=== PATIENT | male | born 1940 | race Caucasian/White ===

== ENCOUNTER 2018-10-25 02:12 | Inpatient (IN) | payer MEDICARE ==
[~2018-10-25] VITALS: Ht 182.9 cm; Wt 80.3 kg
[2018-10-25] MEDS ORDERED: DOCU-109 PO (04:04)
[2018-10-25] MEDS ORDERED: HYDR100T24 PO (04:04)
[2018-10-25] MEDS ORDERED: AMLO10TA4 PO (04:04)
[2018-10-25] MEDS ORDERED: CLON1PAT3 TD (04:04)
[2018-10-25] MEDS ORDERED: ATOR40TA59 PO (04:04)
[2018-10-25] MEDS ORDERED: MIRT15TA3 PO (04:04)
[2018-10-25] MEDS ORDERED: TAMS0.4C97 PO (04:04)
[2018-10-25] MEDS ORDERED: NEBI5TAB2 PO (04:04)
[2018-10-25] MEDS ORDERED: CIPR500T PO (04:04)
[2018-10-25] MEDS ORDERED: MULT1TAB52 PO (04:04)
[2018-10-25] MEDS ORDERED: ASPI-612 PO (04:04)
[2018-10-25] MEDS ORDERED: QUET25TA5 PO (04:04)
[2018-10-25] MEDS ORDERED: POLY15DR20 OP (04:04)
[2018-10-25] MEDS ORDERED: FURO-69 PO (04:04)
[2018-10-25] MEDS ORDERED: MAG HYDROX/AL HYDROX/SIMETH 30 ML ORAL.SUSP PO PRN (04:15)
[2018-10-25] MEDS ORDERED: METHYL SALICYLATE/MENTHOL TOPICAL OINTMENT 29GM TUBE. TP PRN (04:15)
[2018-10-25] MEDS ORDERED: MAGNESIUM HYDROXIDE 2,400 MG/30 ML ORAL.SUSP. PO PRN (04:15)
[2018-10-25 06:14] VITALS: BP_SYST 156; BP_SYST 92; BP_DIAS 55; BP_DIAS 74
[2018-10-25 07:35] LABS: BASO % 1 % (0-3); EOS # 0.1 x10^3/uL (0.0-0.7); EOS % 1 % (0-3); HEMATOCRIT 37.9 % (39.0-53.0); HEMOGLOBIN 12.6 g/dL (13.0-17.5); LYMPH # 1.1 x10^3/uL (1.0-4.8); LYMPH % 18 % (24-48); MEAN CORPUSCULAR HEMOGLOBIN 31 pg (25-35); MEAN CORPUSCULAR HGB CONC 33 g/dL (31-37); MEAN CORPUSCULAR VOLUME 92 fL (79-100); MONO # 0.7 x10^3/uL (0.0-1.1); MONO % 10 % (0-9); NEUT # 4.4 x10^3uL (1.8-7.7); NEUT % 70 % (31-73); PLATELET COUNT 236 x10^3/uL (140-400); RED BLOOD COUNT 4.11 x10^6/uL (4.30-5.70); RED CELL DISTRIBUTION WIDTH 14.2 % (11.5-14.5); WHITE BLOOD COUNT 6.4 x10^3/uL (4.0-11.0)
[2018-10-25 08:31] LABS: ALBUMIN 3.2 g/dL (3.4-5.0); ALBUMIN/GLOBULIN RATIO 1.1 (1.0-1.7); CALCIUM 8.5 mg/dL (8.5-10.1); CREATININE 1.7 mg/dL (0.7-1.3); GFR 39.3; MAGNESIUM 1.9 mg/dL (1.8-2.4); POTASSIUM 3.7 mmol/L (3.5-5.1); TOTAL BILIRUBIN 0.5 mg/dL (0.2-1.0); TOTAL PROTEIN 6.1 g/dL (6.4-8.2)
[2018-10-25] MEDS: METOPROLOL TART IMMED RELEASE 25 MG TABLET PO SCH ×2 (09:00→19:50)
[2018-10-25] MEDS: CIPROFLOXACIN HCL 500 MG TABLET PO SCH ×2 (09:00→19:50)
[2018-10-25] MEDS: ASPIRIN ENTERIC COATED 81 MG TABLET.DR. PO SCH (09:18)
[2018-10-25] MEDS: POLYVINYL ALCOHOL 1.4% OPHTH SOLUTION 15ML BOTTLE. OU SCH ×3 (09:18→19:52)
[2018-10-25] MEDS: DOCUSATE SODIUM 100 MG CAPSULE PO SCH ×2 (09:19→19:50)
[2018-10-25] MEDS: FUROSEMIDE 20 MG TABLET PO SCH (09:19)
[2018-10-25] MEDS: TAMSULOSIN 0.4 MG CAP.ER.24H. PO SCH (09:19)
[2018-10-25] MEDS: amLODIPine BESYLATE 10 MG TABLET PO SCH (09:20)
[2018-10-25] MEDS: MULTIVITAMIN with MINERAL TABLET. PO SCH (09:21)
[2018-10-25 13:58] LABS: THYROID STIM HORMONE (TSH) 1.806 uIU/mL (0.358-3.740)
[2018-10-25 15:44] VITALS: BP 147/69
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
[2018-10-25 18:11] LABS: THYROXINE 7.5 ug/dL (4.5-12.0)
[2018-10-25] MEDS: ATORVASTATIN CALCIUM 20 MG TABLET PO SCH (19:52)
[2018-10-25] MEDS: MIRTAZAPINE 15 MG TABLET PO SCH (19:52)
[2018-10-25] MEDS: QUEtiapine 25 MG TABLET. PO SCH (19:52)
--- NOTE | 2018-10-25 22:23 | PDOC ---
Exam Note: Theodore Note: Please also refer to the separate dictated note~for this date of service dictated separately. Discussed the patient with Nursing staff reviewed the chart.~Reviewed interim history and current functioning. Reviewed vital signs,~Labs/ Radiology~and current medications noted below. Continue current treatment with the changes noted in the dictated addendum note Assessment: Vital Signs: Vital Signs Date Time Temp Pulse Resp B/P (MAP) Pulse Ox O2 Delivery O2 Flow Rate FiO2 10/25/18 19:50 64 147/69 10/25/18 15:44 98.4 18 97 Labs: Laboratory Tests Test 10/25/18 07:22 White Blood Count 6.4 x10^3/uL (4.0-11.0) Red Blood Count 4.11 x10^6/uL (4.30-5.70) L Hemoglobin 12.6 g/dL (13.0-17.5) L Hematocrit 37.9 % (39.0-53.0) L Mean Corpuscular Volume 92 fL (79-100) Mean Corpuscular Hemoglobin 31 pg (25-35) Mean Corpuscular Hemoglobin Concent 33 g/dL (31-37) Red Cell Distribution Width 14.2 % (11.5-14.5) Platelet Count 236 x10^3/uL (140-400) Neutrophils (%) (Auto) 70 % (31-73) Lymphocytes (%) (Auto) 18 % (24-48) L Monocytes (%) (Auto) 10 % (0-9) H Eosinophils (%) (Auto) 1 % (0-3) Basophils (%) (Auto) 1 % (0-3) Neutrophils # (Auto) 4.4 x10^3uL (1.8-7.7) Lymphocytes # (Auto) 1.1 x10^3/uL (1.0-4.8) Monocytes # (Auto) 0.7 x10^3/uL (0.0-1.1) Eosinophils # (Auto) 0.1 x10^3/uL (0.0-0.7) Basophils # (Auto) 0.0 x10^3/uL (0.0-0.2) Sodium Level 143 mmol/L (136-145) Potassium Level 3.7 mmol/L (3.5-5.1) Chloride Level 108 mmol/L (98-107) H Carbon Dioxide Level 27 mmol/L (21-32) Anion Gap 8 (6-14) Blood Urea Nitrogen 28 mg/dL (8-26) H Creatinine 1.7 mg/dL (0.7-1.3) H Estimated GFR (Cockcroft-Gault) 39.3 BUN/Creatinine Ratio 16 (6-20) Glucose Level 90 mg/dL (70-99) Calcium Level 8.5 mg/dL (8.5-10.1) Magnesium Level 1.9 mg/dL (1.8-2.4) Iron Level 43 ug/dL (65-175) L Total Iron Binding Capacity 221 ug/dL (250-450) L Iron Saturation 19 % (15-34) Total Bilirubin 0.5 mg/dL (0.2-1.0) Aspartate Amino Transferase (AST) 25 U/L (15-37) Alanine Aminotransferase (ALT) 51 U/L (16-63) Alkaline Phosphatase 90 U/L (46-116) Total Protein 6.1 g/dL (6.4-8.2) L Albumin 3.2 g/dL (3.4-5.0) L Albumin/Globulin Ratio 1.1 (1.0-1.7) Triglycerides Level 41 mg/dL (0-150) Cholesterol Level 129 mg/dL (0-200) LDL Cholesterol, Calculated 50 mg/dL (0-100) VLDL Cholesterol, Calculated 8 mg/dL (0-40) Non-HDL Cholesterol Calculated 58 mg/dL (0-129) HDL Cholesterol 71 mg/dL (40-60) H Cholesterol/HDL Ratio 1.0 25-Hydroxy Vitamin D Total 31.9 ng/mL (30-100) Thyroid Stimulating Hormone (TSH) 1.806 uIU/mL (0.358-3.740) Thyroxine (T4) 7.5 ug/dL (4.5-12.0) Total Triiodothyronine (TT3) 111 ng/dL (71-180) Treponema pallidum Antibody Nonreactive (Nonreactive) Current Medications: Meds: Current Medications Multi-Ingredient Ointment (Analgesic [place]) 1 sanjeev PRN QID PRN TP MUSCLE PAIN; Start 10/25/18 at 04:15 Al Hydroxide/Mg Hydroxide (Mylanta Plus Xs) 15 ml PRN AFTMEALHC PRN PO DYSPEPSIA; Start 10/25/18 at 04:15 Magnesium Hydroxide (Milk Of Magnesia) 2,400 mg PRN QHS PRN PO CONSTIPATION; Start 10/25/18 at 04:15 Mirtazapine (Remeron) 15 mg QHS PO Last administered on 10/25/18 19:52; Start 10/25/18 at 21:00 Quetiapine Fumarate (SEROquel) 25 mg QHS PO Last administered on 10/25/18 19:52; Start 10/25/18 at 21:00 Furosemide (Lasix) 20 mg DAILY PO Last administered on 10/25/18 09:19; Start 10/25/18 at 09:00 Artificial Tears (Artificial Tears) 1 drop TID OU Last administered on 10/25/18 19:52; Start 10/25/18 at 09:00 Tamsulosin HCl (Flomax) 0.4 mg DAILY PO Last administered on 10/25/18 09:19; Start 10/25/18 at 09:00 Amlodipine Besylate (Norvasc) 10 mg DAILY PO Last administered on 10/25/18 09:20; Start 10/25/18 at 09:00 Aspirin (Aspirin Enteric Coated) 81 mg DAILYWBKFT PO Last administered on 10/25/18 09:18; Start 10/25/18 at 08:00 Atorvastatin Calcium (Lipitor) 40 mg QHS PO Last administered on 10/25/18 19:52; Start 10/25/18 at 21:00 Ciprofloxacin (Cipro) 500 mg BID PO Last administered on 10/25/18 19:50; Start 10/25/18 at 09:00 Clonidine HCl (Catapres Tts-3) 1 patch WEEKLY TD ; Start 10/27/18 at 09:00 Docusate Sodium (Colace) 100 mg BID PO Last administered on 10/25/18 19:50; Start 10/25/18 at 09:00 Hydralazine HCl (Apresoline) 100 mg TID PO Last administered on 10/25/18 19:50; Start 10/25/18 at 09:00 Multivitamins/ Calcium (Thera-M Plus) 1 tab DAILY PO Last administered on 10/25/18 09:21; Start 10/25/18 at 09:00 Metoprolol Tartrate (Lopressor) 25 mg BID PO Last administered on 10/25/18at 19:50; Start 10/25/18 at 09:00 Olanzapine (ZyPREXA ZYDIS) 2.5 mg PRN Q2HR PRN PO PSYCHOSIS; Start 10/25/18 at 04:15 Active Scripts Active Reported Flomax (Tamsulosin Hcl) 0.4 Mg Cap.er.24h 0.4 Mg PO DAILY Seroquel (Quetiapine Fumarate) 25 Mg Tablet 25 Mg PO QHS Polyvinyl Alcohol 15 Ml Drops 1 Drop OP TID Bystolic (Nebivolol Hcl) 5 Mg Tablet 5 Mg PO QHS Multivitamins (Multivitamin) 1 Each Tablet 1 Tab PO DAILY Mirtazapine 15 Mg Tablet 15 Mg PO QHS Hydralazine Hcl 100 Mg Tablet 100 Mg PO TID Lasix (Furosemide) 20 Mg Tablet 20 Mg PO DAILY Colace (Docusate Sodium) 100 Mg Capsule 100 Mg PO BID Clonidine Tts-3 (Clonidine) 1 Each Patch.tdwk 1 Patch TD WEEKLY Ciprofloxacin Hcl 500 Mg Tablet 500 Mg PO BID Atorvastatin Calcium 40 Mg Tablet 40 Mg PO QHS Aspirin Ec (Aspirin) 81 Mg Tablet. 81 Mg PO DAILY Norvasc (Amlodipine Besylate) 10 Mg Tablet 10 Mg PO DAILY I have reviewed the current psychotropics carefully including drug interactions. Risk benefit ratio favors no change other than as noted in my dictated progress note. Diagnosis: Problems: (1) Anxiety disorder (2) Dementia, vascular, with depression (3) Dementia, vascular, with delusions (4) Dementia in Alzheimer's disease with depression (5) Dementia in Alzheimer's disease with delusions (6) Impulse control disorder (7) Major neurocognitive disorder OVIDIO BARRIOS MD October 25, 2018 22:23
[2018-10-26] MEDS: ASPIRIN ENTERIC COATED 81 MG TABLET.DR. PO SCH (09:00)
[2018-10-26] MEDS: DOCUSATE SODIUM 100 MG CAPSULE PO SCH ×2 (09:00→19:26)
[2018-10-26] MEDS: POLYVINYL ALCOHOL 1.4% OPHTH SOLUTION 15ML BOTTLE. OU SCH ×3 (09:00→19:24)
[2018-10-26] MEDS: CIPROFLOXACIN HCL 500 MG TABLET PO SCH ×2 (09:00→19:26)
[2018-10-26] MEDS: FUROSEMIDE 20 MG TABLET PO SCH (09:01)
[2018-10-26] MEDS: amLODIPine BESYLATE 10 MG TABLET PO SCH (09:01)
[2018-10-26] MEDS: TAMSULOSIN 0.4 MG CAP.ER.24H. PO SCH (09:01)
[2018-10-26] MEDS: MULTIVITAMIN with MINERAL TABLET. PO SCH (09:01)
[2018-10-26] MEDS: METOPROLOL TART IMMED RELEASE 25 MG TABLET PO SCH ×2 (09:01→19:27)
[2018-10-26 16:20] VITALS: BP 102/53
[2018-10-26] MEDS: ATORVASTATIN CALCIUM 20 MG TABLET PO SCH (19:26)
[2018-10-26] MEDS: MIRTAZAPINE 15 MG TABLET PO SCH (19:27)
[2018-10-26] MEDS: QUEtiapine 25 MG TABLET. PO SCH (19:27)
[2018-10-26] MEDS: LACTOBACILLUS RHAMNOSUS GG 1 CAPSULE. PO SCH (19:31)
--- NOTE | 2018-10-26 22:31 | PDOC ---
Exam Note: Theodore Note: Please also refer to the separate dictated note~for this date of service dictated separately.~Patient seen individually. Discussed the patient with Nursing staff reviewed the chart.~Reviewed interim history and current functioning. Reviewed vital signs,~Labs/ Radiology~and current medications noted below. Continue current treatment with the changes noted in the dictated addendum note Assessment: Vital Signs: Vital Signs Date Time Temp Pulse Resp B/P (MAP) Pulse Ox O2 Delivery O2 Flow Rate FiO2 10/26/18 19:27 79 102/53 10/26/18 16:20 97.3 16 95 Room Air I&O Intake and Output 10/26/18 06:59 Intake Total 480 ml Balance 480 ml Intake Oral 480 ml Current Medications: Meds: Current Medications Multi-Ingredient Ointment (Analgesic [place]) 1 sanjeev PRN QID PRN TP MUSCLE PAIN; Start 10/25/18 at 04:15 Al Hydroxide/Mg Hydroxide (Mylanta Plus Xs) 15 ml PRN AFTMEALHC PRN PO DYSPEPSIA; Start 10/25/18 at 04:15 Magnesium Hydroxide (Milk Of Magnesia) 2,400 mg PRN QHS PRN PO CONSTIPATION; Start 10/25/18 at 04:15 Mirtazapine (Remeron) 15 mg QHS PO Last administered on 10/26/18 19:27; Start 10/25/18 at 21:00 Quetiapine Fumarate (SEROquel) 25 mg QHS PO Last administered on 10/26/18 19:27; Start 10/25/18 at 21:00 Furosemide (Lasix) 20 mg DAILY PO Last administered on 10/26/18 09:01; Start 10/25/18 at 09:00 Artificial Tears (Artificial Tears) 1 drop TID OU Last administered on 10/26/18 19:24; Start 10/25/18 at 09:00 Tamsulosin HCl (Flomax) 0.4 mg DAILY PO Last administered on 10/26/18 09:01; Start 10/25/18 at 09:00 Amlodipine Besylate (Norvasc) 10 mg DAILY PO Last administered on 10/26/18 09:01; Start 10/25/18 at 09:00 Aspirin (Aspirin Enteric Coated) 81 mg DAILYWBKFT PO Last administered on 5/31/19at 09:00; Start 10/25/18 at 08:00 Atorvastatin Calcium (Lipitor) 40 mg QHS PO Last administered on 10/26/18 19:26; Start 10/25/18 at 21:00 Ciprofloxacin (Cipro) 500 mg BID PO Last administered on 10/26/18at 19:26; Start 10/25/18 at 09:00 Clonidine HCl (Catapres Tts-3) 1 patch WEEKLY TD ; Start 10/27/18 at 09:00 Docusate Sodium (Colace) 100 mg BID PO Last administered on 10/26/18 19:26; Start 10/25/18 at 09:00 Hydralazine HCl (Apresoline) 100 mg TID PO Last administered on 10/26/18 19:25; Start 10/25/18 at 09:00 Multivitamins/ Calcium (Thera-M Plus) 1 tab DAILY PO Last administered on 09:01; Start 10/25/18 at 09:00 Metoprolol Tartrate (Lopressor) 25 mg BID PO Last administered on 10/26/18at 09:01; Start 10/25/18 at 09:00 Olanzapine (ZyPREXA ZYDIS) 2.5 mg PRN Q2HR PRN PO PSYCHOSIS; Start 10/25/18 at 04:15 Lactobacillus Rhamnosus (Culturelle) 1 cap BID PO Last administered on 10/26/18at 19:31; Start 10/26/18 at 21:00 Selenium Sulfide (Selsun) 1 sanjeev 3X/WEEK TP ; Start 10/29/18 at 09:00 Sertraline HCl (Zoloft) 25 mg DAILY PO ; Start 10/27/18 at 09:00 Active Scripts Active Reported Flomax (Tamsulosin Hcl) 0.4 Mg Cap.er.24h 0.4 Mg PO DAILY Seroquel (Quetiapine Fumarate) 25 Mg Tablet 25 Mg PO QHS Polyvinyl Alcohol 15 Ml Drops 1 Drop OP TID Bystolic (Nebivolol Hcl) 5 Mg Tablet 5 Mg PO QHS Multivitamins (Multivitamin) 1 Each Tablet 1 Tab PO DAILY Mirtazapine 15 Mg Tablet 15 Mg PO QHS Hydralazine Hcl 100 Mg Tablet 100 Mg PO TID Lasix (Furosemide) 20 Mg Tablet 20 Mg PO DAILY Colace (Docusate Sodium) 100 Mg Capsule 100 Mg PO BID Clonidine Tts-3 (Clonidine) 1 Each Patch.tdwk 1 Patch TD WEEKLY Ciprofloxacin Hcl 500 Mg Tablet 500 Mg PO BID Atorvastatin Calcium 40 Mg Tablet 40 Mg PO QHS Aspirin Ec (Aspirin) 81 Mg Tablet. 81 Mg PO DAILY Norvasc (Amlodipine Besylate) 10 Mg Tablet 10 Mg PO DAILY I have reviewed the current psychotropics carefully including drug interactions. Risk benefit ratio favors no change other than as noted in my dictated progress note. Diagnosis: Problems: (1) Major neurocognitive disorder (2) Anxiety disorder (3) Dementia, vascular, with depression (4) Dementia, vascular, with delusions (5) Dementia in Alzheimer's disease with depression (6) Dementia in Alzheimer's disease with delusions (7) Impulse control disorder OVIDIO BARRIOS MD October 26, 2018 22:31
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
[2018-10-27 05:54] VITALS: BP 159/83
[2018-10-27 05:56] VITALS: BP 157/78
[2018-10-27] MEDS: ASPIRIN ENTERIC COATED 81 MG TABLET.DR. PO SCH (08:07)
[2018-10-27] MEDS: TAMSULOSIN 0.4 MG CAP.ER.24H. PO SCH (08:08)
[2018-10-27] MEDS: LACTOBACILLUS RHAMNOSUS GG 1 CAPSULE. PO SCH ×2 (08:08→19:28)
[2018-10-27] MEDS: CIPROFLOXACIN HCL 500 MG TABLET PO SCH ×2 (08:08→19:26)
[2018-10-27] MEDS: DOCUSATE SODIUM 100 MG CAPSULE PO SCH ×2 (08:08→19:26)
[2018-10-27] MEDS: FUROSEMIDE 20 MG TABLET PO SCH (08:09)
[2018-10-27] MEDS: METOPROLOL TART IMMED RELEASE 25 MG TABLET PO SCH ×2 (08:09→19:27)
[2018-10-27] MEDS: amLODIPine BESYLATE 10 MG TABLET PO SCH (08:10)
[2018-10-27] MEDS: POLYVINYL ALCOHOL 1.4% OPHTH SOLUTION 15ML BOTTLE. OU SCH ×3 (08:14→19:29)
[2018-10-27] MEDS: MULTIVITAMIN with MINERAL TABLET. PO SCH (08:14)
[2018-10-27] MEDS: SERTRALINE 25 MG TABLET. PO SCH (08:15)
[2018-10-27] MEDS ORDERED: cloNIDine TTS-3 1 PATCH PATCH TD SCH (09:00)
[2018-10-27 16:45] VITALS: BP 128/66
[2018-10-27] MEDS: ATORVASTATIN CALCIUM 20 MG TABLET PO SCH (19:27)
[2018-10-27] MEDS: MIRTAZAPINE 15 MG TABLET PO SCH (19:27)
[2018-10-27] MEDS: QUEtiapine 25 MG TABLET. PO SCH (19:27)
--- NOTE | 2018-10-27 22:33 | PDOC ---
Exam Note: Theodore Note: Please also refer to the separate dictated note~for this date of service dictated separately.~Patient seen individually. Discussed the patient with Nursing staff reviewed the chart.~Reviewed interim history and current functioning. Reviewed vital signs,~Labs/ Radiology~and current medications noted below. Continue current treatment with the changes noted in the dictated addendum note Assessment: Vital Signs: Vital Signs Date Time Temp Pulse Resp B/P (MAP) Pulse Ox O2 Delivery O2 Flow Rate FiO2 10/27/18 19:27 77 128/66 10/27/18 16:45 98.0 18 97 10/26/18 16:20 Room Air I&O Intake and Output 10/27/18 06:59 Intake Total 1200 ml Balance 1200 ml Intake Oral 1200 ml # Bowel Movements 2 Current Medications: Meds: Current Medications Multi-Ingredient Ointment (Analgesic [place]) 1 sanjeev PRN QID PRN TP MUSCLE PAIN; Start 10/25/18 at 04:15 Al Hydroxide/Mg Hydroxide (Mylanta Plus Xs) 15 ml PRN AFTMEALHC PRN PO DYSPEPSIA; Start 10/25/18 at 04:15 Magnesium Hydroxide (Milk Of [place]esia) 2,400 mg PRN QHS PRN PO CONSTIPATION; Start 10/25/18 at 04:15 Mirtazapine (Remeron) 15 mg QHS PO Last administered on 10/27/18at 19:27; Start 10/25/18 at 21:00 Quetiapine Fumarate (SEROquel) 25 mg QHS PO Last administered on 10/27/18at 19:27; Start 10/25/18 at 21:00 Furosemide (Lasix) 20 mg DAILY PO Last administered on 10/27/18at 08:09; Start 10/25/18 at 09:00 Artificial Tears (Artificial Tears) 1 drop TID OU Last administered on 10/27/18at 19:29; Start 10/25/18 at 09:00 Tamsulosin HCl (Flomax) 0.4 mg DAILY PO Last administered on 10/27/18at 08:08; Start 10/25/18 at 09:00 Amlodipine Besylate (Norvasc) 10 mg DAILY PO Last administered on 10/27/18at 08:10; Start 10/25/18 at 09:00 Aspirin (Aspirin Enteric Coated) 81 mg DAILYWBKFT PO Last administered on 10/27/18 08:07; Start 10/25/18 at 08:00 Atorvastatin Calcium (Lipitor) 40 mg QHS PO Last administered on 10/27/18 19:27; Start 10/25/18 at 21:00 Ciprofloxacin (Cipro) 500 mg BID PO Last administered on 10/27/18 19:26; Start 10/25/18 at 09:00 Clonidine HCl (Catapres Tts-3) 1 patch WEEKLY TD Last administered on 10/27/18 08:16; Start 10/27/18 at 09:00 Docusate Sodium (Colace) 100 mg BID PO Last administered on 10/27/18 19:26; Start 10/25/18 at 09:00 Hydralazine HCl (Apresoline) 100 mg TID PO Last administered on 10/27/18 19:26; Start 10/25/18 at 09:00 Multivitamins/ Calcium (Thera-M Plus) 1 tab DAILY PO Last administered on 10/27/18at 08:14; Start 10/25/18 at 09:00 Metoprolol Tartrate (Lopressor) 25 mg BID PO Last administered on 10/27/18 19:27; Start 10/25/18 at 09:00 Olanzapine (ZyPREXA ZYDIS) 2.5 mg PRN Q2HR PRN PO PSYCHOSIS; Start 10/25/18 at 04:15 Lactobacillus Rhamnosus (Culturelle) 1 cap BID PO Last administered on 10/27/18at 19:28; Start 10/26/18 at 21:00 Selenium Sulfide (Selsun) 1 sanjeev 3X/WEEK TP ; Start 10/29/18 at 09:00 Sertraline HCl (Zoloft) 25 mg DAILY PO Last administered on 10/27/18 08:15; Start 10/27/18 at 09:00 Active Scripts Active Reported Flomax (Tamsulosin Hcl) 0.4 Mg Cap.er.24h 0.4 Mg PO DAILY Seroquel (Quetiapine Fumarate) 25 Mg Tablet 25 Mg PO QHS Polyvinyl Alcohol 15 Ml Drops 1 Drop OP TID Bystolic (Nebivolol Hcl) 5 Mg Tablet 5 Mg PO QHS Multivitamins (Multivitamin) 1 Each Tablet 1 Tab PO DAILY Mirtazapine 15 Mg Tablet 15 Mg PO QHS Hydralazine Hcl 100 Mg Tablet 100 Mg PO TID Lasix (Furosemide) 20 Mg Tablet 20 Mg PO DAILY Colace (Docusate Sodium) 100 Mg Capsule 100 Mg PO BID Clonidine Tts-3 (Clonidine) 1 Each Patch.tdwk 1 Patch TD WEEKLY Ciprofloxacin Hcl 500 Mg Tablet 500 Mg PO BID Atorvastatin Calcium 40 Mg Tablet 40 Mg PO QHS Aspirin Ec (Aspirin) 81 Mg Tablet. 81 Mg PO DAILY Norvasc (Amlodipine Besylate) 10 Mg Tablet 10 Mg PO DAILY I have reviewed the current psychotropics carefully including drug interactions. Risk benefit ratio favors no change other than as noted in my dictated progress note. Diagnosis: Problems: (1) Major neurocognitive disorder (2) Anxiety disorder (3) Dementia, vascular, with depression (4) Dementia, vascular, with delusions (5) Dementia in Alzheimer's disease with depression (6) Dementia in Alzheimer's disease with delusions (7) Impulse control disorder OVIDIO BARRIOS MD Oct 27, 2018 22:33
[2018-10-28 06:14] VITALS: BP 155/77
[2018-10-28] MEDS: ASPIRIN ENTERIC COATED 81 MG TABLET.DR. PO SCH (07:55)
[2018-10-28] MEDS: POLYVINYL ALCOHOL 1.4% OPHTH SOLUTION 15ML BOTTLE. OU SCH ×3 (07:55→20:45)
[2018-10-28] MEDS: DOCUSATE SODIUM 100 MG CAPSULE PO SCH ×2 (07:56→20:13)
[2018-10-28] MEDS: LACTOBACILLUS RHAMNOSUS GG 1 CAPSULE. PO SCH ×2 (07:56→20:12)
[2018-10-28] MEDS: CIPROFLOXACIN HCL 500 MG TABLET PO SCH ×2 (07:56→20:12)
[2018-10-28] MEDS: METOPROLOL TART IMMED RELEASE 25 MG TABLET PO SCH ×2 (07:57→20:12)
[2018-10-28] MEDS: FUROSEMIDE 20 MG TABLET PO SCH (07:57)
[2018-10-28] MEDS: TAMSULOSIN 0.4 MG CAP.ER.24H. PO SCH (07:57)
[2018-10-28] MEDS: amLODIPine BESYLATE 10 MG TABLET PO SCH (07:58)
[2018-10-28] MEDS: SERTRALINE 25 MG TABLET. PO SCH (07:58)
[2018-10-28] MEDS: MULTIVITAMIN with MINERAL TABLET. PO SCH (07:58)
[2018-10-28] MEDS: SELENIUM SULFIDE 1% TOPICAL SHAMPOO 207ML BOTTLE. TP SCH (10:15)
[2018-10-28 16:14] VITALS: BP 149/73
[2018-10-28] MEDS: QUEtiapine 25 MG TABLET. PO SCH (20:12)
[2018-10-28] MEDS: ATORVASTATIN CALCIUM 20 MG TABLET PO SCH (20:12)
[2018-10-28] MEDS: MIRTAZAPINE 15 MG TABLET PO SCH (20:12)
--- NOTE | 2018-10-28 22:36 | PDOC ---
Exam Note: Theodore Note: Please also refer to the separate dictated note~for this date of service dictated separately.~Patient seen individually. Discussed the patient with Nursing staff reviewed the chart.~Reviewed interim history and current functioning. Reviewed vital signs,~Labs/ Radiology~and current medications noted below. Continue current treatment with the changes noted in the dictated addendum note Assessment: Vital Signs: Vital Signs Date Time Temp Pulse Resp B/P (MAP) Pulse Ox O2 Delivery O2 Flow Rate FiO2 10/28/18 20:12 71 149/73 10/28/18 16:14 98.1 19 100 10/26/18 16:20 Room Air I&O Intake and Output 10/28/18 07:00 Intake Total 1560 ml Balance 1560 ml Intake Oral 1560 ml # Bowel Movements 2 Current Medications: Meds: Current Medications Multi-Ingredient Ointment (Analgesic [place]) 1 sanjeev PRN QID PRN TP MUSCLE PAIN; Start 10/25/18 at 04:15 Al Hydroxide/Mg Hydroxide (Mylanta Plus Xs) 15 ml PRN AFTMEALHC PRN PO DYSPEPSIA; Start 10/25/18 at 04:15 Magnesium Hydroxide (Milk Of Magnesia) 2,400 mg PRN QHS PRN PO CONSTIPATION; Start 10/25/18 at 04:15 Mirtazapine (Remeron) 15 mg QHS PO Last administered on 10/28/18 20:12; Start 10/25/18 at 21:00 Quetiapine Fumarate (SEROquel) 25 mg QHS PO Last administered on 10/28/18at 20:12; Start 10/25/18 at 21:00 Furosemide (Lasix) 20 mg DAILY PO Last administered on 10/28/18 07:57; Start 10/25/18 at 09:00 Artificial Tears (Artificial Tears) 1 drop TID OU Last administered on 10/28/18 20:45; Start 10/25/18 at 09:00 Tamsulosin HCl (Flomax) 0.4 mg DAILY PO Last administered on 10/28/18 07:57; Start 10/25/18 at 09:00 Amlodipine Besylate (Norvasc) 10 mg DAILY PO Last administered on 10/28/18 07:58; Start 10/25/18 at 09:00 Aspirin (Aspirin Enteric Coated) 81 mg DAILYWBKFT PO Last administered on 10/28/18 07:55; Start 10/25/18 at 08:00 Atorvastatin Calcium (Lipitor) 40 mg QHS PO Last administered on 10/28/18 20:12; Start 10/25/18 at 21:00 Ciprofloxacin (Cipro) 500 mg BID PO Last administered on 10/28/18 20:12; Start 10/25/18 at 09:00 Clonidine HCl (Catapres Tts-3) 1 patch WEEKLY TD Last administered on 10/27/18 08:16; Start 10/27/18 at 09:00 Docusate Sodium (Colace) 100 mg BID PO Last administered on 10/28/18 20:13; Start 10/25/18 at 09:00 Hydralazine HCl (Apresoline) 100 mg TID PO Last administered on 10/28/18 20:12; Start 10/25/18 at 09:00 Multivitamins/ Calcium (Thera-M Plus) 1 tab DAILY PO Last administered on 10/28/18 07:58; Start 10/25/18 at 09:00 Metoprolol Tartrate (Lopressor) 25 mg BID PO Last administered on 10/28/18 20:12; Start 10/25/18 at 09:00 Olanzapine (ZyPREXA ZYDIS) 2.5 mg PRN Q2HR PRN PO PSYCHOSIS; Start 10/25/18 at 04:15 Lactobacillus Rhamnosus (Culturelle) 1 cap BID PO Last administered on 10/28/18 20:12; Start 10/26/18 at 21:00 Selenium Sulfide (Selsun) 1 sanjeev 3X/WEEK TP Last administered on 10/28/18 10:15; Start 10/29/18 at 09:00 Sertraline HCl (Zoloft) 25 mg DAILY PO Last administered on 10/28/18 07:58; Start 10/27/18 at 09:00 Active Scripts Active Reported Flomax (Tamsulosin Hcl) 0.4 Mg Cap.er.24h 0.4 Mg PO DAILY Seroquel (Quetiapine Fumarate) 25 Mg Tablet 25 Mg PO QHS Polyvinyl Alcohol 15 Ml Drops 1 Drop OP TID Bystolic (Nebivolol Hcl) 5 Mg Tablet 5 Mg PO QHS Multivitamins (Multivitamin) 1 Each Tablet 1 Tab PO DAILY Mirtazapine 15 Mg Tablet 15 Mg PO QHS Hydralazine Hcl 100 Mg Tablet 100 Mg PO TID Lasix (Furosemide) 20 Mg Tablet 20 Mg PO DAILY Colace (Docusate Sodium) 100 Mg Capsule 100 Mg PO BID Clonidine Tts-3 (Clonidine) 1 Each Patch.tdwk 1 Patch TD WEEKLY Ciprofloxacin Hcl 500 Mg Tablet 500 Mg PO BID Atorvastatin Calcium 40 Mg Tablet 40 Mg PO QHS Aspirin Ec (Aspirin) 81 Mg Tablet.dr 81 Mg PO DAILY Norvasc (Amlodipine Besylate) 10 Mg Tablet 10 Mg PO DAILY I have reviewed the current psychotropics carefully including drug interactions. Risk benefit ratio favors no change other than as noted in my dictated progress note. Diagnosis: Problems: (1) Major neurocognitive disorder (2) Anxiety disorder (3) Dementia, vascular, with depression (4) Dementia, vascular, with delusions (5) Dementia in Alzheimer's disease with depression (6) Dementia in Alzheimer's disease with delusions (7) Impulse control disorder OVIDIO BARRIOS MD Oct 28, 2018 22:36
--- NOTE | 2018-10-29 06:14 | PN ---
DATE: 10/26/2018 PSYCHIATRIC PROGRESS NOTE This late entry 10/26/2018 covers elements not covered in my initial note. SUBJECTIVE: I met with the patient in the evening. The patient slept 5-3/4 hours previous night. The patient is somewhat resistive to checking his blood pressure in the morning. He has a skin tear, right hand noted by night stocker staff. He was talking about going to join a gang, then raised to himself. Mother was a single parent. Unsure of the veracity of these statements. REVIEW OF SYSTEMS: Ambulation impaired, in wheelchair. No CV, , pulmonary, eye, ENT system symptoms on review. Reliability poor. MENTAL STATUS EXAM: Oriented to himself. Insight, judgment, recent and remote memory, attention, concentration, fund of knowledge poor, consistent with his diagnosis mentioned in my initial note. PLAN: Continue with Seroquel 25 mg at bedtime; Remeron 15 mg at bedtime; start Zoloft 25 mg a day, increase gradually. Received and discussed potential side effects and drug interactions. MAN Saw BARRIOS MD DR: GARY/tasneem JOB#: [id number] / [id number]
[2018-10-29 06:19] VITALS: BP 158/70
--- NOTE | 2018-10-29 07:08 | PN ---
DATE: 10/27/2018 PSYCHIATRIC PROGRESS NOTE This late entry 10/27/2018 covers elements not covered in my initial note. SUBJECTIVE: I met with the patient evening of 10/27/2018. The patient slept 4-3/4 hours previous night. Per nursing report, he has been calm, cooperative, but disorganized. He had a good day with no behavior changes. Remains confused. REVIEW OF SYSTEMS: Ambulation impaired, in wheelchair. No CV, , pulmonary, eye, ENT system symptoms on review. MENTAL STATUS EXAM: Oriented to himself and situation. Speech has some latency, coherent. Abstraction fair, computation impaired, language function intact, attention span short. Mood and affect remains somewhat depressed. LABORATORY DATA: Reviewed. IMPRESSION: Major neurocognitive disorder, Alzheimer, vascular with delusion, depression; anxiety disorder, unspecified; impulse control disorder, unspecified; major depressive disorder with psychotic features. Rest unchanged. PLAN: Continue current psychotropics. Start Zoloft 25 mg a day, may need to increase this gradually. Maintain Remeron and Seroquel unchanged. MAN Saw BARRIOS MD DR: GARY/tasneem JOB#: [id number] / [id number]
[2018-10-29] MEDS: CIPROFLOXACIN HCL 500 MG TABLET PO SCH ×2 (07:27→19:52)
[2018-10-29] MEDS: ASPIRIN ENTERIC COATED 81 MG TABLET.DR. PO SCH (07:27)
[2018-10-29] MEDS: POLYVINYL ALCOHOL 1.4% OPHTH SOLUTION 15ML BOTTLE. OU SCH ×3 (07:27→19:53)
[2018-10-29] MEDS: DOCUSATE SODIUM 100 MG CAPSULE PO SCH ×2 (07:27→19:51)
[2018-10-29] MEDS: LACTOBACILLUS RHAMNOSUS GG 1 CAPSULE. PO SCH ×2 (07:28→19:52)
[2018-10-29] MEDS: METOPROLOL TART IMMED RELEASE 25 MG TABLET PO SCH ×2 (07:29→19:52)
[2018-10-29] MEDS: FUROSEMIDE 20 MG TABLET PO SCH (07:29)
[2018-10-29] MEDS: MULTIVITAMIN with MINERAL TABLET. PO SCH (07:30)
[2018-10-29] MEDS: amLODIPine BESYLATE 10 MG TABLET PO SCH (07:30)
[2018-10-29] MEDS: SERTRALINE 25 MG TABLET. PO SCH (07:31)
[2018-10-29] MEDS: TAMSULOSIN 0.4 MG CAP.ER.24H. PO SCH (07:31)
--- NOTE | 2018-10-29 07:46 | PN ---
DATE: 10/28/2018 PSYCHIATRIC PROGRESS NOTE This late entry 10/28/2018 covers elements not covered in my initial note. SUBJECTIVE: I met with the patient in the evening. The patient slept 6 hours previous night. He refused his bedtime meds, took them during the day today. He did have a shower. Hair was washed and he handled this well. REVIEW OF SYSTEMS: No CV, , pulmonary, eye, ENT system symptoms on review. Reliability poor. Gait unsteady in wheelchair. MENTAL STATUS EXAM: Oriented to himself. Insight, judgment, recent and remote memory, attention, concentration, fund of knowledge poor, consistent with his diagnosis mentioned in my initial note. PLAN: No change from initial note. Increase Zoloft to 50 mg a day after he has been on 25 for 3 days. Rest unchanged. MAN Saw BARRIOS MD DR: GARY/tasneem JOB#: [id number] / [id number]
[2018-10-29 16:00] VITALS: BP 120/58
[2018-10-29] MEDS: ATORVASTATIN CALCIUM 20 MG TABLET PO SCH (19:50)
[2018-10-29] MEDS: QUEtiapine 25 MG TABLET. PO SCH (19:52)
[2018-10-29] MEDS: MIRTAZAPINE 15 MG TABLET PO SCH (19:52)
--- NOTE | 2018-10-29 22:20 | PDOC ---
Exam Note: Theodore Note: Please also refer to the separate dictated note~for this date of service dictated separately.~Patient seen individually. Discussed the patient with Nursing staff reviewed the chart.~Reviewed interim history and current functioning. Reviewed vital signs,~Labs/ Radiology~and current medications noted below. Continue current treatment with the changes noted in the dictated addendum note Assessment: Vital Signs: Vital Signs Date Time Temp Pulse Resp B/P (MAP) Pulse Ox O2 Delivery O2 Flow Rate FiO2 10/29/18 19:52 69 120/58 10/29/18 16:00 97.9 20 96 10/26/18 16:20 Room Air I&O Intake and Output 10/29/18 07:00 Intake Total 1080 ml Balance 1080 ml Intake Oral 1080 ml Current Medications: Meds: Current Medications Multi-Ingredient Ointment (Analgesic [place]) 1 sanjeev PRN QID PRN TP MUSCLE PAIN; Start 10/25/18 at 04:15 Al Hydroxide/Mg Hydroxide (Mylanta Plus Xs) 15 ml PRN AFTMEALHC PRN PO DYSPEPSIA; Start 10/25/18 at 04:15 Magnesium Hydroxide (Milk Of Magnesia) 2,400 mg PRN QHS PRN PO CONSTIPATION; Start 10/25/18 at 04:15 Mirtazapine (Remeron) 15 mg QHS PO Last administered on 10/29/18 19:52; Start 10/25/18 at 21:00 Quetiapine Fumarate (SEROquel) 25 mg QHS PO Last administered on 10/29/18 19:52; Start 10/25/18 at 21:00 Furosemide (Lasix) 20 mg DAILY PO Last administered on 10/29/18 07:29; Start 10/25/18 at 09:00 Artificial Tears (Artificial Tears) 1 drop TID OU Last administered on 10/29/18 19:53; Start 10/25/18 at 09:00 Tamsulosin HCl (Flomax) 0.4 mg DAILY PO Last administered on 10/29/18 07:31; Start 10/25/18 at 09:00 Amlodipine Besylate (Norvasc) 10 mg DAILY PO Last administered on 10/29/18 07:30; Start 10/25/18 at 09:00 Aspirin (Aspirin Enteric Coated) 81 mg DAILYWBKFT PO Last administered on 10/29/18 07:27; Start 10/25/18 at 08:00 Atorvastatin Calcium (Lipitor) 40 mg QHS PO Last administered on 10/29/18 19:50; Start 10/25/18 at 21:00 Ciprofloxacin (Cipro) 500 mg BID PO Last administered on 10/29/18 19:52; Start 10/25/18 at 09:00 Clonidine HCl (Catapres Tts-3) 1 patch WEEKLY TD Last administered on 10/27/18 08:16; Start 10/27/18 at 09:00 Docusate Sodium (Colace) 100 mg BID PO Last administered on 10/29/18 19:51; Start 10/25/18 at 09:00 Hydralazine HCl (Apresoline) 100 mg TID PO Last administered on 10/29/18 19:52; Start 10/25/18 at 09:00 Multivitamins/ Calcium (Thera-M Plus) 1 tab DAILY PO Last administered on 10/29/18 07:30; Start 10/25/18 at 09:00 Metoprolol Tartrate (Lopressor) 25 mg BID PO Last administered on 10/29/18 19:52; Start 10/25/18 at 09:00 Olanzapine (ZyPREXA ZYDIS) 2.5 mg PRN Q2HR PRN PO PSYCHOSIS; Start 10/25/18 at 04:15 Lactobacillus Rhamnosus (Culturelle) 1 cap BID PO Last administered on 10/29/18 19:52; Start 10/26/18 at 21:00 Selenium Sulfide (Selsun) 1 sanjeev 3X/WEEK TP Last administered on 10/28/18at 10:15; Start 10/29/18 at 09:00 Sertraline HCl (Zoloft) 25 mg DAILY PO Last administered on 10/29/18 07:31; Start 10/27/18 at 09:00; Stop 10/29/18 at 21:00; Status DC Sertraline HCl (Zoloft) 50 mg DAILY PO ; Start 10/30/18 at 09:00 Active Scripts Active Reported Flomax (Tamsulosin Hcl) 0.4 Mg Cap.er.24h 0.4 Mg PO DAILY Seroquel (Quetiapine Fumarate) 25 Mg Tablet 25 Mg PO QHS Polyvinyl Alcohol 15 Ml Drops 1 Drop OP TID Bystolic (Nebivolol Hcl) 5 Mg Tablet 5 Mg PO QHS Multivitamins (Multivitamin) 1 Each Tablet 1 Tab PO DAILY Mirtazapine 15 Mg Tablet 15 Mg PO QHS Hydralazine Hcl 100 Mg Tablet 100 Mg PO TID Lasix (Furosemide) 20 Mg Tablet 20 Mg PO DAILY Colace (Docusate Sodium) 100 Mg Capsule 100 Mg PO BID Clonidine Tts-3 (Clonidine) 1 Each Patch.tdwk 1 Patch TD WEEKLY Ciprofloxacin Hcl 500 Mg Tablet 500 Mg PO BID Atorvastatin Calcium 40 Mg Tablet 40 Mg PO QHS Aspirin Ec (Aspirin) 81 Mg Tablet.dr 81 Mg PO DAILY Norvasc (Amlodipine Besylate) 10 Mg Tablet 10 Mg PO DAILY I have reviewed the current psychotropics carefully including drug interactions. Risk benefit ratio favors no change other than as noted in my dictated progress note. Diagnosis: Problems: (1) Major neurocognitive disorder (2) Anxiety disorder (3) Dementia, vascular, with depression (4) Dementia, vascular, with delusions (5) Dementia in Alzheimer's disease with depression (6) Dementia in Alzheimer's disease with delusions (7) Impulse control disorder OVIDIO BARRIOS MD Oct 29, 2018 22:20
[2018-10-30 05:42] VITALS: BP 136/78
[2018-10-30] MEDS: TAMSULOSIN 0.4 MG CAP.ER.24H. PO SCH (07:49)
[2018-10-30] MEDS: amLODIPine BESYLATE 10 MG TABLET PO SCH (07:49)
[2018-10-30] MEDS: DOCUSATE SODIUM 100 MG CAPSULE PO SCH ×2 (07:49→18:33)
[2018-10-30] MEDS: FUROSEMIDE 20 MG TABLET PO SCH (07:49)
[2018-10-30] MEDS: ASPIRIN ENTERIC COATED 81 MG TABLET.DR. PO SCH (07:49)
[2018-10-30] MEDS: LACTOBACILLUS RHAMNOSUS GG 1 CAPSULE. PO SCH ×2 (07:49→18:33)
[2018-10-30] MEDS: MULTIVITAMIN with MINERAL TABLET. PO SCH (07:49)
[2018-10-30] MEDS: CIPROFLOXACIN HCL 500 MG TABLET PO SCH ×2 (07:50→18:33)
[2018-10-30] MEDS: POLYVINYL ALCOHOL 1.4% OPHTH SOLUTION 15ML BOTTLE. OU SCH ×3 (07:50→18:33)
[2018-10-30] MEDS: METOPROLOL TART IMMED RELEASE 25 MG TABLET PO SCH ×2 (07:50→20:11)
[2018-10-30] MEDS: SERTRALINE 25 MG TABLET. PO SCH (07:52)
[2018-10-30 09:34] LABS: BASO # 0.1 x10^3/uL (0.0-0.2); BASO % 1 % (0-3); EOS # 0.2 x10^3/uL (0.0-0.7); EOS % 4 % (0-3); HEMATOCRIT 37.9 % (39.0-53.0); HEMOGLOBIN 12.4 g/dL (13.0-17.5); LYMPH # 0.7 x10^3/uL (1.0-4.8); LYMPH % 13 % (24-48); MEAN CORPUSCULAR HEMOGLOBIN 30 pg (25-35); MEAN CORPUSCULAR HGB CONC 33 g/dL (31-37); MEAN CORPUSCULAR VOLUME 93 fL (79-100); MONO # 0.5 x10^3/uL (0.0-1.1); MONO % 10 % (0-9); NEUT # 3.7 x10^3uL (1.8-7.7); NEUT % 73 % (31-73); PLATELET COUNT 241 x10^3/uL (140-400); RED BLOOD COUNT 4.08 x10^6/uL (4.30-5.70); RED CELL DISTRIBUTION WIDTH 14.5 % (11.5-14.5); WHITE BLOOD COUNT 5.1 x10^3/uL (4.0-11.0)
[2018-10-30 09:53] LABS: ALBUMIN 3.1 g/dL (3.4-5.0); ALBUMIN/GLOBULIN RATIO 1.1 (1.0-1.7); CALCIUM 8.7 mg/dL (8.5-10.1); CREATININE 1.8 mg/dL (0.7-1.3); GFR 36.8; POTASSIUM 3.9 mmol/L (3.5-5.1); TOTAL BILIRUBIN 0.5 mg/dL (0.2-1.0)
[2018-10-30 15:04] VITALS: BP 117/58
[2018-10-30 16:26] VITALS: BP 117/58
[2018-10-30] MEDS: QUEtiapine 25 MG TABLET. PO SCH (18:33)
[2018-10-30] MEDS: ATORVASTATIN CALCIUM 20 MG TABLET PO SCH (18:33)
[2018-10-30] MEDS: MIRTAZAPINE 15 MG TABLET PO SCH (18:33)
[2018-10-30 18:47] VITALS: BP 102/53
--- NOTE | 2018-10-30 21:34 | PN ---
DATE: 10/29/2018 PSYCHIATRIC PROGRESS NOTE This late entry 10/29/2018 covers elements not covered in my initial note. SUBJECTIVE: I met with the patient in the evening. The patient slept 5-1/2 hours previous night. Per nursing report, the patient has done better. He slept after lunch. Previous night, he was resistive to medications. He is having cough and a swallow evaluation has been requested. REVIEW OF SYSTEMS: Ambulation impaired, in wheelchair. No CV, , pulmonary, eye system symptoms on review. Reliability poor. MENTAL STATUS EXAM: Oriented to himself, situation and time. Insight, judgment, recent and remote memory, attention, concentration, fund of knowledge poor, consistent with his diagnosis mentioned in my initial note. PLAN: No change from initial note. MAN Saw BARRIOS MD DR: GARY/tasneem JOB#: [id number] / [id number]
--- NOTE | 2018-10-30 22:35 | PDOC ---
Exam Note: Theodore Note: Please also refer to the separate dictated note~for this date of service dictated separately.~Patient seen individually. Discussed the patient with Nursing staff reviewed the chart.~Reviewed interim history and current functioning. Reviewed vital signs,~Labs/ Radiology~and current medications noted below. Continue current treatment with the changes noted in the dictated addendum note Assessment: Vital Signs: Vital Signs Date Time Temp Pulse Resp B/P (MAP) Pulse Ox O2 Delivery O2 Flow Rate FiO2 10/30/18 20:11 59 102/53 10/30/18 16:26 98.1 20 97 10/26/18 16:20 Room Air I&O Intake and Output 10/30/18 06:59 Intake Total 1040 ml Balance 1040 ml Intake Oral 1040 ml # Voids 1 Labs: Laboratory Tests Test 10/30/18 09:11 White Blood Count 5.1 x10^3/uL (4.0-11.0) Red Blood Count 4.08 x10^6/uL (4.30-5.70) L Hemoglobin 12.4 g/dL (13.0-17.5) L Hematocrit 37.9 % (39.0-53.0) L Mean Corpuscular Volume 93 fL (79-100) Mean Corpuscular Hemoglobin 30 pg (25-35) Mean Corpuscular Hemoglobin Concent 33 g/dL (31-37) Red Cell Distribution Width 14.5 % (11.5-14.5) Platelet Count 241 x10^3/uL (140-400) Neutrophils (%) (Auto) 73 % (31-73) Lymphocytes (%) (Auto) 13 % (24-48) L Monocytes (%) (Auto) 10 % (0-9) H Eosinophils (%) (Auto) 4 % (0-3) H Basophils (%) (Auto) 1 % (0-3) Neutrophils # (Auto) 3.7 x10^3uL (1.8-7.7) Lymphocytes # (Auto) 0.7 x10^3/uL (1.0-4.8) L Monocytes # (Auto) 0.5 x10^3/uL (0.0-1.1) Eosinophils # (Auto) 0.2 x10^3/uL (0.0-0.7) Basophils # (Auto) 0.1 x10^3/uL (0.0-0.2) Sodium Level 143 mmol/L (136-145) Potassium Level 3.9 mmol/L (3.5-5.1) Chloride Level 108 mmol/L (98-107) H Carbon Dioxide Level 26 mmol/L (21-32) Anion Gap 9 (6-14) Blood Urea Nitrogen 50 mg/dL (8-26) H Creatinine 1.8 mg/dL (0.7-1.3) H Estimated GFR (Cockcroft-Gault) 36.8 BUN/Creatinine Ratio 28 (6-20) H Glucose Level 120 mg/dL (70-99) H Calcium Level 8.7 mg/dL (8.5-10.1) Total Bilirubin 0.5 mg/dL (0.2-1.0) Aspartate Amino Transferase (AST) 28 U/L (15-37) Alanine Aminotransferase (ALT) 49 U/L (16-63) Alkaline Phosphatase 83 U/L (46-116) Total Protein 6.0 g/dL (6.4-8.2) L Albumin 3.1 g/dL (3.4-5.0) L Albumin/Globulin Ratio 1.1 (1.0-1.7) Current Medications: Meds: Current Medications Multi-Ingredient Ointment (Analgesic [place]) 1 sanjeev PRN QID PRN TP MUSCLE PAIN; Start 10/25/18 at 04:15 Al Hydroxide/Mg Hydroxide (Mylanta Plus Xs) 15 ml PRN AFTMEALHC PRN PO DYSPEPSIA; Start 10/25/18 at 04:15 Magnesium Hydroxide (Milk Of Magnesia) 2,400 mg PRN QHS PRN PO CONSTIPATION; Start 10/25/18 at 04:15 Mirtazapine (Remeron) 15 mg QHS PO Last administered on 10/30/18 18:33; Start 10/25/18 at 21:00 Quetiapine Fumarate (SEROquel) 25 mg QHS PO Last administered on 10/30/18 18:33; Start 10/25/18 at 21:00 Furosemide (Lasix) 20 mg DAILY PO Last administered on 10/30/18at 07:49; Start 10/25/18 at 09:00 Artificial Tears (Artificial Tears) 1 drop TID OU Last administered on 10/30/18 18:33; Start 10/25/18 at 09:00 Tamsulosin HCl (Flomax) 0.4 mg DAILY PO Last administered on 10/30/18 07:49; Start 10/25/18 at 09:00 Amlodipine Besylate (Norvasc) 10 mg DAILY PO Last administered on 10/30/18 07:49; Start 10/25/18 at 09:00 Aspirin (Aspirin Enteric Coated) 81 mg DAILYWBKFT PO Last administered on 10/30/18 07:49; Start 10/25/18 at 08:00 Atorvastatin Calcium (Lipitor) 40 mg QHS PO Last administered on 10/30/18 18:33; Start 10/25/18 at 21:00 Ciprofloxacin (Cipro) 500 mg BID PO Last administered on 10/30/18 18:33; Start 10/25/18 at 09:00 Clonidine HCl (Catapres Tts-3) 1 patch WEEKLY TD Last administered on 10/27/18 08:16; Start 10/27/18 at 09:00 Docusate Sodium (Colace) 100 mg BID PO Last administered on 10/30/18 18:33; Start 10/25/18 at 09:00 Hydralazine HCl (Apresoline) 100 mg TID PO Last administered on 10/30/18 15:09; Start 10/25/18 at 09:00 Multivitamins/ Calcium (Thera-M Plus) 1 tab DAILY PO Last administered on 10/30/18 07:49; Start 10/25/18 at 09:00 Metoprolol Tartrate (Lopressor) 25 mg BID PO Last administered on 10/30/18 07:50; Start 10/25/18 at 09:00 Olanzapine (ZyPREXA ZYDIS) 2.5 mg PRN Q2HR PRN PO PSYCHOSIS Last administered on 10/30/18 22:28; Start 10/25/18 at 04:15 Lactobacillus Rhamnosus (Culturelle) 1 cap BID PO Last administered on 10/30/18 18:33; Start 10/26/18 at 21:00 Selenium Sulfide (Selsun) 1 sanjeev 3X/WEEK TP Last administered on 10/28/18 10:15; Start 10/29/18 at 09:00 Sertraline HCl (Zoloft) 25 mg DAILY PO Last administered on 10/29/18at 07:31; Start 10/27/18 at 09:00; Stop 10/29/18 at 21:00; Status DC Sertraline HCl (Zoloft) 50 mg DAILY PO Last administered on 10/30/18at 07:52; Start 10/30/18 at 09:00 Active Scripts Active Reported Flomax (Tamsulosin Hcl) 0.4 Mg Cap.er.24h 0.4 Mg PO DAILY Seroquel (Quetiapine Fumarate) 25 Mg Tablet 25 Mg PO QHS Polyvinyl Alcohol 15 Ml Drops 1 Drop OP TID Bystolic (Nebivolol Hcl) 5 Mg Tablet 5 Mg PO QHS Multivitamins (Multivitamin) 1 Each Tablet 1 Tab PO DAILY Mirtazapine 15 Mg Tablet 15 Mg PO QHS Hydralazine Hcl 100 Mg Tablet 100 Mg PO TID Lasix (Furosemide) 20 Mg Tablet 20 Mg PO DAILY Colace (Docusate Sodium) 100 Mg Capsule 100 Mg PO BID Clonidine Tts-3 (Clonidine) 1 Each Patch.tdwk 1 Patch TD WEEKLY Ciprofloxacin Hcl 500 Mg Tablet 500 Mg PO BID Atorvastatin Calcium 40 Mg Tablet 40 Mg PO QHS Aspirin Ec (Aspirin) 81 Mg Tablet.dr 81 Mg PO DAILY Norvasc (Amlodipine Besylate) 10 Mg Tablet 10 Mg PO DAILY I have reviewed the current psychotropics carefully including drug interactions. Risk benefit ratio favors no change other than as noted in my dictated progress note. Diagnosis: Problems: (1) Major neurocognitive disorder (2) Anxiety disorder (3) Dementia, vascular, with depression (4) Dementia, vascular, with delusions (5) Dementia in Alzheimer's disease with depression (6) Dementia in Alzheimer's disease with delusions (7) Impulse control disorder OVIDIO BARRIOS MD Oct 30, 2018 22:35
[2018-10-31 05:50] VITALS: BP 163/74
[2018-10-31] MEDS: CIPROFLOXACIN HCL 500 MG TABLET PO SCH (09:05)
[2018-10-31] MEDS: FUROSEMIDE 20 MG TABLET PO SCH (09:06)
[2018-10-31] MEDS: LACTOBACILLUS RHAMNOSUS GG 1 CAPSULE. PO SCH (09:06)
[2018-10-31] MEDS: METOPROLOL TART IMMED RELEASE 25 MG TABLET PO SCH (09:06)
[2018-10-31] MEDS: DOCUSATE SODIUM 100 MG CAPSULE PO SCH (09:06)
[2018-10-31] MEDS: ASPIRIN ENTERIC COATED 81 MG TABLET.DR. PO SCH (09:06)
[2018-10-31] MEDS: TAMSULOSIN 0.4 MG CAP.ER.24H. PO SCH (09:06)
[2018-10-31] MEDS: MULTIVITAMIN with MINERAL TABLET. PO SCH (09:06)
[2018-10-31] MEDS: POLYVINYL ALCOHOL 1.4% OPHTH SOLUTION 15ML BOTTLE. OU SCH ×2 (09:08→15:35)
[2018-10-31] MEDS: SERTRALINE 25 MG TABLET. PO SCH (09:08)
[2018-10-31] MEDS: amLODIPine BESYLATE 10 MG TABLET PO SCH (09:08)
[2018-10-31] MEDS: SELENIUM SULFIDE 1% TOPICAL SHAMPOO 207ML BOTTLE. TP SCH (09:08)
[2018-10-31 16:46] VITALS: BP 100/50
[2018-10-31] MEDS ORDERED: METO25TA4 PO (16:58)
[2018-10-31] MEDS ORDERED: LACT1CAP21 PO (16:58)
[2018-10-31] MEDS ORDERED: MULT1TAB52 PO (16:59)
[2018-10-31] MEDS ORDERED: OLAN5TAB5 PO (17:00)
[2018-10-31] MEDS ORDERED: SELE180S3 TP (17:00)
[2018-10-31] MEDS ORDERED: SERT50TA PO (17:00)
--- NOTE | 2018-10-31 17:16 | RAD ---
CT CODE STROKE HEAD WO Indication: Slurred speech. Exposure: One or more of the following individualized dose reduction techniques were utilized for this examination: 1. Automated exposure control 2. Adjustment of the mA and/or kV according to patient size 3. Use of iterative reconstruction technique. Technique: Standard imaging without intravenous contrast. No prior study for comparison. There is low-density in the left cerebellum at its inferior and posterior aspect. This could represent CSF secondary to left cerebellar atrophy, or cerebellar encephalomalacia. There is generalized cerebral atrophy. No evidence of acute intracranial hemorrhage, mass effect or midline shift. Low-density in the white matter bilaterally, a nonspecific finding, but which is commonly due to chronic small vessel ischemic disease in a patient of this age. Well-defined low-density foci in the basal ganglia and thalami bilaterally likely chronic lacunar infarcts. Orbits appear symmetric. No prominent scalp swelling. Partially visualized sinuses are clear. No evidence of acute skull abnormality. IMPRESSION: 1. Abnormal hypodensity at the left posterior fossa, compatible most likely with cerebellar encephalomalacia or atrophy 2. White matter hypodensity is nonspecific but commonly due to chronic small vessel ischemic disease. Small bilateral lacunar infarcts. 3. No evidence of acute intracranial hemorrhage or mass effect. 4. MRI could be of benefit for further evaluation particularly if there is concern for acute infarction. FOR INTERNAL CODING PURPOSES Critical result: Findings discussed with nurse Gerardo in the ICU at 10/31/2018 5:11 PM. RESULT CODE: (C) Electronically signed by: Amaury Hardy MD (10/31/2018 5:13 PM) [facility]
--- NOTE | 2018-10-31 21:28 | PN ---
DATE: 10/30/2018 PSYCHIATRIC PROGRESS NOTE This late entry 10/30/2018 covers elements not covered in my initial note. SUBJECTIVE: I met with the patient in the evening. The patient slept 3-1/4 hours previous night. He has had a good day. He took his bedtime medications in ice cream, more compliant with his medications. On 10/30/2018, irritable with vital signs, oriented to his name and date of , but not otherwise. REVIEW OF SYSTEMS: Ambulation impaired, in wheelchair. No CV, , pulmonary, eye, ENT system symptoms on review. MENTAL STATUS EXAM: Oriented to himself. Insight, judgment, recent and remote memory, attention, concentration, fund of knowledge poor, consistent with his diagnosis mentioned in my initial note. PLAN: Continue Zoloft 50 mg a day, Seroquel 25 mg at bedtime, Remeron 15 mg at bedtime. We may need to adjust his psychotropics for ongoing insomnia. OVIDIO BARRIOS MD DR: GARY/tasneem JOB#: [id number] / [id number]
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
== END 2018-10-31 17:09 | DRG 885 ==
LOC: GEROPSY 03:30
PROVIDERS: ADMIT Psychiatry & Neurology Psychiatry; ATTEND Psychiatry & Neurology Psychiatry
DX: F32.3 Major depressive disorder, single episode, severe with psychotic features (principal); F01.51 Vascular dementia, unspecified severity, with behavioral disturbance; F02.80 Dementia in other diseases classified elsewhere, unspecified severity, without behavioral disturbance, psychotic disturbance, mood disturbance, and anxiety; Z66 Do not resuscitate; G30.9 Alzheimer's disease, unspecified; I12.9 Hypertensive chronic kidney disease with stage 1 through stage 4 chronic kidney disease, or unspecified chronic kidney disease; N18.9 Chronic kidney disease, unspecified; F63.9 Impulse disorder, unspecified; F41.9 Anxiety disorder, unspecified; I25.10 Atherosclerotic heart disease of native coronary artery without angina pectoris; Z86.73 Personal history of transient ischemic attack (TIA), and cerebral infarction without residual deficits; Z85.828 Personal history of other malignant neoplasm of skin; Z95.5 Presence of coronary angioplasty implant and graft; Z88.6 Allergy status to analgesic agent; Z88.5 Allergy status to narcotic agent; Z88.8 Allergy status to other drugs, medicaments and biological substances; Z79.899 Other long term (current) drug therapy; S61.411A Laceration without foreign body of right hand, initial encounter; X58.XXXA Exposure to other specified factors, initial encounter; Y93.89 Activity, other specified; Y92.89 Other specified places as the place of occurrence of the external cause; Y99.8 Other external cause status
CPT/HCPCS: 36415; 70450; 80053; 80061; 82306; 83036; 83540; 83550; 83735; 84436; 84443; 84480; 85025; 86592; 92610; 97110; 97112; 97116; 97530; 97535

== ENCOUNTER 2018-10-31 17:18 | Inpatient (IN) | payer MEDICARE ==
[~2018-10-31] VITALS: Ht 182.9 cm; Wt 80.3 kg
[~2018-10-31 17:18] MED LIST: AMLO10TA4 PO; ASPI-612 PO; ATOR40TA59 PO; CIPR500T PO; CLON1PAT3 TD; DOCU-109 PO; FURO-69 PO; HYDR100T24 PO; LACT1CAP21 PO; METO25TA4 PO; MIRT15TA3 PO; MULT1TAB52 PO; NEBI5TAB2 PO; OLAN5TAB5 PO; POLY15DR20 OP; QUET25TA5 PO; SELE180S3 TP; SERT50TA PO; TAMS0.4C97 PO
--- NOTE | 2018-10-31 17:51 | EKG ---
[address] [address] Test Date: 2018-10-31 Test Time: 16:44:53 Pat Name: IKER RUSSELL Department: Room: [facility] 1 Gender: M [employer]: : [id number] Requested By: CHARLA THACKER Order Number: [id number] Reading MD: Measurements Intervals [place] Rate: 59 P: 45 MT: 168 QRS: 62 QRSD: 82 T: 58 QT: 418 QTc: 418 Interpretive Statements SINUS RHYTHM NO SPECIFIC ECG ABNORMALITIES RI6.02 No previous ECG available for comparison
[2018-10-31 18:47] VITALS: BP 112/57
[2018-10-31 18:50] LABS: BASO % 1 % (0-3); EOS # 0.2 x10^3/uL (0.0-0.7); EOS % 3 % (0-3); HEMATOCRIT 36.3 % (39.0-53.0); HEMOGLOBIN 11.9 g/dL (13.0-17.5); LYMPH # 0.7 x10^3/uL (1.0-4.8); LYMPH % 11 % (24-48); MEAN CORPUSCULAR HEMOGLOBIN 31 pg (25-35); MEAN CORPUSCULAR HGB CONC 33 g/dL (31-37); MEAN CORPUSCULAR VOLUME 93 fL (79-100); MONO # 0.7 x10^3/uL (0.0-1.1); MONO % 10 % (0-9); NEUT # 5.2 x10^3uL (1.8-7.7); NEUT % 76 % (31-73); PLATELET COUNT 251 x10^3/uL (140-400); RED BLOOD COUNT 3.91 x10^6/uL (4.30-5.70); RED CELL DISTRIBUTION WIDTH 14.4 % (11.5-14.5); WHITE BLOOD COUNT 6.9 x10^3/uL (4.0-11.0)
[2018-10-31 18:55] LABS: ALBUMIN 3.1 g/dL (3.4-5.0); ALBUMIN/GLOBULIN RATIO 1.1 (1.0-1.7); CALCIUM 8.5 mg/dL (8.5-10.1); GFR 32.6; MAGNESIUM 2.2 mg/dL (1.8-2.4); POTASSIUM 4.6 mmol/L (3.5-5.1); TOTAL BILIRUBIN 0.3 mg/dL (0.2-1.0)
[2018-10-31 19:30] VITALS: BP 120/60
[2018-10-31] MEDS: POLYVINYL ALCOHOL 1.4% OPHTH SOLUTION 15ML BOTTLE. OU SCH (19:54)
[2018-10-31] MEDS: METOPROLOL TART IMMED RELEASE 25 MG TABLET PO SCH (19:54)
[2018-10-31] MEDS: DOCUSATE SODIUM 100 MG CAPSULE PO SCH (19:54)
[2018-10-31] MEDS: ATORVASTATIN CALCIUM 20 MG TABLET PO SCH (19:55)
[2018-10-31] MEDS: CIPROFLOXACIN HCL 500 MG TABLET PO SCH (19:55)
[2018-10-31] MEDS: LACTOBACILLUS RHAMNOSUS GG 1 CAPSULE. PO SCH (19:55)
[2018-10-31] MEDS: QUEtiapine 25 MG TABLET. PO SCH (19:55)
[2018-10-31] MEDS: MIRTAZAPINE 15 MG TABLET PO SCH (20:01)
[2018-10-31 20:35] VITALS: BP 143/74
[2018-10-31 21:55] VITALS: BP 102/53
[2018-10-31 22:55] VITALS: BP 104/53
[2018-11-01] VITALS (17 sets, daily range): BP systolic 108–175; BP diastolic 55–81
[2018-11-01] MEDS: ASPIRIN ENTERIC COATED 81 MG TABLET.DR. PO SCH ×2 (08:29→12:58)
[2018-11-01] MEDS: CIPROFLOXACIN HCL 500 MG TABLET PO SCH ×3 (08:29→20:00)
[2018-11-01] MEDS: TAMSULOSIN 0.4 MG CAP.ER.24H. PO SCH ×2 (08:29→12:58)
[2018-11-01] MEDS: METOPROLOL TART IMMED RELEASE 25 MG TABLET PO SCH ×3 (08:29→20:01)
[2018-11-01] MEDS: DOCUSATE SODIUM 100 MG CAPSULE PO SCH ×3 (08:30→20:00)
[2018-11-01] MEDS: SERTRALINE 50 MG TABLET. PO SCH ×2 (08:30→12:58)
[2018-11-01] MEDS: amLODIPine BESYLATE 10 MG TABLET PO SCH ×2 (08:30→12:55)
[2018-11-01] MEDS: MULTIVITAMIN with MINERAL TABLET. PO SCH ×2 (08:30→12:55)
[2018-11-01] MEDS: LACTOBACILLUS RHAMNOSUS GG 1 CAPSULE. PO SCH ×3 (08:30→19:58)
[2018-11-01] MEDS: FUROSEMIDE 20 MG TABLET PO SCH ×2 (08:30→12:59)
[2018-11-01] MEDS ORDERED: NON FORMULARY ITEM (Multivitamin (Multivitamins) 1 TAB) PO SCH (09:00)
[2018-11-01] MEDS: POLYVINYL ALCOHOL 1.4% OPHTH SOLUTION 15ML BOTTLE. OU SCH ×3 (09:00→19:58)
--- NOTE | 2018-11-01 18:48 | SSS ---
ADMIT DATE: HISTORY OF PRESENT ILLNESS: The patient is a 77-year-old male patient who was at the [facility]. He apparently was rapidly responded and rapid response, was called on [facility] for this patient and he was worked up for code stroke. He does have history of multiple strokes before. His NIH score was only 2. He did pass swallowing evaluation, was transferred to the ICU. The patient does have a skin tear on the left elbow and basically was evaluated. We did consult Dr. Irene to see him as well as Dr. Whittaker. Prior to arrival to the [facility], he has had a CT scan of the head, which showed that the patient has abnormal hypodensity at the left posterior fossa compatible most likely with cerebellar encephalomalacia or atrophy. There is white matter hypodensity is nonspecific, but commonly due to chronic small vessel ischemic disease, small bilateral lacunar infarct, no evidence of acute intracranial hemorrhage or mass effect. The patient was evaluated by Dr. Irene and apparently there was no evidence of any new stroke and the patient continued to be combative, resistive of care, hitting and kicking, non-redirectable; however, the patient remained stable neurologically as well as hemodynamically. A decision was made to be transferred him back to [facility] for inpatient psychiatric stabilization. PAST MEDICAL HISTORY: Significant for chronic kidney disease, cerebrovascular accident, skin cancer, and hypertension. He has had also multiple stents to his heart and he also had coronary artery disease and multiple cerebrovascular accidents. PAST SURGICAL HISTORY: Significant for PCI with multiple stent deployment. ALLERGIES: HE IS ALLERGIC TO TYLENOL, ATENOLOL, LOVASTATIN, CODEINE, NIFEDIPINE, OXYCODONE AND PREDNISOLONE. MEDICATIONS: The patient is on clonidine, TTS 3 patch 1 patch weekly, selenium sulfide 3 times per week, multivitamin with calcium 1 tablet once a day, amlodipine 10 mg once a day, tamsulosin 0.4 mg daily, sertraline 50 mg daily, furosemide 20 mg once a day, aspirin 81 mg once a day, quetiapine fumarate 25 mg at bedtime, mirtazapine 15 mg at bedtime, lactobacillus rhamnosus 1 capsule p.o. b.i.d., hydralazine 100 mg 3 times a day, Colace 100 mg twice a day, ciprofloxacin 500 mg twice a day, atorvastatin 40 mg at bedtime, Artificial Tears 1 drop to both eyes 3 times a day, metoprolol tartrate 25 mg twice a day and olanzapine 2.5 mg every 2 hours as needed. FAMILY HISTORY: Noncontributory. SOCIAL HISTORY: He actually was referred to us from [facility] where he presented from home on account of worsening confusion, agitation, being combative with his and son. PHYSICAL EXAMINATION: GENERAL: On arrival to the ICU, the patient looked well and was clearly in no apparent distress, slightly pale, but not jaundiced, cyanosis, or thyromegaly. No jugular venous distension. No limb edema. VITAL SIGNS: His heart rate was 57, blood pressure was 113/55, temperature was 98.4, respiratory rate was 20, and oxygen saturation was 95%. HEAD, EYES, EARS, NOSE AND THROAT: Showed normocephalic, atraumatic. NECK: Supple. HEART: Showed normal first and second heart sounds with no gallop, rub or murmur. CHEST: Clear to auscultation. No crepitation or rhonchi. ABDOMEN: Distended, soft, nontender. NEUROLOGIC: He is awake, alert, responding appropriately. Cranial nerves are intact. He moves upper extremities to much greater extent than his lower extremities, mostly bed bound and wheelchair bound. LABORATORY DATA: His lab work showed a white cell count of 6900, hemoglobin 11.9, hematocrit 36, MCV 93, and platelet count of 251,000. His chemistry showed a serum sodium 143, potassium 4.6, chloride 107, bicarbonate 28, anion gap of 8, BUN 58, creatinine 2, estimated GFR was 32 mL per minute. His glucose was 99. Lactic acid was 0.8, calcium was 8.5, magnesium 2.2. Total bilirubin, AST, ALT, and alkaline phosphatase are normal. His total protein was 6, albumin was 3.1. His D-dimer was 1.67. Nasal screen for MRSA by PCR was negative. As I stated, his CT scan of the head showed abnormal hypodensity at the left posterior fossa compatible most likely with cerebellar encephalomalacia or atrophy. There is white matter hypodensity is nonspecific, but commonly due to chronic small vessel ischemic disease, small bilateral lacunar infarct, no evidence of acute intracranial hemorrhage or mass effect. ASSESSMENT AND PLAN: The patient was evaluated by Dr. Irene who recommended that the patient can safely be transferred [facility]. He will be discharged back to continue on following medications: Clonidine patch TTS-3 one patch once a week, selenium sulfide shampoo 3 times per week for his seborrheic dermatitis and dandruff, multivitamin 1 tablet once a day, amlodipine 10 mg once a day, tamsulosin 0.4 mg daily, sertraline 50 mg daily. I will discontinue his furosemide. Continue with aspirin 81 mg once a day, quetiapine fumarate 25 mg at bedtime, mirtazapine 15 mg at bedtime, lactobacillus 1 capsule twice a day, hydralazine 100 mg 3 times a day, Colace 100 mg twice a day, ciprofloxacin 500 mg. I will cut down to 250 mg twice a day, atorvastatin calcium 40 mg at bedtime, Artificial Tears 1 drop 3 times a day, metoprolol 25 mg twice a day, olanzapine 2.5 mg every 2 hours. FINAL DISCHARGE DIAGNOSES: Questionable TIA. The patient without any evidence of new stroke and multiple cerebrovascular accidents. He has also hypertension, benign prostatic hypertrophy, and hyperlipidemia. CHARLA THACKER MD DR: ENRIQUE/tasneem JOB#: [id number] / [id number]
[2018-11-01] MEDS: ATORVASTATIN CALCIUM 20 MG TABLET PO SCH (19:58)
[2018-11-01] MEDS: QUEtiapine 25 MG TABLET. PO SCH (19:59)
[2018-11-01] MEDS: MIRTAZAPINE 15 MG TABLET PO SCH (20:00)
--- NOTE | 2018-11-01 22:39 | PDOC ---
Exam Note: Theodore Note: Please also refer to the separate dictated note~for this date of service dictated separately.~Patient seen individually. Discussed the patient with Nursing staff reviewed the chart.~Reviewed interim history and current functioning. Reviewed vital signs,~Labs/ Radiology~and current medications noted below. Continue current treatment with the changes noted in the dictated addendum note Assessment: Vital Signs: Vital Signs Date Time Temp Pulse Resp B/P (MAP) Pulse Ox O2 Delivery O2 Flow Rate FiO2 11/01/18 22:10 57 20 125/69 (87) 98 Room Air 11/01/18 19:50 98.9 I&O Intake and Output 11/01/18 07:00 Intake Total 200 ml Balance 200 ml Intake Oral 200 ml # Voids 5 Current Medications: Meds: Current Medications Furosemide (Lasix) 20 mg DAILY PO Last administered on 11/01/18 12:59; Start 11/01/18 at 09:00 Metoprolol Tartrate (Lopressor) 25 mg BID PO Last administered on 11/01/18 20:01; Start 10/31/18 at 21:00 Olanzapine (ZyPREXA ZYDIS) 2.5 mg PRN Q2HR PRN PO psychosis/agitation Last administered on 11/01/18 19:59; Start 10/31/18 at 19:15 Artificial Tears (Artificial Tears) 1 drop TID OU Last administered on 11/01/18 19:58; Start 10/31/18 at 21:00 Sertraline HCl (Zoloft) 50 mg DAILY PO Last administered on 11/01/18 12:58; Start 11/01/18 at 09:00 Tamsulosin HCl (Flomax) 0.4 mg DAILY PO Last administered on 11/01/18 12:58; Start 11/01/18 at 09:00 Amlodipine Besylate (Norvasc) 10 mg DAILY PO Last administered on 11/01/18 12:55; Start 11/01/18 at 09:00 Aspirin (Aspirin Enteric Coated) 81 mg DAILYWBKFT PO Last administered on 11/01/18 12:58; Start 11/01/18 at 08:00 Atorvastatin Calcium (Lipitor) 40 mg QHS PO Last administered on 11/01/18 19:58; Start 10/31/18 at 21:00 Ciprofloxacin (Cipro) 500 mg BID PO Last administered on 11/01/18 20:00; Start 10/31/18 at 21:00 Clonidine HCl (Catapres Tts-3) 1 patch WEEKLY TD ; Start 11/03/18 at 09:00 Docusate Sodium (Colace) 100 mg BID PO Last administered on 11/01/18 20:00; St art 10/31/18 at 21:00 Hydralazine HCl (Apresoline) 100 mg TID PO Last administered on 11/01/18 20:00; Start 10/31/18 at 21:00 Lactobacillus Rhamnosus (Culturelle) 1 cap BID PO Last administered on 11/01/18 19:58; Start 10/31/18 at 21:00 Mirtazapine (Remeron) 15 mg QHS PO Last administered on 11/01/18 20:00; Start 10/31/18 at 21:00 Multivitamins/ Calcium (Thera-M Plus) 1 tab DAILY PO Last administered on 11/01/18at 12:55; Start 11/01/18 at 09:00 Non-Formulary Medication (Multivitamin (Multivitamins)) 1 tab DAILY PO ; Start 11/01/18 at 09:00; Status UNV Quetiapine Fumarate (SEROquel) 25 mg QHS PO Last administered on 11/01/18 19:59; Start 10/31/18 at 21:00 Selenium Sulfide (Selsun) 1 sanjeev 3X/WEEK TP ; Start 11/02/18 at 09:00 Active Scripts Active Reported Zoloft (Sertraline Hcl) 50 Mg Tablet 50 Mg PO DAILY Selenium Sulfide 180 Ml Shampoo 180 Ml TP 3X/WEEK Zyprexa Zydis (Olanzapine) 5 Mg Tab.rapdis 2.5 Mg PO PRN Q2HR PRN Multivitamins (Multivitamin) 1 Each Tablet 1 Each PO DAILY Metoprolol Tartrate 25 Mg Tablet 25 Mg PO BID Culturelle (Lactobacillus Rhamnosus Gg) 1 Each Capsule 1 Each PO BID Flomax (Tamsulosin Hcl) 0.4 Mg Cap.er.24h 0.4 Mg PO DAILY Seroquel (Quetiapine Fumarate) 25 Mg Tablet 25 Mg PO QHS Polyvinyl Alcohol 15 Ml Drops 1 Drop OP TID Multivitamins (Multivitamin) 1 Each Tablet 1 Tab PO DAILY Mirtazapine 15 Mg Tablet 15 Mg PO QHS Hydralazine Hcl 100 Mg Tablet 100 Mg PO TID Lasix (Furosemide) 20 Mg Tablet 20 Mg PO DAILY Colace (Docusate Sodium) 100 Mg Capsule 100 Mg PO BID Clonidine Tts-3 (Clonidine) 1 Each Patch.tdwk 1 Patch TD WEEKLY Ciprofloxacin Hcl 500 Mg Tablet 500 Mg PO BID Atorvastatin Calcium 40 Mg Tablet 40 Mg PO QHS Aspirin Ec (Aspirin) 81 Mg Tablet.dr 81 Mg PO DAILY Norvasc (Amlodipine Besylate) 10 Mg Tablet 10 Mg PO DAILY I have reviewed the current psychotropics carefully including drug interactions. Risk benefit ratio favors no change other than as noted in my dictated progress note. Diagnosis: Problems: (1) Major neurocognitive disorder (2) Cardiovascular accident (3) Altered mental status (4) Anxiety disorder (5) Dementia, vascular, with depression (6) Dementia, vascular, with delusions (7) Dementia in Alzheimer's disease with depression (8) Dementia in Alzheimer's disease with delusions (9) Impulse control disorder OVIDIO BARRIOS MD Nov 01, 2018 22:38
[2018-11-02 00:25] VITALS: BP 144/65
[2018-11-02 01:10] VITALS: BP 139/79
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
[2018-11-02] MEDS ORDERED: SELENIUM SULFIDE 1% TOPICAL SHAMPOO 207ML BOTTLE. TP SCH (09:00)
--- NOTE | 2018-11-02 12:47 | PN ---
DATE: 11/01/2018 PSYCHIATRIC PROGRESS NOTE This late entry 11/01/2018 covers elements not covered in my initial note 11/01/2018. SUBJECTIVE: The patient was seen in ICU bed 6. Psychiatric consult followup requested by Dr. Quinones. The patient was transferred to the ICU from the [facility] consequent to possible TIA. 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 He was kicking and swinging at staff during cares, not redirectable. He remains confused. REVIEW OF SYSTEMS: Positive for tiredness. No CV, , pulmonary, eye system symptoms on review. MENTAL STATUS EXAM: Oriented to himself. Insight, judgment, recent and remote memory, attention, concentration, fund of knowledge poor, consistent with his diagnosis. LABORATORY DATA: Reviewed. IMPRESSION: Major neurocognitive disorder, Alzheimer, vascular with delusion, depression, behavioral disturbance; anxiety disorder, unspecified; impulse control disorder, unspecified. Rest unchanged. PLAN: Continue psychotropics from initial note. Use Zyprexa p.r.n. for psychosis, agitation. We will transfer back to [facility] Unit once medically stable. OVIDIO BARRIOS MD DR: GARY/tasneem JOB#: [id number] / [id number]
[2018-11-03] MEDS ORDERED: cloNIDine TTS-3 1 PATCH PATCH TD SCH (09:00)
== END 2018-11-02 01:10 | DRG 69 ==
LOC: ICU 17:18 → UNDOADMIN 17:18 → 1 SOUTH 17:18 → ICU 17:19 → 1 SOUTH 17:19
PROVIDERS: ADMIT Internal Medicine; ATTEND Internal Medicine
DX: G45.9 Transient cerebral ischemic attack, unspecified (principal); G93.89 Other specified disorders of brain; E78.5 Hyperlipidemia, unspecified; F01.50 Vascular dementia, unspecified severity, without behavioral disturbance, psychotic disturbance, mood disturbance, and anxiety; F02.80 Dementia in other diseases classified elsewhere, unspecified severity, without behavioral disturbance, psychotic disturbance, mood disturbance, and anxiety; F32.9 Major depressive disorder, single episode, unspecified; F41.9 Anxiety disorder, unspecified; F63.9 Impulse disorder, unspecified; G30.9 Alzheimer's disease, unspecified; I12.9 Hypertensive chronic kidney disease with stage 1 through stage 4 chronic kidney disease, or unspecified chronic kidney disease; I25.10 Atherosclerotic heart disease of native coronary artery without angina pectoris; N18.9 Chronic kidney disease, unspecified; N40.0 Benign prostatic hyperplasia without lower urinary tract symptoms; Z79.82 Long term (current) use of aspirin; Z79.899 Other long term (current) drug therapy; Z85.828 Personal history of other malignant neoplasm of skin; Z86.73 Personal history of transient ischemic attack (TIA), and cerebral infarction without residual deficits; Z95.5 Presence of coronary angioplasty implant and graft; Z88.5 Allergy status to narcotic agent; Z88.8 Allergy status to other drugs, medicaments and biological substances
CPT/HCPCS: 36415; 80053; 80061; 82550; 83605; 83735; 84443; 84484; 85025; 85379; 87641; 93005; 97110

== ENCOUNTER 2018-11-01 18:17 | Inpatient (IN) | payer MEDICARE ==
[~2018-11-01] VITALS: Ht 177.8 cm; Wt 88.5 kg
[2018-11-01] MEDS ORDERED: METHYL SALICYLATE/MENTHOL TOPICAL OINTMENT 29GM TUBE. TP PRN (23:00)
[2018-11-01] MEDS ORDERED: MAGNESIUM HYDROXIDE 2,400 MG/30 ML ORAL.SUSP. PO PRN (23:00)
[2018-11-01] MEDS ORDERED: MAG HYDROX/AL HYDROX/SIMETH 30 ML ORAL.SUSP PO PRN (23:00)
[2018-11-02 01:28] VITALS: BP 139/79
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
--- NOTE | 2018-11-02 02:00 | NUR ---
Nursing note: Pts alarm sounded and he was found on the floor of his room. He crawled over the bed rail and fell. There was two small skin tears on his left hand and a golf ball sized abrasion on the middle of his back. He denied pain and was gotten off the floor with 2x assist. Vitals taken BP 178/77, HR 63, Temp 98.2 temporal, Resp 18, O2 p Addendum: 11/02/18 at 0403 by HUMPHREY JONES RN O2 96% ORA. Pt was taken to the day room to be watched 1:1.
[2018-11-02 02:40] VITALS: BP 178/77
[2018-11-02] MEDS: CIPROFLOXACIN HCL 250 MG TABLET PO SCH ×2 (05:27→17:41)
[2018-11-02 06:10] VITALS: BP 166/74
[2018-11-02 07:13] LABS: CALCIUM 8.9 mg/dL (8.5-10.1); CREATININE 1.7 mg/dL (0.7-1.3); GFR 39.3; POTASSIUM 4.2 mmol/L (3.5-5.1)
[2018-11-02] MEDS: FUROSEMIDE 20 MG TABLET PO SCH (07:59)
[2018-11-02] MEDS: MULTIVITAMIN with MINERAL TABLET. PO SCH (07:59)
[2018-11-02] MEDS: LACTOBACILLUS RHAMNOSUS GG 1 CAPSULE. PO SCH ×2 (07:59→19:13)
[2018-11-02] MEDS: METOPROLOL TART IMMED RELEASE 25 MG TABLET PO SCH ×3 (08:00→19:55)
[2018-11-02] MEDS: ASPIRIN ENTERIC COATED 81 MG TABLET.DR. PO SCH (08:00)
[2018-11-02] MEDS: amLODIPine BESYLATE 10 MG TABLET PO SCH (08:01)
[2018-11-02] MEDS: TAMSULOSIN 0.4 MG CAP.ER.24H. PO SCH (08:01)
[2018-11-02] MEDS: DOCUSATE SODIUM 100 MG CAPSULE PO SCH ×2 (08:02→19:13)
[2018-11-02] MEDS: POLYVINYL ALCOHOL 1.4% OPHTH SOLUTION 15ML BOTTLE. OU SCH ×3 (08:02→19:44)
[2018-11-02] MEDS: SELENIUM SULFIDE 1% TOPICAL SHAMPOO 207ML BOTTLE. TP SCH (08:02)
[2018-11-02] MEDS: SERTRALINE 50 MG TABLET. PO SCH (08:03)
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
--- NOTE | 2018-11-02 12:45 | NUR ---
BROOK briefly met with pt to discuss participating in pt tx team on . Pt will plan to attend in person around 1029. At that time, another pt on the unit began to flirt with pt and pt became extremely agitated and told the pt to "move on. get the hell out of here". Pt was re-directable and finished out his visit with his .
[2018-11-02 16:14] VITALS: BP 119/60
--- NOTE | 2018-11-02 17:48 | NUR ---
pt up in wc form meals. intermittently restless, impulsive and irritable. has been thus far redirectable and med compliant. skin tear noted to forearm. cleaned and foam dressing applied. here to visit. visit went well.
[2018-11-02] MEDS: QUEtiapine 25 MG TABLET. PO SCH (19:45)
[2018-11-02] MEDS: MIRTAZAPINE 15 MG TABLET PO SCH (19:45)
[2018-11-02] MEDS: ATORVASTATIN CALCIUM 20 MG TABLET PO SCH (19:45)
--- NOTE | 2018-11-02 22:28 | PDOC ---
Exam Note: Theodore Note: Please also refer to the separate dictated note~for this date of service dictated separately. Discussed the patient with Nursing staff reviewed the chart.~Reviewed interim history and current functioning. Reviewed vital signs,~Labs/ Radiology~and current medications noted below. Continue current treatment with the changes noted in the dictated addendum note Assessment: Vital Signs: Vital Signs Date Time Temp Pulse Resp B/P (MAP) Pulse Ox O2 Delivery O2 Flow Rate FiO2 11/02/18 19:55 58 11/02/18 16:14 97.2 20 119/60 (79) 98 Room Air I&O Intake and Output 11/02/18 07:00 # Voids 2 Labs: Laboratory Tests Test 11/02/18 06:33 Sodium Level 143 mmol/L (136-145) Potassium Level 4.2 mmol/L (3.5-5.1) Chloride Level 107 mmol/L (98-107) Carbon Dioxide Level 28 mmol/L (21-32) Anion Gap 8 (6-14) Blood Urea Nitrogen 38 mg/dL (8-26) H Creatinine 1.7 mg/dL (0.7-1.3) H Estimated GFR (Cockcroft-Gault) 39.3 Glucose Level 101 mg/dL (70-99) H Calcium Level 8.9 mg/dL (8.5-10.1) Current Medications: Meds: Current Medications Multi-Ingredient Ointment (Analgesic [place]) 1 sanjeev PRN QID PRN TP MUSCLE PAIN; Start 11/01/18 at 23:00 Al Hydroxide/Mg Hydroxide (Mylanta Plus Xs) 15 ml PRN AFTMEALHC PRN PO DYSPEPSIA; Start 11/01/18 at 23:00; Stop 11/02/18 at 01:45; Status DC Magnesium Hydroxide (Milk Of Magnesia) 2,400 mg PRN QHS PRN PO CONSTIPATION; Start 11/01/18 at 23:00; Stop 11/02/18 at 01:45; Status DC Olanzapine (ZyPREXA ZYDIS) 2.5 mg PRN Q2HR PRN PO psychosis/agitation; Start 11/02/18 at 01:30 Sertraline HCl (Zoloft) 50 mg DAILY PO Last administered on 11/02/18at 08:03; Start 11/02/18 at 09:00 Mirtazapine (Remeron) 15 mg QHS PO Last administered on 11/02/18 19:45; Start 11/02/18 at 21:00 Quetiapine Fumarate (SEROquel) 25 mg QHS PO Last administered on 11/02/18 19:45; Start 11/02/18 at 21:00 Furosemide (Lasix) 20 mg DAILY PO Last administered on 11/02/18 07:59; Start 11/02/18 at 09:00 Metoprolol Tartrate (Lopressor) 25 mg BID PO Last administered on 11/02/18 08:00; Start 11/02/18 at 09:00 Artificial Tears (Artificial Tears) 1 drop TID OU Last administered on 11/02/18 19:44; Start 11/02/18 at 09:00 Tamsulosin HCl (Flomax) 0.4 mg DAILY PO Last administered on 11/02/18 08:01; Start 11/02/18 at 09:00 Amlodipine Besylate (Norvasc) 10 mg DAILY PO Last administered on 11/02/18 08:01; Start 11/02/18 at 09:00 Aspirin (Aspirin Enteric Coated) 81 mg DAILYWBKFT PO Last administered on 9at 08:00; Start 11/02/18 at 08:00 Atorvastatin Calcium (Lipitor) 40 mg QHS PO Last administered on 11/02/18 19:45; Start 11/02/18 at 21:00 Clonidine HCl (Catapres Tts-3) 1 patch WEEKLY TD ; Start 11/03/18 at 09:00 Docusate Sodium (Colace) 100 mg BID PO Last administered on 11/02/18 19:13; Start 11/02/18 at 09:00 Hydralazine HCl (Apresoline) 100 mg TID PO Last administered on 11/02/18 14:00; Start 11/02/18 at 09:00 Lactobacillus Rhamnosus (Culturelle) 1 cap BID PO Last administered on 11/02/18 19:13; Start 11/02/18 at 09:00 Multivitamins/ Calcium (Thera-M Plus) 1 tab DAILY PO Last administered on 11/02/18 07:59; Start 11/02/18 at 09:00 Selenium Sulfide (Selsun) 1 sanjeev 3X/WEEK TP ; Start 11/02/18 at 09:00 Ciprofloxacin (Cipro) 250 mg BID66 PO Last administered on 11/02/18at 17:41; Start 11/02/18 at 06:00 Active Scripts Active Reported Zoloft (Sertraline Hcl) 50 Mg Tablet 50 Mg PO DAILY Selenium Sulfide 180 Ml Shampoo 180 Ml TP 3X/WEEK Zyprexa Zydis (Olanzapine) 5 Mg Tab.rapdis 2.5 Mg PO PRN Q2HR PRN Multivitamins (Multivitamin) 1 Each Tablet 1 Each PO DAILY Metoprolol Tartrate 25 Mg Tablet 25 Mg PO BID Culturelle (Lactobacillus Rhamnosus Gg) 1 Each Capsule 1 Each PO BID Flomax (Tamsulosin Hcl) 0.4 Mg Cap.er.24h 0.4 Mg PO DAILY Seroquel (Quetiapine Fumarate) 25 Mg Tablet 25 Mg PO QHS Polyvinyl Alcohol 15 Ml Drops 1 Drop OP TID Multivitamins (Multivitamin) 1 Each Tablet 1 Tab PO DAILY Mirtazapine 15 Mg Tablet 15 Mg PO QHS Hydralazine Hcl 100 Mg Tablet 100 Mg PO TID Lasix (Furosemide) 20 Mg Tablet 20 Mg PO DAILY Colace (Docusate Sodium) 100 Mg Capsule 100 Mg PO BID Clonidine Tts-3 (Clonidine) 1 Each Patch.tdwk 1 Patch TD WEEKLY Atorvastatin Calcium 40 Mg Tablet 40 Mg PO QHS Aspirin Ec (Aspirin) 81 Mg Tablet.dr 81 Mg PO DAILY Norvasc (Amlodipine Besylate) 10 Mg Tablet 10 Mg PO DAILY I have reviewed the current psychotropics carefully including drug interactions. Risk benefit ratio favors no change other than as noted in my dictated progress note. Diagnosis: Problems: (1) Altered mental status (2) Major neurocognitive disorder (3) Anxiety disorder (4) Dementia, vascular, with depression (5) Dementia, vascular, with delusions (6) Dementia in Alzheimer's disease with depression (7) Dementia in Alzheimer's disease with delusions (8) Impulse control disorder OVIDIO BARRIOS MD Nov 02, 2018 22:28
--- NOTE | 2018-11-03 00:25 | NUR ---
Nursing Note Pt combative at HS with staff, zyprexa given for agitation/psychosis. Compliant with meds with encouragement.
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
[2018-11-03] MEDS: CIPROFLOXACIN HCL 250 MG TABLET PO SCH ×2 (06:22→18:00)
[2018-11-03 06:47] VITALS: BP 159/66
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
[2018-11-03] MEDS: TAMSULOSIN 0.4 MG CAP.ER.24H. PO SCH (08:23)
[2018-11-03] MEDS: MULTIVITAMIN with MINERAL TABLET. PO SCH (08:23)
[2018-11-03] MEDS: LACTOBACILLUS RHAMNOSUS GG 1 CAPSULE. PO SCH ×2 (08:24→20:07)
[2018-11-03] MEDS: ASPIRIN ENTERIC COATED 81 MG TABLET.DR. PO SCH (08:24)
[2018-11-03] MEDS: amLODIPine BESYLATE 10 MG TABLET PO SCH (08:24)
[2018-11-03] MEDS: DOCUSATE SODIUM 100 MG CAPSULE PO SCH ×2 (08:24→20:08)
[2018-11-03] MEDS: FUROSEMIDE 20 MG TABLET PO SCH (08:25)
[2018-11-03] MEDS: METOPROLOL TART IMMED RELEASE 25 MG TABLET PO SCH ×2 (08:25→20:08)
[2018-11-03] MEDS: SERTRALINE 50 MG TABLET. PO SCH (08:25)
[2018-11-03] MEDS: POLYVINYL ALCOHOL 1.4% OPHTH SOLUTION 15ML BOTTLE. OU SCH ×3 (08:26→20:09)
[2018-11-03] MEDS: cloNIDine TTS-3 1 PATCH PATCH TD SCH (08:27)
[2018-11-03 16:09] VITALS: BP 116/60
--- NOTE | 2018-11-03 18:10 | NUR ---
pt has been in pleasant spirits most of day. was irritable at supper. gave zydis prn. has been propelling self in halls.
[2018-11-03] MEDS: QUEtiapine 25 MG TABLET. PO SCH (20:08)
[2018-11-03] MEDS: ATORVASTATIN CALCIUM 20 MG TABLET PO SCH (20:08)
[2018-11-03] MEDS: MIRTAZAPINE 15 MG TABLET PO SCH (20:08)
--- NOTE | 2018-11-03 20:45 | PDOC ---
Exam Note: Theodore Note: Please also refer to the separate dictated note~for this date of service dictated separately.~Patient seen individually. Discussed the patient with Nursing staff reviewed the chart.~Reviewed interim history and current functioning. Reviewed vital signs,~Labs/ Radiology~and current medications noted below. Continue current treatment with the changes noted in the dictated addendum note Assessment: Vital Signs: Vital Signs Date Time Temp Pulse Resp B/P (MAP) Pulse Ox O2 Delivery O2 Flow Rate FiO2 11/03/18 20:08 79 116/60 11/03/18 16:09 97.4 18 96 Room Air I&O Intake and Output 11/03/18 07:00 Intake Total 1318 ml Balance 1318 ml Intake Oral 1318 ml # Voids 2 # Bowel Movements 1 Current Medications: Meds: Current Medications Multi-Ingredient Ointment (Analgesic [place]) 1 sanjeev PRN QID PRN TP MUSCLE PAIN; Start 11/01/18 at 23:00 Al Hydroxide/Mg Hydroxide (Mylanta Plus Xs) 15 ml PRN AFTMEALHC PRN PO DYS PEPSIA; Start 11/01/18 at 23:00; Stop 11/02/18 at 01:45; Status DC Magnesium Hydroxide (Milk Of Magnesia) 2,400 mg PRN QHS PRN PO CONSTIPATION; Start 11/01/18 at 23:00; Stop 11/02/18 at 01:45; Status DC Olanzapine (ZyPREXA ZYDIS) 2.5 mg PRN Q2HR PRN PO psychosis/agitation Last administered on 11/03/18at 18:06; Start 11/02/18 at 01:30 Sertraline HCl (Zoloft) 50 mg DAILY PO Last administered on 11/03/18at 08:25; Start 11/02/18 at 09:00 Mirtazapine (Remeron) 15 mg QHS PO Last administered on 11/03/18at 20:08; Start 11/02/18 at 21:00 Quetiapine Fumarate (SEROquel) 25 mg QHS PO Last administered on 11/03/18at 20:08; Start 11/02/18 at 21:00 Furosemide (Lasix) 20 mg DAILY PO Last administered on 11/03/18at 08:25; Start 11/02/18 at 09:00 Metoprolol Tartrate (Lopressor) 25 mg BID PO Last administered on 11/03/18 20:08; Start 11/02/18 at 09:00 Artificial Tears (Artificial Tears) 1 drop TID OU Last administered on 11/03/18 20:09; Start 11/02/18 at 09:00 Tamsulosin HCl (Flomax) 0.4 mg DAILY PO Last administered on 11/03/18 08:23; Start 11/02/18 at 09:00 Amlodipine Besylate (Norvasc) 10 mg DAILY PO Last administered on 11/03/18 08:24; Start 11/02/18 at 09:00 Aspirin (Aspirin Enteric Coated) 81 mg DAILYWBKFT PO Last administered on 11/03/18 08:24; Start 11/02/18 at 08:00 Atorvastatin Calcium (Lipitor) 40 mg QHS PO Last administered on 11/03/18 20:08; Start 11/02/18 at 21:00 Clonidine HCl (Catapres Tts-3) 1 patch WEEKLY TD Last administered on 11/03/18 08:27; Start 11/03/18 at 09:00 Docusate Sodium (Colace) 100 mg BID PO Last administered on 11/03/18 20:08; Start 11/02/18 at 09:00 Hydralazine HCl (Apresoline) 100 mg TID PO Last administered on 11/03/18 20:07; Start 11/02/18 at 09:00 Lactobacillus Rhamnosus (Culturelle) 1 cap BID PO Last administered on 11/03/18 20:07; Start 11/02/18 at 09:00 Multivitamins/ Calcium (Thera-M Plus) 1 tab DAILY PO Last administered on 11/03/18 08:23; Start 11/02/18 at 09:00 Selenium Sulfide (Selsun) 1 sanjeev 3X/WEEK TP ; Start 11/02/18 at 09:00 Ciprofloxacin (Cipro) 250 mg BID66 PO Last administered on 11/03/18 18:00; Start 11/02/18 at 06:00 Active Scripts Active Reported Zoloft (Sertraline Hcl) 50 Mg Tablet 50 Mg PO DAILY Selenium Sulfide 180 Ml Shampoo 180 Ml TP 3X/WEEK Zyprexa Zydis (Olanzapine) 5 Mg Tab.rapdis 2.5 Mg PO PRN Q2HR PRN Multivitamins (Multivitamin) 1 Each Tablet 1 Each PO DAILY Metoprolol Tartrate 25 Mg Tablet 25 Mg PO BID Culturelle (Lactobacillus Rhamnosus Gg) 1 Each Capsule 1 Each PO BID Flomax (Tamsulosin Hcl) 0.4 Mg Cap.er.24h 0.4 Mg PO DAILY Seroquel (Quetiapine Fumarate) 25 Mg Tablet 25 Mg PO QHS Polyvinyl Alcohol 15 Ml Drops 1 Drop OP TID Multivitamins (Multivitamin) 1 Each Tablet 1 Tab PO DAILY Mirtazapine 15 Mg Tablet 15 Mg PO QHS Hydralazine Hcl 100 Mg Tablet 100 Mg PO TID Lasix (Furosemide) 20 Mg Tablet 20 Mg PO DAILY Colace (Docusate Sodium) 100 Mg Capsule 100 Mg PO BID Clonidine Tts-3 (Clonidine) 1 Each Patch.tdwk 1 Patch TD WEEKLY Atorvastatin Calcium 40 Mg Tablet 40 Mg PO QHS Aspirin Ec (Aspirin) 81 Mg Tablet.dr 81 Mg PO DAILY Norvasc (Amlodipine Besylate) 10 Mg Tablet 10 Mg PO DAILY I have reviewed the current psychotropics carefully including drug interactions. Risk benefit ratio favors no change other than as noted in my dictated progress note. Diagnosis: Problems: (1) Cardiovascular accident (2) Altered mental status (3) Major neurocognitive disorder (4) Anxiety disorder (5) Dementia, vascular, with depression (6) Dementia, vascular, with delusions (7) Dementia in Alzheimer's disease with depression (8) Dementia in Alzheimer's disease with delusions (9) Impulse control disorder OVIDIO BARRIOS MD Nov 03, 2018 20:45
--- NOTE | 2018-11-03 23:27 | NUR ---
Nursing Note The patient was located in the day room for his medication and assessment. The patient took his medication whole. The patient was unable to answer most assessment questions but was calm and compliant during interactions. The patient is currently sleeping in his room.
[2018-11-04 06:04] VITALS: BP 167/79
[2018-11-04] MEDS: CIPROFLOXACIN HCL 250 MG TABLET PO SCH ×2 (06:12→17:53)
[2018-11-04] MEDS: ASPIRIN ENTERIC COATED 81 MG TABLET.DR. PO SCH (07:53)
[2018-11-04] MEDS: TAMSULOSIN 0.4 MG CAP.ER.24H. PO SCH (07:53)
[2018-11-04] MEDS: DOCUSATE SODIUM 100 MG CAPSULE PO SCH ×2 (07:54→20:35)
[2018-11-04] MEDS: SERTRALINE 50 MG TABLET. PO SCH (07:54)
[2018-11-04] MEDS: LACTOBACILLUS RHAMNOSUS GG 1 CAPSULE. PO SCH ×2 (07:54→20:35)
[2018-11-04] MEDS: METOPROLOL TART IMMED RELEASE 25 MG TABLET PO SCH ×2 (07:54→20:48)
[2018-11-04] MEDS: POLYVINYL ALCOHOL 1.4% OPHTH SOLUTION 15ML BOTTLE. OU SCH ×3 (07:55→20:59)
[2018-11-04] MEDS: FUROSEMIDE 20 MG TABLET PO SCH (07:55)
[2018-11-04] MEDS: MULTIVITAMIN with MINERAL TABLET. PO SCH (07:55)
[2018-11-04] MEDS: amLODIPine BESYLATE 10 MG TABLET PO SCH (07:55)
--- NOTE | 2018-11-04 12:47 | PN ---
DATE: 11/03/2018 PSYCHIATRIC PROGRESS NOTE This late entry 11/03/2018 covers elements not covered in my initial note. SUBJECTIVE: I met with the patient individually evening of 11/03/2018. He slept 7 hours previous night. He has been pleasant. Speech is word salad, joking with nursing staff. One of the other demented patients pushing his wheelchair, he was oblivious to this, became somewhat anxious later and received Zyprexa p.r.n. REVIEW OF SYSTEMS: Ambulation impaired, in wheelchair. No CV, , pulmonary, eye system symptoms on review. MENTAL STATUS EXAM: Oriented to himself. Insight, judgment, recent and remote memory, attention, concentration, fund of knowledge poor consistent with his diagnosis mentioned in my initial note. PLAN: No change from initial note. MAN Saw BARRIOS MD DR: GARY/tasneem JOB#: [id number] / [id number]
[2018-11-04 15:50] VITALS: BP 111/53
[2018-11-04] MEDS: MIRTAZAPINE 15 MG TABLET PO SCH (20:35)
[2018-11-04] MEDS: ATORVASTATIN CALCIUM 20 MG TABLET PO SCH (20:35)
[2018-11-04] MEDS: QUEtiapine 25 MG TABLET. PO SCH (20:35)
--- NOTE | 2018-11-04 22:10 | NUR ---
Nursing Note the patient was compliant with his medication and took them whole. the patient was compliant with the assessment and is currently sleeping in his room.
--- NOTE | 2018-11-04 22:47 | PDOC ---
Exam Note: Theodore Note: Please also refer to the separate dictated note~for this date of service dictated separately.~Patient seen individually. Discussed the patient with Nursing staff reviewed the chart.~Reviewed interim history and current functioning. Reviewed vital signs,~Labs/ Radiology~and current medications noted below. Continue current treatment with the changes noted in the dictated addendum note Assessment: Vital Signs: Vital Signs Date Time Temp Pulse Resp B/P (MAP) Pulse Ox O2 Delivery O2 Flow Rate FiO2 11/04/18 20:49 81 140/71 11/04/18 15:50 97.8 14 100 11/03/18 16:09 Room Air I&O Intake and Output 11/04/18 06:59 Intake Total 780 ml Balance 780 ml Intake Oral 780 ml # Voids 1 Current Medications: Meds: Current Medications Multi-Ingredient Ointment (Analgesic [place]) 1 sanjeev PRN QID PRN TP MUSCLE PAIN; Start 11/01/18 at 23:00 Al Hydroxide/Mg Hydroxide (Mylanta Plus Xs) 15 ml PRN AFTMEALHC PRN PO DYSP EPSIA; Start 11/01/18 at 23:00; Stop 11/02/18 at 01:45; Status DC Magnesium Hydroxide (Milk Of Magnesia) 2,400 mg PRN QHS PRN PO CONSTIPATION; Start 11/01/18 at 23:00; Stop 11/02/18 at 01:45; Status DC Olanzapine (ZyPREXA ZYDIS) 2.5 mg PRN Q2HR PRN PO psychosis/agitation Last administered on 11/04/18at 17:54; Start 11/02/18 at 01:30 Sertraline HCl (Zoloft) 50 mg DAILY PO Last administered on 11/04/18at 07:54; Start 11/02/18 at 09:00 Mirtazapine (Remeron) 15 mg QHS PO Last administered on 11/04/18at 20:35; Start 11/02/18 at 21:00 Quetiapine Fumarate (SEROquel) 25 mg QHS PO Last administered on 11/04/18at 20:35; Start 11/02/18 at 21:00 Furosemide (Lasix) 20 mg DAILY PO Last administered on 11/04/18at 07:55; Start 11/02/18 at 09:00 Metoprolol Tartrate (Lopressor) 25 mg BID PO Last administered on 11/04/18 20:48; Start 11/02/18 at 09:00 Artificial Tears (Artificial Tears) 1 drop TID OU Last administered on 11/04/18 13:15; Start 11/02/18 at 09:00 Tamsulosin HCl (Flomax) 0.4 mg DAILY PO Last administered on 11/04/18 07:53; Start 11/02/18 at 09:00 Amlodipine Besylate (Norvasc) 10 mg DAILY PO Last administered on 11/04/18 07:55; Start 11/02/18 at 09:00 Aspirin (Aspirin Enteric Coated) 81 mg DAILYWBKFT PO Last administered on 11/04/18 07:53; Start 11/02/18 at 08:00 Atorvastatin Calcium (Lipitor) 40 mg QHS PO Last administered on 11/04/18 20:35; Start 11/02/18 at 21:00 Clonidine HCl (Catapres Tts-3) 1 patch WEEKLY TD Last administered on 11/03/18 08:27; Start 11/03/18 at 09:00 Docusate Sodium (Colace) 100 mg BID PO Last administered on 11/04/18 20:35; Start 11/02/18 at 09:00 Hydralazine HCl (Apresoline) 100 mg TID PO Last administered on 11/04/18 20:49; Start 11/02/18 at 09:00 Lactobacillus Rhamnosus (Culturelle) 1 cap BID PO Last administered on 11/04/18 20:35; Start 11/02/18 at 09:00 Multivitamins/ Calcium (Thera-M Plus) 1 tab DAILY PO Last administered on 11/04/18 07:55; Start 11/02/18 at 09:00 Selenium Sulfide (Selsun) 1 sanjeev 3X/WEEK TP ; Start 11/02/18 at 09:00 Ciprofloxacin (Cipro) 250 mg BID66 PO Last administered on 11/04/18 17:53; Start 11/02/18 at 06:00 Active Scripts Active Reported Zoloft (Sertraline Hcl) 50 Mg Tablet 50 Mg PO DAILY Selenium Sulfide 180 Ml Shampoo 180 Ml TP 3X/WEEK Zyprexa Zydis (Olanzapine) 5 Mg Tab.rapdis 2.5 Mg PO PRN Q2HR PRN Multivitamins (Multivitamin) 1 Each Tablet 1 Each PO DAILY Metoprolol Tartrate 25 Mg Tablet 25 Mg PO BID Culturelle (Lactobacillus Rhamnosus Gg) 1 Each Capsule 1 Each PO BID Flomax (Tamsulosin Hcl) 0.4 Mg Cap.er.24h 0.4 Mg PO DAILY Seroquel (Quetiapine Fumarate) 25 Mg Tablet 25 Mg PO QHS Polyvinyl Alcohol 15 Ml Drops 1 Drop OP TID Multivitamins (Multivitamin) 1 Each Tablet 1 Tab PO DAILY Mirtazapine 15 Mg Tablet 15 Mg PO QHS Hydralazine Hcl 100 Mg Tablet 100 Mg PO TID Lasix (Furosemide) 20 Mg Tablet 20 Mg PO DAILY Colace (Docusate Sodium) 100 Mg Capsule 100 Mg PO BID Clonidine Tts-3 (Clonidine) 1 Each Patch.tdwk 1 Patch TD WEEKLY Atorvastatin Calcium 40 Mg Tablet 40 Mg PO QHS Aspirin Ec (Aspirin) 81 Mg Tablet.dr 81 Mg PO DAILY Norvasc (Amlodipine Besylate) 10 Mg Tablet 10 Mg PO DAILY I have reviewed the current psychotropics carefully including drug interactions. Risk benefit ratio favors no change other than as noted in my dictated progress note. Diagnosis: Problems: (1) Altered mental status (2) Major neurocognitive disorder (3) Anxiety disorder (4) Dementia, vascular, with depression (5) Dementia, vascular, with delusions (6) Dementia in Alzheimer's disease with depression (7) Dementia in Alzheimer's disease with delusions (8) Impulse control disorder OVIDIO BARRIOS MD Nov 04, 2018 22:47
[2018-11-05 06:00] VITALS: BP 154/87
[2018-11-05] MEDS: CIPROFLOXACIN HCL 250 MG TABLET PO SCH ×2 (06:07→18:20)
[2018-11-05] MEDS: SELENIUM SULFIDE 1% TOPICAL SHAMPOO 207ML BOTTLE. TP SCH (09:00)
--- NOTE | 2018-11-05 09:11 | NUR ---
Previous Admit- 10/25/2018, down to ICU on 10/31/2018, returned to [facility]; Previous assessment remains valid: Activity Therapy Assessment Completed based on observation, interview and some [employer] notes. Pt. was in his room and agreeable to speak with therapist. Pt. stated he missed his family and that made him sad. Pt. is to [place], has three children and one grandchild. Pt. speech is stuttered and slurred due to a recent stroke. Pt. uses a wheelchair to ambulate but needs assistance due to the stroke having affected his limbs. Therapist invited Pt. to join the group for an afternoon movie but Pt. declined, stating he would prefer 'doing rather than watching or listening'. Pt. explained he doesn't like cards or trivia but enjoys working with his hands, especially on old cars. At this point, Pt. thanked therapist for chatting with him but excused himself to go with a staff member to shave his facial hair. Pt. is often around group but sleeps, rarely participating or engaging. Therapist has observed Pt. attempt to walk out of his chair and needing redirection from staff. According to [employer] notes, Pt. has put himself on the floor while on the unit but therapist has yet to observe this behavior. Initial goal aimed to increase engagement: Pt. will engage in three Activity Therapy groups or individual sessions per week.
[2018-11-05] MEDS: LACTOBACILLUS RHAMNOSUS GG 1 CAPSULE. PO SCH ×2 (09:25→19:43)
[2018-11-05] MEDS: FUROSEMIDE 20 MG TABLET PO SCH (09:26)
[2018-11-05] MEDS: SERTRALINE 50 MG TABLET. PO SCH (09:26)
[2018-11-05] MEDS: METOPROLOL TART IMMED RELEASE 25 MG TABLET PO SCH ×2 (09:26→19:44)
[2018-11-05] MEDS: MULTIVITAMIN with MINERAL TABLET. PO SCH (09:26)
[2018-11-05] MEDS: TAMSULOSIN 0.4 MG CAP.ER.24H. PO SCH (09:27)
[2018-11-05] MEDS: ASPIRIN ENTERIC COATED 81 MG TABLET.DR. PO SCH (09:27)
[2018-11-05] MEDS: DOCUSATE SODIUM 100 MG CAPSULE PO SCH ×2 (09:27→19:43)
[2018-11-05] MEDS: amLODIPine BESYLATE 10 MG TABLET PO SCH (09:27)
[2018-11-05] MEDS: POLYVINYL ALCOHOL 1.4% OPHTH SOLUTION 15ML BOTTLE. OU SCH ×3 (09:28→19:43)
--- NOTE | 2018-11-05 10:43 | NUR ---
Nursing Note: Pt compliant w/ meds taken whole, cooperative w/ assessment, alert to situation, and , slightly demanding @ times. Pt given a bath last night; therefore nonadmin, Selsun Shampoo today.
--- NOTE | 2018-11-05 12:12 | PN ---
DATE: 11/04/2018 PSYCHIATRIC PROGRESS NOTE This late entry 11/04/2018 covers elements not covered in my initial note. SUBJECTIVE: Met with the patient in the evening. The patient slept 7-3/4 hours previous night. Reportedly, he has had better spirits, clear speech. He has vociferous appetite, per nursing staff; ate a double portion for breakfast and lunch. Irritable in the morning, slept well. Swallow study done on for his dysphagia, it was notable for the fact that he would eat really fast and nursing staffs are encouraging him to slow this down. REVIEW OF SYSTEMS: Ambulation impaired, in wheelchair. No CV, , pulmonary, eye, ENT system symptoms on review. Reliability poor. MENTAL STATUS EXAM: Oriented to himself. Insight, judgment, recent and remote memory, attention, concentration, fund of knowledge is poor, consistent with his diagnoses mentioned in my initial note. PLAN: No change from initial note. OVIDIO BARRIOS MD DR: GARY/tasneem JOB#: [id number] / [id number]
[2018-11-05 15:47] VITALS: BP 119/63
[2018-11-05] MEDS: ATORVASTATIN CALCIUM 20 MG TABLET PO SCH (19:43)
[2018-11-05] MEDS: MIRTAZAPINE 15 MG TABLET PO SCH (19:44)
[2018-11-05] MEDS: QUEtiapine 25 MG TABLET. PO SCH (19:44)
--- NOTE | 2018-11-05 21:06 | NUR ---
Nursing note: Assumed care of pt in the day room. He was dozing in his chair but easily awakened. He was compliant, cooperative, and pleasant. No c/o pain, no agitation, A&OX3.
--- NOTE | 2018-11-05 22:39 | PDOC ---
Exam Note: Theodore Note: Please also refer to the separate dictated note~for this date of service dictated separately.~Patient seen individually. Discussed the patient with Nursing staff reviewed the chart.~Reviewed interim history and current functioning. Reviewed vital signs,~Labs/ Radiology~and current medications noted below. Continue current treatment with the changes noted in the dictated addendum note Assessment: Vital Signs: Vital Signs Date Time Temp Pulse Resp B/P (MAP) Pulse Ox O2 Delivery O2 Flow Rate FiO2 11/05/18 19:44 82 119/63 11/05/18 15:47 97.3 16 95 11/03/18 16:09 Room Air I&O Intake and Output 11/05/18 07:00 Intake Total 1080 ml Balance 1080 ml Intake Oral 1080 ml Current Medications: Meds: Current Medications Multi-Ingredient Ointment (Analgesic [place]) 1 sanjeev PRN QID PRN TP MUSCLE PAIN; Start 11/01/18 at 23:00 Al Hydroxide/Mg Hydroxide (Mylanta Plus Xs) 15 ml PRN AFTMEALHC PRN PO DYSPEPSIA; Start 11/01/18 at 23:00; Stop 11/02/18 at 01:45; Status DC Magnesium Hydroxide (Milk Of Magnesia) 2,400 mg PRN QHS PRN PO CONSTIPATION; Start 11/01/18 at 23:00; Stop 11/02/18 at 01:45; Status DC Olanzapine (ZyPREXA ZYDIS) 2.5 mg PRN Q2HR PRN PO psychosis/agitation Last administered on 11/04/18at 17:54; Start 11/02/18 at 01:30 Sertraline HCl (Zoloft) 50 mg DAILY PO Last administered on 11/05/18at 09:26; Start 11/02/18 at 09:00 Mirtazapine (Remeron) 15 mg QHS PO Last administered on 11/05/18at 19:44; Start 11/02/18 at 21:00 Quetiapine Fumarate (SEROquel) 25 mg QHS PO Last administered on 11/05/18at 19:44; Start 11/02/18 at 21:00 Furosemide (Lasix) 20 mg DAILY PO Last administered on 11/05/18at 09:26; Start 11/02/18 at 09:00 Metoprolol Tartrate (Lopressor) 25 mg BID PO Last administered on 11/05/18 19:44; Start 11/02/18 at 09:00 Artificial Tears (Artificial Tears) 1 drop TID OU Last administered on 11/05/18 19:43; Start 11/02/18 at 09:00 Tamsulosin HCl (Flomax) 0.4 mg DAILY PO Last administered on 11/05/18 09:27; Start 11/02/18 at 09:00 Amlodipine Besylate (Norvasc) 10 mg DAILY PO Last administered on 11/05/18 09:27; Start 11/02/18 at 09:00 Aspirin (Aspirin Enteric Coated) 81 mg DAILYWBKFT PO Last administered on 11/05/18 09:27; Start 11/02/18 at 08:00 Atorvastatin Calcium (Lipitor) 40 mg QHS PO Last administered on 11/05/18 19:43; Start 11/02/18 at 21:00 Clonidine HCl (Catapres Tts-3) 1 patch WEEKLY TD Last administered on 11/03/18 08:27; Start 11/03/18 at 09:00 Docusate Sodium (Colace) 100 mg BID PO Last administered on 11/05/18 19:43; Start 11/02/18 at 09:00 Hydralazine HCl (Apresoline) 100 mg TID PO Last administered on 11/05/18 19:4 3; Start 11/02/18 at 09:00 Lactobacillus Rhamnosus (Culturelle) 1 cap BID PO Last administered on 11/05/18 19:43; Start 11/02/18 at 09:00 Multivitamins/ Calcium (Thera-M Plus) 1 tab DAILY PO Last administered on 11/05/18 09:26; Start 11/02/18 at 09:00 Selenium Sulfide (Selsun) 1 sanjeev 3X/WEEK TP ; Start 11/02/18 at 09:00 Ciprofloxacin (Cipro) 250 mg BID66 PO Last administered on 11/05/18 18:20; Start 11/02/18 at 06:00 Active Scripts Active Reported Zoloft (Sertraline Hcl) 50 Mg Tablet 50 Mg PO DAILY Selenium Sulfide 180 Ml Shampoo 180 Ml TP 3X/WEEK Zyprexa Zydis (Olanzapine) 5 Mg Tab.rapdis 2.5 Mg PO PRN Q2HR PRN Multivitamins (Multivitamin) 1 Each Tablet 1 Each PO DAILY Metoprolol Tartrate 25 Mg Tablet 25 Mg PO BID Culturelle (Lactobacillus Rhamnosus Gg) 1 Each Capsule 1 Each PO BID Flomax (Tamsulosin Hcl) 0.4 Mg Cap.er.24h 0.4 Mg PO DAILY Seroquel (Quetiapine Fumarate) 25 Mg Tablet 25 Mg PO QHS Polyvinyl Alcohol 15 Ml Drops 1 Drop OP TID Multivitamins (Multivitamin) 1 Each Tablet 1 Tab PO DAILY Mirtazapine 15 Mg Tablet 15 Mg PO QHS Hydralazine Hcl 100 Mg Tablet 100 Mg PO TID Lasix (Furosemide) 20 Mg Tablet 20 Mg PO DAILY Colace (Docusate Sodium) 100 Mg Capsule 100 Mg PO BID Clonidine Tts-3 (Clonidine) 1 Each Patch.tdwk 1 Patch TD WEEKLY Atorvastatin Calcium 40 Mg Tablet 40 Mg PO QHS Aspirin Ec (Aspirin) 81 Mg Tablet.dr 81 Mg PO DAILY Norvasc (Amlodipine Besylate) 10 Mg Tablet 10 Mg PO DAILY I have reviewed the current psychotropics carefully including drug interactions. Risk benefit ratio favors no change other than as noted in my dictated progress note. Diagnosis: Problems: (1) Altered mental status (2) Major neurocognitive disorder (3) Anxiety disorder (4) Dementia, vascular, with depression (5) Dementia, vascular, with delusions (6) Dementia in Alzheimer's disease with depression (7) Dementia in Alzheimer's disease with delusions (8) Impulse control disorder OVIDIO BARRIOS MD Nov 05, 2018 22:39
[2018-11-06 05:40] VITALS: BP 169/84
[2018-11-06] MEDS: CIPROFLOXACIN HCL 250 MG TABLET PO SCH ×2 (06:07→17:14)
[2018-11-06] MEDS: LACTOBACILLUS RHAMNOSUS GG 1 CAPSULE. PO SCH ×2 (08:45→19:06)
[2018-11-06] MEDS: DOCUSATE SODIUM 100 MG CAPSULE PO SCH ×2 (08:46→19:06)
[2018-11-06] MEDS: amLODIPine BESYLATE 10 MG TABLET PO SCH (08:46)
[2018-11-06] MEDS: ASPIRIN ENTERIC COATED 81 MG TABLET.DR. PO SCH (08:46)
[2018-11-06] MEDS: METOPROLOL TART IMMED RELEASE 25 MG TABLET PO SCH ×3 (08:46→21:00)
[2018-11-06] MEDS: MULTIVITAMIN with MINERAL TABLET. PO SCH (08:47)
[2018-11-06] MEDS: FUROSEMIDE 20 MG TABLET PO SCH (08:48)
[2018-11-06] MEDS: SERTRALINE 50 MG TABLET. PO SCH (08:48)
[2018-11-06] MEDS: TAMSULOSIN 0.4 MG CAP.ER.24H. PO SCH (08:50)
[2018-11-06] MEDS: POLYVINYL ALCOHOL 1.4% OPHTH SOLUTION 15ML BOTTLE. OU SCH ×3 (08:50→19:04)
--- NOTE | 2018-11-06 11:32 | NUR ---
Nursing Note: Pt compliant w/ meds taken whole, expressive aphasia; however, able to express that he is in hospital and . Pt participated in exercise group with encouragement from OT.
[2018-11-06 16:35] VITALS: BP 123/62
[2018-11-06] MEDS: QUEtiapine 25 MG TABLET. PO SCH (19:06)
[2018-11-06] MEDS: ATORVASTATIN CALCIUM 20 MG TABLET PO SCH (19:06)
[2018-11-06] MEDS: MIRTAZAPINE 15 MG TABLET PO SCH (19:06)
--- NOTE | 2018-11-06 21:00 | NUR ---
Nursing note: Assumed care of pt in the day room. He was sitting quietly watching tv. When I approached him with his medication he was receptive. He took the pill cup and tried to throw them into his mouth. They all went all over his lap. I retrieved the pills and put them back in the cup. He put them in his mouth but missed one. He became agitated when I said there was one more pill and refused to take it. I asked him why but he didn't say, only no. I asked if he was in pain but he denied.
--- NOTE | 2018-11-06 22:45 | PDOC ---
Exam Note: Theodore Note: Please also refer to the separate dictated note~for this date of service dictated separately.~Patient seen individually. Discussed the patient with Nursing staff reviewed the chart.~Reviewed interim history and current functioning. Reviewed vital signs,~Labs/ Radiology~and current medications noted below. Continue current treatment with the changes noted in the dictated addendum note Assessment: Vital Signs: Vital Signs Date Time Temp Pulse Resp B/P (MAP) Pulse Ox O2 Delivery O2 Flow Rate FiO2 11/06/18 21:00 72 123/62 11/06/18 16:35 98.5 20 97 11/03/18 16:09 Room Air I&O Intake and Output 11/06/18 07:00 Intake Total 1080 ml Balance 1080 ml Intake Oral 1080 ml Current Medications: Meds: Current Medications Multi-Ingredient Ointment (Analgesic [place]) 1 sanjeev PRN QID PRN TP MUSCLE PAIN; Start 11/01/18 at 23:00 Al Hydroxide/Mg Hydroxide (Mylanta Plus Xs) 15 ml PRN AFTMEALHC PRN PO DYSPEPSIA; Start 11/01/18 at 23:00; Stop 11/02/18 at 01:45; Status DC Magnesium Hydroxide (Milk Of Magnesia) 2,400 mg PRN QHS PRN PO CONSTIPATION; Start 11/01/18 at 23:00; Stop 11/02/18 at 01:45; Status DC Olanzapine (ZyPREXA ZYDIS) 2.5 mg PRN Q2HR PRN PO psychosis/agitation Last administered on 11/04/18at 17:54; Start 11/02/18 at 01:30 Sertraline HCl (Zoloft) 50 mg DAILY PO Last administered on 11/06/18at 08:48; Start 11/02/18 at 09:00 Mirtazapine (Remeron) 15 mg QHS PO Last administered on 11/06/18at 19:06; Start 11/02/18 at 21:00 Quetiapine Fumarate (SEROquel) 25 mg QHS PO Last administered on 11/06/18at 19:06; Start 11/02/18 at 21:00 Furosemide (Lasix) 20 mg DAILY PO Last administered on 11/06/18at 08:48; Start 11/02/18 at 09:00 Metoprolol Tartrate (Lopressor) 25 mg BID PO Last administered on 11/06/18 08:46; Start 11/02/18 at 09:00 Artificial Tears (Artificial Tears) 1 drop TID OU Last administered on 11/06/18 19:04; Start 11/02/18 at 09:00 Tamsulosin HCl (Flomax) 0.4 mg DAILY PO Last administered on 11/06/18 08:50; Start 11/02/18 at 09:00 Amlodipine Besylate (Norvasc) 10 mg DAILY PO Last administered on 11/06/18 08:46; Start 11/02/18 at 09:00 Aspirin (Aspirin Enteric Coated) 81 mg DAILYWBKFT PO Last administered on 11/06/18 08:46; Start 11/02/18 at 08:00 Atorvastatin Calcium (Lipitor) 40 mg QHS PO Last administered on 11/06/18 19:06; Start 11/02/18 at 21:00 Clonidine HCl (Catapres Tts-3) 1 patch WEEKLY TD Last administered on 11/03/18 08:27; Start 11/03/18 at 09:00 Docusate Sodium (Colace) 100 mg BID PO Last administered on 11/06/18 19:06; Start 11/02/18 at 09:00 Hydralazine HCl (Apresoline) 100 mg TID PO Last administered on 11/06/18 19:0 5; Start 11/02/18 at 09:00 Lactobacillus Rhamnosus (Culturelle) 1 cap BID PO Last administered on 11/06/18 19:06; Start 11/02/18 at 09:00 Multivitamins/ Calcium (Thera-M Plus) 1 tab DAILY PO Last administered on 11/06/18 08:47; Start 11/02/18 at 09:00 Selenium Sulfide (Selsun) 1 sanjeev 3X/WEEK TP ; Start 11/02/18 at 09:00 Ciprofloxacin (Cipro) 250 mg BID66 PO Last administered on 11/06/18 17:14; Start 11/02/18 at 06:00 Active Scripts Active Reported Zoloft (Sertraline Hcl) 50 Mg Tablet 50 Mg PO DAILY Selenium Sulfide 180 Ml Shampoo 180 Ml TP 3X/WEEK Zyprexa Zydis (Olanzapine) 5 Mg Tab.rapdis 2.5 Mg PO PRN Q2HR PRN Multivitamins (Multivitamin) 1 Each Tablet 1 Each PO DAILY Metoprolol Tartrate 25 Mg Tablet 25 Mg PO BID Culturelle (Lactobacillus Rhamnosus Gg) 1 Each Capsule 1 Each PO BID Flomax (Tamsulosin Hcl) 0.4 Mg Cap.er.24h 0.4 Mg PO DAILY Seroquel (Quetiapine Fumarate) 25 Mg Tablet 25 Mg PO QHS Polyvinyl Alcohol 15 Ml Drops 1 Drop OP TID Multivitamins (Multivitamin) 1 Each Tablet 1 Tab PO DAILY Mirtazapine 15 Mg Tablet 15 Mg PO QHS Hydralazine Hcl 100 Mg Tablet 100 Mg PO TID Lasix (Furosemide) 20 Mg Tablet 20 Mg PO DAILY Colace (Docusate Sodium) 100 Mg Capsule 100 Mg PO BID Clonidine Tts-3 (Clonidine) 1 Each Patch.tdwk 1 Patch TD WEEKLY Atorvastatin Calcium 40 Mg Tablet 40 Mg PO QHS Aspirin Ec (Aspirin) 81 Mg Tablet.dr 81 Mg PO DAILY Norvasc (Amlodipine Besylate) 10 Mg Tablet 10 Mg PO DAILY I have reviewed the current psychotropics carefully including drug interactions. Risk benefit ratio favors no change other than as noted in my dictated progress note. Diagnosis: Problems: (1) Altered mental status (2) Major neurocognitive disorder (3) Dementia, vascular, with depression (4) Dementia, vascular, with delusions (5) Dementia in Alzheimer's disease with depression (6) Dementia in Alzheimer's disease with delusions (7) Impulse control disorder (8) Anxiety disorder OVIDIO BARRIOS MD Nov 06, 2018 22:45
--- NOTE | 2018-11-07 00:51 | PN ---
DATE: 11/05/2018 PSYCHIATRIC PROGRESS NOTE This late entry 11/05/2018 covers elements not covered in my initial note. SUBJECTIVE: I met with the patient in the evening. The patient slept 6-3/4 hours previous evening. He is oriented to his date of and that he is in a hospital. Otherwise, confused. Somewhat demanding. Refused to do physical therapy. The staff encouraging him to eat slowly since he rushes through his food, tends to choke. REVIEW OF SYSTEMS: Ambulation impaired, in wheelchair. No CV, , pulmonary, eye, ENT system symptoms on review. Reliability poor. MENTAL STATUS EXAM: Oriented to himself. Insight, judgment, recent and remote memory, attention, concentration, fund of knowledge poor, consistent with his diagnosis mentioned in my initial note. PLAN: No change from initial note. Continue Zoloft, Remeron and Seroquel for now. OVIDIO BARRIOS MD DR: GARY/tasneem JOB#: [id number] / [id number]
[2018-11-07] MEDS: CIPROFLOXACIN HCL 250 MG TABLET PO SCH ×2 (05:40→06:00)
[2018-11-07 05:59] VITALS: BP 173/85
[2018-11-07] MEDS: ASPIRIN ENTERIC COATED 81 MG TABLET.DR. PO SCH (08:42)
[2018-11-07] MEDS: TAMSULOSIN 0.4 MG CAP.ER.24H. PO SCH (08:42)
[2018-11-07] MEDS: MULTIVITAMIN with MINERAL TABLET. PO SCH (08:43)
[2018-11-07] MEDS: DOCUSATE SODIUM 100 MG CAPSULE PO SCH ×2 (08:43→19:14)
[2018-11-07] MEDS: amLODIPine BESYLATE 10 MG TABLET PO SCH (08:43)
[2018-11-07] MEDS: SERTRALINE 50 MG TABLET. PO SCH (08:43)
[2018-11-07] MEDS: FUROSEMIDE 20 MG TABLET PO SCH (08:43)
[2018-11-07] MEDS: LACTOBACILLUS RHAMNOSUS GG 1 CAPSULE. PO SCH ×2 (08:43→19:14)
[2018-11-07] MEDS: METOPROLOL TART IMMED RELEASE 25 MG TABLET PO SCH ×2 (08:43→19:14)
[2018-11-07] MEDS: POLYVINYL ALCOHOL 1.4% OPHTH SOLUTION 15ML BOTTLE. OU SCH ×3 (08:44→19:14)
[2018-11-07] MEDS: SELENIUM SULFIDE 1% TOPICAL SHAMPOO 207ML BOTTLE. TP SCH (08:51)
[2018-11-07 09:20] LABS: BASO # 0.1 x10^3/uL (0.0-0.2); BASO % 1 % (0-3); EOS # 0.1 x10^3/uL (0.0-0.7); EOS % 1 % (0-3); HEMATOCRIT 37.4 % (39.0-53.0); HEMOGLOBIN 12.4 g/dL (13.0-17.5); LYMPH # 0.7 x10^3/uL (1.0-4.8); LYMPH % 12 % (24-48); MEAN CORPUSCULAR HEMOGLOBIN 31 pg (25-35); MEAN CORPUSCULAR HGB CONC 33 g/dL (31-37); MEAN CORPUSCULAR VOLUME 92 fL (79-100); MONO # 0.5 x10^3/uL (0.0-1.1); MONO % 9 % (0-9); NEUT # 4.5 x10^3uL (1.8-7.7); NEUT % 77 % (31-73); PLATELET COUNT 256 x10^3/uL (140-400); RED BLOOD COUNT 4.06 x10^6/uL (4.30-5.70); RED CELL DISTRIBUTION WIDTH 14.6 % (11.5-14.5); WHITE BLOOD COUNT 5.9 x10^3/uL (4.0-11.0)
[2018-11-07 09:36] LABS: ALBUMIN 3.2 g/dL (3.4-5.0); CREATININE 1.9 mg/dL (0.7-1.3); GFR 34.5; POTASSIUM 4.1 mmol/L (3.5-5.1); TOTAL BILIRUBIN 0.4 mg/dL (0.2-1.0); TOTAL PROTEIN 6.3 g/dL (6.4-8.2)
[2018-11-07 15:44] VITALS: BP 139/77
[2018-11-07] MEDS: ATORVASTATIN CALCIUM 20 MG TABLET PO SCH (19:13)
[2018-11-07] MEDS: MIRTAZAPINE 15 MG TABLET PO SCH (19:14)
[2018-11-07] MEDS: QUEtiapine 25 MG TABLET. PO SCH (19:14)
--- NOTE | 2018-11-07 20:11 | NUR ---
Nursing note: Assumed care of pt in the day room. When I attempted to give pt his HS meds he yelled "no, I already took them". I told him he didn't but he pushed them away. Later when pt asked for crackers he was told he needed his meds first and he was compliant. He denies pain. He continued to sit in day room but not interacting with anyone. Occasionally dozes in chair.
--- NOTE | 2018-11-07 23:03 | PDOC ---
Exam Note: Theodore Note: Please also refer to the separate dictated note~for this date of service dictated separately.~Patient seen individually. Discussed the patient with Nursing staff reviewed the chart.~Reviewed interim history and current functioning. Reviewed vital signs,~Labs/ Radiology~and current medications noted below. Continue current treatment with the changes noted in the dictated addendum note Assessment: Vital Signs: Vital Signs Date Time Temp Pulse Resp B/P (MAP) Pulse Ox O2 Delivery O2 Flow Rate FiO2 11/07/18 19:14 80 139/77 11/07/18 15:44 97.4 20 97 11/03/18 16:09 Room Air I&O Intake and Output 11/07/18 06:59 Intake Total 1560 ml Balance 1560 ml Intake Oral 1560 ml Labs: Laboratory Tests Test 11/07/18 09:05 White Blood Count 5.9 x10^3/uL (4.0-11.0) Red Blood Count 4.06 x10^6/uL (4.30-5.70) L Hemoglobin 12.4 g/dL (13.0-17.5) L Hematocrit 37.4 % (39.0-53.0) L Mean Corpuscular Volume 92 fL (79-100) Mean Corpuscular Hemoglobin 31 pg (25-35) Mean Corpuscular Hemoglobin Concent 33 g/dL (31-37) Red Cell Distribution Width 14.6 % (11.5-14.5) H Platelet Count 256 x10^3/uL (140-400) Neutrophils (%) (Auto) 77 % (31-73) H Lymphocytes (%) (Auto) 12 % (24-48) L Monocytes (%) (Auto) 9 % (0-9) Eosinophils (%) (Auto) 1 % (0-3) Basophils (%) (Auto) 1 % (0-3) Neutrophils # (Auto) 4.5 x10^3uL (1.8-7.7) Lymphocytes # (Auto) 0.7 x10^3/uL (1.0-4.8) L Monocytes # (Auto) 0.5 x10^3/uL (0.0-1.1) Eosinophils # (Auto) 0.1 x10^3/uL (0.0-0.7) Basophils # (Auto) 0.1 x10^3/uL (0.0-0.2) Sodium Level 144 mmol/L (136-145) Potassium Level 4.1 mmol/L (3.5-5.1) Chloride Level 107 mmol/L (98-107) Carbon Dioxide Level 29 mmol/L (21-32) Anion Gap 8 (6-14) Blood Urea Nitrogen 38 mg/dL (8-26) H Creatinine 1.9 mg/dL (0.7-1.3) H Estimated GFR (Cockcroft-Gault) 34.5 BUN/Creatinine Ratio 20 (6-20) Glucose Level 134 mg/dL (70-99) H Calcium Level 9.0 mg/dL (8.5-10.1) Total Bilirubin 0.4 mg/dL (0.2-1.0) Aspartate Amino Transferase (AST) 31 U/L (15-37) Alanine Aminotransferase (ALT) 53 U/L (16-63) Alkaline Phosphatase 91 U/L (46-116) Total Protein 6.3 g/dL (6.4-8.2) L Albumin 3.2 g/dL (3.4-5.0) L Albumin/Globulin Ratio 1.0 (1.0-1.7) Current Medications: Meds: Current Medications Multi-Ingredient Ointment (Analgesic [place]) 1 sanjeev PRN QID PRN TP MUSCLE PAIN; Start 11/01/18 at 23:00 Al Hydroxide/Mg Hydroxide (Mylanta Plus Xs) 15 ml PRN AFTMEALHC PRN PO DYSPEPSIA; Start 11/01/18 at 23:00; Stop 11/02/18 at 01:45; Status DC Magnesium Hydroxide (Milk Of Magnesia) 2,400 mg PRN QHS PRN PO CONSTIPATION; Start 11/01/18 at 23:00; Stop 11/02/18 at 01:45; Status DC Olanzapine (ZyPREXA ZYDIS) 2.5 mg PRN Q2HR PRN PO psychosis/agitation Last administered on 11/07/18at 06:07; Start 11/02/18 at 01:30 Sertraline HCl (Zoloft) 50 mg DAILY PO Last administered on 11/07/18at 08:43; Start 11/02/18 at 09:00 Mirtazapine (Remeron) 15 mg QHS PO Last administered on 11/07/18 19:14; Start 11/02/18 at 21:00 Quetiapine Fumarate (SEROquel) 25 mg QHS PO Last administered on 11/07/18 19:14; Start 11/02/18 at 21:00 Furosemide (Lasix) 20 mg DAILY PO Last administered on 11/07/18 08:43; Start 11/02/18 at 09:00 Metoprolol Tartrate (Lopressor) 25 mg BID PO Last administered on 11/07/18 19:14; Start 11/02/18 at 09:00 Artificial Tears (Artificial Tears) 1 drop TID OU Last administered on 11/07/18 12:44; Start 11/02/18 at 09:00 Tamsulosin HCl (Flomax) 0.4 mg DAILY PO Last administered on 11/07/18 08:42; Start 11/02/18 at 09:00 Amlodipine Besylate (Norvasc) 10 mg DAILY PO Last administered on 11/07/18 08:43; Start 11/02/18 at 09:00 Aspirin (Aspirin Enteric Coated) 81 mg DAILYWBKFT PO Last administered on 11/07/18 08:42; Start 11/02/18 at 08:00 Atorvastatin Calcium (Lipitor) 40 mg QHS PO Last administered on 11/07/18 19:13; Start 11/02/18 at 21:00 Clonidine HCl (Catapres Tts-3) 1 patch WEEKLY TD Last administered on 11/03/18 08:27; Start 11/03/18 at 09:00 Docusate Sodium (Colace) 100 mg BID PO Last administered on 11/07/18 19:14; Start 11/02/18 at 09:00 Hydralazine HCl (Apresoline) 100 mg TID PO Last administered on 11/07/18 19:14; Start 11/02/18 at 09:00 Lactobacillus Rhamnosus (Culturelle) 1 cap BID PO Last administered on 11/07/18 19:14; Start 11/02/18 at 09:00 Multivitamins/ Calcium (Thera-M Plus) 1 tab DAILY PO Last administered on 11/07/18 08:43; Start 11/02/18 at 09:00 Selenium Sulfide (Selsun) 1 sanjeev 3X/WEEK TP Last administered on 11/07/18at 08:51; Start 11/02/18 at 09:00 Ciprofloxacin (Cipro) 250 mg BID66 PO Last administered on 11/06/18at 17:14; Start 11/02/18 at 06:00; Stop 11/07/18 at 12:46; Status DC Active Scripts Active Reported Zoloft (Sertraline Hcl) 50 Mg Tablet 50 Mg PO DAILY Selenium Sulfide 180 Ml Shampoo 180 Ml TP 3X/WEEK Zyprexa Zydis (Olanzapine) 5 Mg Tab.rapdis 2.5 Mg PO PRN Q2HR PRN Multivitamins (Multivitamin) 1 Each Tablet 1 Each PO DAILY Metoprolol Tartrate 25 Mg Tablet 25 Mg PO BID Culturelle (Lactobacillus Rhamnosus Gg) 1 Each Capsule 1 Each PO BID Flomax (Tamsulosin Hcl) 0.4 Mg Cap.er.24h 0.4 Mg PO DAILY Seroquel (Quetiapine Fumarate) 25 Mg Tablet 25 Mg PO QHS Polyvinyl Alcohol 15 Ml Drops 1 Drop OP TID Multivitamins (Multivitamin) 1 Each Tablet 1 Tab PO DAILY Mirtazapine 15 Mg Tablet 15 Mg PO QHS Hydralazine Hcl 100 Mg Tablet 100 Mg PO TID Lasix (Furosemide) 20 Mg Tablet 20 Mg PO DAILY Colace (Docusate Sodium) 100 Mg Capsule 100 Mg PO BID Clonidine Tts-3 (Clonidine) 1 Each Patch.tdwk 1 Patch TD WEEKLY Atorvastatin Calcium 40 Mg Tablet 40 Mg PO QHS Aspirin Ec (Aspirin) 81 Mg Tablet.dr 81 Mg PO DAILY Norvasc (Amlodipine Besylate) 10 Mg Tablet 10 Mg PO DAILY I have reviewed the current psychotropics carefully including drug interactions. Risk benefit ratio favors no change other than as noted in my dictated progress note. Diagnosis: Problems: (1) Altered mental status (2) Major neurocognitive disorder (3) Anxiety disorder (4) Dementia, vascular, with depression (5) Dementia, vascular, with delusions (6) Dementia in Alzheimer's disease with depression (7) Dementia in Alzheimer's disease with delusions (8) Impulse control disorder OVIDIO BARRIOS MD Nov 07, 2018 23:03
--- NOTE | 2018-11-08 00:20 | PN ---
DATE: 11/06/2018 PSYCHIATRIC PROGRESS NOTE This late entry 11/06/2018 covers elements not covered in my initial note. SUBJECTIVE: I met with the patient in the evening. The patient has been fairly pleasant, confused, cooperative with his medications. Slept 7 hours previous night. REVIEW OF SYSTEMS: Ambulation impaired in wheelchair. No CV, , pulmonary, eye, ENT system symptoms on review. Reliability poor. MENTAL STATUS EXAM: Oriented to himself. Insight, judgment, recent and remote memory, attention, concentration, fund of knowledge poor, consistent with his diagnosis mentioned in my initial note. PLAN: No change from initial note. MAN Saw BARRIOS MD DR: GARY/tasneem JOB#: [id number] / [id number]
[2018-11-08 06:11] VITALS: BP 180/88
[2018-11-08] MEDS: ASPIRIN ENTERIC COATED 81 MG TABLET.DR. PO SCH (08:28)
[2018-11-08] MEDS: MULTIVITAMIN with MINERAL TABLET. PO SCH (08:28)
[2018-11-08] MEDS: amLODIPine BESYLATE 10 MG TABLET PO SCH (08:29)
[2018-11-08] MEDS: FUROSEMIDE 20 MG TABLET PO SCH (08:29)
[2018-11-08] MEDS: TAMSULOSIN 0.4 MG CAP.ER.24H. PO SCH (08:29)
[2018-11-08] MEDS: SERTRALINE 50 MG TABLET. PO SCH (08:29)
[2018-11-08] MEDS: LACTOBACILLUS RHAMNOSUS GG 1 CAPSULE. PO SCH ×2 (08:29→19:08)
[2018-11-08] MEDS: METOPROLOL TART IMMED RELEASE 25 MG TABLET PO SCH ×2 (08:29→19:08)
[2018-11-08] MEDS: DOCUSATE SODIUM 100 MG CAPSULE PO SCH ×2 (08:29→19:07)
[2018-11-08] MEDS: POLYVINYL ALCOHOL 1.4% OPHTH SOLUTION 15ML BOTTLE. OU SCH ×3 (08:34→20:02)
--- NOTE | 2018-11-08 09:54 | NUR ---
WEEKLY ACTIVITY THERAPY NOTE Date of Admission: 11/02/2018, Prev. Admit: 10/25/2018 Date of AT Assessment: 11/05/2018 Goal aimed: to increase engagement Initial goal: Pt. will engage in three Activity Therapy groups or individual sessions per week. Weekly progress towards goal: / Group participation level: varies Weekly highlights: mostly independent participation with alan/Memo on Monday afternoon Behaviors observed: expresses himself firmly, more vocal as the week has gone on, impatient at times, sleepy in the afternoon, very frustrated when people don't understand his speech at times, time on patio Plan: no change to goal Beneficial adaptations: direct prompting, demonstrations and verbal cues
[2018-11-08 16:04] VITALS: BP 145/73
--- NOTE | 2018-11-08 18:06 | NUR ---
Pt calm, compliant with meds and assessment in the morning. Pt was more agitated and resistive to meds in the afternoon. Pt was given prn zyprexa right around dinner time 1700.
[2018-11-08] MEDS: ATORVASTATIN CALCIUM 20 MG TABLET PO SCH (19:07)
[2018-11-08] MEDS: MIRTAZAPINE 15 MG TABLET PO SCH (19:08)
[2018-11-08] MEDS: QUEtiapine 25 MG TABLET. PO SCH (19:08)
--- NOTE | 2018-11-08 20:45 | NUR ---
Nursing Note The patient was located in the day room for his medication and assessment. the patient took his medication whole and was compliant with his assessment but was difficult to communicate with. The patient remains in the day room at this time sitting at the table peacefully.
--- NOTE | 2018-11-08 22:22 | PDOC ---
Exam Note: Theodore Note: Please also refer to the separate dictated note~for this date of service dictated separately.~Patient seen individually. Discussed the patient with Nursing staff reviewed the chart.~Reviewed interim history and current functioning. Reviewed vital signs,~Labs/ Radiology~and current medications noted below. Continue current treatment with the changes noted in the dictated addendum note Assessment: Vital Signs: Vital Signs Date Time Temp Pulse Resp B/P (MAP) Pulse Ox O2 Delivery O2 Flow Rate FiO2 11/08/18 19:08 78 145/73 11/08/18 16:04 98.3 20 95 11/03/18 16:09 Room Air I&O Intake and Output 11/08/18 07:00 Intake Total 1440 ml Balance 1440 ml Intake Oral 1440 ml Current Medications: Meds: Current Medications Multi-Ingredient Ointment (Analgesic [place]) 1 sanjeev PRN QID PRN TP MUSCLE PAIN; Start 11/01/18 at 23:00 Al Hydroxide/Mg Hydroxide (Mylanta Plus Xs) 15 ml PRN AFTMEALHC PRN PO DYSPEPSIA; Start 11/01/18 at 23:00; Stop 11/02/18 at 01:45; Status DC Magnesium Hydroxide (Milk Of Magnesia) 2,400 mg PRN QHS PRN PO CONSTIPATION; Start 11/01/18 at 23:00; Stop 11/02/18 at 01:45; Status DC Olanzapine (ZyPREXA ZYDIS) 2.5 mg PRN Q2HR PRN PO psychosis/agitation Last administered on 11/08/18at 18:09; Start 11/02/18 at 01:30 Sertraline HCl (Zoloft) 50 mg DAILY PO Last administered on 11/08/18at 08:29; Start 11/02/18 at 09:00 Mirtazapine (Remeron) 15 mg QHS PO Last administered on 11/08/18at 19:08; Start 11/02/18 at 21:00 Quetiapine Fumarate (SEROquel) 25 mg QHS PO Last administered on 11/08/18at 19:08; Start 11/02/18 at 21:00 Furosemide (Lasix) 20 mg DAILY PO Last administered on 11/08/18at 08:29; Start 11/02/18 at 09:00 Metoprolol Tartrate (Lopressor) 25 mg BID PO Last administered on 11/08/18 19:08; Start 11/02/18 at 09:00 Artificial Tears (Artificial Tears) 1 drop TID OU Last administered on 11/08/18 20:02; Start 11/02/18 at 09:00 Tamsulosin HCl (Flomax) 0.4 mg DAILY PO Last administered on 11/08/18 08:29; Start 11/02/18 at 09:00 Amlodipine Besylate (Norvasc) 10 mg DAILY PO Last administered on 11/08/18 08:29; Start 11/02/18 at 09:00 Aspirin (Aspirin Enteric Coated) 81 mg DAILYWBKFT PO Last administered on 11/08/18 08:28; Start 11/02/18 at 08:00 Atorvastatin Calcium (Lipitor) 40 mg QHS PO Last administered on 11/08/18 19:07; Start 11/02/18 at 21:00 Clonidine HCl (Catapres Tts-3) 1 patch WEEKLY TD Last administered on 11/03/18 08:27; Start 11/03/18 at 09:00 Docusate Sodium (Colace) 100 mg BID PO Last administered on 11/08/18 19:07; Start 11/02/18 at 09:00 Hydralazine HCl (Apresoline) 100 mg TID PO Last administered on 11/08/18 19: 08; Start 11/02/18 at 09:00 Lactobacillus Rhamnosus (Culturelle) 1 cap BID PO Last administered on 11/08/18 19:08; Start 11/02/18 at 09:00 Multivitamins/ Calcium (Thera-M Plus) 1 tab DAILY PO Last administered on 11/08/18 08:28; Start 11/02/18 at 09:00 Selenium Sulfide (Selsun) 1 sanjeev 3X/WEEK TP Last administered on 11/07/18 08:51; Start 11/02/18 at 09:00 Ciprofloxacin (Cipro) 250 mg BID66 PO Last administered on 11/06/18 17:14; Start 11/02/18 at 06:00; Stop 11/07/18 at 12:46; Status DC Magnesium Hydroxide (Milk Of Magnesia) 2,400 mg PRN DAILY PRN PO CONSTIPATION; Start 11/08/18 at 09:15 Quetiapine Fumarate (SEROquel) 12.5 mg 1100 PO ; Start 11/09/18 at 11:00 Active Scripts Active Reported Zoloft (Sertraline Hcl) 50 Mg Tablet 50 Mg PO DAILY Selenium Sulfide 180 Ml Shampoo 180 Ml TP 3X/WEEK Zyprexa Zydis (Olanzapine) 5 Mg Tab.rapdis 2.5 Mg PO PRN Q2HR PRN Multivitamins (Multivitamin) 1 Each Tablet 1 Each PO DAILY Metoprolol Tartrate 25 Mg Tablet 25 Mg PO BID Culturelle (Lactobacillus Rhamnosus Gg) 1 Each Capsule 1 Each PO BID Flomax (Tamsulosin Hcl) 0.4 Mg Cap.er.24h 0.4 Mg PO DAILY Seroquel (Quetiapine Fumarate) 25 Mg Tablet 25 Mg PO QHS Polyvinyl Alcohol 15 Ml Drops 1 Drop OP TID Multivitamins (Multivitamin) 1 Each Tablet 1 Tab PO DAILY Mirtazapine 15 Mg Tablet 15 Mg PO QHS Hydralazine Hcl 100 Mg Tablet 100 Mg PO TID Lasix (Furosemide) 20 Mg Tablet 20 Mg PO DAILY Colace (Docusate Sodium) 100 Mg Capsule 100 Mg PO BID Clonidine Tts-3 (Clonidine) 1 Each Patch.tdwk 1 Patch TD WEEKLY Atorvastatin Calcium 40 Mg Tablet 40 Mg PO QHS Aspirin Ec (Aspirin) 81 Mg Tablet.dr 81 Mg PO DAILY Norvasc (Amlodipine Besylate) 10 Mg Tablet 10 Mg PO DAILY I have reviewed the current psychotropics carefully including drug interactions. Risk benefit ratio favors no change other than as noted in my dictated progress note. Diagnosis: Problems: (1) Altered mental status (2) Major neurocognitive disorder (3) Anxiety disorder (4) Dementia, vascular, with depression (5) Dementia, vascular, with delusions (6) Dementia in Alzheimer's disease with depression (7) Dementia in Alzheimer's disease with delusions (8) Impulse control disorder OVIDIO BARRIOS MD Nov 08, 2018 22:22
[2018-11-09 06:40] VITALS: BP 159/76
[2018-11-09] MEDS: TAMSULOSIN 0.4 MG CAP.ER.24H. PO SCH (07:34)
[2018-11-09] MEDS: FUROSEMIDE 20 MG TABLET PO SCH (07:34)
[2018-11-09] MEDS: DOCUSATE SODIUM 100 MG CAPSULE PO SCH ×2 (07:35→20:12)
[2018-11-09] MEDS: MULTIVITAMIN with MINERAL TABLET. PO SCH (07:35)
[2018-11-09] MEDS: METOPROLOL TART IMMED RELEASE 25 MG TABLET PO SCH ×3 (07:35→21:00)
[2018-11-09] MEDS: ASPIRIN ENTERIC COATED 81 MG TABLET.DR. PO SCH (07:35)
[2018-11-09] MEDS: LACTOBACILLUS RHAMNOSUS GG 1 CAPSULE. PO SCH ×2 (07:36→20:12)
[2018-11-09] MEDS: POLYVINYL ALCOHOL 1.4% OPHTH SOLUTION 15ML BOTTLE. OU SCH ×3 (07:36→21:00)
[2018-11-09] MEDS: SELENIUM SULFIDE 1% TOPICAL SHAMPOO 207ML BOTTLE. TP SCH (07:37)
[2018-11-09] MEDS: amLODIPine BESYLATE 10 MG TABLET PO SCH (07:37)
[2018-11-09] MEDS: SERTRALINE 50 MG TABLET. PO SCH (07:37)
--- NOTE | 2018-11-09 12:05 | NUR ---
WEEKLY NOTE: Pt participated in tx team in person. Pt is eating 100% of meals and sleeping roughly 7 hours at night. Pt has been agitated the last few mornings, when asked to get up. Pt reports that pt has been retired for 19 years and usually wakes up around 9 or 10. Pt gets agitated with staff often and attempts to refuse medications. Pt would like to have pt home if possible, but needs him to be more "mobile" and able to assist in transfers a little to take the strain off her. SW did note that pt tends to refuse help from OT and PT; he requires them to do things versus putting forth his own effort to complete cares. The recommendation is to potentially look at something that will be more of a step-down program versus going home right away. SW will contact pt on Monday and begin the discharge planning process. ELOS middle of next week.
[2018-11-09] MEDS: QUEtiapine 25 MG TABLET. PO SCH ×2 (13:40→20:13)
[2018-11-09 15:22] VITALS: BP 145/72
--- NOTE | 2018-11-09 17:19 | PN ---
DATE: 11/07/2018 PSYCHIATRIC PROGRESS NOTE This late entry 11/07/2018 covers elements not covered in my initial note. SUBJECTIVE: I met with the patient in the evening. The patient slept 8 hours previous night. He remains confused in his wheelchair, not aggressive. REVIEW OF SYSTEMS: No CV, , pulmonary, eye system symptoms on review. Reliability poor. MENTAL STATUS EXAM: Oriented to himself. Insight, judgment, recent and remote memory, attention, concentration, fund of knowledge poor, consistent with his diagnosis mentioned in my initial note. PLAN: No change from initial note. MAN Saw BARRIOS MD DR: GARY/tasneem JOB#: [id number] / [id number]
--- NOTE | 2018-11-09 17:47 | NUR ---
pt up after breakfast. was irritable. zydis given. pleasant rest of afternoon. has been compliant with meds.
[2018-11-09] MEDS: MIRTAZAPINE 15 MG TABLET PO SCH (20:12)
[2018-11-09] MEDS: ATORVASTATIN CALCIUM 20 MG TABLET PO SCH (20:12)
--- NOTE | 2018-11-09 22:43 | PDOC ---
Exam Note: Theodore Note: Please also refer to the separate dictated note~for this date of service dictated separately.~Patient seen individually. Discussed the patient with Nursing staff reviewed the chart.~Reviewed interim history and current functioning. Reviewed vital signs,~Labs/ Radiology~and current medications noted below. Continue current treatment with the changes noted in the dictated addendum note Assessment: Vital Signs/I&O: Vital Signs Date Time Temp Pulse Resp B/P (MAP) Pulse Ox O2 Delivery O2 Flow Rate FiO2 11/09/18 21:00 74 145/72 11/09/18 15:22 97.3 20 96 11/03/18 16:09 Room Air I & O 11/08/18 11/08/18 11/09/18 15:00 23:00 07:00 Intake Total 720 ml 600 ml Balance 720 ml 600 ml Current Medications: Meds: Current Medications Medications (Trade) Dose Ordered Sig/Carla Route PRN Reason Start Time Stop Time Status Last Admin Dose Admin Quetiapine Fumarate (SEROquel) 12.5 mg 1100 PO 11/09/18 11:00 11/09/18 13:40 I have reviewed the current psychotropics carefully including drug interactions. Risk benefit ratio favors no change other than as noted in my dictated progress note. Diagnosis: Problems: (1) Altered mental status (2) Major neurocognitive disorder (3) Anxiety disorder (4) Dementia, vascular, with depression (5) Dementia, vascular, with delusions (6) Dementia in Alzheimer's disease with depression (7) Dementia in Alzheimer's disease with delusions (8) Impulse control disorder OVIDIO BARRIOS MD Nov 09, 2018 22:43
--- NOTE | 2018-11-09 23:15 | NUR ---
Nursing Note The patient was located in the day room for his medication and assessment. The patient was resistive with all cares and medications. The patient received PRN Zyprexa with his HS medications. The patient is currently sleeping in his room.
--- NOTE | 2018-11-10 00:24 | PN ---
DATE: 11/08/2018 PSYCHIATRIC PROGRESS NOTE This late entry, 11/08/2018, covers elements not covered in my initial note. SUBJECTIVE: I met with the patient in the evening. The patient slept 6-1/4 hours previous night. He was agitated after lunch, refused medications, received Zyprexa at dinnertime, then did better. He took his a.m. medications. REVIEW OF SYSTEMS: Ambulation impaired, in wheelchair. No CV, , pulmonary, eye, ENT system symptoms on review. Reliability poor. MENTAL STATUS EXAM: Oriented to himself. Insight, judgment, recent and remote memory, attention, concentration, fund of knowledge poor, consistent with his diagnosis mentioned in my initial note. PLAN: Continue current psychotropics, Remeron 15 mg at bedtime, Seroquel 25 mg at bedtime. Start Seroquel 12.5 mg at 11:00 a.m. given his agitation around lunchtime. Maintain Zoloft 50 mg a day, may need to increase this in due course. MAN Saw BARRIOS MD DR: GARY/tasneem JOB#: [id number] / [id number]
[2018-11-10 05:43] VITALS: BP 163/78
[2018-11-10] MEDS: LACTOBACILLUS RHAMNOSUS GG 1 CAPSULE. PO SCH ×2 (08:08→19:28)
[2018-11-10] MEDS: METOPROLOL TART IMMED RELEASE 25 MG TABLET PO SCH ×2 (08:09→19:29)
[2018-11-10] MEDS: ASPIRIN ENTERIC COATED 81 MG TABLET.DR. PO SCH (08:09)
[2018-11-10] MEDS: amLODIPine BESYLATE 10 MG TABLET PO SCH (08:11)
[2018-11-10] MEDS: MULTIVITAMIN with MINERAL TABLET. PO SCH (08:12)
[2018-11-10] MEDS: DOCUSATE SODIUM 100 MG CAPSULE PO SCH ×2 (08:12→19:28)
[2018-11-10] MEDS: FUROSEMIDE 20 MG TABLET PO SCH (08:12)
[2018-11-10] MEDS: TAMSULOSIN 0.4 MG CAP.ER.24H. PO SCH (08:12)
[2018-11-10] MEDS: SERTRALINE 50 MG TABLET. PO SCH (08:13)
[2018-11-10] MEDS: cloNIDine TTS-3 1 PATCH PATCH TD SCH (09:29)
[2018-11-10] MEDS: POLYVINYL ALCOHOL 1.4% OPHTH SOLUTION 15ML BOTTLE. OU SCH ×3 (09:30→19:44)
--- NOTE | 2018-11-10 11:31 | NUR ---
Nursing Note: Pt. sitting in w/c in day room. Had slept late, then showered, now eating his breakfast. Speech difficult to understand, pushed other pt's walker out of his way while moving forward with program writer's assist in w/c to table. Did comply with medications and assessment, but very irritable. Eating fast and told program writer "get away!". Allowed placement of catapres patch. Aide helping him make anniversary card for his . Mood improved within 1 hour after medications taken.
[2018-11-10] MEDS: QUEtiapine 25 MG TABLET. PO SCH ×2 (11:46→19:29)
--- NOTE | 2018-11-10 15:36 | NUR ---
NURSING NOTE: PRN Pt. began escalating with staff while v/s taken in dayroom. Loud, pushing with hands, attempted twice to give Zyprexa Zydis, after spitting out on aide, he eventually took it all. Seated in w/c staring out window in dayroom. Stated "go away".
[2018-11-10 15:44] VITALS: BP 135/60
[2018-11-10] MEDS: MIRTAZAPINE 15 MG TABLET PO SCH (19:28)
[2018-11-10] MEDS: ATORVASTATIN CALCIUM 20 MG TABLET PO SCH (19:28)
--- NOTE | 2018-11-10 19:40 | NUR ---
Nursing Note The patient was located in his room for his medication pass and assessment. The patient was very irritable and aggressive and was non compliant with some of his medications. The patient refused to accept assistance with taking a drink R/T spilling water on himself and proceeded to spit out some medications and water and then began yelling incomprehensible speech at this nurse. The patient refused to take the medication that he spit out. The patient is currently laying in his bed.
--- NOTE | 2018-11-10 22:53 | PDOC ---
Exam Note: Theodore Note: Please also refer to the separate dictated note~for this date of service dictated separately.~Patient seen individually. Discussed the patient with Nursing staff reviewed the chart.~Reviewed interim history and current functioning. Reviewed vital signs,~Labs/ Radiology~and current medications noted below. Continue current treatment with the changes noted in the dictated addendum note Assessment: Vital Signs/I&O: Vital Signs Date Time Temp Pulse Resp B/P (MAP) Pulse Ox O2 Delivery O2 Flow Rate FiO2 11/10/18 19:29 86 135/60 11/10/18 15:44 98.2 22 95 11/10/18 05:43 Room Air I & O 11/09/18 11/09/18 11/10/18 14:59 22:59 06:59 Intake Total 240 ml 240 ml 120 ml Balance 240 ml 240 ml 120 ml Current Medications: I have reviewed the current psychotropics carefully including drug interactions. Risk benefit ratio favors no change other than as noted in my dictated progress note. Diagnosis: Problems: (1) Altered mental status (2) Major neurocognitive disorder (3) Cardiovascular accident (4) Anxiety disorder (5) Dementia, vascular, with depression (6) Dementia, vascular, with delusions (7) Dementia in Alzheimer's disease with depression (8) Dementia in Alzheimer's disease with delusions (9) Impulse control disorder OVIDIO BARRIOS MD Nov 10, 2018 22:53
[2018-11-11 05:46] VITALS: BP 170/75
[2018-11-11] MEDS: DOCUSATE SODIUM 100 MG CAPSULE PO SCH ×2 (07:55→19:32)
[2018-11-11] MEDS: POLYVINYL ALCOHOL 1.4% OPHTH SOLUTION 15ML BOTTLE. OU SCH ×3 (07:56→19:31)
[2018-11-11] MEDS: ASPIRIN ENTERIC COATED 81 MG TABLET.DR. PO SCH (07:56)
[2018-11-11] MEDS: amLODIPine BESYLATE 10 MG TABLET PO SCH (07:56)
[2018-11-11] MEDS: TAMSULOSIN 0.4 MG CAP.ER.24H. PO SCH (07:56)
[2018-11-11] MEDS: LACTOBACILLUS RHAMNOSUS GG 1 CAPSULE. PO SCH ×2 (07:56→19:32)
[2018-11-11] MEDS: MULTIVITAMIN with MINERAL TABLET. PO SCH (07:56)
[2018-11-11] MEDS: FUROSEMIDE 20 MG TABLET PO SCH (07:57)
[2018-11-11] MEDS: SERTRALINE 50 MG TABLET. PO SCH (07:57)
[2018-11-11] MEDS: METOPROLOL TART IMMED RELEASE 25 MG TABLET PO SCH ×2 (07:59→19:33)
[2018-11-11] MEDS: QUEtiapine 25 MG TABLET. PO SCH ×2 (11:00→19:33)
[2018-11-11 15:31] VITALS: BP 134/67
--- NOTE | 2018-11-11 16:43 | NUR ---
pt up in wc for meals. up for breakfast. irritable but compliant . zydis given. has been pleasant rest of day. has had visitors. visits went went.
[2018-11-11] MEDS: ATORVASTATIN CALCIUM 20 MG TABLET PO SCH (19:32)
[2018-11-11] MEDS: MIRTAZAPINE 15 MG TABLET PO SCH (19:33)
[2018-11-11] MEDS: DIVALPROEX 125 MG CAP.SPRINK PO SCH (19:35)
--- NOTE | 2018-11-11 21:44 | NUR ---
Nursing note: Assumed care of pt in the day room. He was sitting quietly until I approached him. He is labile and confused. Refused meds initially but took on the second attempt. No c/o pain and no agitation noted.
--- NOTE | 2018-11-11 22:19 | PDOC ---
Exam Note: Theodore Note: Please also refer to the separate dictated note~for this date of service dictated separately.~Patient seen individually. Discussed the patient with Nursing staff reviewed the chart.~Reviewed interim history and current functioning. Reviewed vital signs,~Labs/ Radiology~and current medications noted below. Continue current treatment with the changes noted in the dictated addendum note Assessment: Vital Signs/I&O: Vital Signs Date Time Temp Pulse Resp B/P (MAP) Pulse Ox O2 Delivery O2 Flow Rate FiO2 11/11/18 19:33 71 134/67 11/11/18 15:31 97.6 16 95 11/10/18 05:43 Room Air I & O 11/10/18 11/10/18 11/11/18 15:00 23:00 07:00 Intake Total 360 ml 360 ml 0 ml Balance 360 ml 360 ml 0 ml Current Medications: Meds: Current Medications Medications (Trade) Dose Ordered Sig/Carla Route PRN Reason Start Time Stop Time Status Last Admin Dose Admin Divalproex Sodium (Depakote Sprinkles) 250 mg HS PO 11/11/18 21:00 11/11/18 19:35 I have reviewed the current psychotropics carefully including drug interactions. Risk benefit ratio favors no change other than as noted in my dictated progress note. Diagnosis: Problems: (1) Altered mental status (2) Major neurocognitive disorder (3) Anxiety disorder (4) Dementia, vascular, with depression (5) Dementia, vascular, with delusions (6) Dementia in Alzheimer's disease with depression (7) Dementia in Alzheimer's disease with delusions (8) Impulse control disorder OVIDIO BARRIOS MD Nov 11, 2018 22:19
--- NOTE | 2018-11-12 00:23 | PN ---
DATE: 11/09/2018 PSYCHIATRIC PROGRESS NOTE This late entry of 11/09/2018, covers elements not covered in my initial note. SUBJECTIVE: I met with the patient in the evening. The patient slept 2-1/2 hours previous night. In the morning, he was resistive to medications and to staff interventions "get the hell out of my room." He slept in the morning. Reviewed his past history of CVA in 02/2016. 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 REVIEW OF SYSTEMS: Ambulation impaired, ambulates in a wheelchair. No CV, , eye, ENT or pulmonary system symptoms on review. Reliability poor. MENTAL STATUS EXAM: Oriented to himself. Insight, judgment, recent and remote memory, attention, concentration, fund of knowledge poor, consistent with his diagnosis mentioned in my initial note. IMPRESSION: Major neurocognitive disorder, Alzheimer, vascular, with delusion, depression, behavioral disturbance. Rest unchanged. PLAN: Continue current psychotropics. We may need to add Remeron for insomnia at an increased dosage from his current 15 mg at bedtime. May need to add trazodone as well, but we will watch another day. Maintain Zoloft 50 mg a day, may need to increase this depending on how he does over the next day or so. Maintain Seroquel 25 mg p.o. at bedtime. OVIDIO BARRIOS MD DR: GARY/tasneem JOB#: [id number] / [id number]
[2018-11-12 06:06] VITALS: BP 152/80
[2018-11-12] MEDS: LACTOBACILLUS RHAMNOSUS GG 1 CAPSULE. PO SCH ×2 (07:47→19:13)
[2018-11-12] MEDS: TAMSULOSIN 0.4 MG CAP.ER.24H. PO SCH (07:47)
[2018-11-12] MEDS: METOPROLOL TART IMMED RELEASE 25 MG TABLET PO SCH ×2 (07:48→19:14)
[2018-11-12] MEDS: FUROSEMIDE 20 MG TABLET PO SCH (07:48)
[2018-11-12] MEDS: ASPIRIN ENTERIC COATED 81 MG TABLET.DR. PO SCH (07:48)
[2018-11-12] MEDS: SERTRALINE 50 MG TABLET. PO SCH (07:48)
[2018-11-12] MEDS: DOCUSATE SODIUM 100 MG CAPSULE PO SCH ×2 (07:48→19:13)
[2018-11-12] MEDS: amLODIPine BESYLATE 10 MG TABLET PO SCH (07:49)
[2018-11-12] MEDS: MULTIVITAMIN with MINERAL TABLET. PO SCH (07:49)
[2018-11-12] MEDS: POLYVINYL ALCOHOL 1.4% OPHTH SOLUTION 15ML BOTTLE. OU SCH ×3 (07:49→19:12)
--- NOTE | 2018-11-12 09:00 | NUR ---
Nursing Note: Pt sitting quietly in dining room for medication this am. Pt calm, compliant with medications taken whole, cooperative w/ assessment, reports no pain. Pt 's hands were more edematous; will have Dr. Quinones look at pt's labs and possibly see pt on rounds.
[2018-11-12] MEDS: QUEtiapine 25 MG TABLET. PO SCH ×2 (12:00→19:14)
--- NOTE | 2018-11-12 14:30 | NUR ---
Nursing Note: Dr. Quinones attempted to examine pt; however, pt was sleeping and when Dr. Quinones awakened him, pt recoiled and shouted at the doctor. Dr. Quinones reviewed pt meds and labs and plans to see pt tomorrow.
[2018-11-12 15:55] VITALS: BP 156/73
[2018-11-12 16:04] VITALS: BP 156/73
--- NOTE | 2018-11-12 16:54 | NUR ---
Nursing Note: Pt waiting in the hallway waiting for dining room to be opened for dinner. Pt very impatient and although he was given a "Nutrigrain" bar at 1600 pt is hungry. Pt became agitated and began to yell at staff; unable to redirect. PRN given. Will continue to monitor.
[2018-11-12] MEDS: DIVALPROEX 125 MG CAP.SPRINK PO SCH (19:14)
[2018-11-12] MEDS: ATORVASTATIN CALCIUM 20 MG TABLET PO SCH (19:14)
[2018-11-12] MEDS: MIRTAZAPINE 15 MG TABLET PO SCH (19:14)
--- NOTE | 2018-11-12 20:31 | NUR ---
Nursing note: Assumed care of pt in the day room. He is irritable and refused his meds, taken later when he wanted a snack. He has no c/o pain. No s/s of delusions or hallucinations at this time.
--- NOTE | 2018-11-12 22:35 | PDOC ---
Exam Note: Theodore Note: Please also refer to the separate dictated note~for this date of service dictated separately.~Patient seen individually. Discussed the patient with Nursing staff reviewed the chart.~Reviewed interim history and current functioning. Reviewed vital signs,~Labs/ Radiology~and current medications noted below. Continue current treatment with the changes noted in the dictated addendum note Assessment: Vital Signs/I&O: Vital Signs Date Time Temp Pulse Resp B/P (MAP) Pulse Ox O2 Delivery O2 Flow Rate FiO2 11/12/18 19:14 66 156/73 11/12/18 16:04 97.9 16 95 11/12/18 15:55 Room Air I & O 11/11/18 11/11/18 11/12/18 14:59 22:59 06:59 Intake Total 840 ml 240 ml 120 ml Balance 840 ml 240 ml 120 ml Current Medications: I have reviewed the current psychotropics carefully including drug interactions. Risk benefit ratio favors no change other than as noted in my dictated progress note. Diagnosis: Problems: (1) Altered mental status (2) Major neurocognitive disorder (3) Anxiety disorder (4) Dementia, vascular, with depression (5) Dementia, vascular, with delusions (6) Dementia in Alzheimer's disease with depression (7) Dementia in Alzheimer's disease with delusions (8) Impulse control disorder OVIDIO BARRIOS MD Nov 12, 2018 22:35
--- NOTE | 2018-11-13 03:46 | PN ---
DATE: 11/10/2018 PSYCHIATRIC PROGRESS NOTE This is a late entry 11/10/2018, covers the elements not covered in my initial note. SUBJECTIVE: I met with the patient at length in the evening. The patient slept 6-1/2 hours previous night. He has been somewhat resistive to taking his medications, spits them out, had to be given crushed. Intermittently agitated, labile. REVIEW OF SYSTEMS: Ambulation impaired, in wheelchair. No CV, , pulmonary, eye, ENT system symptoms on review. Reliability poor. MENTAL STATUS EXAM: Oriented to himself. Insight, judgment, recent memory is impaired, remote is better. Language function intact. Attention span short. Mood and affect remains labile. LABORATORY DATA: Reviewed. IMPRESSION: Unchanged from initial note. PLAN: Maintain Remeron, Seroquel, Zoloft at current dosage. Start Depakote Sprinkle 250 mg p.o. at bedtime. Check CBC, CMP, valproic acid level in 3 days. Adjust to reach therapeutic level for his mood lability impulsivity. OVIDIO BARRIOS MD DR: GARY/tasneem JOB#: [id number] / [id number]
[2018-11-13 05:55] VITALS: BP 171/86
[2018-11-13] MEDS: TAMSULOSIN 0.4 MG CAP.ER.24H. PO SCH (10:57)
[2018-11-13] MEDS: METOPROLOL TART IMMED RELEASE 25 MG TABLET PO SCH ×2 (10:57→19:20)
[2018-11-13] MEDS: MULTIVITAMIN with MINERAL TABLET. PO SCH (11:29)
[2018-11-13] MEDS: ASPIRIN ENTERIC COATED 81 MG TABLET.DR. PO SCH (11:29)
[2018-11-13] MEDS: FUROSEMIDE 20 MG TABLET PO SCH (11:29)
[2018-11-13] MEDS: amLODIPine BESYLATE 10 MG TABLET PO SCH (11:30)
[2018-11-13] MEDS: SERTRALINE 50 MG TABLET. PO SCH (11:30)
[2018-11-13] MEDS: DOCUSATE SODIUM 100 MG CAPSULE PO SCH ×2 (11:30→19:19)
[2018-11-13] MEDS: POLYVINYL ALCOHOL 1.4% OPHTH SOLUTION 15ML BOTTLE. OU SCH ×3 (11:30→19:18)
[2018-11-13] MEDS: LACTOBACILLUS RHAMNOSUS GG 1 CAPSULE. PO SCH ×2 (11:30→19:19)
[2018-11-13] MEDS: SELENIUM SULFIDE 1% TOPICAL SHAMPOO 207ML BOTTLE. TP SCH (11:35)
--- NOTE | 2018-11-13 11:45 | NUR ---
Nursing Note: Assumed care of pt at approx 0700. Pt slept through breakfast; therefore, morning medications were given late. Pt compliant w/ medications given whole, pt still needs to be reminded to eat slowly and pt's food is served in individual containers in hopes of slowing him down. Pt's reported that pt has always eaten very quickly. This nurse has noticed less incidence of coughing after meals. Will continue to monitor.
[2018-11-13 13:12] LABS: BASO % 1 % (0-3); EOS # 0.2 x10^3/uL (0.0-0.7); EOS % 4 % (0-3); HEMATOCRIT 38.9 % (39.0-53.0); HEMOGLOBIN 12.7 g/dL (13.0-17.5); LYMPH # 0.6 x10^3/uL (1.0-4.8); LYMPH % 15 % (24-48); MEAN CORPUSCULAR HEMOGLOBIN 30 pg (25-35); MEAN CORPUSCULAR HGB CONC 33 g/dL (31-37); MEAN CORPUSCULAR VOLUME 93 fL (79-100); MONO # 0.3 x10^3/uL (0.0-1.1); MONO % 7 % (0-9); NEUT # 3.2 x10^3uL (1.8-7.7); NEUT % 73 % (31-73); PLATELET COUNT 229 x10^3/uL (140-400); RED BLOOD COUNT 4.21 x10^6/uL (4.30-5.70); RED CELL DISTRIBUTION WIDTH 14.4 % (11.5-14.5); WHITE BLOOD COUNT 4.4 x10^3/uL (4.0-11.0)
[2018-11-13 13:18] LABS: ALBUMIN 2.9 g/dL (3.4-5.0); CALCIUM 8.5 mg/dL (8.5-10.1); CREATININE 1.7 mg/dL (0.7-1.3); GFR 39.2; POTASSIUM 4.3 mmol/L (3.5-5.1); TOTAL BILIRUBIN 0.5 mg/dL (0.2-1.0); TOTAL PROTEIN 5.9 g/dL (6.4-8.2)
[2018-11-13] MEDS: QUEtiapine 25 MG TABLET. PO SCH ×2 (14:36→19:20)
[2018-11-13 15:46] VITALS: BP 155/69
[2018-11-13] MEDS: DIVALPROEX 125 MG CAP.SPRINK PO SCH (19:19)
[2018-11-13] MEDS: ATORVASTATIN CALCIUM 20 MG TABLET PO SCH (19:19)
[2018-11-13] MEDS: MIRTAZAPINE 15 MG TABLET PO SCH (19:20)
--- NOTE | 2018-11-13 20:19 | NUR ---
Nursing note: Assumed care of pt in the day room where he was sitting quietly and watching tv. He was compliant with only after he was told he could have a snack after he took them. He has no c/o pain. Alert to name only. No agitation at this time.
--- NOTE | 2018-11-13 22:16 | PDOC ---
Exam Note: Theodore Note: Please also refer to the separate dictated note~for this date of service dictated separately.~Patient seen individually. Discussed the patient with Nursing staff reviewed the chart.~Reviewed interim history and current functioning. Reviewed vital signs,~Labs/ Radiology~and current medications noted below. Continue current treatment with the changes noted in the dictated addendum note Assessment: Vital Signs/I&O: Vital Signs Date Time Temp Pulse Resp B/P (MAP) Pulse Ox O2 Delivery O2 Flow Rate FiO2 11/13/18 19:20 67 155/69 11/13/18 15:46 96.0 20 98 11/12/18 15:55 Room Air I & O 11/12/18 11/12/18 11/13/18 14:59 22:59 06:59 Intake Total 480 ml 240 ml 240 ml Balance 480 ml 240 ml 240 ml Labs: Laboratory Tests Test 11/13/18 12:58 White Blood Count 4.4 x10^3/uL (4.0-11.0) Red Blood Count 4.21 x10^6/uL (4.30-5.70) L Hemoglobin 12.7 g/dL (13.0-17.5) L Hematocrit 38.9 % (39.0-53.0) L Mean Corpuscular Volume 93 fL (79-100) Mean Corpuscular Hemoglobin 30 pg (25-35) Mean Corpuscular Hemoglobin Concent 33 g/dL (31-37) Red Cell Distribution Width 14.4 % (11.5-14.5) Platelet Count 229 x10^3/uL (140-400) Neutrophils (%) (Auto) 73 % (31-73) Lymphocytes (%) (Auto) 15 % (24-48) L Monocytes (%) (Auto) 7 % (0-9) Eosinophils (%) (Auto) 4 % (0-3) H Basophils (%) (Auto) 1 % (0-3) Neutrophils # (Auto) 3.2 x10^3uL (1.8-7.7) Lymphocytes # (Auto) 0.6 x10^3/uL (1.0-4.8) L Monocytes # (Auto) 0.3 x10^3/uL (0.0-1.1) Eosinophils # (Auto) 0.2 x10^3/uL (0.0-0.7) Basophils # (Auto) 0.0 x10^3/uL (0.0-0.2) Sodium Level 143 mmol/L (136-145) Potassium Level 4.3 mmol/L (3.5-5.1) Chloride Level 107 mmol/L (98-107) Carbon Dioxide Level 30 mmol/L (21-32) Anion Gap 6 (6-14) Blood Urea Nitrogen 28 mg/dL (8-26) H Creatinine 1.7 mg/dL (0.7-1.3) H Estimated GFR (Cockcroft-Gault) 39.2 BUN/Creatinine Ratio 16 (6-20) Glucose Level 155 mg/dL (70-99) H Calcium Level 8.5 mg/dL (8.5-10.1) Total Bilirubin 0.5 mg/dL (0.2-1.0) Aspartate Amino Transferase (AST) 32 U/L (15-37) Alanine Aminotransferase (ALT) 54 U/L (16-63) Alkaline Phosphatase 93 U/L (46-116) Total Protein 5.9 g/dL (6.4-8.2) L Albumin 2.9 g/dL (3.4-5.0) L Albumin/Globulin Ratio 1.0 (1.0-1.7) Current Medications: I have reviewed the current psychotropics carefully including drug interactions. Risk benefit ratio favors no change other than as noted in my dictated progress note. Diagnosis: Problems: (1) Major neurocognitive disorder (2) Cardiovascular accident (3) Anxiety disorder (4) Dementia, vascular, with depression (5) Dementia, vascular, with delusions (6) Dementia in Alzheimer's disease with depression (7) Dementia in Alzheimer's disease with delusions (8) Impulse control disorder (9) Altered mental status OVIDIO BARRIOS MD Nov 13, 2018 22:16
[2018-11-14 06:04] VITALS: BP 160/75
[2018-11-14 07:10] LABS: BASO % 1 % (0-3); EOS # 0.3 x10^3/uL (0.0-0.7); EOS % 6 % (0-3); HEMOGLOBIN 11.3 g/dL (13.0-17.5); LYMPH % 21 % (24-48); MEAN CORPUSCULAR HEMOGLOBIN 31 pg (25-35); MEAN CORPUSCULAR HGB CONC 33 g/dL (31-37); MEAN CORPUSCULAR VOLUME 92 fL (79-100); MONO # 0.7 x10^3/uL (0.0-1.1); MONO % 14 % (0-9); NEUT # 2.9 x10^3uL (1.8-7.7); NEUT % 59 % (31-73); PLATELET COUNT 195 x10^3/uL (140-400); RED BLOOD COUNT 3.72 x10^6/uL (4.30-5.70); RED CELL DISTRIBUTION WIDTH 14.3 % (11.5-14.5); WHITE BLOOD COUNT 4.9 x10^3/uL (4.0-11.0)
[2018-11-14 07:26] LABS: ALBUMIN 2.6 g/dL (3.4-5.0); ALK PHOS 78 U/L (46-116); ALT (SGPT) 46 U/L (16-63); ANION GAP 4 (6-14); AST (SGOT) 24 U/L (15-37); BLOOD UREA NITROGEN 28 mg/dL (8-26); BUN/CREATININE RATIO 16 (6-20); CALCIUM 8.2 mg/dL (8.5-10.1); CARBON DIOXIDE 31 mmol/L (21-32); CHLORIDE 107 mmol/L (98-107); CREATININE 1.7 mg/dL (0.7-1.3); GFR 39.2; GLUCOSE 88 mg/dL (70-99); POTASSIUM 3.9 mmol/L (3.5-5.1); SODIUM 142 mmol/L (136-145); TOTAL BILIRUBIN 0.5 mg/dL (0.2-1.0); TOTAL PROTEIN 5.2 g/dL (6.4-8.2)
[2018-11-14 07:34] LABS: VAL ACID 21 mcg/mL (50-100)
[2018-11-14] MEDS: ASPIRIN ENTERIC COATED 81 MG TABLET.DR. PO SCH (08:05)
[2018-11-14] MEDS: POLYVINYL ALCOHOL 1.4% OPHTH SOLUTION 15ML BOTTLE. OU SCH ×3 (08:05→19:45)
[2018-11-14] MEDS: DOCUSATE SODIUM 100 MG CAPSULE PO SCH ×2 (08:06→19:46)
[2018-11-14] MEDS: LACTOBACILLUS RHAMNOSUS GG 1 CAPSULE. PO SCH ×2 (08:06→19:46)
[2018-11-14] MEDS: TAMSULOSIN 0.4 MG CAP.ER.24H. PO SCH (08:08)
[2018-11-14] MEDS: FUROSEMIDE 20 MG TABLET PO SCH (08:11)
[2018-11-14] MEDS: METOPROLOL TART IMMED RELEASE 25 MG TABLET PO SCH ×2 (08:11→19:48)
[2018-11-14] MEDS: MULTIVITAMIN with MINERAL TABLET. PO SCH (08:12)
[2018-11-14] MEDS: SERTRALINE 50 MG TABLET. PO SCH (08:12)
[2018-11-14] MEDS: amLODIPine BESYLATE 10 MG TABLET PO SCH (08:12)
[2018-11-14] MEDS: SELENIUM SULFIDE 1% TOPICAL SHAMPOO 207ML BOTTLE. TP SCH (09:00)
--- NOTE | 2018-11-14 13:10 | NUR ---
BROOK met with pt to discuss discharge plans. As it stands, pt does not help much within his own transfers and would need assist with over 60% of cares. Pt has asked that SW send a referral to [facility] as pt has been there before and did well. She understands that she cannot care for pt at this time, but is hopeful that with more therapy, pt will be able to return home. BROOK will also send referrals to the [facility] and to [facility] as back up referrals. BROOK will follow up with pt tomorrow after tx team with an update.
[2018-11-14] MEDS: QUEtiapine 25 MG TABLET. PO SCH ×2 (13:13→19:48)
[2018-11-14 13:17] VITALS: BP 129/63
[2018-11-14 16:00] VITALS: BP 138/47
[2018-11-14] MEDS: DIVALPROEX 125 MG CAP.SPRINK PO SCH (19:47)
[2018-11-14] MEDS: ATORVASTATIN CALCIUM 20 MG TABLET PO SCH (19:47)
[2018-11-14] MEDS: MIRTAZAPINE 15 MG TABLET PO SCH (19:48)
--- NOTE | 2018-11-14 21:23 | NUR ---
Nursing note: Assumed care of pt in the day room. He was compliant with meds when given with a snack. He is labile and unpredictable in his mood, very short tempered. He is Alert to self only. No agitation at this time. No c/o pain.
--- NOTE | 2018-11-14 22:09 | PDOC ---
Exam Note: Theodore Note: Please also refer to the separate dictated note~for this date of service dictated separately.~Patient seen individually. Discussed the patient with Nursing staff reviewed the chart.~Reviewed interim history and current functioning. Reviewed vital signs,~Labs/ Radiology~and current medications noted below. Continue current treatment with the changes noted in the dictated addendum note Assessment: Vital Signs/I&O: Vital Signs Date Time Temp Pulse Resp B/P (MAP) Pulse Ox O2 Delivery O2 Flow Rate FiO2 11/14/18 19:48 66 138/47 11/14/18 16:00 98.5 18 96 11/14/18 06:04 Room Air I & O 11/13/18 11/13/18 11/14/18 14:59 22:59 06:59 Intake Total 480 ml 240 ml 240 ml Balance 480 ml 240 ml 240 ml Labs: Laboratory Tests Test 11/14/18 06:26 White Blood Count 4.9 x10^3/uL (4.0-11.0) Red Blood Count 3.72 x10^6/uL (4.30-5.70) L Hemoglobin 11.3 g/dL (13.0-17.5) L Hematocrit 34.0 % (39.0-53.0) L Mean Corpuscular Volume 92 fL (79-100) Mean Corpuscular Hemoglobin 31 pg (25-35) Mean Corpuscular Hemoglobin Concent 33 g/dL (31-37) Red Cell Distribution Width 14.3 % (11.5-14.5) Platelet Count 195 x10^3/uL (140-400) Neutrophils (%) (Auto) 59 % (31-73) Lymphocytes (%) (Auto) 21 % (24-48) L Monocytes (%) (Auto) 14 % (0-9) H Eosinophils (%) (Auto) 6 % (0-3) H Basophils (%) (Auto) 1 % (0-3) Neutrophils # (Auto) 2.9 x10^3uL (1.8-7.7) Lymphocytes # (Auto) 1.0 x10^3/uL (1.0-4.8) Monocytes # (Auto) 0.7 x10^3/uL (0.0-1.1) Eosinophils # (Auto) 0.3 x10^3/uL (0.0-0.7) Basophils # (Auto) 0.0 x10^3/uL (0.0-0.2) Sodium Level 142 mmol/L (136-145) Potassium Level 3.9 mmol/L (3.5-5.1) Chloride Level 107 mmol/L (98-107) Carbon Dioxide Level 31 mmol/L (21-32) Anion Gap 4 (6-14) L Blood Urea Nitrogen 28 mg/dL (8-26) H Creatinine 1.7 mg/dL (0.7-1.3) H Estimated GFR (Cockcroft-Gault) 39.2 BUN/Creatinine Ratio 16 (6-20) Glucose Level 88 mg/dL (70-99) Calcium Level 8.2 mg/dL (8.5-10.1) L Total Bilirubin 0.5 mg/dL (0.2-1.0) Aspartate Amino Transferase (AST) 24 U/L (15-37) Alanine Aminotransferase (ALT) 46 U/L (16-63) Alkaline Phosphatase 78 U/L (46-116) Total Protein 5.2 g/dL (6.4-8.2) L Albumin 2.6 g/dL (3.4-5.0) L Albumin/Globulin Ratio 1.0 (1.0-1.7) Valproic Acid Level 21 mcg/mL (50-100) L Valproic Acid Last Dose Date 11/13/2018 Valproic Acid Last Dose Time 2100 Current Medications: I have reviewed the current psychotropics carefully including drug interactions. Risk benefit ratio favors no change other than as noted in my dictated progress note. Diagnosis: Problems: (1) Major neurocognitive disorder (2) Anxiety disorder (3) Dementia, vascular, with depression (4) Dementia, vascular, with delusions (5) Dementia in Alzheimer's disease with depression (6) Dementia in Alzheimer's disease with delusions (7) Impulse control disorder OVIDIO BARRIOS MD Nov 14, 2018 22:09
[2018-11-15 06:05] VITALS: BP 152/76
[2018-11-15] MEDS: MULTIVITAMIN with MINERAL TABLET. PO SCH (08:47)
[2018-11-15] MEDS: ASPIRIN ENTERIC COATED 81 MG TABLET.DR. PO SCH (08:48)
[2018-11-15] MEDS: METOPROLOL TART IMMED RELEASE 25 MG TABLET PO SCH ×2 (08:48→19:29)
[2018-11-15] MEDS: amLODIPine BESYLATE 10 MG TABLET PO SCH (08:48)
[2018-11-15] MEDS: POLYVINYL ALCOHOL 1.4% OPHTH SOLUTION 15ML BOTTLE. OU SCH ×3 (08:48→19:29)
[2018-11-15] MEDS: TAMSULOSIN 0.4 MG CAP.ER.24H. PO SCH (08:48)
[2018-11-15] MEDS: FUROSEMIDE 20 MG TABLET PO SCH (08:48)
[2018-11-15] MEDS: LACTOBACILLUS RHAMNOSUS GG 1 CAPSULE. PO SCH ×2 (08:48→19:30)
[2018-11-15] MEDS: SERTRALINE 50 MG TABLET. PO SCH (08:49)
[2018-11-15] MEDS: DOCUSATE SODIUM 100 MG CAPSULE PO SCH ×2 (08:49→19:30)
--- NOTE | 2018-11-15 10:05 | NUR ---
WEEKLY NOTE: Pt is eating 100% of meals and averaging 8 hours of sleep. Pt reports that she would like for to discharge to SNF as he needs to physically be better to come home. Pt is sleeping in during the mornings and appears to be more compliant with medications. ELOS will be as soon as pt is found.
--- NOTE | 2018-11-15 10:07 | NUR ---
WEEKLY ACTIVITY THERAPY NOTE Date of Admission: 11/02/2018, Prev. Admit: 10/25/2018 Date of AT Assessment: 11/05/2018 Goal aimed: to increase engagement Initial goal: Pt. will engage in three Activity Therapy groups or individual sessions per week. Weekly progress towards goal: achieved, 3/3 Group participation level: minimal Weekly highlights: making anniversary card, picking [place] on Monday Behaviors observed: wanders, elevates feet with back to group, improved patience Plan: no change to goal Beneficial adaptations: direct prompting, more engagement 1:1, demonstrations and verbal cues, gross motor involvement
[2018-11-15] MEDS: QUEtiapine 25 MG TABLET. PO SCH ×2 (12:00→19:30)
--- NOTE | 2018-11-15 14:00 | NUR ---
patient slept thru breakfast. Morning meds given at 1200. Held 1400 hydralazine r/t timing of morning dose being so recent.
--- NOTE | 2018-11-15 15:53 | NUR ---
Patient has been withdrawn to room most of the day. He was med compliant. His visited him at lunch and he seemed to have a good visit. He has been cooperative and pleasant this afternoon.
[2018-11-15 16:33] VITALS: BP 183/73
[2018-11-15] MEDS: MIRTAZAPINE 15 MG TABLET PO SCH (19:29)
[2018-11-15] MEDS: DIVALPROEX 125 MG CAP.SPRINK PO SCH (19:30)
[2018-11-15] MEDS: ATORVASTATIN CALCIUM 20 MG TABLET PO SCH (19:30)
[2018-11-15] MEDS: MAGNESIUM HYDROXIDE 2,400 MG/30 ML ORAL.SUSP. PO PRN (21:25)
--- NOTE | 2018-11-15 22:33 | NUR ---
Pt sitting up in w/c in the day room at shift change. Pt confused, disorganized, and exit-seeking but re-directable. Pt cooperative with assessment and compliant with medications administered whole. Pt provided with HS snack with medications. Attempted to provided MOM for constipation, pt took one drink then began blowing bubbles with his straw into the milkshake w/MOM in it. When asked if he would like another drink, pt refused and yelled "I'm not gonna drink it!"
--- NOTE | 2018-11-15 22:37 | PDOC ---
Exam Note: Theodore Note: Please also refer to the separate dictated note~for this date of service dictated separately.~Patient seen individually. Discussed the patient with Nursing staff reviewed the chart.~Reviewed interim history and current functioning. Reviewed vital signs,~Labs/ Radiology~and current medications noted below. Continue current treatment with the changes noted in the dictated addendum note Assessment: Vital Signs/I&O: Vital Signs Date Time Temp Pulse Resp B/P (MAP) Pulse Ox O2 Delivery O2 Flow Rate FiO2 11/15/18 19:30 66 183/73 11/15/18 16:33 98.7 20 95 11/14/18 06:04 Room Air I & O 11/14/18 11/14/18 11/15/18 14:59 22:59 06:59 Intake Total 240 ml 240 ml 120 ml Balance 240 ml 240 ml 120 ml Current Medications: I have reviewed the current psychotropics carefully including drug interactions. Risk benefit ratio favors no change other than as noted in my dictated progress note. Diagnosis: Problems: (1) Altered mental status (2) Major neurocognitive disorder (3) Anxiety disorder (4) Dementia, vascular, with depression (5) Dementia, vascular, with delusions (6) Dementia in Alzheimer's disease with depression (7) Dementia in Alzheimer's disease with delusions (8) Impulse control disorder OVIDIO BARRIOS MD Nov 15, 2018 22:37
[2018-11-16 05:54] VITALS: BP 164/88
--- NOTE | 2018-11-16 08:38 | NUR ---
Patient was resistive with dressing this morning. Nurse was called to patient room. Discussed getting up for breakfast with patient, he stated he did not want to get up this early. He agreed to finish getting dressed if he was able to sleep later until 10 am. Nurse assisted patient to get his socks and pants on.
[2018-11-16] MEDS: DOCUSATE SODIUM 100 MG CAPSULE PO SCH ×2 (10:08→20:07)
[2018-11-16] MEDS: POLYVINYL ALCOHOL 1.4% OPHTH SOLUTION 15ML BOTTLE. OU SCH ×3 (10:08→20:06)
[2018-11-16] MEDS: ASPIRIN ENTERIC COATED 81 MG TABLET.DR. PO SCH (10:08)
[2018-11-16] MEDS: MULTIVITAMIN with MINERAL TABLET. PO SCH (10:09)
[2018-11-16] MEDS: METOPROLOL TART IMMED RELEASE 25 MG TABLET PO SCH ×2 (10:09→20:07)
[2018-11-16] MEDS: TAMSULOSIN 0.4 MG CAP.ER.24H. PO SCH (10:09)
[2018-11-16] MEDS: LACTOBACILLUS RHAMNOSUS GG 1 CAPSULE. PO SCH ×2 (10:09→20:07)
[2018-11-16] MEDS: FUROSEMIDE 20 MG TABLET PO SCH (10:10)
[2018-11-16] MEDS: SERTRALINE 50 MG TABLET. PO SCH (10:10)
[2018-11-16] MEDS: SELENIUM SULFIDE 1% TOPICAL SHAMPOO 207ML BOTTLE. TP SCH (10:10)
[2018-11-16] MEDS: amLODIPine BESYLATE 10 MG TABLET PO SCH (10:10)
[2018-11-16] MEDS: QUEtiapine 25 MG TABLET. PO SCH ×2 (10:14→20:07)
--- NOTE | 2018-11-16 10:16 | NUR ---
Patient very irritated and resistive to suggestion that he needed a shower. Patient had been incontinent of urine and was due for shower this day. This was explained to the patient by staff, he remained resistive and refusing shower. Nurse was called to area and further explained the need for cleanliness and showers. Patient continued to resist and refuse shower, also refused to allow staff to remove incontinent brief and sweat pants. Patient was given PRN zyprexa for agitation. 15 minute later patient was able to be showered and cooperative. Breakfast tray was provided after shower and patient was compliant with scheduled morning medication. Patient was calm and cooperative the remainder of the day. His commented at lunch time that she felt he was communicating better than on previous day and that his speech was clearer.
[2018-11-16 15:43] VITALS: BP 140/68
[2018-11-16] MEDS: DIVALPROEX 125 MG CAP.SPRINK PO SCH (20:06)
[2018-11-16] MEDS: ATORVASTATIN CALCIUM 20 MG TABLET PO SCH (20:07)
[2018-11-16] MEDS: MIRTAZAPINE 15 MG TABLET PO SCH (20:07)
--- NOTE | 2018-11-16 22:13 | PDOC ---
Exam Note: Theodore Note: Please also refer to the separate dictated note~for this date of service dictated separately.~Patient seen individually. Discussed the patient with Nursing staff reviewed the chart.~Reviewed interim history and current functioning. Reviewed vital signs,~Labs/ Radiology~and current medications noted below. Continue current treatment with the changes noted in the dictated addendum note Assessment: Vital Signs/I&O: Vital Signs Date Time Temp Pulse Resp B/P (MAP) Pulse Ox O2 Delivery O2 Flow Rate FiO2 11/16/18 20:07 58 140/68 11/16/18 15:43 98.0 20 96 Room Air I & O 11/15/18 11/15/18 11/16/18 15:00 23:00 07:00 Intake Total 240 ml 240 ml 240 ml Balance 240 ml 240 ml 240 ml Current Medications: I have reviewed the current psychotropics carefully including drug interactions. Risk benefit ratio favors no change other than as noted in my dictated progress note. Diagnosis: Problems: (1) Altered mental status (2) Anxiety disorder (3) Dementia, vascular, with depression (4) Dementia, vascular, with delusions (5) Dementia in Alzheimer's disease with depression (6) Dementia in Alzheimer's disease with delusions (7) Impulse control disorder (8) Major neurocognitive disorder OVIDIO BARRIOS MD Nov 16, 2018 22:13
--- NOTE | 2018-11-16 22:23 | NUR ---
Pt sitting up quietly in w/c in the day room at shift change. Pt calm, pleasant, and interactive this evening. Pt cooperative with assessment and compliant with medications administered whole. Pt cooperative and helpful with HS cares.
--- NOTE | 2018-11-17 01:04 | PN ---
DATE: 11/16/2018 PSYCHIATRIC PROGRESS NOTE This note covers elements not covered in my initial note 11/16/2018. SUBJECTIVE: I met with the patient in the evening. The patient slept 5-3/4 hours previous night. 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 He received Zyprexa around 10:00 a.m. p.r.n., then was calmer and took his medications. I processed this whole incident with him evening of 11/16/2018. He seemed to remember this, but not the details. REVIEW OF SYSTEMS: Ambulation impaired, in wheelchair. No CV, , pulmonary, eye, ENT system symptoms on review. Reliability poor. MENTAL STATUS EXAM: Oriented to himself and situation. Speech has some latency, coherent, difficult to understand at other times. Abstraction fair, computation impaired, language function intact, attention span short. Mood and affect remain somewhat anxious, labile, but improved. LABORATORY DATA: Reviewed. IMPRESSION: Unchanged from initial note. PLAN: No change from initial note. MAN Saw BARRIOS MD DR: GARY/tasneem JOB#: [id number] / [id number]
--- NOTE | 2018-11-17 03:29 | PN ---
DATE: 11/14/2018 PSYCHIATRIC PROGRESS NOTE This late entry 11/14/2018 covers elements not covered in my initial note. SUBJECTIVE: I met with the patient in the evening of 11/14. The patient slept 6-3/4 hours previous night. He has been appropriate, a little anxious, but redirectable. REVIEW OF SYSTEMS: Ambulation impaired, in wheelchair. No CV, , pulmonary, eye, or ENT system symptoms on review. Reliability poor. MENTAL STATUS EXAM: Oriented to himself. Insight, judgment, recent and remote memory, attention, concentration, fund of knowledge poor consistent with his diagnosis mentioned in my initial note. PLAN: No change from initial note. MAN Saw BARRIOS MD DR: GARY/tasneem JOB#: [id number] / [id number]
--- NOTE | 2018-11-17 03:49 | PN ---
DATE: 11/15/2018 PSYCHIATRIC PROGRESS NOTE This late entry 11/15/2018 covers the elements not covered in my initial note. SUBJECTIVE: I met with the patient in the evening. The patient slept 7 hours previous night. Appetite 100%, resistive with bedtime medications, takes them with cheese crackers. REVIEW OF SYSTEMS: Ambulation impaired, in wheelchair. No CV, , pulmonary, eye, ENT system symptoms on review. I met with him individually in the evening and staffed at a treatment team meeting with the entire team in the morning. MENTAL STATUS EXAM: Oriented to himself. Insight, judgment, recent and remote memory, attention, concentration, fund of knowledge poor, consistent with his diagnosis mentioned in my initial note. PLAN: No change from initial note. MAN Saw BARRIOS MD DR: GARY/tasneem JOB#: [id number] / [id number]
[2018-11-17 06:02] VITALS: BP 160/73
[2018-11-17] MEDS: DOCUSATE SODIUM 100 MG CAPSULE PO SCH ×2 (07:54→19:52)
[2018-11-17] MEDS: LACTOBACILLUS RHAMNOSUS GG 1 CAPSULE. PO SCH ×2 (07:54→19:52)
[2018-11-17] MEDS: MULTIVITAMIN with MINERAL TABLET. PO SCH (07:54)
[2018-11-17] MEDS: ASPIRIN ENTERIC COATED 81 MG TABLET.DR. PO SCH (07:54)
[2018-11-17] MEDS: SERTRALINE 50 MG TABLET. PO SCH (07:55)
[2018-11-17] MEDS: METOPROLOL TART IMMED RELEASE 25 MG TABLET PO SCH ×2 (07:55→19:51)
[2018-11-17] MEDS: FUROSEMIDE 20 MG TABLET PO SCH (07:55)
[2018-11-17] MEDS: TAMSULOSIN 0.4 MG CAP.ER.24H. PO SCH (07:56)
[2018-11-17] MEDS: amLODIPine BESYLATE 10 MG TABLET PO SCH (07:56)
[2018-11-17] MEDS: cloNIDine TTS-3 1 PATCH PATCH TD SCH (07:58)
[2018-11-17] MEDS: POLYVINYL ALCOHOL 1.4% OPHTH SOLUTION 15ML BOTTLE. OU SCH ×3 (08:00→19:51)
[2018-11-17] MEDS: QUEtiapine 25 MG TABLET. PO SCH ×2 (11:46→19:51)
--- NOTE | 2018-11-17 13:19 | NUR ---
patient has been pleasant, cooperative and calm. His visited him at lunch. He has had no adverse behaviors this shift. Patient stated that he did not sleep well last night. Sleep log showed 5.5 hours.
[2018-11-17 15:32] VITALS: BP 145/73
[2018-11-17] MEDS: ATORVASTATIN CALCIUM 20 MG TABLET PO SCH (19:51)
[2018-11-17] MEDS: MIRTAZAPINE 15 MG TABLET PO SCH (19:52)
[2018-11-17] MEDS: DIVALPROEX 125 MG CAP.SPRINK PO SCH (19:52)
--- NOTE | 2018-11-17 21:38 | NUR ---
Pt sitting up in w/c in the day room at shift change. Pt calm, pleasant, and interactive. Pt cooperative with assessment and compliant with medications administered whole.
[2018-11-18 06:22] VITALS: BP 160/71
[2018-11-18] MEDS: MULTIVITAMIN with MINERAL TABLET. PO SCH (07:57)
[2018-11-18] MEDS: FUROSEMIDE 20 MG TABLET PO SCH (07:57)
[2018-11-18] MEDS: DOCUSATE SODIUM 100 MG CAPSULE PO SCH ×2 (07:57→20:06)
[2018-11-18] MEDS: LACTOBACILLUS RHAMNOSUS GG 1 CAPSULE. PO SCH ×2 (07:57→20:05)
[2018-11-18] MEDS: ASPIRIN ENTERIC COATED 81 MG TABLET.DR. PO SCH (07:58)
[2018-11-18] MEDS: amLODIPine BESYLATE 10 MG TABLET PO SCH (07:58)
[2018-11-18] MEDS: SERTRALINE 50 MG TABLET. PO SCH (07:58)
[2018-11-18] MEDS: TAMSULOSIN 0.4 MG CAP.ER.24H. PO SCH (07:58)
[2018-11-18] MEDS: METOPROLOL TART IMMED RELEASE 25 MG TABLET PO SCH ×2 (07:59→20:06)
[2018-11-18] MEDS: POLYVINYL ALCOHOL 1.4% OPHTH SOLUTION 15ML BOTTLE. OU SCH ×3 (08:01→20:07)
[2018-11-18] MEDS: QUEtiapine 25 MG TABLET. PO SCH ×2 (11:49→20:06)
[2018-11-18 12:31] VITALS: BP 155/76
--- NOTE | 2018-11-18 15:16 | PN ---
DATE: 11/17/2018 SUBJECTIVE: The patient was seen today, met with the staff, chart reviewed. Staff reports no major behavior problems except variations in his sleep. OBSERVATION: VITAL SIGNS: Temperature 97.4, blood pressure 160/73, pulse 66, respirations 20, O2 sat 95%. Slept about 7-1/2 hours last night. The patient's appetite is fair. The patient is not having any major physical complaints. No falls. MEDICATIONS: The patient's current medications include Depakote 250 mg at night, ____ Seroquel 25 mg at night, mirtazapine 15 mg at night, Zoloft 50 mg daily, also on olanzapine 2.5 mg q. 2 hours p.r.n. The patient's lab reviewed. BUN 28, creatinine 1.7. ASSESSMENT: 1. Major neurocognitive disorder, Alzheimer's, vascular with delusion, depression, and behavioral disturbances. 2. Anxiety disorder, unspecified. 3. Impulse control disorder, unspecified. ALTA CAPONE MD DR: JOSH/tasneem JOB#: [id number] / [id number]
--- NOTE | 2018-11-18 16:54 | NUR ---
Staff attempted to wake patient up for breakfast and he yelled/cussed at them and did not get up for breakfast, he was given a shower once he woke up (1030),was observed up in his wheel chair for most of the day after his shower, he was med compliant and took his medications crushed in pudding, he received a visit today, denies pain
[2018-11-18 17:02] VITALS: BP 154/80
[2018-11-18] MEDS: ATORVASTATIN CALCIUM 20 MG TABLET PO SCH (20:05)
[2018-11-18] MEDS: DIVALPROEX 125 MG CAP.SPRINK PO SCH (20:05)
[2018-11-18] MEDS: MIRTAZAPINE 15 MG TABLET PO SCH (20:06)
--- NOTE | 2018-11-18 23:50 | NUR ---
Patient in day room sitting on couch with 2 male peers watching a movie. Pleasant, calm and interactive. He was compliant with his medications taken whole. When asked if he had seen his today, patient was able to recall that she had visited at lunchtime. His speech sounded less clear than on previous day, more aphasia noticed. Patient was cooperative with HS cares and showed no aggression.
--- NOTE | 2018-11-19 01:35 | PN ---
DATE: 11/18/2018 SUBJECTIVE: The patient was seen today, met with the staff, chart reviewed. Staff reports the patient is still not sleeping well. The patient apparently had a recent TIA. Also, the patient with history of confusion. OBSERVATIONS: VITAL SIGNS: Temperature 97.5, blood pressure 161/71, pulse 60, respirations 16, O2 sat 95%. Slept about 7 hours last night. CURRENT MEDICATIONS: The patient's current medications include Depakote 250 mg at night, Seroquel 25 mg at night, mirtazapine 15 mg at night, Zoloft 50 mg daily and olanzapine 2.5 mg q. 2 hours p.r.n. LABORATORY DATA: The patient's lab reviewed. ASSESSMENT: 1. Major neurocognitive disorder, Alzheimer's, vascular with delusions, depression and behavioral disturbances. 2. Anxiety disorder, unspecified. 3. Impulse control disorder, unspecified. PLAN: Continue with the treatment. LENGTH OF STAY: 7 days. ALTA CAPONE MD DR: JOSH/tasneem JOB#: [id number] / [id number]
[2018-11-19 06:16] VITALS: BP 183/79
[2018-11-19] MEDS: SELENIUM SULFIDE 1% TOPICAL SHAMPOO 207ML BOTTLE. TP SCH (09:00)
[2018-11-19] MEDS: POLYVINYL ALCOHOL 1.4% OPHTH SOLUTION 15ML BOTTLE. OU SCH ×3 (09:29→20:31)
[2018-11-19] MEDS: DOCUSATE SODIUM 100 MG CAPSULE PO SCH ×2 (09:30→20:30)
[2018-11-19] MEDS: ASPIRIN ENTERIC COATED 81 MG TABLET.DR. PO SCH (09:30)
[2018-11-19] MEDS: MULTIVITAMIN with MINERAL TABLET. PO SCH (09:31)
[2018-11-19] MEDS: SERTRALINE 50 MG TABLET. PO SCH (09:31)
[2018-11-19] MEDS: TAMSULOSIN 0.4 MG CAP.ER.24H. PO SCH (09:31)
[2018-11-19] MEDS: LACTOBACILLUS RHAMNOSUS GG 1 CAPSULE. PO SCH ×2 (09:31→20:30)
[2018-11-19] MEDS: METOPROLOL TART IMMED RELEASE 25 MG TABLET PO SCH ×2 (09:31→20:31)
[2018-11-19] MEDS: FUROSEMIDE 20 MG TABLET PO SCH (09:32)
[2018-11-19] MEDS: amLODIPine BESYLATE 10 MG TABLET PO SCH (09:33)
--- NOTE | 2018-11-19 10:11 | NUR ---
Nursing Note: Pt is to shower every other day and was showered on 11/18; therefore pt will not be showered today in order for Selsium shampoo to be used. Spoke w/ Bhumi in pharmacy to change the day and admin time for Selsium due the date of admin being inconsistent with the date and shift pt was actually being showered.
[2018-11-19] MEDS: QUEtiapine 25 MG TABLET. PO SCH ×2 (11:15→20:30)
--- NOTE | 2018-11-19 11:55 | NUR ---
BROOK met with pt to inform her that [facility] has refused pt admission. Pt was shocked as pt has been there before and they know him. BROOK informed pt that their concern was his dementia dx and recommended that he attend [facility], as dementia and rehabilitation is their specialty. Pt wants to follow up with [facility] herself before moving on to other facilities.
--- NOTE | 2018-11-19 13:41 | NUR ---
NURSING NOTE STAFF ATTEMPTED TO WAKE PT UP TODAY AT 1100, PT YELLING AND CURSING AT STAFF, DID NOT WANT TO GET UP. WITH ENCOURAGEMENT, FINALLY ABLE TO GET PT UP AND DRESSED FOR VISITATION HOURS. UPON ASSESSMENT, PT HAS SWELLING IN HIS LEGS AND REDDENED SKIN FROM LAYING DOWN SLEEPING. PT HAS BANDAGE ON LEFT FOREARM OVER A SMALL ABRASION. 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 PT WAS HAVING SOME EXPRESSIVE APHAGIA THIS AM WHEN PT WAS ANGRY AND YELLING. AFTER PT WAS UP FOR A WHILE, PT WAS COMPLIANT WITH HIS MEDICATIONS AND TOOK THEM WHOLE WITH A CHOCOLATE MILKSHAKE. PT HAD VISITORS FOR LUNCH AND WAS IN THE DAY ROOM WATCHING TV AFTER LUNCH. WILL CONTINUE TO MONITOR. JOSE BLANCO.
[2018-11-19 16:31] VITALS: BP 135/71
[2018-11-19] MEDS: ATORVASTATIN CALCIUM 20 MG TABLET PO SCH (20:30)
[2018-11-19] MEDS: MIRTAZAPINE 15 MG TABLET PO SCH (20:31)
[2018-11-19] MEDS: DIVALPROEX 125 MG CAP.SPRINK PO SCH (20:31)
--- NOTE | 2018-11-19 23:47 | PN ---
DATE: 11/19/2018 SUBJECTIVE: The patient was seen today, met with the staff, chart reviewed. The patient is still having problems not sleeping well. The patient continues to have periods of confusion. OBJECTIVE: VITAL SIGNS: Temperature 97.9, blood pressure 183/79, pulse 64, respirations 18, O2 sat 97%. Slept about 6-1/2 hours last night. The patient's appetite is fair. MEDICATIONS: The patient's current medications include Depakote 250 mg at night, Seroquel 25 mg at night, mirtazapine 15 mg at night, Zoloft 50 mg daily and olanzapine 2.5 mg q. 2 hours p.r.n. LABS: The patient's lab reviewed. ASSESSMENT: 1. Major neurocognitive disorder, Alzheimer's, vascular with delusions, depression and behavioral disturbances. 2. Anxiety disorder, unspecified. 3. Impulse control disorder, unspecified. PLAN: To continue with the treatment. LENGTH OF STAY: 5-7 days. ALTA CAPONE MD DR: JOSH/tasneme JOB#: [id number] / [id number]
--- NOTE | 2018-11-20 01:31 | NUR ---
Patient in day room watching a dancing show on tv. He is interactive and calm this evening. Pt compliant with medications taken whole. He was cooperative with toileting and changing clothes for bed. No combativeness observed this shift.
[2018-11-20 06:07] VITALS: BP 172/81
[2018-11-20 06:08] VITALS: BP 172/81
[2018-11-20] MEDS: ASPIRIN ENTERIC COATED 81 MG TABLET.DR. PO SCH (08:10)
[2018-11-20] MEDS: POLYVINYL ALCOHOL 1.4% OPHTH SOLUTION 15ML BOTTLE. OU SCH ×3 (08:10→20:02)
[2018-11-20] MEDS: FUROSEMIDE 20 MG TABLET PO SCH (08:11)
[2018-11-20] MEDS: TAMSULOSIN 0.4 MG CAP.ER.24H. PO SCH (08:11)
[2018-11-20] MEDS: DOCUSATE SODIUM 100 MG CAPSULE PO SCH ×2 (08:11→20:02)
[2018-11-20] MEDS: LACTOBACILLUS RHAMNOSUS GG 1 CAPSULE. PO SCH ×2 (08:11→20:02)
[2018-11-20] MEDS: MULTIVITAMIN with MINERAL TABLET. PO SCH (08:12)
[2018-11-20] MEDS: amLODIPine BESYLATE 10 MG TABLET PO SCH (08:12)
[2018-11-20] MEDS: SERTRALINE 50 MG TABLET. PO SCH (08:12)
[2018-11-20] MEDS: METOPROLOL TART IMMED RELEASE 25 MG TABLET PO SCH ×2 (08:12→20:01)
--- NOTE | 2018-11-20 11:36 | NUR ---
Patient has had a good morning, was sleepy and slept in this morning.Pt took medications, allowed for morning assessment. No agitation noted at this time. Will continue to monitor.
[2018-11-20] MEDS: QUEtiapine 25 MG TABLET. PO SCH ×2 (11:45→20:01)
--- NOTE | 2018-11-20 11:55 | NUR ---
BROOK met with pt who reports that she went to [facility] and discussed pt case with Maday in admissions. Maday has requested that BROOK send another referral packet as well as a letter addressing pt dementia and whether or not it has impacted his ability to complete rehab. BROOK will work on getting this packet together and send it over.
[2018-11-20 16:14] VITALS: BP 141/73
[2018-11-20] MEDS: SELENIUM SULFIDE 1% TOPICAL SHAMPOO 207ML BOTTLE. TP SCH (19:59)
[2018-11-20] MEDS: DIVALPROEX 125 MG CAP.SPRINK PO SCH (20:00)
[2018-11-20] MEDS: MIRTAZAPINE 15 MG TABLET PO SCH (20:01)
[2018-11-20] MEDS: ATORVASTATIN CALCIUM 20 MG TABLET PO SCH (20:02)
--- NOTE | 2018-11-20 22:05 | NUR ---
Pt pleasant and interactive this evening. Took meds whole without difficulty. Cooperative with shower x2 assist. Now resting comfortably in bed.
--- NOTE | 2018-11-20 23:04 | PN ---
DATE: 11/20/2018 SUBJECTIVE: The patient was seen today, met with the staff, chart reviewed. The patient complains of headaches. The patient complains of decreased sleep. The patient also gets irritable and yang, low frustration tolerance. OBJECTIVE: VITAL SIGNS: Stable, not getting enough sleep. Appetite fair. CURRENT MEDICATIONS: Include Depakote, which was increased to 375 mg at night, Seroquel 25 mg at night, mirtazapine 15 mg at night, Zoloft 50 mg daily. He is also on olanzapine 2.5 mg q. 2 hours p.r.n. The patient's lab reviewed. ASSESSMENT: 1. Major neurocognitive disorder, Alzheimer's, vascular delusions, depression and behavioral disturbances. 2. Anxiety disorder, unspecified. 3. Impulse control disorder, unspecified. PLAN: To continue with the treatment. LENGTH OF STAY: 5 days. ALTA CAPONE MD DR: JOSH/tasneem JOB#: [id number] / [id number]
--- NOTE | 2018-11-21 06:29 | NUR ---
Pt highly agitated with cares this AM. Soiled brief changed x3 assist while pt attempting to hit and kick. Unable to redirect. Pt refused VS and lab draw. Will inform oncoming RN to attempt at later time. Pt calmed and fell back asleep after interaction.
[2018-11-21] MEDS: ASPIRIN ENTERIC COATED 81 MG TABLET.DR. PO SCH (08:34)
[2018-11-21] MEDS: POLYVINYL ALCOHOL 1.4% OPHTH SOLUTION 15ML BOTTLE. OU SCH ×3 (08:34→21:52)
[2018-11-21] MEDS: DOCUSATE SODIUM 100 MG CAPSULE PO SCH ×2 (08:35→19:14)
[2018-11-21] MEDS: TAMSULOSIN 0.4 MG CAP.ER.24H. PO SCH (08:35)
[2018-11-21] MEDS: FUROSEMIDE 20 MG TABLET PO SCH (08:35)
[2018-11-21] MEDS: LACTOBACILLUS RHAMNOSUS GG 1 CAPSULE. PO SCH ×2 (08:35→19:14)
[2018-11-21] MEDS: METOPROLOL TART IMMED RELEASE 25 MG TABLET PO SCH ×2 (08:36→20:03)
[2018-11-21] MEDS: SERTRALINE 50 MG TABLET. PO SCH (08:36)
[2018-11-21] MEDS: amLODIPine BESYLATE 10 MG TABLET PO SCH (08:36)
[2018-11-21] MEDS: MULTIVITAMIN with MINERAL TABLET. PO SCH (08:36)
[2018-11-21] MEDS: QUEtiapine 25 MG TABLET. PO SCH ×2 (11:37→20:08)
[2018-11-21 13:26] LABS: BASO % 1 % (0-3); EOS # 0.1 x10^3/uL (0.0-0.7); EOS % 3 % (0-3); HEMATOCRIT 39.8 % (39.0-53.0); HEMOGLOBIN 13.1 g/dL (13.0-17.5); LYMPH # 0.7 x10^3/uL (1.0-4.8); LYMPH % 16 % (24-48); MEAN CORPUSCULAR HEMOGLOBIN 31 pg (25-35); MEAN CORPUSCULAR HGB CONC 33 g/dL (31-37); MEAN CORPUSCULAR VOLUME 93 fL (79-100); MONO # 0.4 x10^3/uL (0.0-1.1); MONO % 8 % (0-9); NEUT # 3.3 x10^3uL (1.8-7.7); NEUT % 72 % (31-73); PLATELET COUNT 221 x10^3/uL (140-400); RED BLOOD COUNT 4.29 x10^6/uL (4.30-5.70); RED CELL DISTRIBUTION WIDTH 14.6 % (11.5-14.5); WHITE BLOOD COUNT 4.6 x10^3/uL (4.0-11.0)
[2018-11-21 13:35] LABS: CALCIUM 8.8 mg/dL (8.5-10.1); CREATININE 1.6 mg/dL (0.7-1.3); POTASSIUM 4.1 mmol/L (3.5-5.1)
[2018-11-21 13:54] LABS: ALBUMIN 3.2 g/dL (3.4-5.0); ALBUMIN/GLOBULIN RATIO 1.1 (1.0-1.7); TOTAL BILIRUBIN 0.5 mg/dL (0.2-1.0); TOTAL PROTEIN 6.1 g/dL (6.4-8.2)
--- NOTE | 2018-11-21 14:18 | NUR ---
Patient has had a good morning. Took medications, allowed for morning assessment. Patient did sleep in this morning, had lunch and is currently participating in activities in the dayroom. No agitation noted at this time, will continue to monitor.
--- NOTE | 2018-11-21 15:30 | NUR ---
Patient was near the dining room pulling the doors thinking that his was in the room. The nurse went to redirect patient by showing patient that the dining room was empty, patient became upset and hit staff in the stomach. PRN Zyprexa given @1451. Patient was moved to the day room, will continue to monitor.
[2018-11-21 15:48] VITALS: BP 166/72
--- NOTE | 2018-11-21 18:21 | NUR ---
Patient was in his room when he tried to get himself to bed. He slid out of his chair and hit the ground gently landing on his bottom. Patient was helped up and is now resting in bed. Denies pain at this time. was currently rounding during this time, the nurse let know. Phone call to patient's , she verbalized understanding of this. Stat vitals preformed- BP-154/69, Pulse-69, Spo2-94%. Will continue to monitor.
[2018-11-21] MEDS: MIRTAZAPINE 15 MG TABLET PO SCH (19:14)
[2018-11-21] MEDS: ATORVASTATIN CALCIUM 20 MG TABLET PO SCH (19:15)
[2018-11-21] MEDS: DIVALPROEX 125 MG CAP.SPRINK PO SCH (19:16)
--- NOTE | 2018-11-21 22:22 | NUR ---
Pt. this evening is sitting quietly in the day room watching TV. He appeared calm and cooperative. He has been compliant with taking his HS meds this evening.
--- NOTE | 2018-11-21 23:23 | PN ---
DATE: 11/21/2018 SUBJECTIVE: The patient was seen today, met with the staff, chart reviewed. The patient is complaining of decreased sleep, having headaches. The patient is still confused, agitated, exhibiting poor impulse control, and low frustration tolerance, difficult to redirect. OBJECTIVE: VITAL SIGNS: Refused. The patient slept about 8 hours last night. CURRENT MEDICATIONS: The patient's current medications include Depakote 375 mg daily and Seroquel was increased to 25 mg in the morning and 75 mg at night, also on mirtazapine 15 mg at night, and Zoloft 50 mg daily. The patient is also on olanzapine 2.5 mg q.2 hours p.r.n. ASSESSMENT: 1. Major neurocognitive disorder, Alzheimer's, vascular with delusions, depression, and behavioral disturbances. 2. Anxiety disorder, unspecified. 3. Impulse control disorder, unspecified. PLAN: To continue with the treatment. LENGTH OF STAY: 5 days. ALTA CAPONE MD DR: JOSH/nts JOB#: [id number] / [id number]
--- NOTE | 2018-11-22 08:12 | NUR ---
WEEKLY ACTIVITY THERAPY NOTE Date of Admission: 11/02/2018, Prev. Admit: 10/25/2018 Date of AT Assessment: 11/05/2018 Goal aimed: to increase engagement Initial goal: Pt. will engage in three Activity Therapy groups or individual sessions per week. Weekly progress towards goal: 2/3, one group and one 1:1 Group participation level: minimal Weekly highlights: valerie 1:1 on Monday afternoon Behaviors observed: less participation this week, not around group as much, frustrated with therapy team on Monday Plan: no change to goal Beneficial adaptations: direct prompting, demonstrations and verbal cues
[2018-11-22] MEDS: POLYVINYL ALCOHOL 1.4% OPHTH SOLUTION 15ML BOTTLE. OU SCH ×3 (09:00→22:42)
[2018-11-22] MEDS: DOCUSATE SODIUM 100 MG CAPSULE PO SCH ×2 (09:02→19:49)
[2018-11-22] MEDS: ASPIRIN ENTERIC COATED 81 MG TABLET.DR. PO SCH (09:02)
[2018-11-22] MEDS: MULTIVITAMIN with MINERAL TABLET. PO SCH (09:02)
[2018-11-22] MEDS: LACTOBACILLUS RHAMNOSUS GG 1 CAPSULE. PO SCH ×2 (09:03→19:49)
[2018-11-22] MEDS: FUROSEMIDE 20 MG TABLET PO SCH (09:03)
[2018-11-22] MEDS: METOPROLOL TART IMMED RELEASE 25 MG TABLET PO SCH ×2 (09:03→19:50)
[2018-11-22] MEDS: amLODIPine BESYLATE 10 MG TABLET PO SCH (09:03)
[2018-11-22] MEDS: TAMSULOSIN 0.4 MG CAP.ER.24H. PO SCH (09:03)
[2018-11-22] MEDS: SERTRALINE 50 MG TABLET. PO SCH (09:04)
[2018-11-22] MEDS: QUEtiapine 25 MG TABLET. PO SCH ×2 (11:00→19:43)
[2018-11-22 15:58] VITALS: BP 147/74
--- NOTE | 2018-11-22 17:40 | NUR ---
WEEKLY NOTE: Pt is eating well and does better if he is able to sleep in almost until 10:00. Pt has had periods of combativeness with staff during cares and attempts to resist them if possible. Pt has minimal group participate but can be found sitting in the day room. Pt family has requested that pt discharge to a SNF for continued rehabilitation. SW to continue working with the family and aid in finding placement.
--- NOTE | 2018-11-22 18:42 | NUR ---
Patient was agitated upon waking this shift. Patient was resisting cares from staff in trying to help patient dress. Once dressed patient has been pleasant and cooperative with all cares after this am. Compliant with meds. Participated with all groups this shift.
[2018-11-22] MEDS: ATORVASTATIN CALCIUM 20 MG TABLET PO SCH (19:41)
[2018-11-22] MEDS: MIRTAZAPINE 15 MG TABLET PO SCH (19:42)
[2018-11-22] MEDS: DIVALPROEX 125 MG CAP.SPRINK PO SCH (19:42)
--- NOTE | 2018-11-22 21:53 | NUR ---
Pt. this evening has been calm, cooperative, and interacting appropriately with the staff. He has been compliant with taking his HS meds this evening. No behaviors noted at this time.
[2018-11-22] MEDS: SELENIUM SULFIDE 1% TOPICAL SHAMPOO 207ML BOTTLE. TP SCH (22:42)
--- NOTE | 2018-11-23 00:15 | PN ---
DATE: 11/22/2018 SUBJECTIVE: The patient was seen today, met with the staff, chart reviewed. The patient is still confused, agitated easily, looking for his . The patient also showing increased confusion, difficult to redirect, gets angry, also exhibiting poor impulse control, low frustration tolerance. VITAL SIGNS: Temperature 96.7, blood pressure 160/56, pulse 82, respirations 20, O2 sat 92%. Slept about 7 hours last night. The patient's appetite is fair. The patient's lab reviewed. MEDICATIONS: The patient's current medications include Depakote 375 mg daily, Seroquel 25 mg in the morning and 75 mg at night, mirtazapine 15 mg at night and Zoloft 50 mg daily. He is also on olanzapine 2.5 mg q. 2 hours p.r.n. The patient's Depakote level was 30. The patient is not having any side effects. ASSESSMENT: 1. Major neurocognitive disorder, Alzheimer's, vascular with delusions, depression, and behavioral disturbances. 2. Anxiety disorder, unspecified. 3. Impulse control disorder, unspecified. PLAN: To continue with the treatment. LENGTH OF STAY: 4-5 days. ALTA CAPONE MD DR: JOSH/tasneem JOB#: [id number] / [id number]
[2018-11-23 06:16] VITALS: BP 187/60
[2018-11-23] MEDS: ASPIRIN ENTERIC COATED 81 MG TABLET.DR. PO SCH (08:47)
[2018-11-23] MEDS: FUROSEMIDE 20 MG TABLET PO SCH (08:47)
[2018-11-23] MEDS: amLODIPine BESYLATE 10 MG TABLET PO SCH (08:47)
[2018-11-23] MEDS: SERTRALINE 50 MG TABLET. PO SCH (08:47)
[2018-11-23] MEDS: DOCUSATE SODIUM 100 MG CAPSULE PO SCH ×2 (08:47→19:37)
[2018-11-23] MEDS: MULTIVITAMIN with MINERAL TABLET. PO SCH (08:48)
[2018-11-23] MEDS: LACTOBACILLUS RHAMNOSUS GG 1 CAPSULE. PO SCH ×2 (08:48→19:36)
[2018-11-23] MEDS: POLYVINYL ALCOHOL 1.4% OPHTH SOLUTION 15ML BOTTLE. OU SCH ×3 (08:48→19:36)
[2018-11-23] MEDS: METOPROLOL TART IMMED RELEASE 25 MG TABLET PO SCH ×2 (08:48→19:37)
[2018-11-23] MEDS: TAMSULOSIN 0.4 MG CAP.ER.24H. PO SCH (08:48)
[2018-11-23] MEDS: QUEtiapine 25 MG TABLET. PO SCH ×2 (12:00→19:37)
[2018-11-23 15:55] VITALS: BP 133/54
[2018-11-23] MEDS: ATORVASTATIN CALCIUM 20 MG TABLET PO SCH (19:37)
[2018-11-23] MEDS: DIVALPROEX 125 MG CAP.SPRINK PO SCH (19:37)
[2018-11-23] MEDS: MIRTAZAPINE 15 MG TABLET PO SCH (19:37)
--- NOTE | 2018-11-23 22:42 | NUR ---
Pt sitting up in day room, watching television at shift change. Pt calm, interactive with staff, pleasant. Pt cooperative with assessment and compliant with medications administered whole.
--- NOTE | 2018-11-24 03:48 | PN ---
DATE: 11/23/2018 SUBJECTIVE: The patient was seen today, met with the staff, chart reviewed. The patient is still confused, misidentification of people, apparently he is looking for his , gets confused. OBSERVATION: VITAL SIGNS: Temperature 97.4, blood pressure 187/60, pulse 68, respirations 20, O2 sat 95%. GENERAL: Slept about 7 hours last night. The patient's appetite is fair. MEDICATIONS: The patient's current medication includes Depakote 375 mg daily, Seroquel 25 mg in the morning and 75 mg at night, mirtazapine 15 mg at night and Zoloft 50 mg daily. The patient is also on olanzapine 2.5 mg q.2 hours p.r.n. ASSESSMENT: 1. Major neurocognitive disorder, Alzheimer's, vascular with delusions, depression, and behavioral disturbances. 2. Anxiety disorder, unspecified. 3. Impulse control disorder, unspecified. PLAN: To continue with the treatment. LENGTH OF STAY: Four days. ALTA CAPONE MD DR: JOSH/tasneem JOB#: [id number] / [id number]
[2018-11-24 06:19] VITALS: BP 177/82
[2018-11-24] MEDS: cloNIDine TTS-3 1 PATCH PATCH TD SCH (07:42)
[2018-11-24] MEDS: ASPIRIN ENTERIC COATED 81 MG TABLET.DR. PO SCH (07:42)
[2018-11-24] MEDS: METOPROLOL TART IMMED RELEASE 25 MG TABLET PO SCH ×2 (07:43→19:37)
[2018-11-24] MEDS: SERTRALINE 50 MG TABLET. PO SCH (07:43)
[2018-11-24] MEDS: amLODIPine BESYLATE 10 MG TABLET PO SCH (07:44)
[2018-11-24] MEDS: DOCUSATE SODIUM 100 MG CAPSULE PO SCH ×2 (07:44→19:36)
[2018-11-24] MEDS: TAMSULOSIN 0.4 MG CAP.ER.24H. PO SCH (07:44)
[2018-11-24] MEDS: LACTOBACILLUS RHAMNOSUS GG 1 CAPSULE. PO SCH ×2 (07:45→19:38)
[2018-11-24] MEDS: MULTIVITAMIN with MINERAL TABLET. PO SCH (07:45)
[2018-11-24] MEDS: POLYVINYL ALCOHOL 1.4% OPHTH SOLUTION 15ML BOTTLE. OU SCH ×3 (07:47→19:38)
[2018-11-24] MEDS: FUROSEMIDE 40 MG TABLET PO SCH (07:47)
[2018-11-24] MEDS: QUEtiapine 25 MG TABLET. PO SCH ×2 (11:18→19:37)
[2018-11-24 13:20] VITALS: BP 119/59
--- NOTE | 2018-11-24 13:59 | NUR ---
Patient observed in his bed this am, staff attempted to wake him up for breakfast and he yelled "leave me alone" he awakened at around 11am, he took his am meds without difficulty, denies pain
[2018-11-24 15:47] VITALS: BP 121/67
[2018-11-24] MEDS: MIRTAZAPINE 15 MG TABLET PO SCH (19:37)
[2018-11-24] MEDS: ATORVASTATIN CALCIUM 20 MG TABLET PO SCH (19:37)
[2018-11-24] MEDS: DIVALPROEX 125 MG CAP.SPRINK PO SCH (19:37)
[2018-11-24] MEDS: SELENIUM SULFIDE 1% TOPICAL SHAMPOO 207ML BOTTLE. TP SCH (19:38)
--- NOTE | 2018-11-24 22:02 | PDOC ---
Exam Note: Theodore Note: Please also refer to the separate dictated note~for this date of service dictated separately.~Patient seen individually. Discussed the patient with Nursing staff reviewed the chart.~Reviewed interim history and current functioning. Reviewed vital signs,~Labs/ Radiology~and current medications noted below. Continue current treatment with the changes noted in the dictated addendum note Assessment: Vital Signs/I&O: Vital Signs Date Time Temp Pulse Resp B/P (MAP) Pulse Ox O2 Delivery O2 Flow Rate FiO2 11/24/18 19:37 63 121/67 11/24/18 15:47 98.1 16 95 Room Air I & O 11/23/18 11/23/18 11/24/18 15:00 23:00 07:00 Intake Total 480 ml 240 ml 200 ml Balance 480 ml 240 ml 200 ml Current Medications: Meds: Current Medications Medications (Trade) Dose Ordered Sig/Carla Route PRN Reason Start Time Stop Time Status Last Admin Dose Admin Furosemide (Lasix) 40 mg DAILY PO 11/24/18 09:00 11/24/18 07:47 I have reviewed the current psychotropics carefully including drug interactions. Risk benefit ratio favors no change other than as noted in my dictated progress note. Diagnosis: Problems: (1) Altered mental status (2) Anxiety disorder (3) Dementia, vascular, with depression (4) Dementia, vascular, with delusions (5) Dementia in Alzheimer's disease with depression (6) Dementia in Alzheimer's disease with delusions (7) Impulse control disorder (8) Major neurocognitive disorder (9) Cardiovascular accident OVIDIO BARRIOS MD Nov 24, 2018 22:02
--- NOTE | 2018-11-24 23:35 | NUR ---
Pt was calm and cooperative with medications. During shower pt was agitated and resistive. Pt likes to do things for himself when he can.
[2018-11-25 06:17] VITALS: BP 186/84
[2018-11-25] MEDS: TAMSULOSIN 0.4 MG CAP.ER.24H. PO SCH (08:15)
[2018-11-25] MEDS: MULTIVITAMIN with MINERAL TABLET. PO SCH (08:16)
[2018-11-25] MEDS: FUROSEMIDE 40 MG TABLET PO SCH (08:16)
[2018-11-25] MEDS: DOCUSATE SODIUM 100 MG CAPSULE PO SCH ×2 (08:16→20:06)
[2018-11-25] MEDS: LACTOBACILLUS RHAMNOSUS GG 1 CAPSULE. PO SCH ×2 (08:17→20:06)
[2018-11-25] MEDS: SERTRALINE 50 MG TABLET. PO SCH (08:17)
[2018-11-25] MEDS: ASPIRIN ENTERIC COATED 81 MG TABLET.DR. PO SCH (08:17)
[2018-11-25] MEDS: amLODIPine BESYLATE 10 MG TABLET PO SCH (08:17)
[2018-11-25] MEDS: POLYVINYL ALCOHOL 1.4% OPHTH SOLUTION 15ML BOTTLE. OU SCH ×3 (08:18→20:06)
[2018-11-25] MEDS: METOPROLOL TART IMMED RELEASE 25 MG TABLET PO SCH ×2 (09:00→20:06)
[2018-11-25] MEDS: QUEtiapine 25 MG TABLET. PO SCH ×2 (12:12→20:06)
[2018-11-25 16:49] VITALS: BP 185/84
--- NOTE | 2018-11-25 18:42 | NUR ---
Pt compliant with meds and assessment. Pt agitated at lunchtime when staff got him up for lunch.
[2018-11-25] MEDS: ATORVASTATIN CALCIUM 20 MG TABLET PO SCH (20:06)
[2018-11-25] MEDS: MIRTAZAPINE 15 MG TABLET PO SCH (20:06)
[2018-11-25] MEDS: DIVALPROEX 125 MG CAP.SPRINK PO SCH (20:06)
--- NOTE | 2018-11-25 22:43 | PDOC ---
Exam Note: Theodore Note: Please also refer to the separate dictated note~for this date of service dictated separately.~Patient seen individually. Discussed the patient with Nursing staff reviewed the chart.~Reviewed interim history and current functioning. Reviewed vital signs,~Labs/ Radiology~and current medications noted below. Continue current treatment with the changes noted in the dictated addendum note Assessment: Vital Signs/I&O: Vital Signs Date Time Temp Pulse Resp B/P (MAP) Pulse Ox O2 Delivery O2 Flow Rate FiO2 11/25/18 20:06 78 185/84 11/25/18 16:49 97.5 18 97 11/24/18 15:47 Room Air I & O 11/24/18 11/24/18 11/25/18 14:59 22:59 06:59 Intake Total 240 ml 240 ml 240 ml Balance 240 ml 240 ml 240 ml Current Medications: I have reviewed the current psychotropics carefully including drug interactions. Risk benefit ratio favors no change other than as noted in my dictated progress note. Diagnosis: Problems: (1) Altered mental status (2) Anxiety disorder (3) Dementia, vascular, with depression (4) Dementia, vascular, with delusions (5) Dementia in Alzheimer's disease with depression (6) Dementia in Alzheimer's disease with delusions (7) Impulse control disorder (8) Major neurocognitive disorder OVIDIO BARRIOS MD Nov 25, 2018 22:43
--- NOTE | 2018-11-26 00:16 | NUR ---
Assumed care of patient at approx 1900. Patient is sitting in day room visiting with peers at time of shift change. Patient is eating a snack at time of assessment and med pass. Patient is compliant with meds whole. Patient is resting in bed at this time. Will continue to monitor.
[2018-11-26 06:07] VITALS: BP 184/89
[2018-11-26] MEDS: ASPIRIN ENTERIC COATED 81 MG TABLET.DR. PO SCH (08:20)
[2018-11-26] MEDS: SERTRALINE 50 MG TABLET. PO SCH (08:20)
[2018-11-26] MEDS: METOPROLOL TART IMMED RELEASE 25 MG TABLET PO SCH ×2 (08:20→19:29)
[2018-11-26] MEDS: DOCUSATE SODIUM 100 MG CAPSULE PO SCH ×2 (08:20→19:28)
[2018-11-26] MEDS: LACTOBACILLUS RHAMNOSUS GG 1 CAPSULE. PO SCH ×2 (08:20→19:28)
[2018-11-26] MEDS: MULTIVITAMIN with MINERAL TABLET. PO SCH (08:20)
[2018-11-26] MEDS: TAMSULOSIN 0.4 MG CAP.ER.24H. PO SCH (08:20)
[2018-11-26] MEDS: FUROSEMIDE 40 MG TABLET PO SCH (08:21)
[2018-11-26] MEDS: amLODIPine BESYLATE 10 MG TABLET PO SCH (08:21)
[2018-11-26] MEDS: POLYVINYL ALCOHOL 1.4% OPHTH SOLUTION 15ML BOTTLE. OU SCH ×3 (08:22→22:30)
[2018-11-26] MEDS: QUEtiapine 25 MG TABLET. PO SCH ×2 (12:44→19:29)
[2018-11-26 16:36] VITALS: BP 136/62
[2018-11-26] MEDS: ATORVASTATIN CALCIUM 20 MG TABLET PO SCH (19:27)
[2018-11-26] MEDS: MIRTAZAPINE 15 MG TABLET PO SCH (19:27)
[2018-11-26] MEDS: DIVALPROEX 125 MG CAP.SPRINK PO SCH (19:27)
[2018-11-26] MEDS: SELENIUM SULFIDE 1% TOPICAL SHAMPOO 207ML BOTTLE. TP SCH (22:30)
--- NOTE | 2018-11-26 22:41 | PDOC ---
Exam Note: Theodore Note: Please also refer to the separate dictated note~for this date of service dictated separately.~Patient seen individually. Discussed the patient with Nursing staff reviewed the chart.~Reviewed interim history and current functioning. Reviewed vital signs,~Labs/ Radiology~and current medications noted below. Continue current treatment with the changes noted in the dictated addendum note Assessment: Vital Signs/I&O: Vital Signs Date Time Temp Pulse Resp B/P (MAP) Pulse Ox O2 Delivery O2 Flow Rate FiO2 11/26/18 19:29 95 136/62 11/26/18 16:36 98.7 16 99 11/24/18 15:47 Room Air I & O 11/25/18 11/25/18 11/26/18 15:00 23:00 07:00 Intake Total 480 ml 480 ml Balance 480 ml 480 ml Current Medications: I have reviewed the current psychotropics carefully including drug interactions. Risk benefit ratio favors no change other than as noted in my dictated progress note. Diagnosis: Problems: (1) Altered mental status (2) Anxiety disorder (3) Dementia, vascular, with depression (4) Dementia, vascular, with delusions (5) Dementia in Alzheimer's disease with depression (6) Dementia in Alzheimer's disease with delusions (7) Impulse control disorder (8) Major neurocognitive disorder OVIDIO BARRIOS MD Nov 26, 2018 22:41
--- NOTE | 2018-11-26 23:56 | NUR ---
Pt. this evening was sitting in the day room watching TV at shift change. He has been calm, cooperative, and compliant. He has been compliant with taking his HS meds this evening. No behaviors noted at this time.
--- NOTE | 2018-11-27 01:14 | PN ---
DATE: 11/24/2018 PSYCHIATRIC PROGRESS NOTE. This late entry of 11/24/2018 covers the elements not covered in my initial note. I met with the patient in the evening. Overall, the patient remains confused, but compliant with his medications and eye drops. He has not been aggressive, disruptive. REVIEW OF SYSTEMS: Ambulation impaired, in wheelchair. No CV, , pulmonary, eye, ENT system symptoms on review. Reliability poor. MENTAL STATUS EXAM: Oriented to himself. Insight, judgment, recent and remote memory, attention, concentration, fund of knowledge poor, consistent with his diagnosis mentioned in my initial note. PLAN: No change from initial note. OVIDIO BARRIOS MD DR: GARY/tasneem JOB#: [id number] / [id number]
[2018-11-27] MEDS: FUROSEMIDE 40 MG TABLET PO SCH (07:46)
[2018-11-27] MEDS: amLODIPine BESYLATE 10 MG TABLET PO SCH (07:47)
[2018-11-27] MEDS: LACTOBACILLUS RHAMNOSUS GG 1 CAPSULE. PO SCH ×2 (07:47→20:18)
[2018-11-27] MEDS: DOCUSATE SODIUM 100 MG CAPSULE PO SCH ×2 (07:48→20:19)
[2018-11-27] MEDS: POLYVINYL ALCOHOL 1.4% OPHTH SOLUTION 15ML BOTTLE. OU SCH ×3 (07:48→20:21)
[2018-11-27] MEDS: ASPIRIN ENTERIC COATED 81 MG TABLET.DR. PO SCH (07:48)
[2018-11-27] MEDS: TAMSULOSIN 0.4 MG CAP.ER.24H. PO SCH (07:48)
[2018-11-27] MEDS: MULTIVITAMIN with MINERAL TABLET. PO SCH (07:48)
[2018-11-27] MEDS: METOPROLOL TART IMMED RELEASE 25 MG TABLET PO SCH ×2 (07:48→20:19)
[2018-11-27] MEDS: SERTRALINE 50 MG TABLET. PO SCH (07:48)
--- NOTE | 2018-11-27 09:40 | NUR ---
pt was in room at the time of assessment. pt slow to take medications, asking what each pill was. pt compliant with medications though. pt denies any pain, compliant with staff care. will ctm.
[2018-11-27] MEDS: QUEtiapine 25 MG TABLET. PO SCH ×2 (10:44→20:18)
--- NOTE | 2018-11-27 15:17 | PN ---
DATE: 11/26/2018 This late entry, 11/26/2018, covers elements, not covered in my initial note. SUBJECTIVE: I met with the patient evening of 11/26/2018. The patient slept 6-3/4 hours previous night. He got up early in the morning, but has been appropriate, little anxious at times, confused. Compliant with medications. REVIEW OF SYSTEMS: Ambulation impaired, in wheelchair. No CV, , pulmonary, eye, ENT system symptoms on review. Reliability poor. MENTAL STATUS: Oriented to himself. Insight, judgment, recent and remote memory, attention, concentration, fund of knowledge poor, consistent with his diagnosis mentioned in my initial note. PLAN: No change from initial note. MAN Saw BARRIOS MD DR: GARY/tasneem JOB#: [id number] / [id number]
--- NOTE | 2018-11-27 15:52 | PN ---
DATE: 11/25/2018 PSYCHIATRIC PROGRESS NOTE This late entry 11/25/2018 covers elements not covered in my initial note. SUBJECTIVE: I met with the patient in the evening. The patient slept 6 hours previous night. He was somewhat agitated at lunchtime. Rest of the day, he has done better. REVIEW OF SYSTEMS: Ambulation impaired, in wheelchair. No CV, , pulmonary, eye, ENT system symptoms on review. Reliability poor. MENTAL STATUS EXAMINATION: Oriented to himself. Insight, judgment, recent and remote memory, attention, concentration, fund of knowledge poor, consistent with his diagnosis mentioned in my initial note. PLAN: No change from initial note. MAN Saw BARRIOS MD DR: GARY/tasneem JOB#: [id number] / [id number]
[2018-11-27 16:12] VITALS: BP 100/60
[2018-11-27] MEDS: ATORVASTATIN CALCIUM 20 MG TABLET PO SCH (20:18)
[2018-11-27] MEDS: DIVALPROEX 125 MG CAP.SPRINK PO SCH (20:18)
[2018-11-27] MEDS: MIRTAZAPINE 15 MG TABLET PO SCH (20:18)
--- NOTE | 2018-11-27 22:38 | PDOC ---
Exam Note: Theodore Note: Please also refer to the separate dictated note~for this date of service dictated separately.~Patient seen individually. Discussed the patient with Nursing staff reviewed the chart.~Reviewed interim history and current functioning. Reviewed vital signs,~Labs/ Radiology~and current medications noted below. Continue current treatment with the changes noted in the dictated addendum note Assessment: Vital Signs/I&O: Vital Signs Date Time Temp Pulse Resp B/P (MAP) Pulse Ox O2 Delivery O2 Flow Rate FiO2 11/27/18 20:19 67 100/60 11/27/18 16:12 98.3 17 95 11/24/18 15:47 Room Air I & O 11/26/18 11/26/18 11/27/18 14:59 22:59 06:59 Intake Total 600 ml 240 ml 240 ml Balance 600 ml 240 ml 240 ml Current Medications: I have reviewed the current psychotropics carefully including drug interactions. Risk benefit ratio favors no change other than as noted in my dictated progress note. Diagnosis: Problems: (1) Anxiety disorder (2) Dementia, vascular, with depression (3) Dementia, vascular, with delusions (4) Dementia in Alzheimer's disease with depression (5) Dementia in Alzheimer's disease with delusions (6) Impulse control disorder (7) Major neurocognitive disorder (8) Altered mental status OVIDIO BARRIOS MD Nov 27, 2018 22:38
--- NOTE | 2018-11-27 23:09 | NUR ---
Assumed care of pt, sitting up in WC in dayroom. Pt quiet, flat affect. Interactive with some coaxing. Tolerated HS meds whole. Pt cooperative with HS cares. Had large BM. Now resting in bed.
--- NOTE | 2018-11-28 06:03 | NUR ---
Pt combative with cares this morning. Incontinent of stool. Attempting to hit and kick staff while changing brief. Required assist x4 for pt and staff safety. Unable to redirect. Pt calmed directly after interaction.
[2018-11-28] MEDS: POLYVINYL ALCOHOL 1.4% OPHTH SOLUTION 15ML BOTTLE. OU SCH ×4 (08:13→19:42)
[2018-11-28] MEDS: ASPIRIN ENTERIC COATED 81 MG TABLET.DR. PO SCH (08:13)
[2018-11-28] MEDS: LACTOBACILLUS RHAMNOSUS GG 1 CAPSULE. PO SCH ×2 (08:15→19:42)
[2018-11-28] MEDS: DOCUSATE SODIUM 100 MG CAPSULE PO SCH ×2 (08:15→19:44)
[2018-11-28] MEDS: TAMSULOSIN 0.4 MG CAP.ER.24H. PO SCH (08:15)
[2018-11-28] MEDS: amLODIPine BESYLATE 10 MG TABLET PO SCH (08:16)
[2018-11-28] MEDS: METOPROLOL TART IMMED RELEASE 25 MG TABLET PO SCH ×2 (08:16→19:44)
[2018-11-28] MEDS: FUROSEMIDE 40 MG TABLET PO SCH (08:16)
[2018-11-28] MEDS: MULTIVITAMIN with MINERAL TABLET. PO SCH (08:17)
[2018-11-28] MEDS: SERTRALINE 50 MG TABLET. PO SCH (08:17)
[2018-11-28 08:30] VITALS: BP 170/69
--- NOTE | 2018-11-28 11:43 | NUR ---
Patient was in the dining room upon morning assessment. Took medications well, allowed for morning assessment. Patient was a little frustrated as staff was first getting him up this morning but has had a great morning. Did a good job walking today with PT. No agitation noted at this time, will continue to monitor.
[2018-11-28] MEDS: QUEtiapine 25 MG TABLET. PO SCH ×2 (11:47→19:42)
--- NOTE | 2018-11-28 13:13 | NUR ---
WEEKLY ACTIVITY THERAPY NOTE Date of Admission: 11/02/2018, Prev. Admit: 10/25/2018 Date of AT Assessment: 11/05/2018 Goal aimed: to increase engagement Initial goal: Pt. will engage in three Activity Therapy groups or individual sessions per week. Weekly progress towards goal: did not achieve Group participation level: zero Weekly highlights: Behaviors observed: politely declined invitations to join group, no interest, calm, appropriate interactions with peers Plan: no change to goal Beneficial adaptations: direct prompting, demonstrations and verbal cues
[2018-11-28 15:35] VITALS: BP 129/68
--- NOTE | 2018-11-28 19:25 | NUR ---
WEEKLY NOTE: Pt continues to sleep in past breakfast and gets up anytime between 0930 and 10:00. Pt gets irritable at times with redirection and can be combative during cares. Pt family has requested that pt discharge to a SNF for rehabilitation as pt needs to physically be better to be able to discharge home with his . SW was requested to send information to [facility] a second time, as well as a letter in support of pt being able to complete the rehabilitation program despite his Dementia dx.
[2018-11-28] MEDS: DIVALPROEX 125 MG CAP.SPRINK PO SCH (19:43)
[2018-11-28] MEDS: MIRTAZAPINE 15 MG TABLET PO SCH (19:44)
[2018-11-28] MEDS: ATORVASTATIN CALCIUM 20 MG TABLET PO SCH (19:44)
[2018-11-28] MEDS: SELENIUM SULFIDE 1% TOPICAL SHAMPOO 207ML BOTTLE. TP SCH (21:00)
--- NOTE | 2018-11-28 23:02 | PDOC ---
Exam Note: Theodore Note: Please also refer to the separate dictated note~for this date of service dictated separately.~Patient seen individually. Discussed the patient with Nursing staff reviewed the chart.~Reviewed interim history and current functioning. Reviewed vital signs,~Labs/ Radiology~and current medications noted below. Continue current treatment with the changes noted in the dictated addendum note Assessment: Vital Signs/I&O: Vital Signs Date Time Temp Pulse Resp B/P (MAP) Pulse Ox O2 Delivery O2 Flow Rate FiO2 11/28/18 19:44 76 129/68 11/28/18 15:35 97.8 16 99 11/24/18 15:47 Room Air I & O 11/27/18 11/27/18 11/28/18 15:00 23:00 07:00 Intake Total 240 ml 360 ml Balance 240 ml 360 ml Current Medications: I have reviewed the current psychotropics carefully including drug interactions. Risk benefit ratio favors no change other than as noted in my dictated progress note. Diagnosis: Problems: (1) Anxiety disorder (2) Dementia, vascular, with depression (3) Dementia, vascular, with delusions (4) Dementia in Alzheimer's disease with depression (5) Dementia in Alzheimer's disease with delusions (6) Impulse control disorder (7) Major neurocognitive disorder (8) Altered mental status OVIDIO BARRIOS MD Nov 28, 2018 23:02
--- NOTE | 2018-11-29 00:54 | NUR ---
Pt cooperative with no behaviors tonight. Meds taken whole without difficulty.
[2018-11-29 05:56] VITALS: BP 181/73
[2018-11-29] MEDS: POLYVINYL ALCOHOL 1.4% OPHTH SOLUTION 15ML BOTTLE. OU SCH ×6 (09:00→19:38)
[2018-11-29] MEDS: ASPIRIN ENTERIC COATED 81 MG TABLET.DR. PO SCH (10:17)
[2018-11-29] MEDS: DOCUSATE SODIUM 100 MG CAPSULE PO SCH ×2 (10:18→19:15)
[2018-11-29] MEDS: LACTOBACILLUS RHAMNOSUS GG 1 CAPSULE. PO SCH ×2 (10:18→19:15)
[2018-11-29] MEDS: FUROSEMIDE 40 MG TABLET PO SCH (10:18)
[2018-11-29] MEDS: TAMSULOSIN 0.4 MG CAP.ER.24H. PO SCH (10:18)
[2018-11-29] MEDS: MULTIVITAMIN with MINERAL TABLET. PO SCH (10:19)
[2018-11-29] MEDS: amLODIPine BESYLATE 10 MG TABLET PO SCH (10:19)
[2018-11-29] MEDS: METOPROLOL TART IMMED RELEASE 25 MG TABLET PO SCH ×2 (10:19→19:16)
[2018-11-29] MEDS: SERTRALINE 50 MG TABLET. PO SCH (10:20)
[2018-11-29] MEDS: QUEtiapine 25 MG TABLET. PO SCH ×2 (11:16→19:15)
--- NOTE | 2018-11-29 12:31 | NUR ---
Patient was asleep in his room upon morning assessment. Allowed assessment while resting. Patient is currently eating lunch. Took medications as prescribed, no agitation noted at this time.
[2018-11-29 15:56] VITALS: BP 120/64
[2018-11-29 16:32] LABS: BASO # 0.1 x10^3/uL (0.0-0.2); BASO % 1 % (0-3); EOS # 0.1 x10^3/uL (0.0-0.7); EOS % 2 % (0-3); HEMATOCRIT 41.6 % (39.0-53.0); HEMOGLOBIN 13.7 g/dL (13.0-17.5); LYMPH # 0.8 x10^3/uL (1.0-4.8); LYMPH % 11 % (24-48); MEAN CORPUSCULAR HEMOGLOBIN 31 pg (25-35); MEAN CORPUSCULAR HGB CONC 33 g/dL (31-37); MEAN CORPUSCULAR VOLUME 94 fL (79-100); MONO # 0.7 x10^3/uL (0.0-1.1); MONO % 10 % (0-9); NEUT # 5.7 x10^3uL (1.8-7.7); NEUT % 77 % (31-73); PLATELET COUNT 252 x10^3/uL (140-400); RED BLOOD COUNT 4.44 x10^6/uL (4.30-5.70); RED CELL DISTRIBUTION WIDTH 14.8 % (11.5-14.5); WHITE BLOOD COUNT 7.4 x10^3/uL (4.0-11.0)
[2018-11-29 16:47] LABS: ALBUMIN 3.3 g/dL (3.4-5.0); ALBUMIN/GLOBULIN RATIO 1.1 (1.0-1.7); CALCIUM 8.5 mg/dL (8.5-10.1); CREATININE 1.8 mg/dL (0.7-1.3); GFR 36.7; POTASSIUM 3.9 mmol/L (3.5-5.1); TOTAL BILIRUBIN 0.5 mg/dL (0.2-1.0); TOTAL PROTEIN 6.4 g/dL (6.4-8.2)
[2018-11-29 16:57] LABS: VAL ACID 16 mcg/mL (50-100)
[2018-11-29] MEDS: DIVALPROEX 125 MG CAP.SPRINK PO SCH (19:15)
[2018-11-29] MEDS: ATORVASTATIN CALCIUM 20 MG TABLET PO SCH (19:16)
[2018-11-29] MEDS: MIRTAZAPINE 15 MG TABLET PO SCH (19:16)
--- NOTE | 2018-11-29 22:42 | PDOC ---
Exam Note: Theodore Note: Please also refer to the separate dictated note~for this date of service dictated separately.~Patient seen individually. Discussed the patient with Nursing staff reviewed the chart.~Reviewed interim history and current functioning. Reviewed vital signs,~Labs/ Radiology~and current medications noted below. Continue current treatment with the changes noted in the dictated addendum note Assessment: Vital Signs/I&O: Vital Signs Date Time Temp Pulse Resp B/P (MAP) Pulse Ox O2 Delivery O2 Flow Rate FiO2 11/29/18 19:16 64 120/64 11/29/18 15:56 98.8 16 100 11/24/18 15:47 Room Air I & O 11/28/18 11/28/18 11/29/18 15:00 23:00 07:00 Intake Total 960 ml 240 ml Balance 960 ml 240 ml Labs: Laboratory Tests Test 11/29/18 16:25 White Blood Count 7.4 x10^3/uL (4.0-11.0) Red Blood Count 4.44 x10^6/uL (4.30-5.70) Hemoglobin 13.7 g/dL (13.0-17.5) Hematocrit 41.6 % (39.0-53.0) Mean Corpuscular Volume 94 fL (79-100) Mean Corpuscular Hemoglobin 31 pg (25-35) Mean Corpuscular Hemoglobin Concent 33 g/dL (31-37) Red Cell Distribution Width 14.8 % (11.5-14.5) H Platelet Count 252 x10^3/uL (140-400) Neutrophils (%) (Auto) 77 % (31-73) H Lymphocytes (%) (Auto) 11 % (24-48) L Monocytes (%) (Auto) 10 % (0-9) H Eosinophils (%) (Auto) 2 % (0-3) Basophils (%) (Auto) 1 % (0-3) Neutrophils # (Auto) 5.7 x10^3uL (1.8-7.7) Lymphocytes # (Auto) 0.8 x10^3/uL (1.0-4.8) L Monocytes # (Auto) 0.7 x10^3/uL (0.0-1.1) Eosinophils # (Auto) 0.1 x10^3/uL (0.0-0.7) Basophils # (Auto) 0.1 x10^3/uL (0.0-0.2) Sodium Level 137 mmol/L (136-145) Potassium Level 3.9 mmol/L (3.5-5.1) Chloride Level 103 mmol/L (98-107) Carbon Dioxide Level 29 mmol/L (21-32) Anion Gap 5 (6-14) L Blood Urea Nitrogen 35 mg/dL (8-26) H Creatinine 1.8 mg/dL (0.7-1.3) H Estimated GFR (Cockcroft-Gault) 36.7 BUN/Creatinine Ratio 19 (6-20) Glucose Level 157 mg/dL (70-99) H Calcium Level 8.5 mg/dL (8.5-10.1) Total Bilirubin 0.5 mg/dL (0.2-1.0) Aspartate Amino Transferase (AST) 21 U/L (15-37) Alanine Aminotransferase (ALT) 33 U/L (16-63) Alkaline Phosphatase 108 U/L (46-116) Total Protein 6.4 g/dL (6.4-8.2) Albumin 3.3 g/dL (3.4-5.0) L Albumin/Globulin Ratio 1.1 (1.0-1.7) Valproic Acid Level 16 mcg/mL (50-100) L Valproic Acid Last Dose Date 11/28/2018 Valproic Acid Last Dose Time 2100 Current Medications: I have reviewed the current psychotropics carefully including drug interactions. Risk benefit ratio favors no change other than as noted in my dictated progress note. Diagnosis: Problems: (1) Anxiety disorder (2) Dementia, vascular, with depression (3) Dementia, vascular, with delusions (4) Dementia in Alzheimer's disease with depression (5) Dementia in Alzheimer's disease with delusions (6) Impulse control disorder (7) Major neurocognitive disorder (8) Altered mental status OVIDIO BARRIOS MD Nov 29, 2018 22:42
[2018-11-30] MEDS: ASPIRIN ENTERIC COATED 81 MG TABLET.DR. PO SCH (09:27)
[2018-11-30] MEDS: LACTOBACILLUS RHAMNOSUS GG 1 CAPSULE. PO SCH ×2 (09:28→19:19)
[2018-11-30] MEDS: DOCUSATE SODIUM 100 MG CAPSULE PO SCH ×2 (09:28→19:19)
[2018-11-30] MEDS: TAMSULOSIN 0.4 MG CAP.ER.24H. PO SCH (09:28)
[2018-11-30] MEDS: FUROSEMIDE 40 MG TABLET PO SCH (09:28)
[2018-11-30] MEDS: MULTIVITAMIN with MINERAL TABLET. PO SCH (09:29)
[2018-11-30] MEDS: METOPROLOL TART IMMED RELEASE 25 MG TABLET PO SCH ×2 (09:29→19:19)
[2018-11-30] MEDS: SERTRALINE 50 MG TABLET. PO SCH (09:29)
[2018-11-30] MEDS: amLODIPine BESYLATE 10 MG TABLET PO SCH (09:29)
[2018-11-30] MEDS: POLYVINYL ALCOHOL 1.4% OPHTH SOLUTION 15ML BOTTLE. OU SCH ×4 (09:44→19:56)
[2018-11-30] MEDS: QUEtiapine 25 MG TABLET. PO SCH ×2 (11:29→19:19)
--- NOTE | 2018-11-30 12:10 | NUR ---
Patient has had a sleepy morning, slept in this morning. Took medications, allowed for morning assessment. Patient is currently eating lunch with his . No agitation noted, will continue to monitor.
--- NOTE | 2018-11-30 13:03 | PN ---
DATE: 11/28/2018 PSYCHIATRIC PROGRESS NOTE This late entry 11/28/2018 covers elements not covered in my initial note. SUBJECTIVE: I met with the patient in the evening of 11/28/2018 and staffed at treatment team meeting earlier in the day on 11/28/2018. The patient slept 6-1/2 hours. Appetite 100%, irritable at times with morning cares. He is possibly being transferred to [facility] for detention rehabilitation and staff indicated the nursing facility wanted a note that he is able to participate in physical therapy. In fact, he is doing physical therapy here on our unit and we will generate such a note together with the physical therapists indicating that he is able to participate and benefit from this. We will also check a CBC, CMP, valproic acid level in the morning of 11/29/2018. REVIEW OF SYSTEMS: Ambulation impaired, in wheelchair. No CV, , pulmonary, eye, ENT system symptoms on review. Reliability poor. MENTAL STATUS EXAM: Oriented to himself. Insight, judgment, recent and remote memory, attention, concentration, fund of knowledge poor consistent with his diagnosis mentioned in my initial note. PLAN: No change from initial note. Check labs morning of 11/29/2018 and then adjust further as indicated. MAN Saw BARRIOS MD DR: GARY/tasneem JOB#: [id number] / [id number]
[2018-11-30 16:18] VITALS: BP 122/55
[2018-11-30] MEDS: MIRTAZAPINE 15 MG TABLET PO SCH (19:19)
[2018-11-30] MEDS: DIVALPROEX 125 MG CAP.SPRINK PO SCH (19:19)
[2018-11-30] MEDS: ATORVASTATIN CALCIUM 20 MG TABLET PO SCH (19:20)
--- NOTE | 2018-11-30 19:32 | PN ---
DATE: 11/29/2018 PSYCHIATRIC PROGRESS NOTE This late entry 11/29/2018 covers elements not covered in my initial note. SUBJECTIVE: I met with the patient evening of 11/29/2018. The patient slept 7 hours previous night. He has been compliant with his medications, less agitated. REVIEW OF SYSTEMS: Ambulation impaired, in wheelchair. No CV, , pulmonary, eye, ENT system symptoms on review. Reliability poor. MENTAL STATUS EXAM: Oriented to himself. Insight, judgment, recent and remote memory, attention, concentration, fund of knowledge poor, consistent with his diagnosis mentioned in my initial note. PLAN: No change from initial note. MAN Saw BARRIOS MD DR: GARY/tasneem JOB#: [id number] / [id number]
[2018-11-30] MEDS: SELENIUM SULFIDE 1% TOPICAL SHAMPOO 207ML BOTTLE. TP SCH (19:55)
--- NOTE | 2018-11-30 21:14 | NUR ---
Pt sitting in day room, interacting with peer at shift change. Pt calm with flat affect, pleasant and interactive when approached. Pt cooperative with assessment and compliant with medications administered whole.
--- NOTE | 2018-11-30 22:12 | PDOC ---
Exam Note: Theodore Note: Please also refer to the separate dictated note~for this date of service dictated separately.~Patient seen individually. Discussed the patient with Nursing staff reviewed the chart.~Reviewed interim history and current functioning. Reviewed vital signs,~Labs/ Radiology~and current medications noted below. Continue current treatment with the changes noted in the dictated addendum note Assessment: Vital Signs/I&O: Vital Signs Date Time Temp Pulse Resp B/P (MAP) Pulse Ox O2 Delivery O2 Flow Rate FiO2 11/30/18 19:20 62 122/55 11/30/18 16:18 98.3 16 98 11/24/18 15:47 Room Air I & O 11/29/18 11/29/18 11/30/18 14:59 22:59 06:59 Intake Total 480 ml 240 ml 240 ml Balance 480 ml 240 ml 240 ml Current Medications: I have reviewed the current psychotropics carefully including drug interactions. Risk benefit ratio favors no change other than as noted in my dictated progress note. Diagnosis: Problems: (1) Anxiety disorder (2) Dementia, vascular, with depression (3) Dementia, vascular, with delusions (4) Dementia in Alzheimer's disease with depression (5) Dementia in Alzheimer's disease with delusions (6) Impulse control disorder (7) Major neurocognitive disorder (8) Altered mental status OVIDIO BARRIOS MD Nov 30, 2018 22:12
[2018-12-01 06:07] VITALS: BP 175/72
[2018-12-01] MEDS: FUROSEMIDE 40 MG TABLET PO SCH (08:07)
[2018-12-01] MEDS: cloNIDine TTS-3 1 PATCH PATCH TD SCH (08:07)
[2018-12-01] MEDS: DOCUSATE SODIUM 100 MG CAPSULE PO SCH ×2 (08:08→19:10)
[2018-12-01] MEDS: MULTIVITAMIN with MINERAL TABLET. PO SCH (08:09)
[2018-12-01] MEDS: SERTRALINE 50 MG TABLET. PO SCH (08:09)
[2018-12-01] MEDS: amLODIPine BESYLATE 10 MG TABLET PO SCH (08:09)
[2018-12-01] MEDS: LACTOBACILLUS RHAMNOSUS GG 1 CAPSULE. PO SCH ×2 (08:09→19:09)
[2018-12-01] MEDS: ASPIRIN ENTERIC COATED 81 MG TABLET.DR. PO SCH (08:09)
[2018-12-01] MEDS: TAMSULOSIN 0.4 MG CAP.ER.24H. PO SCH (08:09)
[2018-12-01] MEDS: METOPROLOL TART IMMED RELEASE 25 MG TABLET PO SCH ×2 (08:10→19:10)
[2018-12-01] MEDS: POLYVINYL ALCOHOL 1.4% OPHTH SOLUTION 15ML BOTTLE. OU SCH ×3 (08:10→19:09)
[2018-12-01] MEDS: QUEtiapine 25 MG TABLET. PO SCH ×2 (11:59→19:09)
[2018-12-01 15:55] VITALS: BP 158/76
[2018-12-01] MEDS: DIVALPROEX 125 MG CAP.SPRINK PO SCH (19:09)
[2018-12-01] MEDS: MIRTAZAPINE 15 MG TABLET PO SCH (19:09)
[2018-12-01] MEDS: ATORVASTATIN CALCIUM 20 MG TABLET PO SCH (19:09)
--- NOTE | 2018-12-01 20:18 | NUR ---
Pt sitting quietly in the day room watching a movie at shift change. Pt calm, pleasant, and interactive when approached. Pt cooperative with assessment and compliant with medications administered whole.
--- NOTE | 2018-12-01 22:53 | PDOC ---
Exam Note: Theodore Note: Please also refer to the separate dictated note~for this date of service dictated separately.~Patient seen individually. Discussed the patient with Nursing staff reviewed the chart.~Reviewed interim history and current functioning. Reviewed vital signs,~Labs/ Radiology~and current medications noted below. Continue current treatment with the changes noted in the dictated addendum note Assessment: Vital Signs/I&O: Vital Signs Date Time Temp Pulse Resp B/P (MAP) Pulse Ox O2 Delivery O2 Flow Rate FiO2 12/01/18 19:10 69 158/76 12/01/18 15:55 97.6 20 97 I & O 11/30/18 11/30/18 12/01/18 15:00 23:00 07:00 Intake Total 240 ml 480 ml Balance 240 ml 480 ml Current Medications: I have reviewed the current psychotropics carefully including drug interactions. Risk benefit ratio favors no change other than as noted in my dictated progress note. Diagnosis: Problems: (1) Anxiety disorder (2) Dementia, vascular, with depression (3) Dementia, vascular, with delusions (4) Dementia in Alzheimer's disease with depression (5) Dementia in Alzheimer's disease with delusions (6) Impulse control disorder (7) Major neurocognitive disorder (8) Altered mental status (9) Cardiovascular accident OVIDIO BARRIOS MD Dec 01, 2018 22:53
[2018-12-02 05:48] VITALS: BP 165/75
[2018-12-02] MEDS: ASPIRIN ENTERIC COATED 81 MG TABLET.DR. PO SCH (08:08)
[2018-12-02] MEDS: amLODIPine BESYLATE 10 MG TABLET PO SCH (08:09)
[2018-12-02] MEDS: TAMSULOSIN 0.4 MG CAP.ER.24H. PO SCH (08:10)
[2018-12-02] MEDS: METOPROLOL TART IMMED RELEASE 25 MG TABLET PO SCH ×2 (08:10→20:33)
[2018-12-02] MEDS: MULTIVITAMIN with MINERAL TABLET. PO SCH (08:10)
[2018-12-02] MEDS: DOCUSATE SODIUM 100 MG CAPSULE PO SCH ×2 (08:10→19:53)
[2018-12-02] MEDS: LACTOBACILLUS RHAMNOSUS GG 1 CAPSULE. PO SCH ×2 (08:10→20:35)
[2018-12-02] MEDS: SERTRALINE 50 MG TABLET. PO SCH (08:10)
[2018-12-02] MEDS: FUROSEMIDE 40 MG TABLET PO SCH (08:10)
[2018-12-02] MEDS: POLYVINYL ALCOHOL 1.4% OPHTH SOLUTION 15ML BOTTLE. OU SCH ×3 (08:11→15:00)
[2018-12-02] MEDS: QUEtiapine 25 MG TABLET. PO SCH ×2 (11:16→19:54)
[2018-12-02 16:17] VITALS: BP 145/67
--- NOTE | 2018-12-02 18:33 | NUR ---
Patient was up early during shift change this morning and went to breakfast, then went to bed afterwards. He was up for lunch, then sat in the day room most of the afternoon. He was compliant with his morning medications but refused his 14:00 medications after multiple attempts to provide. Will continue to monitor and report to oncoming shift.
[2018-12-02] MEDS: MIRTAZAPINE 15 MG TABLET PO SCH (19:53)
[2018-12-02] MEDS: ATORVASTATIN CALCIUM 20 MG TABLET PO SCH (19:53)
[2018-12-02] MEDS: DIVALPROEX 125 MG CAP.SPRINK PO SCH (19:54)
[2018-12-02] MEDS: SELENIUM SULFIDE 1% TOPICAL SHAMPOO 207ML BOTTLE. TP SCH (19:54)
[2018-12-02 20:35] VITALS: BP 174/85
--- NOTE | 2018-12-02 22:04 | PN ---
DATE: 12/01/2018 PSYCHIATRIC PROGRESS NOTE This is a late entry 12/01/2018, covers the elements not covered in my initial note. SUBJECTIVE: The patient slept 6-1/4 hours, somewhat resistive with the a.m. medications. Ambulation impaired, in wheelchair. No CV, , pulmonary, eye system symptoms on review. MENTAL STATUS EXAM: Oriented to himself. Insight, judgment, recent and remote memory, attention, concentration, fund of knowledge poor, consistent with his diagnosis mentioned in my initial note. PLAN: No change from initial note. MAN Saw BARRIOS MD DR: GARY/tasneem JOB#: [id number] / [id number]
--- NOTE | 2018-12-02 22:10 | NUR ---
Patient in bed at shift change, sleeping. Pt cooperative with assessment and vital signs needed for HS medications. He sat up to take medications whole with water. He denies pain and asked nurse to leave the door open. Patient returned to sleep. Will continue to monitor.
--- NOTE | 2018-12-02 22:35 | PDOC ---
Exam Note: Theodore Note: Please also refer to the separate dictated note~for this date of service dictated separately.~Patient seen individually. Discussed the patient with Nursing staff reviewed the chart.~Reviewed interim history and current functioning. Reviewed vital signs,~Labs/ Radiology~and current medications noted below. Continue current treatment with the changes noted in the dictated addendum note Assessment: Vital Signs/I&O: Vital Signs Date Time Temp Pulse Resp B/P (MAP) Pulse Ox O2 Delivery O2 Flow Rate FiO2 12/02/18 20:35 69 174/85 (114) 97 Room Air 12/02/18 16:17 97.8 18 I & O 12/01/18 12/01/18 12/02/18 14:59 22:59 06:59 Intake Total 240 ml 240 ml 240 ml Balance 240 ml 240 ml 240 ml Current Medications: I have reviewed the current psychotropics carefully including drug interactions. Risk benefit ratio favors no change other than as noted in my dictated progress note. Diagnosis: Problems: (1) Anxiety disorder (2) Dementia, vascular, with depression (3) Dementia, vascular, with delusions (4) Dementia in Alzheimer's disease with depression (5) Dementia in Alzheimer's disease with delusions (6) Impulse control disorder (7) Major neurocognitive disorder (8) Altered mental status OVIDIO BARRIOS MD Dec 02, 2018 22:34
--- NOTE | 2018-12-03 04:58 | PN ---
DATE: 11/30/2018 PSYCHIATRIC PROGRESS NOTE This late entry of 11/30/2018 covers elements not covered in my initial note. SUBJECTIVE: I met with the patient in the evening. The patient slept in the morning, was slightly agitated when woken up later in the morning, got a skin tear. Reviewed information from the who wants the patient to take his medications, stabilize and then be home. Slept 6-1/4 hours. REVIEW OF SYSTEMS: Ambulation impaired, in wheelchair. No CV, , pulmonary, eye, ENT system symptoms on review. MENTAL STATUS EXAM: Oriented to himself. Insight, judgment, recent, remote memory, attention, concentration, fund of knowledge poor, consistent with his diagnosis mentioned in my initial note. PLAN: No change from initial note. MAN Saw BARRIOS MD DR: GARY/tasneem JOB#: [id number] / [id number]
[2018-12-03 05:47] VITALS: BP 179/95
[2018-12-03] MEDS: SERTRALINE 50 MG TABLET. PO SCH (09:38)
[2018-12-03] MEDS: ASPIRIN ENTERIC COATED 81 MG TABLET.DR. PO SCH (09:38)
[2018-12-03] MEDS: DOCUSATE SODIUM 100 MG CAPSULE PO SCH ×2 (09:38→19:11)
[2018-12-03] MEDS: METOPROLOL TART IMMED RELEASE 25 MG TABLET PO SCH ×2 (09:38→19:12)
[2018-12-03] MEDS: MULTIVITAMIN with MINERAL TABLET. PO SCH (09:38)
[2018-12-03] MEDS: LACTOBACILLUS RHAMNOSUS GG 1 CAPSULE. PO SCH ×2 (09:38→19:11)
[2018-12-03] MEDS: TAMSULOSIN 0.4 MG CAP.ER.24H. PO SCH (09:39)
[2018-12-03] MEDS: amLODIPine BESYLATE 10 MG TABLET PO SCH (09:39)
[2018-12-03] MEDS: POLYVINYL ALCOHOL 1.4% OPHTH SOLUTION 15ML BOTTLE. OU SCH ×3 (09:39→19:10)
[2018-12-03] MEDS: FUROSEMIDE 40 MG TABLET PO SCH (09:39)
--- NOTE | 2018-12-03 10:00 | NUR ---
Patient slept in late, and slept through breakfast. He was woken up about 09:30 for a shower, he was resistive at that time. AFter the shower he ate his breakfast in the day room, he was irritable and compliant with meds. Will continue to monitor.
[2018-12-03] MEDS: QUEtiapine 25 MG TABLET. PO SCH ×2 (11:15→19:12)
--- NOTE | 2018-12-03 14:19 | NUR ---
Patient withdrawn to his bed after lunch, and is currently asleep. Will hold 14:00 medications and continue to monitor.
[2018-12-03 15:49] VITALS: BP 128/61
[2018-12-03] MEDS: DIVALPROEX 125 MG CAP.SPRINK PO SCH (19:11)
[2018-12-03] MEDS: ATORVASTATIN CALCIUM 20 MG TABLET PO SCH (19:12)
[2018-12-03] MEDS: MIRTAZAPINE 15 MG TABLET PO SCH (19:12)
--- NOTE | 2018-12-03 20:08 | NUR ---
Nursing note: Assumed care of pt in his room where he was sleeping but easily awakened. He was calm and compliant with meds crushed in food. He had no c/o pain, no agitation or pain noted at this time.
--- NOTE | 2018-12-03 22:32 | PDOC ---
Exam Note: Theodore Note: Please also refer to the separate dictated note~for this date of service dictated separately.~Patient seen individually. Discussed the patient with Nursing staff reviewed the chart.~Reviewed interim history and current functioning. Reviewed vital signs,~Labs/ Radiology~and current medications noted below. Continue current treatment with the changes noted in the dictated addendum note Assessment: Vital Signs/I&O: Vital Signs Date Time Temp Pulse Resp B/P (MAP) Pulse Ox O2 Delivery O2 Flow Rate FiO2 12/03/18 19:12 79 128/61 12/03/18 15:49 98.7 16 98 12/02/18 20:35 Room Air I & O 12/02/18 12/02/18 12/03/18 14:59 22:59 06:59 Intake Total 960 ml 240 ml 0 ml Balance 960 ml 240 ml 0 ml Current Medications: I have reviewed the current psychotropics carefully including drug interactions. Risk benefit ratio favors no change other than as noted in my dictated progress note. Diagnosis: Problems: (1) Anxiety disorder (2) Dementia, vascular, with depression (3) Dementia, vascular, with delusions (4) Dementia in Alzheimer's disease with depression (5) Dementia in Alzheimer's disease with delusions (6) Impulse control disorder (7) Major neurocognitive disorder (8) Altered mental status OVIDIO BARRIOS MD Dec 03, 2018 22:32
[2018-12-04 05:31] VITALS: BP 158/91
[2018-12-04] MEDS: POLYVINYL ALCOHOL 1.4% OPHTH SOLUTION 15ML BOTTLE. OU SCH ×3 (09:00→19:27)
[2018-12-04] MEDS: METOPROLOL TART IMMED RELEASE 25 MG TABLET PO SCH ×2 (11:45→19:29)
[2018-12-04] MEDS: MULTIVITAMIN with MINERAL TABLET. PO SCH (11:46)
[2018-12-04] MEDS: SERTRALINE 50 MG TABLET. PO SCH (11:46)
[2018-12-04] MEDS: FUROSEMIDE 40 MG TABLET PO SCH (11:46)
[2018-12-04] MEDS: ASPIRIN ENTERIC COATED 81 MG TABLET.DR. PO SCH (11:46)
[2018-12-04] MEDS: QUEtiapine 25 MG TABLET. PO SCH ×2 (11:46→19:29)
[2018-12-04] MEDS: TAMSULOSIN 0.4 MG CAP.ER.24H. PO SCH (11:46)
[2018-12-04] MEDS: LACTOBACILLUS RHAMNOSUS GG 1 CAPSULE. PO SCH ×2 (11:47→19:28)
[2018-12-04] MEDS: amLODIPine BESYLATE 10 MG TABLET PO SCH (11:47)
[2018-12-04] MEDS: DOCUSATE SODIUM 100 MG CAPSULE PO SCH ×2 (11:47→19:28)
[2018-12-04 15:50] VITALS: BP 149/68
--- NOTE | 2018-12-04 18:32 | NUR ---
Patient slept in, missing breakfast, but was compliant when the aides helped him get up before lunch. HE was calm, compliant with his medications. Patient withdrew to his room and went to bed after lunch, 14:00 medications held. He was calm and compliant at dinner, will continue to monitor
--- NOTE | 2018-12-04 19:13 | PN ---
DATE: 12/02/2018 This is a late entry 12/02/2018 covers elements not covered in my initial note. SUBJECTIVE: I met with the patient evening of 12/02/2018. The patient slept 6-1/4 hours previous night. He has been withdrawn to his room in the morning, resistive with meds and cares, does redirect, resistive with 11:00 a.m. Seroquel, refused the 1400 hydralazine. REVIEW OF SYSTEMS: Ambulation impaired, in wheelchair. No CV, , pulmonary, eye, ENT system symptoms on review. MENTAL STATUS EXAM: Oriented to himself. Insight, judgment, recent and remote memory, attention, concentration, fund of knowledge poor, consistent with his diagnosis mentioned in my initial note. PLAN: No change from initial note. MAN Saw BARRIOS MD DR: GARY/tasneem JOB#: [id number] / [id number]
[2018-12-04] MEDS: DIVALPROEX 125 MG CAP.SPRINK PO SCH (19:28)
[2018-12-04] MEDS: ATORVASTATIN CALCIUM 20 MG TABLET PO SCH (19:28)
[2018-12-04] MEDS: MIRTAZAPINE 15 MG TABLET PO SCH (19:29)
--- NOTE | 2018-12-04 20:55 | NUR ---
Nursing note: Assumed care of pt i n his room. He is calm and compliant with meds crushed in food. No c/o pain, no agitation or hallucinations at this time.
[2018-12-04] MEDS: SELENIUM SULFIDE 1% TOPICAL SHAMPOO 207ML BOTTLE. TP SCH (21:00)
--- NOTE | 2018-12-04 21:07 | PN ---
DATE: 12/03/2018 PSYCHIATRIC PROGRESS NOTE This is a late entry 12/03/2018, covers the elements not covered in my initial note. SUBJECTIVE: I met with the patient in the evening of 12/03/2018 in his room. He slept 10 hours previous night, slept through breakfast, took a shower, intermittently agitated during cares, but compliant with his medications. REVIEW OF SYSTEMS: Hard of hearing, impaired ambulation, in wheelchair. No CV, , eye, ENT or pulmonary system symptoms on review. MENTAL STATUS EXAM: Oriented to himself. Insight, judgment, recent and remote memory, attention, concentration, fund of knowledge poor, consistent with his diagnosis mentioned in my initial note. PLAN: No change from initial note. MAN Saw BARRIOS MD DR: GARY/tasneem JOB#: [id number] / [id number]
--- NOTE | 2018-12-04 22:12 | PDOC ---
Exam Note: Theodore Note: Please also refer to the separate dictated note~for this date of service dictated separately.~Patient seen individually. Discussed the patient with Nursing staff reviewed the chart.~Reviewed interim history and current functioning. Reviewed vital signs,~Labs/ Radiology~and current medications noted below. Continue current treatment with the changes noted in the dictated addendum note Assessment: Vital Signs/I&O: Vital Signs Date Time Temp Pulse Resp B/P (MAP) Pulse Ox O2 Delivery O2 Flow Rate FiO2 12/04/18 19:29 69 149/68 12/04/18 15:50 98.4 19 96 12/02/18 20:35 Room Air I & O 12/03/18 12/03/18 12/04/18 14:59 22:59 06:59 Intake Total 240 ml 300 ml Balance 240 ml 300 ml Current Medications: I have reviewed the current psychotropics carefully including drug interactions. Risk benefit ratio favors no change other than as noted in my dictated progress note. Diagnosis: Problems: (1) Anxiety disorder (2) Dementia, vascular, with depression (3) Dementia, vascular, with delusions (4) Dementia in Alzheimer's disease with depression (5) Dementia in Alzheimer's disease with delusions (6) Impulse control disorder (7) Major neurocognitive disorder (8) Altered mental status OVIDIO BARRIOS MD Dec 04, 2018 22:12
[2018-12-05 06:30] VITALS: BP 178/81
[2018-12-05] MEDS: DOCUSATE SODIUM 100 MG CAPSULE PO SCH ×2 (09:10→19:54)
[2018-12-05] MEDS: TAMSULOSIN 0.4 MG CAP.ER.24H. PO SCH (09:10)
[2018-12-05] MEDS: ASPIRIN ENTERIC COATED 81 MG TABLET.DR. PO SCH (09:10)
[2018-12-05] MEDS: FUROSEMIDE 40 MG TABLET PO SCH (09:11)
[2018-12-05] MEDS: METOPROLOL TART IMMED RELEASE 25 MG TABLET PO SCH ×2 (09:11→19:55)
[2018-12-05] MEDS: LACTOBACILLUS RHAMNOSUS GG 1 CAPSULE. PO SCH ×2 (09:12→19:54)
[2018-12-05] MEDS: amLODIPine BESYLATE 10 MG TABLET PO SCH (09:12)
[2018-12-05] MEDS: MULTIVITAMIN with MINERAL TABLET. PO SCH (09:12)
[2018-12-05] MEDS: POLYVINYL ALCOHOL 1.4% OPHTH SOLUTION 15ML BOTTLE. OU SCH ×3 (09:17→19:53)
[2018-12-05] MEDS: SERTRALINE 50 MG TABLET. PO SCH (09:17)
[2018-12-05] MEDS: QUEtiapine 25 MG TABLET. PO SCH ×2 (11:12→19:56)
--- NOTE | 2018-12-05 12:04 | NUR ---
Patient was up in his chair at shift change. He was restless after breakfast, wanting to lay back down, and became agitated when a JOB PLACEMENT COUNSELOR told him that he could not lay down, attempting to hit her. He was placed in west hallway until he calmed down, then he went back into the day room. Will continue to monitor.
[2018-12-05 15:30] VITALS: BP 104/54
[2018-12-05] MEDS: ATORVASTATIN CALCIUM 20 MG TABLET PO SCH (19:55)
[2018-12-05] MEDS: DIVALPROEX 125 MG CAP.SPRINK PO SCH (19:55)
[2018-12-05] MEDS: MIRTAZAPINE 15 MG TABLET PO SCH (19:56)
--- NOTE | 2018-12-05 20:21 | NUR ---
Nursing note: Assumed care of pt in his room. He was pleasant and cooperative, took meds crushed in food, no c/o or s/s of pain, no agitation. Pt taken to shower and was cooperative.
--- NOTE | 2018-12-05 22:14 | PDOC ---
Exam Note: Theodore Note: Please also refer to the separate dictated note~for this date of service dictated separately.~Patient seen individually. Discussed the patient with Nursing staff reviewed the chart.~Reviewed interim history and current functioning. Reviewed vital signs,~Labs/ Radiology~and current medications noted below. Continue current treatment with the changes noted in the dictated addendum note Assessment: Vital Signs/I&O: Vital Signs Date Time Temp Pulse Resp B/P (MAP) Pulse Ox O2 Delivery O2 Flow Rate FiO2 12/05/18 19:55 72 104/54 12/05/18 15:30 98.5 20 96 Room Air I & O 12/04/18 12/04/18 12/05/18 14:59 22:59 06:59 Intake Total 240 ml 240 ml 60 ml Balance 240 ml 240 ml 60 ml Current Medications: I have reviewed the current psychotropics carefully including drug interactions. Risk benefit ratio favors no change other than as noted in my dictated progress note. Diagnosis: Problems: (1) Anxiety disorder (2) Dementia, vascular, with depression (3) Dementia, vascular, with delusions (4) Dementia in Alzheimer's disease with depression (5) Dementia in Alzheimer's disease with delusions (6) Impulse control disorder (7) Major neurocognitive disorder (8) Altered mental status OVIDIO BARRIOS MD Dec 05, 2018 22:14
[2018-12-06 06:15] VITALS: BP 193/88
[2018-12-06] MEDS: ASPIRIN ENTERIC COATED 81 MG TABLET.DR. PO SCH ×2 (08:08→10:05)
--- NOTE | 2018-12-06 09:56 | NUR ---
WEEKLY ACTIVITY THERAPY NOTE Date of Admission: 11/02/2018, Prev. Admit: 10/25/2018 Date of AT Assessment: 11/05/2018 Goal aimed: to increase engagement Initial goal: Pt. will engage in three Activity Therapy groups or individual sessions per week. Weekly progress towards goal: did not achieve (no group activities on 11/29, 11/30, 12/01) Group participation level: zero Weekly highlights: pleasant when passing by Behaviors observed: sleeping often, not interested in groups, escorted out of day room on Monday morning after failed redirection when almost running over peers feet. Pt. was resistive, pushing back against staff while yelling. Plan: no change to goal Beneficial adaptations: direct prompting, demonstrations and verbal cues
[2018-12-06] MEDS: SERTRALINE 50 MG TABLET. PO SCH (10:05)
[2018-12-06] MEDS: FUROSEMIDE 40 MG TABLET PO SCH (10:05)
[2018-12-06] MEDS: TAMSULOSIN 0.4 MG CAP.ER.24H. PO SCH (10:05)
[2018-12-06] MEDS: METOPROLOL TART IMMED RELEASE 25 MG TABLET PO SCH ×2 (10:06→19:44)
[2018-12-06] MEDS: MULTIVITAMIN with MINERAL TABLET. PO SCH (10:06)
[2018-12-06] MEDS: DOCUSATE SODIUM 100 MG CAPSULE PO SCH ×2 (10:07→19:44)
[2018-12-06] MEDS: LACTOBACILLUS RHAMNOSUS GG 1 CAPSULE. PO SCH ×2 (10:07→19:44)
[2018-12-06] MEDS: amLODIPine BESYLATE 10 MG TABLET PO SCH (10:07)
[2018-12-06] MEDS: POLYVINYL ALCOHOL 1.4% OPHTH SOLUTION 15ML BOTTLE. OU SCH ×3 (10:08→19:46)
--- NOTE | 2018-12-06 10:30 | NUR ---
Nursing Note: Pt tired and irritable this am. Resistive to his meds this morning, but after telling him that his blood pressure was high, pt took his meds whole. Pt reluctant to eat breakfast which was held this morning since he slept late. Pt's was delayed in arriving for lunch d/t traffic. Pt put himself back to bed and went to sleep.
--- NOTE | 2018-12-06 10:58 | PN ---
DATE: 12/04/2018 This late entry, 12/04/2018, covers elements not covered in my initial note. SUBJECTIVE: I met with the patient in the evening. The patient slept 8-1/4 hours previous night. He has been somewhat withdrawn, confused. REVIEW OF SYSTEMS: Ambulation impaired, in wheelchair. No CV, , pulmonary, eye, ENT system symptoms on review. Reliability poor. MENTAL STATUS EXAM: Oriented to himself. Insight, judgment, recent and remote memory, attention, concentration, fund of knowledge poor, consistent with his diagnosis mentioned in my initial note. PLAN: No change from initial note. MAN Saw BARRIOS MD DR: GARY/tasneem JOB#: [id number] / [id number]
--- NOTE | 2018-12-06 11:02 | NUR ---
WEEKLY NOTE: Pt continues to be agitated with cares and at times with redirection; furthermore, attempts to hit staff during the process. Pt does better when he sleeps in and continually asks to eat. Pt does sit in the dayroom but has minimal participation in actual activities. Pt would like for pt to discharge to rehab; however, the team is not sure pt will be able to fully complete physical therapy. SW will continue to work with the family and find placement EDUIN.
--- NOTE | 2018-12-06 13:30 | NUR ---
BROOK spoke with the therapy solar installation supervisor re: pt likelihood of being able to keep up with therapy and be discharged home once completed. Therapy reports that pt often refuses to participate in therapy session; even after multiple attempts. Pt does not want to walk and has verbalized this one of the physical therapist; however, with some coaxing, pt will for one particular therapist. Pt does not want to put on his own socks or shoes and gets extremely agitated when you ask him to complete therapy tasks. Pt has extreme gait concerns and poor motivation to improve. It appears that pt would not benefit from completion of therapy as this may be his new norm, physically. The therapy solar installation supervisor is recommending that pt look towards discharging to a Detention or LTC facility. BROOK will discuss this with pt and look at another potential discharge plan.
[2018-12-06 16:02] VITALS: BP 157/65
--- NOTE | 2018-12-06 16:07 | NUR ---
Nursing Note: arrived for 1600 visit and pt was in bed again. Pt's requested that pt be gotten up for her to visit w/ him.
[2018-12-06] MEDS: QUEtiapine 25 MG TABLET. PO SCH ×2 (16:18→19:44)
--- NOTE | 2018-12-06 16:50 | NUR ---
BROOK met with pt what wanted to make sure pt went to rehab. She witnessed staff helping pt get out of bed and reports that she is nowhere near ready to come home. BROOK spoke with pt to inform her that the therapist here do not believe pt will participate in therapy. He has refused therapy here on multiple occasions and refuses to comply with requests. He has told PT that he does not want to walk and is fine using the w/c. Pt feels that pt would complete rehab at [facility]. They have talked bout it and he is ready to be there instead of here. BROOK will update pt , once she hears back from [facility].
[2018-12-06] MEDS: DIVALPROEX 125 MG CAP.SPRINK PO SCH (19:44)
[2018-12-06] MEDS: MIRTAZAPINE 15 MG TABLET PO SCH (19:44)
[2018-12-06] MEDS: SELENIUM SULFIDE 1% TOPICAL SHAMPOO 207ML BOTTLE. TP SCH (19:44)
[2018-12-06] MEDS: ATORVASTATIN CALCIUM 20 MG TABLET PO SCH (19:44)
[2018-12-06] MEDS ORDERED: NYSTATIN TOPICAL POWDER 15GM BOTTLE. TP PRN (21:45)
--- NOTE | 2018-12-06 22:06 | NUR ---
Pt laying in bed at shift change. Pt calm, pleasant, and interactive with this nurse and new roommate this evening. Pt cooperative with assessment and compliant with medications.
[2018-12-07 06:17] VITALS: BP 170/74
[2018-12-07 07:08] LABS: BASO % 1 % (0-3); EOS # 0.2 x10^3/uL (0.0-0.7); EOS % 4 % (0-3); HEMATOCRIT 36.9 % (39.0-53.0); LYMPH % 16 % (24-48); MEAN CORPUSCULAR HEMOGLOBIN 31 pg (25-35); MEAN CORPUSCULAR HGB CONC 33 g/dL (31-37); MEAN CORPUSCULAR VOLUME 94 fL (79-100); MONO # 0.8 x10^3/uL (0.0-1.1); MONO % 13 % (0-9); NEUT # 4.2 x10^3uL (1.8-7.7); NEUT % 67 % (31-73); PLATELET COUNT 214 x10^3/uL (140-400); RED BLOOD COUNT 3.93 x10^6/uL (4.30-5.70); RED CELL DISTRIBUTION WIDTH 14.4 % (11.5-14.5); WHITE BLOOD COUNT 6.4 x10^3/uL (4.0-11.0)
[2018-12-07 07:12] LABS: ALBUMIN 2.8 g/dL (3.4-5.0); CALCIUM 8.3 mg/dL (8.5-10.1); CREATININE 1.9 mg/dL (0.7-1.3); GFR 34.5; MAGNESIUM 1.9 mg/dL (1.8-2.4); POTASSIUM 3.9 mmol/L (3.5-5.1); TOTAL BILIRUBIN 0.4 mg/dL (0.2-1.0); TOTAL PROTEIN 5.6 g/dL (6.4-8.2)
[2018-12-07] MEDS: POLYVINYL ALCOHOL 1.4% OPHTH SOLUTION 15ML BOTTLE. OU SCH ×3 (09:00→20:13)
--- NOTE | 2018-12-07 10:12 | PDOC ---
Exam Note: Theodore Note: Late entry for DOS 12/06/2018. Please also refer to the separate dictated note~for this date of service dictated separately.~Patient seen individually. Discussed the patient with Nursing staff reviewed the chart.~Reviewed interim history and current functioning. Reviewed vital signs,~Labs/ Radiology~and current medications noted below. Continue current treatment with the changes noted in the dictated addendum note Assessment: Vital Signs/I&O: Vital Signs Date Time Temp Pulse Resp B/P (MAP) Pulse Ox O2 Delivery O2 Flow Rate FiO2 12/07/18 06:17 97.9 65 20 170/74 (106) 97 Room Air I & O 12/06/18 12/06/18 12/07/18 14:59 22:59 06:59 Intake Total 240 ml 240 ml 240 ml Balance 240 ml 240 ml 240 ml Labs: Laboratory Tests Test 12/07/18 06:48 White Blood Count 6.4 x10^3/uL (4.0-11.0) Red Blood Count 3.93 x10^6/uL (4.30-5.70) L Hemoglobin 12.0 g/dL (13.0-17.5) L Hematocrit 36.9 % (39.0-53.0) L Mean Corpuscular Volume 94 fL (79-100) Mean Corpuscular Hemoglobin 31 pg (25-35) Mean Corpuscular Hemoglobin Concent 33 g/dL (31-37) Red Cell Distribution Width 14.4 % (11.5-14.5) Platelet Count 214 x10^3/uL (140-400) Neutrophils (%) (Auto) 67 % (31-73) Lymphocytes (%) (Auto) 16 % (24-48) L Monocytes (%) (Auto) 13 % (0-9) H Eosinophils (%) (Auto) 4 % (0-3) H Basophils (%) (Auto) 1 % (0-3) Neutrophils # (Auto) 4.2 x10^3uL (1.8-7.7) Lymphocytes # (Auto) 1.0 x10^3/uL (1.0-4.8) Monocytes # (Auto) 0.8 x10^3/uL (0.0-1.1) Eosinophils # (Auto) 0.2 x10^3/uL (0.0-0.7) Basophils # (Auto) 0.0 x10^3/uL (0.0-0.2) Sodium Level 144 mmol/L (136-145) Potassium Level 3.9 mmol/L (3.5-5.1) Chloride Level 106 mmol/L (98-107) Carbon Dioxide Level 31 mmol/L (21-32) Anion Gap 7 (6-14) Blood Urea Nitrogen 37 mg/dL (8-26) H Creatinine 1.9 mg/dL (0.7-1.3) H Estimated GFR (Cockcroft-Gault) 34.5 BUN/Creatinine Ratio 19 (6-20) Glucose Level 96 mg/dL (70-99) Calcium Level 8.3 mg/dL (8.5-10.1) L Magnesium Level 1.9 mg/dL (1.8-2.4) Total Bilirubin 0.4 mg/dL (0.2-1.0) Aspartate Amino Transferase (AST) 18 U/L (15-37) Alanine Aminotransferase (ALT) 28 U/L (16-63) Alkaline Phosphatase 98 U/L (46-116) Total Protein 5.6 g/dL (6.4-8.2) L Albumin 2.8 g/dL (3.4-5.0) L Albumin/Globulin Ratio 1.0 (1.0-1.7) Current Medications: I have reviewed the current psychotropics carefully including drug interactions. Risk benefit ratio favors no change other than as noted in my dictated progress note. Diagnosis: Problems: (1) Anxiety disorder (2) Dementia, vascular, with depression (3) Dementia, vascular, with delusions (4) Dementia in Alzheimer's disease with depression (5) Dementia in Alzheimer's disease with delusions (6) Impulse control disorder (7) Major neurocognitive disorder (8) Altered mental status OVIDIO BARRIOS MD Dec 07, 2018 10:12
[2018-12-07] MEDS: DOCUSATE SODIUM 100 MG CAPSULE PO SCH ×2 (10:35→20:12)
[2018-12-07] MEDS: LACTOBACILLUS RHAMNOSUS GG 1 CAPSULE. PO SCH ×2 (10:35→20:11)
[2018-12-07] MEDS: TAMSULOSIN 0.4 MG CAP.ER.24H. PO SCH (10:35)
[2018-12-07] MEDS: amLODIPine BESYLATE 10 MG TABLET PO SCH (10:35)
[2018-12-07] MEDS: SERTRALINE 50 MG TABLET. PO SCH (10:35)
[2018-12-07] MEDS: MULTIVITAMIN with MINERAL TABLET. PO SCH (10:35)
[2018-12-07] MEDS: FUROSEMIDE 40 MG TABLET PO SCH (10:36)
[2018-12-07] MEDS: METOPROLOL TART IMMED RELEASE 25 MG TABLET PO SCH ×2 (10:36→20:13)
[2018-12-07] MEDS: QUEtiapine 25 MG TABLET. PO SCH ×2 (10:37→20:11)
--- NOTE | 2018-12-07 13:03 | PN ---
DATE: 12/05/2018 PSYCHIATRIC PROGRESS NOTE This late entry, 12/05/2018, covers elements not covered in my initial note. SUBJECTIVE: I met with the patient evening of 12/05/2018. The patient slept 9-3/4 hours previous night. He spends much time in bed, somewhat tired, withdrawn, upset in the morning and then got up before breakfast compliant with his medications. REVIEW OF SYSTEMS: No CV, , pulmonary, eye, ENT system symptoms on review. Reliability poor. MENTAL STATUS EXAM: Oriented to himself. Insight, judgment, recent and remote memory, attention, concentration, fund of knowledge poor, consistent with his diagnosis mentioned in my initial note. PLAN: No change from initial note. MAN Saw BARRIOS MD DR: GARY/tasneem JOB#: [id number] / [id number]
[2018-12-07 15:54] VITALS: BP 112/61
--- NOTE | 2018-12-07 17:27 | NUR ---
10:30 am- RN woke patient up. Pt compliant with medications. Was initially willing to get up out of bed, but was then resistive when it came time to get up by yelling and swinging arms. Pt did get up to wheelchair with 1 assist. Pt was taken to bathroom where he was again resistive. Pt did not want help in bathroom but was unsteady. Tried to swing at this RN while assisting patient in the bathroom. Once patient was steady RN allowed patient to continue cares on his own. Pt was taken to the day room where he calmed down by evidence of speaking calmly and was not swinging arms. 1600- Pt asking about showering. RN informed patient that he will be showered tonight and that his bed would be made. Pt verbalized understanding. Pt has been compliant with cares, asks frequently about going back to bed but remains calm when told he needs to stay up.
[2018-12-07] MEDS: ATORVASTATIN CALCIUM 20 MG TABLET PO SCH (20:11)
[2018-12-07] MEDS: MIRTAZAPINE 15 MG TABLET PO SCH (20:11)
[2018-12-07] MEDS: DIVALPROEX 125 MG CAP.SPRINK PO SCH (20:11)
--- NOTE | 2018-12-07 22:20 | PDOC ---
Exam Note: Theodore Note: Please also refer to the separate dictated note~for this date of service dictated separately.~Patient seen individually. Discussed the patient with Nursing staff reviewed the chart.~Reviewed interim history and current functioning. Reviewed vital signs,~Labs/ Radiology~and current medications noted below. Continue current treatment with the changes noted in the dictated addendum note Assessment: Vital Signs/I&O: Vital Signs Date Time Temp Pulse Resp B/P (MAP) Pulse Ox O2 Delivery O2 Flow Rate FiO2 12/07/18 20:13 60 112/61 12/07/18 15:54 97.2 16 96 12/07/18 06:17 Room Air I & O 12/06/18 12/06/18 12/07/18 14:59 22:59 06:59 Intake Total 240 ml 240 ml 240 ml Balance 240 ml 240 ml 240 ml Labs: Laboratory Tests Test 12/07/18 06:48 White Blood Count 6.4 x10^3/uL (4.0-11.0) Red Blood Count 3.93 x10^6/uL (4.30-5.70) L Hemoglobin 12.0 g/dL (13.0-17.5) L Hematocrit 36.9 % (39.0-53.0) L Mean Corpuscular Volume 94 fL (79-100) Mean Corpuscular Hemoglobin 31 pg (25-35) Mean Corpuscular Hemoglobin Concent 33 g/dL (31-37) Red Cell Distribution Width 14.4 % (11.5-14.5) Platelet Count 214 x10^3/uL (140-400) Neutrophils (%) (Auto) 67 % (31-73) Lymphocytes (%) (Auto) 16 % (24-48) L Monocytes (%) (Auto) 13 % (0-9) H Eosinophils (%) (Auto) 4 % (0-3) H Basophils (%) (Auto) 1 % (0-3) Neutrophils # (Auto) 4.2 x10^3uL (1.8-7.7) Lymphocytes # (Auto) 1.0 x10^3/uL (1.0-4.8) Monocytes # (Auto) 0.8 x10^3/uL (0.0-1.1) Eosinophils # (Auto) 0.2 x10^3/uL (0.0-0.7) Basophils # (Auto) 0.0 x10^3/uL (0.0-0.2) Sodium Level 144 mmol/L (136-145) Potassium Level 3.9 mmol/L (3.5-5.1) Chloride Level 106 mmol/L (98-107) Carbon Dioxide Level 31 mmol/L (21-32) Anion Gap 7 (6-14) Blood Urea Nitrogen 37 mg/dL (8-26) H Creatinine 1.9 mg/dL (0.7-1.3) H Estimated GFR (Cockcroft-Gault) 34.5 BUN/Creatinine Ratio 19 (6-20) Glucose Level 96 mg/dL (70-99) Calcium Level 8.3 mg/dL (8.5-10.1) L Magnesium Level 1.9 mg/dL (1.8-2.4) Total Bilirubin 0.4 mg/dL (0.2-1.0) Aspartate Amino Transferase (AST) 18 U/L (15-37) Alanine Aminotransferase (ALT) 28 U/L (16-63) Alkaline Phosphatase 98 U/L (46-116) Total Protein 5.6 g/dL (6.4-8.2) L Albumin 2.8 g/dL (3.4-5.0) L Albumin/Globulin Ratio 1.0 (1.0-1.7) Current Medications: I have reviewed the current psychotropics carefully including drug interactions. Risk benefit ratio favors no change other than as noted in my dictated progress note. Diagnosis: Problems: (1) Anxiety disorder (2) Dementia, vascular, with depression (3) Dementia, vascular, with delusions (4) Dementia in Alzheimer's disease with depression (5) Dementia in Alzheimer's disease with delusions (6) Impulse control disorder (7) Major neurocognitive disorder (8) Altered mental status OVIDIO BARRIOS MD Dec 07, 2018 22:20
--- NOTE | 2018-12-07 22:22 | PN ---
DATE: 12/06/2018 PSYCHIATRIC PROGRESS NOTE This is a late entry 12/06/2018, covers the elements not covered in my initial note. SUBJECTIVE: I met with the patient in the evening of 12/06/2018. The patient was staffed at a treatment team meeting with the entire team in the morning. The patient is sleeping about 7 hours average slept 8 hours previous night. Appetite is 100%. He has not been aggressive, remains confused. I met with him in his room. He is lying in bed, complained of feeling cold, had 3 covers on him and asked the nursing staff to get him an extra cover which they did. REVIEW OF SYSTEMS: No CV, , pulmonary, eye, ENT system symptoms on review. Reliability is poor. Gait unsteady in wheelchair. MENTAL STATUS EXAM: Oriented to himself. Insight, judgment, recent and remote memory, attention, concentration, fund of knowledge poor, consistent with his diagnosis mentioned in my initial note. PLAN: No change from initial note. MAN Saw BARRIOS MD DR: GARY/tasneem JOB#: [id number] / [id number]
--- NOTE | 2018-12-07 22:59 | NUR ---
Pt sitting quietly at shift change. Pt calm, pleasant, and interactive. Pt cooperative with assessment and cares this evening, compliant with medications administered whole.
[2018-12-08 05:53] VITALS: BP 164/76
[2018-12-08] MEDS: POLYVINYL ALCOHOL 1.4% OPHTH SOLUTION 15ML BOTTLE. OU SCH ×3 (10:33→19:35)
[2018-12-08] MEDS: ASPIRIN ENTERIC COATED 81 MG TABLET.DR. PO SCH (10:33)
[2018-12-08] MEDS: LACTOBACILLUS RHAMNOSUS GG 1 CAPSULE. PO SCH ×2 (10:35→19:36)
[2018-12-08] MEDS: DOCUSATE SODIUM 100 MG CAPSULE PO SCH ×2 (10:35→19:36)
[2018-12-08] MEDS: TAMSULOSIN 0.4 MG CAP.ER.24H. PO SCH (10:35)
[2018-12-08] MEDS: FUROSEMIDE 40 MG TABLET PO SCH (10:36)
[2018-12-08] MEDS: METOPROLOL TART IMMED RELEASE 25 MG TABLET PO SCH ×2 (10:39→19:35)
[2018-12-08] MEDS: MULTIVITAMIN with MINERAL TABLET. PO SCH (10:41)
[2018-12-08] MEDS: amLODIPine BESYLATE 10 MG TABLET PO SCH (10:41)
[2018-12-08] MEDS: SERTRALINE 50 MG TABLET. PO SCH (10:41)
[2018-12-08] MEDS: cloNIDine TTS-3 1 PATCH PATCH TD SCH (10:51)
--- NOTE | 2018-12-08 11:37 | NUR ---
Pt is cooperative, compliant and calm. No agitation, no aggression, no hallucinations, no delusions. Pt is compliant with his medications and assessment.
[2018-12-08] MEDS: QUEtiapine 25 MG TABLET. PO SCH ×2 (13:11→19:36)
[2018-12-08 14:07] VITALS: BP 125/53
[2018-12-08 15:38] VITALS: BP 163/55
[2018-12-08] MEDS: ATORVASTATIN CALCIUM 20 MG TABLET PO SCH (19:36)
[2018-12-08] MEDS: MIRTAZAPINE 15 MG TABLET PO SCH (19:36)
[2018-12-08] MEDS: DIVALPROEX 125 MG CAP.SPRINK PO SCH (19:36)
[2018-12-08] MEDS: SELENIUM SULFIDE 1% TOPICAL SHAMPOO 207ML BOTTLE. TP SCH (20:50)
--- NOTE | 2018-12-08 20:56 | NUR ---
Pt laying in bed with eyes closed at shift change. Pt calm, interactive when approached, able to make needs known. Pt slightly resistive with HS medications but took them with encouragement. Pt requested to get up and was helped into his chair.
--- NOTE | 2018-12-08 22:44 | PDOC ---
Exam Note: Theodore Note: Please also refer to the separate dictated note~for this date of service dictated separately.~Patient seen individually. Discussed the patient with Nursing staff reviewed the chart.~Reviewed interim history and current functioning. Reviewed vital signs,~Labs/ Radiology~and current medications noted below. Continue current treatment with the changes noted in the dictated addendum note Assessment: Vital Signs/I&O: Vital Signs Date Time Temp Pulse Resp B/P (MAP) Pulse Ox O2 Delivery O2 Flow Rate FiO2 12/08/18 19:35 70 163/55 12/08/18 15:38 97.7 18 94 Room Air I & O 12/07/18 12/07/18 12/08/18 14:59 22:59 06:59 Intake Total 480 ml 0 ml Balance 480 ml 0 ml Current Medications: I have reviewed the current psychotropics carefully including drug interactions. Risk benefit ratio favors no change other than as noted in my dictated progress note. Diagnosis: Problems: (1) Anxiety disorder (2) Dementia, vascular, with depression (3) Dementia, vascular, with delusions (4) Dementia in Alzheimer's disease with depression (5) Dementia in Alzheimer's disease with delusions (6) Impulse control disorder (7) Major neurocognitive disorder (8) Altered mental status (9) Cardiovascular accident OVIDIO BARRIOS MD Dec 08, 2018 22:44
[2018-12-09 05:50] VITALS: BP 160/88
[2018-12-09] MEDS: MULTIVITAMIN with MINERAL TABLET. PO SCH (07:45)
[2018-12-09] MEDS: ASPIRIN ENTERIC COATED 81 MG TABLET.DR. PO SCH (07:45)
[2018-12-09] MEDS: DOCUSATE SODIUM 100 MG CAPSULE PO SCH ×2 (07:45→19:26)
[2018-12-09] MEDS: LACTOBACILLUS RHAMNOSUS GG 1 CAPSULE. PO SCH ×2 (07:45→19:25)
[2018-12-09] MEDS: TAMSULOSIN 0.4 MG CAP.ER.24H. PO SCH (07:46)
[2018-12-09] MEDS: FUROSEMIDE 40 MG TABLET PO SCH (07:46)
[2018-12-09] MEDS: METOPROLOL TART IMMED RELEASE 25 MG TABLET PO SCH ×2 (07:47→19:27)
[2018-12-09] MEDS: amLODIPine BESYLATE 10 MG TABLET PO SCH (07:48)
[2018-12-09] MEDS: SERTRALINE 50 MG TABLET. PO SCH (07:48)
[2018-12-09] MEDS: POLYVINYL ALCOHOL 1.4% OPHTH SOLUTION 15ML BOTTLE. OU SCH ×3 (07:49→19:55)
--- NOTE | 2018-12-09 10:37 | NUR ---
Late breakfast, slept until 0930, ate well but refused PO meds. After completing breakfast then stated, "where are my meds?" Cooperative with staff otherwise. Seated in dayroom and present in groups.
[2018-12-09] MEDS: QUEtiapine 25 MG TABLET. PO SCH ×2 (12:02→19:26)
--- NOTE | 2018-12-09 14:26 | PN ---
DATE: 12/07/2018 PSYCHIATRIC PROGRESS NOTE This late entry 12/07/2018 covers elements not covered in my initial note. SUBJECTIVE: I met with the patient in the evening of 12/07/2018. The patient slept well at night, slept until 10:30 a.m., compliant with medications, resistive to be out of bed and toileting, then did okay after that. He seems to understand the reasons for him to be more interactive with his ADLs, did take a shower. He slept 5-1/2 hours previous night. REVIEW OF SYSTEMS: Ambulation impaired, in wheelchair. No CV, , pulmonary, eye, ENT system symptoms on review. MENTAL STATUS EXAM: Oriented to himself. Insight, judgment, recent and remote memory, attention, concentration, fund of knowledge poor, consistent with his diagnosis mentioned in my initial note. A letter has been requested by [facility]. The patient will be able to cooperate and participate in rehabilitation and physical therapy to get his strength back. In coordination with [facility], we are sending a letter generated for this to [facility] as he has been cooperative with physical therapy here at the hospital. IMPRESSION: Unchanged from initial note. PLAN: No change from initial note. OVIDIO BARRIOS MD DR: GARY/tasneem JOB#: [id number] / [id number]
--- NOTE | 2018-12-09 15:27 | NUR ---
Pt. was seated at dining room table before lunch, was using a towel to wipe off table to occupy his idleness, at his request. He bumped the back of his L hand on the bottom of the table and obtained a skin tear. 3 steri strips were applied, area is dry and intact. and daughter visited for lunch. Informed them of same, states "he has fragile skin, does that all the time." Will continue to monitor. Has been compliant with eye drops and group this afternoon.
[2018-12-09 16:02] VITALS: BP 155/62
[2018-12-09] MEDS: DIVALPROEX 125 MG CAP.SPRINK PO SCH (19:25)
[2018-12-09] MEDS: MIRTAZAPINE 15 MG TABLET PO SCH (19:25)
[2018-12-09] MEDS: ATORVASTATIN CALCIUM 20 MG TABLET PO SCH (19:25)
--- NOTE | 2018-12-09 22:17 | PDOC ---
Exam Note: Theodore Note: Please also refer to the separate dictated note~for this date of service dictated separately.~Patient seen individually. Discussed the patient with Nursing staff reviewed the chart.~Reviewed interim history and current functioning. Reviewed vital signs,~Labs/ Radiology~and current medications noted below. Continue current treatment with the changes noted in the dictated addendum note Assessment: Vital Signs/I&O: Vital Signs Date Time Temp Pulse Resp B/P (MAP) Pulse Ox O2 Delivery O2 Flow Rate FiO2 12/09/18 19:27 63 155/62 12/09/18 16:02 98.2 18 97 12/09/18 05:50 Room Air I & O 12/08/18 12/08/18 12/09/18 14:59 22:59 06:59 Intake Total 240 ml 480 ml 120 ml Balance 240 ml 480 ml 120 ml Current Medications: I have reviewed the current psychotropics carefully including drug interactions. Risk benefit ratio favors no change other than as noted in my dictated progress note. Diagnosis: Problems: (1) Anxiety disorder (2) Dementia, vascular, with depression (3) Dementia, vascular, with delusions (4) Dementia in Alzheimer's disease with depression (5) Dementia in Alzheimer's disease with delusions (6) Impulse control disorder (7) Major neurocognitive disorder (8) Altered mental status OVIDIO BARRIOS MD Dec 09, 2018 22:17
--- NOTE | 2018-12-10 00:03 | NUR ---
Nursing Note: Assumed care of pt. this evening, he was lying down in his bed. He has been calm and cooperative. He has been compliant with taking his HS meds whole this evening. He requested to take them whole. No behaviors noted at this time.
[2018-12-10 05:59] VITALS: BP 135/72
--- NOTE | 2018-12-10 10:55 | NUR ---
Pt is compliant with his medications and assessment. Pt is cooperative, compliant and calm. No agitation, no aggression, no hallucinations, no delusions.
[2018-12-10] MEDS: POLYVINYL ALCOHOL 1.4% OPHTH SOLUTION 15ML BOTTLE. OU SCH ×2 (11:23→14:00)
[2018-12-10] MEDS: ASPIRIN ENTERIC COATED 81 MG TABLET.DR. PO SCH (11:23)
[2018-12-10] MEDS: LACTOBACILLUS RHAMNOSUS GG 1 CAPSULE. PO SCH ×2 (11:24→19:17)
[2018-12-10] MEDS: FUROSEMIDE 40 MG TABLET PO SCH (11:24)
[2018-12-10] MEDS: DOCUSATE SODIUM 100 MG CAPSULE PO SCH ×2 (11:24→19:18)
[2018-12-10] MEDS: TAMSULOSIN 0.4 MG CAP.ER.24H. PO SCH (11:24)
[2018-12-10] MEDS: amLODIPine BESYLATE 10 MG TABLET PO SCH (11:25)
[2018-12-10] MEDS: METOPROLOL TART IMMED RELEASE 25 MG TABLET PO SCH (11:25)
[2018-12-10] MEDS: QUEtiapine 25 MG TABLET. PO SCH ×2 (11:26→19:19)
[2018-12-10] MEDS: MULTIVITAMIN with MINERAL TABLET. PO SCH (11:26)
[2018-12-10] MEDS: SERTRALINE 50 MG TABLET. PO SCH (11:26)
--- NOTE | 2018-12-10 14:21 | NUR ---
Pt refused 1400 blood pressure check and medication. Nurse attempted to educate pt on importance of medication however, pt continued to decline.
[2018-12-10 16:07] VITALS: BP 99/58
[2018-12-10] MEDS: ATORVASTATIN CALCIUM 20 MG TABLET PO SCH (19:17)
[2018-12-10] MEDS: MIRTAZAPINE 15 MG TABLET PO SCH (19:18)
[2018-12-10] MEDS: DIVALPROEX 125 MG CAP.SPRINK PO SCH (19:18)
--- NOTE | 2018-12-10 22:23 | PDOC ---
Exam Note: Theodore Note: Please also refer to the separate dictated note~for this date of service dictated separately.~Patient seen individually. Discussed the patient with Nursing staff reviewed the chart.~Reviewed interim history and current functioning. Reviewed vital signs,~Labs/ Radiology~and current medications noted below. Continue current treatment with the changes noted in the dictated addendum note Assessment: Vital Signs/I&O: Vital Signs Date Time Temp Pulse Resp B/P (MAP) Pulse Ox O2 Delivery O2 Flow Rate FiO2 12/10/18 19:23 60 141/70 12/10/18 16:07 98.3 18 96 12/09/18 05:50 Room Air I & O 12/09/18 12/09/18 12/10/18 15:00 23:00 07:00 Intake Total 840 ml 360 ml Balance 840 ml 360 ml Current Medications: I have reviewed the current psychotropics carefully including drug interactions. Risk benefit ratio favors no change other than as noted in my dictated progress note. Diagnosis: Problems: (1) Anxiety disorder (2) Dementia, vascular, with depression (3) Dementia, vascular, with delusions (4) Dementia in Alzheimer's disease with depression (5) Dementia in Alzheimer's disease with delusions (6) Impulse control disorder (7) Major neurocognitive disorder (8) Altered mental status OVIDIO BARRIOS MD Dec 10, 2018 22:23
--- NOTE | 2018-12-10 22:39 | NUR ---
Nursing Note: Assumed care of pt. this evening, he was sitting in his W/C in his room. He has been calm, cooperative, and interacting appropriately with staff and other pt's. He has been compliant with his HS meds whole this evening. No behaviors noted at this time.
--- NOTE | 2018-12-11 00:19 | PN ---
DATE: 12/08/2018 This late entry 12/08/2018 covers elements not covered in my initial note. SUBJECTIVE: I met with the patient in the evening of 12/08/2018. The patient slept 6-1/4 hours previous night. He has been cooperative, confused, compliant, pleasant with cares. No aggressive behaviors noted. REVIEW OF SYSTEMS: Ambulation impaired, in wheelchair. No CV, , pulmonary, eye, ENT system symptoms on review. Reliability poor. MENTAL STATUS EXAM: Oriented to himself. Insight, judgment, recent and remote memory, attention, concentration, fund of knowledge poor, consistent with his diagnosis mentioned in my initial note. PLAN: No change from initial note. MAN Saw BARRIOS MD DR: GARY/tasneem JOB#: [id number] / [id number]
[2018-12-11] MEDS: METOPROLOL TART IMMED RELEASE 25 MG TABLET PO SCH ×3 (03:09→20:18)
[2018-12-11] MEDS: POLYVINYL ALCOHOL 1.4% OPHTH SOLUTION 15ML BOTTLE. OU SCH ×5 (04:46→20:19)
[2018-12-11] MEDS: SELENIUM SULFIDE 1% TOPICAL SHAMPOO 207ML BOTTLE. TP SCH (04:47)
[2018-12-11 06:23] VITALS: BP 176/81
[2018-12-11] MEDS: DOCUSATE SODIUM 100 MG CAPSULE PO SCH ×2 (08:59→20:18)
[2018-12-11] MEDS: MULTIVITAMIN with MINERAL TABLET. PO SCH (08:59)
[2018-12-11] MEDS: amLODIPine BESYLATE 10 MG TABLET PO SCH (08:59)
[2018-12-11] MEDS: LACTOBACILLUS RHAMNOSUS GG 1 CAPSULE. PO SCH ×2 (08:59→20:18)
[2018-12-11] MEDS: SERTRALINE 50 MG TABLET. PO SCH (08:59)
[2018-12-11] MEDS: TAMSULOSIN 0.4 MG CAP.ER.24H. PO SCH (08:59)
[2018-12-11] MEDS: ASPIRIN ENTERIC COATED 81 MG TABLET.DR. PO SCH (09:00)
[2018-12-11] MEDS: FUROSEMIDE 40 MG TABLET PO SCH (09:00)
[2018-12-11] MEDS: QUEtiapine 25 MG TABLET. PO SCH ×2 (12:17→20:18)
--- NOTE | 2018-12-11 15:04 | NUR ---
Nursing Note: Pt agitated this morning and refused to take his medications, explained to pt that his BP was high and it was important that he take his meds, pt still refused. Explained that the goal was for him regain his strength and move closer to home; and that his wants him to take his meds which typically works. Pt still refused. Finally called pt's and she spoke to him and he complied. Pt's visited at lunch time, and pt was compliant w/ noon medication, but pt still slightly agitated. Pt later asked to go to bed, this nurse allowed him to take him a nap.
[2018-12-11 15:36] VITALS: BP 161/66
[2018-12-11 16:08] VITALS: BP 161/66
[2018-12-11] MEDS: MIRTAZAPINE 15 MG TABLET PO SCH (20:18)
[2018-12-11] MEDS: DIVALPROEX 125 MG CAP.SPRINK PO SCH (20:19)
[2018-12-11] MEDS: ATORVASTATIN CALCIUM 20 MG TABLET PO SCH (20:20)
--- NOTE | 2018-12-11 22:11 | PDOC ---
Exam Note: Theodore Note: Please also refer to the separate dictated note~for this date of service dictated separately.~Patient seen individually. Discussed the patient with Nursing staff reviewed the chart.~Reviewed interim history and current functioning. Reviewed vital signs,~Labs/ Radiology~and current medications noted below. Continue current treatment with the changes noted in the dictated addendum note Assessment: Vital Signs/I&O: Vital Signs Date Time Temp Pulse Resp B/P (MAP) Pulse Ox O2 Delivery O2 Flow Rate FiO2 12/11/18 20:19 61 161/66 12/11/18 16:08 98.1 20 97 12/11/18 15:36 Room Air I & O 12/10/18 12/10/18 12/11/18 14:59 22:59 06:59 Intake Total 240 ml 120 ml 120 ml Balance 240 ml 120 ml 120 ml Current Medications: I have reviewed the current psychotropics carefully including drug interactions. Risk benefit ratio favors no change other than as noted in my dictated progress note. Diagnosis: Problems: (1) Anxiety disorder (2) Dementia, vascular, with depression (3) Dementia, vascular, with delusions (4) Dementia in Alzheimer's disease with depression (5) Dementia in Alzheimer's disease with delusions (6) Impulse control disorder (7) Major neurocognitive disorder (8) Altered mental status OVIDIO BARRISO MD Dec 11, 2018 22:11
--- NOTE | 2018-12-11 22:45 | NUR ---
Assumed care of patient at approx 1900. Patient is resting in bed at time to medication administration and assessment. Patient is calm and cooperative with assessment and medications. Patient requested to go to bed after assessment. Patient is resting comfortably in bed at this time. Will continue to monitor.
--- NOTE | 2018-12-11 23:56 | PN ---
DATE: 12/09/2018 PSYCHIATRIC PROGRESS NOTE This late entry 12/09/2018 covers elements not covered in my initial note. SUBJECTIVE: I met with the patient in the evening of 12/09/2018. The patient slept 8-1/4 hours previous night. He slept until about 9:30 a.m., then took his medications. He does have 4+ bilateral pitting edema. We will defer to Dr. Amezcua. He received a skin tear to the hand while he was trying to move in his wheelchair. REVIEW OF SYSTEMS: No CV, , pulmonary, eye, ENT system symptoms on review. MENTAL STATUS EXAM: Oriented to himself. Insight, judgment, recent and remote memory, attention, concentration, fund of knowledge poor consistent with his diagnosis mentioned in my initial note. PLAN: No change from initial note. MAN Saw BARRIOS MD DR: GARY/tasneem JOB#: [id number] / [id number]
[2018-12-12 06:33] VITALS: BP 158/76
[2018-12-12] MEDS: FUROSEMIDE 40 MG TABLET PO SCH (08:37)
[2018-12-12] MEDS: METOPROLOL TART IMMED RELEASE 25 MG TABLET PO SCH ×2 (08:37→19:27)
[2018-12-12] MEDS: amLODIPine BESYLATE 10 MG TABLET PO SCH (08:37)
[2018-12-12] MEDS: SERTRALINE 50 MG TABLET. PO SCH (08:37)
[2018-12-12] MEDS: MULTIVITAMIN with MINERAL TABLET. PO SCH (08:37)
[2018-12-12] MEDS: ASPIRIN ENTERIC COATED 81 MG TABLET.DR. PO SCH (08:37)
[2018-12-12] MEDS: TAMSULOSIN 0.4 MG CAP.ER.24H. PO SCH (08:38)
[2018-12-12] MEDS: DOCUSATE SODIUM 100 MG CAPSULE PO SCH ×2 (08:38→19:26)
[2018-12-12] MEDS: LACTOBACILLUS RHAMNOSUS GG 1 CAPSULE. PO SCH ×2 (08:38→19:27)
[2018-12-12] MEDS: POLYVINYL ALCOHOL 1.4% OPHTH SOLUTION 15ML BOTTLE. OU SCH ×3 (08:38→19:26)
[2018-12-12] MEDS: QUEtiapine 25 MG TABLET. PO SCH ×2 (11:19→19:27)
--- NOTE | 2018-12-12 11:45 | NUR ---
BROOK attempted to contact Maday at [facility] and ended up leaving a message. BROOK sent therapy notes per Maday's request and has not heard back at this time. BROOK will attempt to contact Maday tomorrow.
--- NOTE | 2018-12-12 13:47 | NUR ---
NSG NOTE; PT STAYED IN HIS ROOM THIS AM. I SPOKE WITH HIM ABOUT COMING INTO THE DAYROOM. HE STAYED IN THE DAYROOM AFTER LUNCH BUT DID NOT PARTICIPATE IN ACTIVITIES
[2018-12-12 15:39] VITALS: BP 153/75
[2018-12-12] MEDS: DIVALPROEX 125 MG CAP.SPRINK PO SCH (19:26)
[2018-12-12] MEDS: ATORVASTATIN CALCIUM 20 MG TABLET PO SCH (19:26)
[2018-12-12] MEDS: MIRTAZAPINE 15 MG TABLET PO SCH (19:26)
[2018-12-12] MEDS: SELENIUM SULFIDE 1% TOPICAL SHAMPOO 207ML BOTTLE. TP SCH (19:27)
--- NOTE | 2018-12-12 22:11 | NUR ---
Pt sitting up quietly in the day room at shift change. Pt calm, pleasant and interactive when approached. Pt cooperative with assessment and compliant with medications administered whole this evening.
--- NOTE | 2018-12-12 22:13 | PDOC ---
Exam Note: Theodore Note: Please also refer to the separate dictated note~for this date of service dictated separately.~Patient seen individually. Discussed the patient with Nursing staff reviewed the chart.~Reviewed interim history and current functioning. Reviewed vital signs,~Labs/ Radiology~and current medications noted below. Continue current treatment with the changes noted in the dictated addendum note Assessment: Vital Signs/I&O: Vital Signs Date Time Temp Pulse Resp B/P (MAP) Pulse Ox O2 Delivery O2 Flow Rate FiO2 12/12/18 19:27 64 153/75 12/12/18 15:39 98.2 16 96 12/11/18 15:36 Room Air I & O 12/11/18 12/11/18 12/12/18 15:00 23:00 07:00 Intake Total 600 ml 240 ml 120 ml Balance 600 ml 240 ml 120 ml Current Medications: I have reviewed the current psychotropics carefully including drug interactions. Risk benefit ratio favors no change other than as noted in my dictated progress note. Diagnosis: Problems: (1) Anxiety disorder (2) Dementia, vascular, with depression (3) Dementia, vascular, with delusions (4) Dementia in Alzheimer's disease with depression (5) Dementia in Alzheimer's disease with delusions (6) Impulse control disorder (7) Major neurocognitive disorder (8) Altered mental status OVIDIO BARRIOS MD Dec 12, 2018 22:13
[2018-12-13 06:07] VITALS: BP 182/83
[2018-12-13] MEDS: DOCUSATE SODIUM 100 MG CAPSULE PO SCH ×2 (08:05→19:33)
[2018-12-13] MEDS: METOPROLOL TART IMMED RELEASE 25 MG TABLET PO SCH ×2 (08:06→19:33)
[2018-12-13] MEDS: FUROSEMIDE 40 MG TABLET PO SCH (08:06)
[2018-12-13] MEDS: LACTOBACILLUS RHAMNOSUS GG 1 CAPSULE. PO SCH ×2 (08:07→19:33)
[2018-12-13] MEDS: MULTIVITAMIN with MINERAL TABLET. PO SCH (08:07)
[2018-12-13] MEDS: ASPIRIN ENTERIC COATED 81 MG TABLET.DR. PO SCH (08:07)
[2018-12-13] MEDS: SERTRALINE 50 MG TABLET. PO SCH (08:07)
[2018-12-13] MEDS: TAMSULOSIN 0.4 MG CAP.ER.24H. PO SCH (08:07)
[2018-12-13] MEDS: POLYVINYL ALCOHOL 1.4% OPHTH SOLUTION 15ML BOTTLE. OU SCH ×4 (08:08→19:34)
[2018-12-13] MEDS: amLODIPine BESYLATE 10 MG TABLET PO SCH (08:08)
--- NOTE | 2018-12-13 10:19 | NUR ---
WEEKLY ACTIVITY THERAPY NOTE Date of Admission: 11/02/2018, Prev. Admit: 10/25/2018 Date of AT Assessment: 11/05/2018 Goal aimed: to increase engagement Initial goal: Pt. will engage in three Activity Therapy groups or individual sessions per week. Weekly progress towards goal: 2/3 in groups, 1 failed 1:1 attempt Group participation level: minimal Weekly highlights: listening to music with group on Monday and following a few exercise moves on Monday Behaviors observed: sleeping often, minimal interest, tired of being here Plan: no change to goal Beneficial adaptations: direct prompting, demonstrations and verbal cues, gross motor activities
--- NOTE | 2018-12-13 10:25 | NUR ---
WEEKLY NOTE: Pt is more medication compliant and compliant with cares. Pt does withdrawn from his peers but will sit in the day room to watch tv; he is encouraged to join groups. Pt continues to work with PT and OT; pt would like to discharge pt to for rehabilitation. SW will continue to work on placement and keep pt informed of any changes.
--- NOTE | 2018-12-13 11:55 | NUR ---
BROOK met with pt to discuss not hearing from [facility] re:admission. SW encouraged pt to look at other places for rehab. SW mentioned that pt is medication compliant and appears to be doing well in that pt; however, pt would not be considered physically stable enough for her to care for him at home. Pt agreed to discharge pt to another facility if needed. She will also contact [facility].
--- NOTE | 2018-12-13 13:00 | NUR ---
Nursing Note: Pt compliant w/ meds and cooperative w/ assessment. Stayed up in the day room for most of the day. Pt expressed that he does not enjoy watching television. Explained that he is staying up during the day to increase his strength. Pt grateful that he was heard. Asked that he be allowed to go to bed first this evening. Passed this information onto staff and will pass on to material handler 2nd shift nurses.
[2018-12-13] MEDS: QUEtiapine 25 MG TABLET. PO SCH ×2 (13:01→19:33)
--- NOTE | 2018-12-13 13:36 | PN ---
DATE: 12/11/2018 PSYCHIATRIC PROGRESS NOTE This is a late entry 12/11/2018 covers elements not covered in my initial note. SUBJECTIVE: I met with the patient evening of 12/11/2018. The patient slept 7-3/4 hours previous night. He refused the morning medications and his talked to him on the phone, she took his medications. The visited at lunchtime. He was irritable, argumentative, but then much better after that. REVIEW OF SYSTEMS: Ambulation impaired, in wheelchair, hard of hearing. No CV, , pulmonary, eye system symptoms on review. MENTAL STATUS EXAM: Oriented to himself. Insight, judgment, recent and remote memory, attention, concentration, fund of knowledge poor, consistent with his diagnosis mentioned in my initial note. PLAN: No change from initial note. MAN Saw BARRIOS MD DR: GARY/tasneem JOB#: [id number] / [id number]
[2018-12-13 15:47] VITALS: BP 138/64
[2018-12-13 16:19] VITALS: BP 138/64
[2018-12-13] MEDS: MIRTAZAPINE 15 MG TABLET PO SCH (19:33)
[2018-12-13] MEDS: DIVALPROEX 125 MG CAP.SPRINK PO SCH (19:33)
[2018-12-13] MEDS: ATORVASTATIN CALCIUM 20 MG TABLET PO SCH (19:33)
--- NOTE | 2018-12-13 21:45 | NUR ---
Pt propelling himself in his w/c in the hallway at shift change. Pt calm, interactive with staff and pleasant this evening. Pt cooperative with assessment and compliant with medications administered whole. Pt cooperative with dillon costa as well.
--- NOTE | 2018-12-13 22:24 | PDOC ---
Exam Note: Theodore Note: Please also refer to the separate dictated note~for this date of service dictated separately.~Patient seen individually. Discussed the patient with Nursing staff reviewed the chart.~Reviewed interim history and current functioning. Reviewed vital signs,~Labs/ Radiology~and current medications noted below. Continue current treatment with the changes noted in the dictated addendum note Assessment: Vital Signs/I&O: Vital Signs Date Time Temp Pulse Resp B/P (MAP) Pulse Ox O2 Delivery O2 Flow Rate FiO2 12/13/18 19:34 65 138/64 12/13/18 16:19 98.2 18 96 Room Air I & O 12/12/18 12/12/18 12/13/18 15:00 23:00 07:00 Intake Total 480 ml 360 ml Balance 480 ml 360 ml Current Medications: I have reviewed the current psychotropics carefully including drug interactions. Risk benefit ratio favors no change other than as noted in my dictated progress note. Diagnosis: Problems: (1) Anxiety disorder (2) Dementia, vascular, with depression (3) Dementia, vascular, with delusions (4) Dementia in Alzheimer's disease with depression (5) Dementia in Alzheimer's disease with delusions (6) Impulse control disorder (7) Major neurocognitive disorder (8) Altered mental status OVIDIO BARIROS MD Dec 13, 2018 22:24
[2018-12-14 06:18] VITALS: BP 161/68
--- NOTE | 2018-12-14 09:29 | NUR ---
Pt enjoys sleeping in. He is cooperative with his assessment. No agitation or aggression. No hallucinations or delusions noted. Pt is cooperative with cares.
[2018-12-14 09:34] LABS: BASO # 0.1 x10^3/uL (0.0-0.2); BASO % 1 % (0-3); EOS # 0.4 x10^3/uL (0.0-0.7); EOS % 6 % (0-3); HEMATOCRIT 36.3 % (39.0-53.0); LYMPH # 1.2 x10^3/uL (1.0-4.8); LYMPH % 19 % (24-48); MEAN CORPUSCULAR HEMOGLOBIN 31 pg (25-35); MEAN CORPUSCULAR HGB CONC 33 g/dL (31-37); MEAN CORPUSCULAR VOLUME 93 fL (79-100); MONO # 0.8 x10^3/uL (0.0-1.1); MONO % 12 % (0-9); NEUT % 62 % (31-73); PLATELET COUNT 201 x10^3/uL (140-400); RED BLOOD COUNT 3.89 x10^6/uL (4.30-5.70); RED CELL DISTRIBUTION WIDTH 14.6 % (11.5-14.5); WHITE BLOOD COUNT 6.4 x10^3/uL (4.0-11.0)
[2018-12-14 10:04] LABS: ALBUMIN 2.8 g/dL (3.4-5.0); CALCIUM 8.4 mg/dL (8.5-10.1); CREATININE 1.8 mg/dL (0.7-1.3); GFR 36.7; POTASSIUM 4.2 mmol/L (3.5-5.1); TOTAL BILIRUBIN 0.3 mg/dL (0.2-1.0); TOTAL PROTEIN 5.5 g/dL (6.4-8.2)
[2018-12-14] MEDS: POLYVINYL ALCOHOL 1.4% OPHTH SOLUTION 15ML BOTTLE. OU SCH ×3 (11:53→20:09)
[2018-12-14] MEDS: ASPIRIN ENTERIC COATED 81 MG TABLET.DR. PO SCH (11:53)
[2018-12-14] MEDS: LACTOBACILLUS RHAMNOSUS GG 1 CAPSULE. PO SCH ×2 (11:54→20:09)
[2018-12-14] MEDS: DOCUSATE SODIUM 100 MG CAPSULE PO SCH ×2 (11:54→20:10)
[2018-12-14] MEDS: TAMSULOSIN 0.4 MG CAP.ER.24H. PO SCH (11:55)
[2018-12-14] MEDS: METOPROLOL TART IMMED RELEASE 25 MG TABLET PO SCH ×2 (11:55→20:11)
[2018-12-14] MEDS: FUROSEMIDE 40 MG TABLET PO SCH (11:55)
[2018-12-14] MEDS: SERTRALINE 50 MG TABLET. PO SCH (11:56)
[2018-12-14] MEDS: MULTIVITAMIN with MINERAL TABLET. PO SCH (11:56)
[2018-12-14] MEDS: amLODIPine BESYLATE 10 MG TABLET PO SCH (11:56)
[2018-12-14] MEDS: QUEtiapine 25 MG TABLET. PO SCH ×2 (11:59→20:10)
[2018-12-14 16:23] VITALS: BP 156/71
--- NOTE | 2018-12-14 18:03 | PN ---
DATE: 12/12/2018 PSYCHIATRIC PROGRESS NOTE This is a late entry 12/12/2018, covers the elements not covered in my initial note. SUBJECTIVE: I met with the patient on the evening of 12/12/2018. The patient slept 8-1/4 hours previous night. He was fairly quiet withdrawn in the morning, restless in the evening, wanting to go back to his room, lying in bed. He is compliant with his medications. REVIEW OF SYSTEMS: Ambulation impaired, in wheelchair, hard of hearing. No CV, , pulmonary, eye system symptoms on review. MENTAL STATUS EXAM: Oriented to himself. Insight, judgment, recent and remote memory, attention, concentration, fund of knowledge poor, consistent with his diagnosis mentioned in my initial note. PLAN: No change from initial note. MAN Saw BARRIOS MD DR: GARY/tasneem JOB#: [id number] / [id number]
[2018-12-14] MEDS: MIRTAZAPINE 15 MG TABLET PO SCH (20:09)
[2018-12-14] MEDS: ATORVASTATIN CALCIUM 20 MG TABLET PO SCH (20:09)
[2018-12-14] MEDS: DIVALPROEX 125 MG CAP.SPRINK PO SCH (20:09)
[2018-12-14] MEDS: SELENIUM SULFIDE 1% TOPICAL SHAMPOO 207ML BOTTLE. TP SCH (20:11)
--- NOTE | 2018-12-14 22:19 | PDOC ---
Exam Note: Theodore Note: Please also refer to the separate dictated note~for this date of service dictated separately.~Patient seen individually. Discussed the patient with Nursing staff reviewed the chart.~Reviewed interim history and current functioning. Reviewed vital signs,~Labs/ Radiology~and current medications noted below. Continue current treatment with the changes noted in the dictated addendum note Assessment: Vital Signs/I&O: Vital Signs Date Time Temp Pulse Resp B/P (MAP) Pulse Ox O2 Delivery O2 Flow Rate FiO2 12/14/18 20:11 83 156/73 12/14/18 16:23 97.6 20 97 12/14/18 06:18 Room Air I & O 12/13/18 12/13/18 12/14/18 14:59 22:59 06:59 Intake Total 480 ml 240 ml 120 ml Balance 480 ml 240 ml 120 ml Labs: Laboratory Tests Test 12/14/18 09:17 White Blood Count 6.4 x10^3/uL (4.0-11.0) Red Blood Count 3.89 x10^6/uL (4.30-5.70) L Hemoglobin 12.0 g/dL (13.0-17.5) L Hematocrit 36.3 % (39.0-53.0) L Mean Corpuscular Volume 93 fL (79-100) Mean Corpuscular Hemoglobin 31 pg (25-35) Mean Corpuscular Hemoglobin Concent 33 g/dL (31-37) Red Cell Distribution Width 14.6 % (11.5-14.5) H Platelet Count 201 x10^3/uL (140-400) Neutrophils (%) (Auto) 62 % (31-73) Lymphocytes (%) (Auto) 19 % (24-48) L Monocytes (%) (Auto) 12 % (0-9) H Eosinophils (%) (Auto) 6 % (0-3) H Basophils (%) (Auto) 1 % (0-3) Neutrophils # (Auto) 4.0 x10^3uL (1.8-7.7) Lymphocytes # (Auto) 1.2 x10^3/uL (1.0-4.8) Monocytes # (Auto) 0.8 x10^3/uL (0.0-1.1) Eosinophils # (Auto) 0.4 x10^3/uL (0.0-0.7) Basophils # (Auto) 0.1 x10^3/uL (0.0-0.2) Sodium Level 142 mmol/L (136-145) Potassium Level 4.2 mmol/L (3.5-5.1) Chloride Level 106 mmol/L (98-107) Carbon Dioxide Level 32 mmol/L (21-32) Anion Gap 4 (6-14) L Blood Urea Nitrogen 34 mg/dL (8-26) H Creatinine 1.8 mg/dL (0.7-1.3) H Estimated GFR (Cockcroft-Gault) 36.7 BUN/Creatinine Ratio 19 (6-20) Glucose Level 90 mg/dL (70-99) Calcium Level 8.4 mg/dL (8.5-10.1) L Total Bilirubin 0.3 mg/dL (0.2-1.0) Aspartate Amino Transferase (AST) 16 U/L (15-37) Alanine Aminotransferase (ALT) 24 U/L (16-63) Alkaline Phosphatase 93 U/L (46-116) Total Protein 5.5 g/dL (6.4-8.2) L Albumin 2.8 g/dL (3.4-5.0) L Albumin/Globulin Ratio 1.0 (1.0-1.7) Current Medications: I have reviewed the current psychotropics carefully including drug interactions. Risk benefit ratio favors no change other than as noted in my dictated progress note. Diagnosis: Problems: (1) Anxiety disorder (2) Dementia, vascular, with depression (3) Dementia, vascular, with delusions (4) Dementia in Alzheimer's disease with depression (5) Dementia in Alzheimer's disease with delusions (6) Impulse control disorder (7) Major neurocognitive disorder (8) Altered mental status OVIDIO BARRIOS MD Dec 14, 2018 22:19
--- NOTE | 2018-12-14 23:06 | NUR ---
Patient in day room at the start of shift asking to go to bed, patient advised once assessment and meds are finished he can go to bed. Patient very impatient, compulsive demanding to go to bed. Patient took meds whole and cooperative with assessment. Patient continues to have ble edema 2+ pitting shinny and red. Patient sock was too tight around calf area on right leg and left a scar on the inner right calf little blood, skin was cleaned and a small dressing applied. Patient continues to have increased marisol-orbital edema which was addressed with increased lasix and patient is to wear cabrera hose daily. Patient lungs cta no complaints or signs of SOA. Patient was assisted to bed by staff, will continue to monitor patient.
--- NOTE | 2018-12-15 04:20 | PN ---
DATE: 12/13/2018 SUBJECTIVE: The patient was seen on rounds evening of 12/13/2018. Discussed with nursing staff, reviewed the chart and staffed at a treatment team meeting with the entire team in the morning. The patient slept 5-3/4 hours previous night, appetite 75%-100%, sleeping about 8 hours. The patient has not been accepted at [facility] for rehab and alternate arrangements are being arranged by the Social Service staff. REVIEW OF SYSTEMS: Ambulation impaired, in wheelchair. No CV, , pulmonary, eye, ENT system symptoms on review, somewhat hard of hearing. Reliability poor. MENTAL STATUS EXAM: Oriented to himself. Insight, judgment, recent and remote memory, attention, concentration, fund of knowledge poor, consistent with his diagnosis mentioned in my initial note. PLAN: No change from initial note. MAN Saw BARRIOS MD DR: GARY/tasneem JOB#: [id number] / [id number]
[2018-12-15 06:15] VITALS: BP 181/88
--- NOTE | 2018-12-15 06:16 | NUR ---
Patient slept good during the night, woke in a good mood very cooperative with am cares and vitals. Patient dressed, cabrera hose on, and up to the day room. Will continue to monitor patient.
[2018-12-15] MEDS: FUROSEMIDE 40 MG TABLET PO SCH (08:38)
[2018-12-15] MEDS: ASPIRIN ENTERIC COATED 81 MG TABLET.DR. PO SCH (08:38)
[2018-12-15] MEDS: TAMSULOSIN 0.4 MG CAP.ER.24H. PO SCH (08:38)
[2018-12-15] MEDS: DOCUSATE SODIUM 100 MG CAPSULE PO SCH ×2 (08:38→19:48)
[2018-12-15] MEDS: LACTOBACILLUS RHAMNOSUS GG 1 CAPSULE. PO SCH ×2 (08:38→19:48)
[2018-12-15] MEDS: amLODIPine BESYLATE 10 MG TABLET PO SCH (08:39)
[2018-12-15] MEDS: MULTIVITAMIN with MINERAL TABLET. PO SCH (08:39)
[2018-12-15] MEDS: SERTRALINE 50 MG TABLET. PO SCH (08:39)
[2018-12-15] MEDS: METOPROLOL TART IMMED RELEASE 25 MG TABLET PO SCH ×2 (08:39→19:48)
[2018-12-15] MEDS: cloNIDine TTS-3 1 PATCH PATCH TD SCH (08:41)
[2018-12-15] MEDS: POLYVINYL ALCOHOL 1.4% OPHTH SOLUTION 15ML BOTTLE. OU SCH ×3 (09:00→21:27)
--- NOTE | 2018-12-15 10:00 | NUR ---
He is cooperative with his medication and assessment. No agitation or aggression. No hallucinations or delusions noted. Pt is cooperative with cares.
[2018-12-15] MEDS: QUEtiapine 25 MG TABLET. PO SCH ×2 (12:09→19:50)
[2018-12-15 14:29] VITALS: BP 130/63
--- NOTE | 2018-12-15 15:30 | NUR ---
Pt is in the dayroom asking for another pt to "hang this up." and holding his hand out as if he was holding a phone. Nurse spoke with pt he kept asking her to "hang up this phone." "I can't figure out how to hang up this timber sizer operator, the phone is ." Pt would hold his hand up to his ear as if it were a phone. Nurse provided redirection and emotional support. WILLIAMS choudhury given.
[2018-12-15 15:52] VITALS: BP 151/77
[2018-12-15] MEDS: MIRTAZAPINE 15 MG TABLET PO SCH (19:49)
[2018-12-15] MEDS: DIVALPROEX 125 MG CAP.SPRINK PO SCH (19:49)
[2018-12-15] MEDS: ATORVASTATIN CALCIUM 20 MG TABLET PO SCH (19:51)
--- NOTE | 2018-12-15 22:23 | NUR ---
Nursing Note Pt pleasant calm and cooperative. Smiles on approach. Denies pain, no agitation.
--- NOTE | 2018-12-15 22:58 | PDOC ---
Exam Note: Theodore Note: Please also refer to the separate dictated note~for this date of service dictated separately.~Patient seen individually. Discussed the patient with Nursing staff reviewed the chart.~Reviewed interim history and current functioning. Reviewed vital signs,~Labs/ Radiology~and current medications noted below. Continue current treatment with the changes noted in the dictated addendum note Assessment: Vital Signs/I&O: Vital Signs Date Time Temp Pulse Resp B/P (MAP) Pulse Ox O2 Delivery O2 Flow Rate FiO2 12/15/18 19:48 81 151/77 12/15/18 17:41 97 12/15/18 15:52 98.2 20 12/14/18 06:18 Room Air I & O 12/14/18 12/14/18 12/15/18 15:00 23:00 07:00 Intake Total 240 ml 720 ml Balance 240 ml 720 ml Current Medications: I have reviewed the current psychotropics carefully including drug interactions. Risk benefit ratio favors no change other than as noted in my dictated progress note. Diagnosis: Problems: (1) Anxiety disorder (2) Dementia, vascular, with depression (3) Dementia, vascular, with delusions (4) Dementia in Alzheimer's disease with depression (5) Dementia in Alzheimer's disease with delusions (6) Impulse control disorder (7) Major neurocognitive disorder (8) Altered mental status (9) Cardiovascular accident OVIDIO BARRIOS MD Dec 15, 2018 22:58
[2018-12-16 06:08] VITALS: BP 168/98
[2018-12-16] MEDS: POLYVINYL ALCOHOL 1.4% OPHTH SOLUTION 15ML BOTTLE. OU SCH ×3 (07:44→19:25)
[2018-12-16] MEDS: ASPIRIN ENTERIC COATED 81 MG TABLET.DR. PO SCH (07:45)
[2018-12-16] MEDS: DOCUSATE SODIUM 100 MG CAPSULE PO SCH ×2 (07:47→19:24)
[2018-12-16] MEDS: FUROSEMIDE 40 MG TABLET PO SCH (07:48)
[2018-12-16] MEDS: METOPROLOL TART IMMED RELEASE 25 MG TABLET PO SCH ×2 (07:48→19:24)
[2018-12-16] MEDS: LACTOBACILLUS RHAMNOSUS GG 1 CAPSULE. PO SCH ×2 (07:48→19:23)
[2018-12-16] MEDS: TAMSULOSIN 0.4 MG CAP.ER.24H. PO SCH (07:48)
[2018-12-16] MEDS: MULTIVITAMIN with MINERAL TABLET. PO SCH (07:49)
[2018-12-16] MEDS: amLODIPine BESYLATE 10 MG TABLET PO SCH (07:49)
[2018-12-16] MEDS: SERTRALINE 50 MG TABLET. PO SCH (07:49)
--- NOTE | 2018-12-16 09:19 | NUR ---
Pt is cooperative with cares but impulsive at times for example, he attempted to walk to the sink unassisted to wash his hands. Staff redirected and assisted pt. He is cooperative with his medication and assessment. No agitation or aggression. No hallucinations or delusions noted.
[2018-12-16] MEDS: QUEtiapine 25 MG TABLET. PO SCH ×2 (11:52→19:24)
[2018-12-16 16:18] VITALS: BP 119/67
[2018-12-16] MEDS: DIVALPROEX 125 MG CAP.SPRINK PO SCH (19:23)
[2018-12-16] MEDS: MIRTAZAPINE 15 MG TABLET PO SCH (19:23)
[2018-12-16] MEDS: ATORVASTATIN CALCIUM 20 MG TABLET PO SCH (19:24)
[2018-12-16] MEDS: SELENIUM SULFIDE 1% TOPICAL SHAMPOO 207ML BOTTLE. TP SCH (21:00)
--- NOTE | 2018-12-16 21:27 | NUR ---
Nursing Note Pt pleasant calm and cooperative. Smiles on approach. Denies pain, no agitation.
--- NOTE | 2018-12-16 22:10 | PDOC ---
Exam Note: Theodore Note: Please also refer to the separate dictated note~for this date of service dictated separately.~Patient seen individually. Discussed the patient with Nursing staff reviewed the chart.~Reviewed interim history and current functioning. Reviewed vital signs,~Labs/ Radiology~and current medications noted below. Continue current treatment with the changes noted in the dictated addendum note Assessment: Vital Signs/I&O: Vital Signs Date Time Temp Pulse Resp B/P (MAP) Pulse Ox O2 Delivery O2 Flow Rate FiO2 12/16/18 19:24 62 119/67 12/16/18 16:18 97.7 16 97 Room Air I & O 12/15/18 12/15/18 12/16/18 15:00 23:00 07:00 Intake Total 840 ml 480 ml Output Total 1 ml Balance 840 ml 480 ml -1 ml Current Medications: I have reviewed the current psychotropics carefully including drug interactions. Risk benefit ratio favors no change other than as noted in my dictated progress note. Diagnosis: Problems: (1) Anxiety disorder (2) Dementia, vascular, with depression (3) Dementia, vascular, with delusions (4) Dementia in Alzheimer's disease with depression (5) Dementia in Alzheimer's disease with delusions (6) Impulse control disorder (7) Major neurocognitive disorder (8) Altered mental status OVIDIO BARRIOS MD Dec 16, 2018 22:10
[2018-12-17 05:48] VITALS: BP 156/75
--- NOTE | 2018-12-17 09:02 | NUR ---
Pt is cooperative with cares. He is cooperative with his medication and assessment. No agitation or aggression. No hallucinations or delusions noted.
[2018-12-17] MEDS: POLYVINYL ALCOHOL 1.4% OPHTH SOLUTION 15ML BOTTLE. OU SCH ×3 (11:19→20:03)
[2018-12-17] MEDS: ASPIRIN ENTERIC COATED 81 MG TABLET.DR. PO SCH (11:19)
[2018-12-17] MEDS: LACTOBACILLUS RHAMNOSUS GG 1 CAPSULE. PO SCH ×2 (11:20→20:02)
[2018-12-17] MEDS: DOCUSATE SODIUM 100 MG CAPSULE PO SCH ×2 (11:20→20:02)
[2018-12-17] MEDS: TAMSULOSIN 0.4 MG CAP.ER.24H. PO SCH (11:21)
[2018-12-17] MEDS: FUROSEMIDE 40 MG TABLET PO SCH (11:21)
[2018-12-17] MEDS: METOPROLOL TART IMMED RELEASE 25 MG TABLET PO SCH ×2 (11:22→20:03)
[2018-12-17] MEDS: amLODIPine BESYLATE 10 MG TABLET PO SCH (11:23)
[2018-12-17] MEDS: SERTRALINE 50 MG TABLET. PO SCH (11:23)
[2018-12-17] MEDS: QUEtiapine 25 MG TABLET. PO SCH ×2 (11:23→20:03)
[2018-12-17] MEDS: MULTIVITAMIN with MINERAL TABLET. PO SCH (11:23)
[2018-12-17 15:40] VITALS: BP 132/64
[2018-12-17] MEDS: MIRTAZAPINE 15 MG TABLET PO SCH (20:02)
[2018-12-17] MEDS: DIVALPROEX 125 MG CAP.SPRINK PO SCH (20:03)
[2018-12-17] MEDS: ATORVASTATIN CALCIUM 20 MG TABLET PO SCH (20:03)
--- NOTE | 2018-12-17 21:08 | PDOC ---
Exam Note: Theodore Note: Please also refer to the separate dictated note~for this date of service dictated separately.~Patient seen individually. Discussed the patient with Nursing staff reviewed the chart.~Reviewed interim history and current functioning. Reviewed vital signs,~Labs/ Radiology~and current medications noted below. Continue current treatment with the changes noted in the dictated addendum note Assessment: Vital Signs/I&O: Vital Signs Date Time Temp Pulse Resp B/P (MAP) Pulse Ox O2 Delivery O2 Flow Rate FiO2 12/17/18 20:03 61 132/64 12/17/18 15:40 97.3 16 96 12/16/18 16:18 Room Air I & O 12/16/18 12/16/18 12/17/18 15:00 23:00 07:00 Intake Total 600 ml 320 ml Balance 600 ml 320 ml Current Medications: I have reviewed the current psychotropics carefully including drug interactions. Risk benefit ratio favors no change other than as noted in my dictated progress note. Diagnosis: Problems: (1) Anxiety disorder (2) Dementia, vascular, with depression (3) Dementia, vascular, with delusions (4) Dementia in Alzheimer's disease with depression (5) Dementia in Alzheimer's disease with delusions (6) Impulse control disorder (7) Major neurocognitive disorder (8) Altered mental status OVIDIO BARRIOS MD Dec 17, 2018 21:08
--- NOTE | 2018-12-17 21:59 | PN ---
DATE: 12/14/2018 PSYCHIATRIC PROGRESS NOTE This late entry 12/14/2018 covers elements not covered in my initial note. SUBJECTIVE: I met with the patient in the evening of 12/14/2018. The patient slept 8 hours previous night. He remains confused, but not agitated, aggressive. REVIEW OF SYSTEMS: Ambulation impaired, in a wheelchair. No CV, , pulmonary, eye, ENT system symptoms on review. Reliability poor. MENTAL STATUS EXAM: Oriented to himself. Insight, judgment, recent and remote memory, attention, concentration, fund of knowledge poor, consistent with his diagnosis mentioned in my initial note. PLAN: No change from initial note. MAN Saw BARRIOS MD DR: GARY/tasneem JOB#: [id number] / [id number]
--- NOTE | 2018-12-17 22:17 | NUR ---
Nursing Note The patient was located in the day room for his medication and assessment. The patient took his medication whole and was compliant with his assessment. The patient was appropriate during interactions with this nurse and peers. The patient is currently sleeping in his room.
--- NOTE | 2018-12-18 03:44 | PN ---
DATE: 12/16/2018 PSYCHIATRIC PROGRESS NOTE This late entry 12/16/2018 covers elements not covered in my initial note. SUBJECTIVE: I met with the patient evening of 12/16/2018. The patient slept 6-1/2 hours previous night. His came to visit him. He did well with her. He has not been agitated or aggressive. REVIEW OF SYSTEMS: Ambulation impaired, in wheelchair. No CV, , pulmonary, eye, ENT system symptoms on review. Reliability poor. MENTAL STATUS EXAM: Oriented to himself. Insight, judgment, recent and remote memory, attention, concentration, fund of knowledge poor, consistent with his diagnosis mentioned in my initial note. PLAN: No change from initial note. MAN Saw BARRIOS MD DR: GARY/tasneem JOB#: [id number] / [id number]
[2018-12-18] MEDS: SERTRALINE 50 MG TABLET. PO SCH (11:47)
[2018-12-18] MEDS: amLODIPine BESYLATE 10 MG TABLET PO SCH (11:47)
[2018-12-18] MEDS: FUROSEMIDE 40 MG TABLET PO SCH (11:47)
[2018-12-18] MEDS: METOPROLOL TART IMMED RELEASE 25 MG TABLET PO SCH ×2 (11:48→20:09)
[2018-12-18] MEDS: MULTIVITAMIN with MINERAL TABLET. PO SCH (11:48)
[2018-12-18] MEDS: POLYVINYL ALCOHOL 1.4% OPHTH SOLUTION 15ML BOTTLE. OU SCH ×3 (11:49→20:10)
[2018-12-18] MEDS: TAMSULOSIN 0.4 MG CAP.ER.24H. PO SCH (11:49)
[2018-12-18] MEDS: LACTOBACILLUS RHAMNOSUS GG 1 CAPSULE. PO SCH ×2 (11:49→20:09)
[2018-12-18] MEDS: ASPIRIN ENTERIC COATED 81 MG TABLET.DR. PO SCH (11:49)
[2018-12-18] MEDS: DOCUSATE SODIUM 100 MG CAPSULE PO SCH ×2 (11:49→20:08)
--- NOTE | 2018-12-18 11:52 | NUR ---
Nursing Note: Pt allowed to sleep late this morning. Pt calm, compliant w/ cares, took meds whole, pt entered the dining room willingly and went straight to his favorite little table by the window. Pt's right hand is swollen. Pt to be seen by medical doctor, Dr. Quinones on rounds. Will continue to monitor.
--- NOTE | 2018-12-18 15:20 | NUR ---
PLACEMENT UPDATE: [facility] -- denied despite placed there before [facility] -- denied [facility] -- [facility] male beds [facility]
[2018-12-18] MEDS: QUEtiapine 25 MG TABLET. PO SCH ×2 (16:04→20:10)
[2018-12-18 16:15] VITALS: BP 115/65
--- NOTE | 2018-12-18 16:39 | RAD ---
INDICATION: Right arm swelling COMPARISON: None. TECHNIQUE: Grayscale, color and doppler ultrasound images were obtained of the right upper extremity venous vasculature. RIGHT: No thrombus identified in the internal jugular, subclavian, axillary, brachial, basilic, cephalic, radial or ulnar veins. IMPRESSION: 1. No thrombus identified in deep venous system of right upper extremity. Electronically signed by: Nate Jimenez MD (12/18/2018 4:36 PM) [facility]
[2018-12-18] MEDS: ATORVASTATIN CALCIUM 20 MG TABLET PO SCH (20:09)
[2018-12-18] MEDS: DIVALPROEX 125 MG CAP.SPRINK PO SCH (20:09)
[2018-12-18] MEDS: MIRTAZAPINE 15 MG TABLET PO SCH (20:09)
[2018-12-18] MEDS: SELENIUM SULFIDE 1% TOPICAL SHAMPOO 207ML BOTTLE. TP SCH (21:05)
--- NOTE | 2018-12-18 21:23 | PN ---
DATE: 12/17/2018 PSYCHIATRIC PROGRESS NOTE This is a late entry 12/17/2018, covers the elements not covered in my initial note. SUBJECTIVE: I met with the patient evening of 12/17/2018. The patient slept 7 hours previous night. He has had a good night and good day, remains confused, but less agitated. REVIEW OF SYSTEMS: Ambulation impaired, in wheelchair. No CV, , pulmonary, eye, ENT system symptoms on review. Reliability is poor. MENTAL STATUS EXAM: Oriented to himself. Insight, judgment, recent and remote memory, attention, concentration, fund of knowledge poor, consistent with his diagnosis mentioned in my initial note. PLAN: No change from initial note. MAN Saw BARRIOS MD DR: GARY/tasneem JOB#: [id number] / [id number]
--- NOTE | 2018-12-18 22:20 | PDOC ---
Exam Note: Theodore Note: Please also refer to the separate dictated note~for this date of service dictated separately.~Patient seen individually. Discussed the patient with Nursing staff reviewed the chart.~Reviewed interim history and current functioning. Reviewed vital signs,~Labs/ Radiology~and current medications noted below. Continue current treatment with the changes noted in the dictated addendum note Assessment: Vital Signs/I&O: Vital Signs Date Time Temp Pulse Resp B/P (MAP) Pulse Ox O2 Delivery O2 Flow Rate FiO2 12/18/18 20:09 57 115/65 12/18/18 16:15 98.4 20 98 Room Air I & O 12/17/18 12/17/18 12/18/18 14:59 22:59 06:59 Intake Total 480 ml 600 ml Balance 480 ml 600 ml Current Medications: I have reviewed the current psychotropics carefully including drug interactions. Risk benefit ratio favors no change other than as noted in my dictated progress note. Diagnosis: Problems: (1) Anxiety disorder (2) Dementia, vascular, with depression (3) Dementia, vascular, with delusions (4) Dementia in Alzheimer's disease with depression (5) Dementia in Alzheimer's disease with delusions (6) Impulse control disorder (7) Major neurocognitive disorder (8) Altered mental status OVIDIO BARRIOS MD Dec 18, 2018 22:20
--- NOTE | 2018-12-18 22:32 | NUR ---
Nursing Note The patient was located in the day room for his medication and assessment. The patient took his medication whole and was cooperative with his assessment and cares. The patient is currently sleeping in his room.
[2018-12-19 05:51] VITALS: BP 171/74
[2018-12-19] MEDS: FUROSEMIDE 40 MG TABLET PO SCH (07:22)
[2018-12-19] MEDS: DOCUSATE SODIUM 100 MG CAPSULE PO SCH ×2 (07:22→20:33)
[2018-12-19] MEDS: LACTOBACILLUS RHAMNOSUS GG 1 CAPSULE. PO SCH ×2 (07:22→20:33)
[2018-12-19] MEDS: MULTIVITAMIN with MINERAL TABLET. PO SCH (07:22)
[2018-12-19] MEDS: SERTRALINE 50 MG TABLET. PO SCH (07:23)
[2018-12-19] MEDS: ASPIRIN ENTERIC COATED 81 MG TABLET.DR. PO SCH (07:23)
[2018-12-19] MEDS: amLODIPine BESYLATE 10 MG TABLET PO SCH (07:24)
[2018-12-19] MEDS: METOPROLOL TART IMMED RELEASE 25 MG TABLET PO SCH ×3 (07:25→20:32)
[2018-12-19] MEDS: TAMSULOSIN 0.4 MG CAP.ER.24H. PO SCH (07:25)
[2018-12-19] MEDS: POLYVINYL ALCOHOL 1.4% OPHTH SOLUTION 15ML BOTTLE. OU SCH ×3 (09:00→20:38)
[2018-12-19] MEDS: QUEtiapine 25 MG TABLET. PO SCH ×2 (11:45→20:32)
--- NOTE | 2018-12-19 12:34 | NUR ---
Patient slept late, was resistive to assessment on first attempt. Woke up at 1000, got ready without issue. Calm, cooperative and compliant with assessment and medication.
[2018-12-19 16:03] VITALS: BP 150/66
[2018-12-19] MEDS: MAGNESIUM HYDROXIDE 2,400 MG/30 ML ORAL.SUSP. PO PRN (17:25)
[2018-12-19] MEDS: ATORVASTATIN CALCIUM 20 MG TABLET PO SCH (20:32)
[2018-12-19] MEDS: MIRTAZAPINE 15 MG TABLET PO SCH (20:33)
[2018-12-19] MEDS: DIVALPROEX 125 MG CAP.SPRINK PO SCH (20:33)
--- NOTE | 2018-12-19 22:28 | PDOC ---
Exam Note: Theodore Note: Please also refer to the separate dictated note~for this date of service dictated separately.~Patient seen individually. Discussed the patient with Nursing staff reviewed the chart.~Reviewed interim history and current functioning. Reviewed vital signs,~Labs/ Radiology~and current medications noted below. Continue current treatment with the changes noted in the dictated addendum note Assessment: Vital Signs/I&O: Vital Signs Date Time Temp Pulse Resp B/P (MAP) Pulse Ox O2 Delivery O2 Flow Rate FiO2 12/19/18 20:33 66 150/66 12/19/18 16:03 97.9 16 97 12/18/18 16:15 Room Air I & O 12/18/18 12/18/18 12/19/18 14:59 22:59 06:59 Intake Total 480 ml 480 ml 120 ml Balance 480 ml 480 ml 120 ml Current Medications: I have reviewed the current psychotropics carefully including drug interactions. Risk benefit ratio favors no change other than as noted in my dictated progress note. Diagnosis: Problems: (1) Anxiety disorder (2) Dementia, vascular, with depression (3) Dementia, vascular, with delusions (4) Dementia in Alzheimer's disease with depression (5) Dementia in Alzheimer's disease with delusions (6) Impulse control disorder (7) Major neurocognitive disorder (8) Altered mental status OVIDIO BARRIOS MD Dec 19, 2018 22:28
--- NOTE | 2018-12-19 23:13 | NUR ---
Nursing Note The patient was located in his bed at the beginning of the shift and when he awoke he was very anxious and confused. The patient stated that he was going to be baptized. The patient displayed increased agitation in the day room and was given PRN Zyprexa with his HS medication. Patient is currently sleeping in his room.
[2018-12-20] MEDS: METOPROLOL TART IMMED RELEASE 25 MG TABLET PO SCH ×2 (05:12→20:06)
[2018-12-20 06:50] VITALS: BP 190/82
[2018-12-20] MEDS: MULTIVITAMIN with MINERAL TABLET. PO SCH (07:46)
[2018-12-20] MEDS: ASPIRIN ENTERIC COATED 81 MG TABLET.DR. PO SCH (07:46)
[2018-12-20] MEDS: DOCUSATE SODIUM 100 MG CAPSULE PO SCH ×2 (07:46→20:01)
[2018-12-20] MEDS: LACTOBACILLUS RHAMNOSUS GG 1 CAPSULE. PO SCH ×2 (07:46→20:01)
[2018-12-20] MEDS: POLYVINYL ALCOHOL 1.4% OPHTH SOLUTION 15ML BOTTLE. OU SCH ×3 (07:46→20:05)
[2018-12-20] MEDS: TAMSULOSIN 0.4 MG CAP.ER.24H. PO SCH (07:47)
[2018-12-20] MEDS: SERTRALINE 50 MG TABLET. PO SCH (07:47)
[2018-12-20] MEDS: FUROSEMIDE 40 MG TABLET PO SCH (07:47)
[2018-12-20] MEDS: amLODIPine BESYLATE 10 MG TABLET PO SCH (07:47)
--- NOTE | 2018-12-20 10:07 | NUR ---
WEEKLY ACTIVITY THERAPY NOTE Date of Admission: 11/02/2018, Prev. Admit: 10/25/2018 Date of AT Assessment: 11/05/2018 Goal aimed: to increase engagement Initial goal: Pt. will engage in three Activity Therapy groups or individual sessions per week. Weekly progress towards goal: achieved 3/3 Group participation level: minimal Weekly highlights: achieved goal this week Behaviors observed: similar behaviors as previous week. Group participated in: watched a little of a movie, acted out one time in [employer] and enjoyed creating own treats but ate ingredients before able to make a finished product, declined 1:1 session on Monday morning, more willing to participate in groups, smiles more often Plan: no change to goal Beneficial adaptations: direct prompting, demonstrations and verbal cues, gross motor activities
[2018-12-20] MEDS: QUEtiapine 25 MG TABLET. PO SCH ×2 (10:53→20:01)
--- NOTE | 2018-12-20 10:59 | NUR ---
WEEKLY NOTE: Pt continues to take his medications and appears to be in better spirits. Pt eats 100% and sleeps on average 7 hours a night. Pt has started to attend more groups and participate minimally. Multiple referrals have been sent out to facilities for request of rehab to home. SW will continue to follow up with pt family and send out more referrals for placement.
--- NOTE | 2018-12-20 11:35 | NUR ---
Nursing Note: Pt was up in hallway at start of shift, greeted this nurse pleasantly. At breakfast, pt was calm, compliant w/ meds taken whole, cooperative w/ assessment later in pt's room, denied pain.
--- NOTE | 2018-12-20 12:55 | NUR ---
BROOK spoke with pt , Indy, about sending out multiple referrals. Pt will be assessed today from a facility in [place] [facility] Pt was not pleased as she does not want him near [place]. BROOK explained that pt has six Medicare/hospital days left. We will need to discharge him in that time; otherwise, she will be going into her co-pay days, which did not make pt happy. She understands that he has been here for a long time, and BROOK reports that too much time was spent on seeing if [facility] would take pt. SW has sent out multiple referrals and received denials; at this time, we cannot leave out any options. Pt disagreed and remained with the decision that he cannot go to [place]. "I couldn't park my car there and trust it, my kids wouldn't either". BROOK will send referrals on places in the [facility] ([facility]).
[2018-12-20 16:46] VITALS: BP 122/61
[2018-12-20] MEDS: DIVALPROEX 125 MG CAP.SPRINK PO SCH (20:01)
[2018-12-20] MEDS: ATORVASTATIN CALCIUM 20 MG TABLET PO SCH (20:06)
[2018-12-20] MEDS: MIRTAZAPINE 15 MG TABLET PO SCH (20:06)
[2018-12-20] MEDS: SELENIUM SULFIDE 1% TOPICAL SHAMPOO 207ML BOTTLE. TP SCH (20:07)
--- NOTE | 2018-12-20 22:44 | PDOC ---
Exam Note: Theodore Note: Please also refer to the separate dictated note~for this date of service dictated separately.~Patient seen individually. Discussed the patient with Nursing staff reviewed the chart.~Reviewed interim history and current functioning. Reviewed vital signs,~Labs/ Radiology~and current medications noted below. Continue current treatment with the changes noted in the dictated addendum note Assessment: Vital Signs/I&O: Vital Signs Date Time Temp Pulse Resp B/P (MAP) Pulse Ox O2 Delivery O2 Flow Rate FiO2 12/20/18 20:06 62 122/61 12/20/18 16:46 97.5 20 98 Room Air I & O 12/19/18 12/19/18 12/20/18 14:59 22:59 06:59 Intake Total 240 ml 360 ml Balance 240 ml 360 ml Current Medications: I have reviewed the current psychotropics carefully including drug interactions. Risk benefit ratio favors no change other than as noted in my dictated progress note. Diagnosis: Problems: (1) Anxiety disorder (2) Dementia, vascular, with depression (3) Dementia, vascular, with delusions (4) Dementia in Alzheimer's disease with depression (5) Dementia in Alzheimer's disease with delusions (6) Impulse control disorder (7) Major neurocognitive disorder (8) Altered mental status OVIDIO BARRIOS MD Dec 20, 2018 22:44
--- NOTE | 2018-12-21 00:13 | NUR ---
Nursing Note Pt awake and alert is in the day room at shift change, he states he is ready to go! Lets get this thing moving. Pleasant and cooperative.
[2018-12-21 06:31] VITALS: BP 170/72
[2018-12-21] MEDS: TAMSULOSIN 0.4 MG CAP.ER.24H. PO SCH (10:31)
[2018-12-21] MEDS: MULTIVITAMIN with MINERAL TABLET. PO SCH (10:31)
[2018-12-21] MEDS: ASPIRIN ENTERIC COATED 81 MG TABLET.DR. PO SCH (10:31)
[2018-12-21] MEDS: FUROSEMIDE 40 MG TABLET PO SCH (10:31)
[2018-12-21] MEDS: DOCUSATE SODIUM 100 MG CAPSULE PO SCH ×2 (10:31→19:34)
[2018-12-21] MEDS: LACTOBACILLUS RHAMNOSUS GG 1 CAPSULE. PO SCH ×2 (10:31→19:33)
[2018-12-21] MEDS: SERTRALINE 50 MG TABLET. PO SCH (10:32)
[2018-12-21] MEDS: METOPROLOL TART IMMED RELEASE 25 MG TABLET PO SCH ×2 (10:32→19:36)
[2018-12-21] MEDS: amLODIPine BESYLATE 10 MG TABLET PO SCH (10:32)
[2018-12-21] MEDS: POLYVINYL ALCOHOL 1.4% OPHTH SOLUTION 15ML BOTTLE. OU SCH ×3 (10:33→19:32)
--- NOTE | 2018-12-21 10:45 | NUR ---
Nursing Note: Pt slept until 1030 and was taken to shower immediately after waking. Pt was unsteady on his feet but refused to sit in wheelchair on his way to shower; was helped to shower by two staff members. Pt was cooperative in shower and performed a good deal of cleaning of himself according to staff. Pt given "Brown Cow" given this am d/t lack of bowel movement since 12/13 and lack of success from MOM given on 12/19/18. Pt compliant w/ meds taken whole; cooperative w/ assessment; reports no pain.
[2018-12-21] MEDS: QUEtiapine 25 MG TABLET. PO SCH ×2 (15:15→19:34)
[2018-12-21 16:00] VITALS: BP 105/64
[2018-12-21] MEDS: DIVALPROEX 125 MG CAP.SPRINK PO SCH (19:34)
[2018-12-21] MEDS: MIRTAZAPINE 15 MG TABLET PO SCH (19:34)
[2018-12-21] MEDS: ATORVASTATIN CALCIUM 20 MG TABLET PO SCH (19:34)
--- NOTE | 2018-12-21 19:56 | PN ---
DATE: 12/19/2018 PSYCHIATRIC PROGRESS NOTE This late entry 12/19/2018 covers elements not covered in my initial note. SUBJECTIVE: I met with the patient evening of 12/19/2018. The patient slept 7-3/4 hours previous night. I met with him at length in his room. He slept through breakfast and then compliant after that. Metoprolol held. Pulse was 56. He refused his eyedrops. REVIEW OF SYSTEMS: Hard of hearing, impaired ambulation in wheelchair. No CV, , pulmonary, ENT system symptoms on review other than being slightly hard of hearing. MENTAL STATUS EXAM: Oriented to himself. Insight, judgment, recent and remote memory, attention, concentration, fund of knowledge poor, consistent with his diagnosis mentioned in my initial note. PLAN: No change from initial note. MAN Saw BARRIOS MD DR: GARY/tasneem JOB#: [id number] / [id number]
--- NOTE | 2018-12-21 21:32 | PN ---
DATE: 12/20/2018 PSYCHIATRIC PROGRESS NOTE This is a late entry 12/20/2018, covers the elements not covered in my initial note. SUBJECTIVE: I met with the patient in the evening. The patient slept 6-1/2 hours previous night. Appetite is 75-100% of each meal. He is compliant with treatment. He has attended 3 groups during the week, met his goals with activity therapy report. He was staffed at a treatment team meeting with the entire team in the morning. He may be accepted at [facility] for Rehabilitation. REVIEW OF SYSTEMS: Ambulation impaired with wheelchair/walker. No CV, , pulmonary, eye system symptoms on review. MENTAL STATUS EXAM: Oriented to himself. Insight, judgment, recent and remote memory, attention, concentration, fund of knowledge poor, consistent with his diagnosis mentioned in my initial note. PLAN: No change from initial note. MAN Saw BARRIOS MD DR: GARY/tasneem JOB#: [id number] / [id number]
--- NOTE | 2018-12-21 22:20 | PDOC ---
Exam Note: Theodore Note: Please also refer to the separate dictated note~for this date of service dictated separately.~Patient seen individually. Discussed the patient with Nursing staff reviewed the chart.~Reviewed interim history and current functioning. Reviewed vital signs,~Labs/ Radiology~and current medications noted below. Continue current treatment with the changes noted in the dictated addendum note Assessment: Vital Signs/I&O: Vital Signs Date Time Temp Pulse Resp B/P (MAP) Pulse Ox O2 Delivery O2 Flow Rate FiO2 12/21/18 19:37 65 105/64 12/21/18 16:00 97.9 18 97 Room Air I & O 12/20/18 12/20/18 12/21/18 15:00 23:00 07:00 Intake Total 960 ml 240 ml 240 ml Balance 960 ml 240 ml 240 ml Current Medications: I have reviewed the current psychotropics carefully including drug interactions. Risk benefit ratio favors no change other than as noted in my dictated progress note. Diagnosis: Problems: (1) Anxiety disorder (2) Dementia, vascular, with depression (3) Dementia, vascular, with delusions (4) Dementia in Alzheimer's disease with depression (5) Dementia in Alzheimer's disease with delusions (6) Impulse control disorder (7) Major neurocognitive disorder (8) Altered mental status OVIDIO BARRIOS MD Dec 21, 2018 22:20
--- NOTE | 2018-12-21 23:23 | NUR ---
Nursing Note Pt pleasant calm and cooperative, no complaints med compliant.
[2018-12-22 05:33] VITALS: BP 164/66
[2018-12-22 09:31] LABS: BASO % 1 % (0-3); EOS # 0.2 x10^3/uL (0.0-0.7); EOS % 5 % (0-3); HEMATOCRIT 35.1 % (39.0-53.0); HEMOGLOBIN 11.3 g/dL (13.0-17.5); LYMPH # 1.1 x10^3/uL (1.0-4.8); LYMPH % 24 % (24-48); MEAN CORPUSCULAR HEMOGLOBIN 31 pg (25-35); MEAN CORPUSCULAR HGB CONC 32 g/dL (31-37); MEAN CORPUSCULAR VOLUME 97 fL (79-100); MONO # 0.5 x10^3/uL (0.0-1.1); MONO % 12 % (0-9); NEUT # 2.6 x10^3uL (1.8-7.7); NEUT % 58 % (31-73); PLATELET COUNT 70 x10^3/uL (140-400); RED BLOOD COUNT 3.63 x10^6/uL (4.30-5.70); WHITE BLOOD COUNT 4.5 x10^3/uL (4.0-11.0)
[2018-12-22 09:43] LABS: ALBUMIN 2.6 g/dL (3.4-5.0); ALBUMIN/GLOBULIN RATIO 0.9 (1.0-1.7); CALCIUM 8.4 mg/dL (8.5-10.1); CREATININE 1.8 mg/dL (0.7-1.3); GFR 36.7; POTASSIUM 4.4 mmol/L (3.5-5.1); TOTAL BILIRUBIN 0.3 mg/dL (0.2-1.0); TOTAL PROTEIN 5.4 g/dL (6.4-8.2)
--- NOTE | 2018-12-22 10:17 | NUR ---
He is cooperative with his medication and assessment. Pt is cooperative with cares. No agitation or aggression. No hallucinations or delusions noted.
[2018-12-22] MEDS: ASPIRIN ENTERIC COATED 81 MG TABLET.DR. PO SCH (12:09)
[2018-12-22] MEDS: POLYVINYL ALCOHOL 1.4% OPHTH SOLUTION 15ML BOTTLE. OU SCH ×3 (12:09→19:31)
[2018-12-22] MEDS: TAMSULOSIN 0.4 MG CAP.ER.24H. PO SCH (12:10)
[2018-12-22] MEDS: DOCUSATE SODIUM 100 MG CAPSULE PO SCH ×2 (12:10→19:29)
[2018-12-22] MEDS: FUROSEMIDE 40 MG TABLET PO SCH (12:10)
[2018-12-22] MEDS: LACTOBACILLUS RHAMNOSUS GG 1 CAPSULE. PO SCH ×2 (12:10→19:30)
[2018-12-22] MEDS: METOPROLOL TART IMMED RELEASE 25 MG TABLET PO SCH ×2 (12:10→19:30)
[2018-12-22] MEDS: SERTRALINE 50 MG TABLET. PO SCH (12:11)
[2018-12-22] MEDS: QUEtiapine 25 MG TABLET. PO SCH ×2 (12:11→19:30)
[2018-12-22] MEDS: MULTIVITAMIN with MINERAL TABLET. PO SCH (12:11)
[2018-12-22] MEDS: amLODIPine BESYLATE 10 MG TABLET PO SCH (12:11)
[2018-12-22] MEDS: cloNIDine TTS-3 1 PATCH PATCH TD SCH (12:12)
[2018-12-22 15:36] VITALS: BP 142/70
[2018-12-22] MEDS: MIRTAZAPINE 15 MG TABLET PO SCH (19:29)
[2018-12-22] MEDS: ATORVASTATIN CALCIUM 20 MG TABLET PO SCH (19:30)
[2018-12-22] MEDS: SELENIUM SULFIDE 1% TOPICAL SHAMPOO 207ML BOTTLE. TP SCH (19:31)
[2018-12-22] MEDS: DIVALPROEX 125 MG CAP.SPRINK PO SCH (19:31)
--- NOTE | 2018-12-22 23:11 | PDOC ---
Exam Note: Theodore Note: Please also refer to the separate dictated note~for this date of service dictated separately.~Patient seen individually. Discussed the patient with Nursing staff reviewed the chart.~Reviewed interim history and current functioning. Reviewed vital signs,~Labs/ Radiology~and current medications noted below. Continue current treatment with the changes noted in the dictated addendum note Assessment: Vital Signs/I&O: Vital Signs Date Time Temp Pulse Resp B/P (MAP) Pulse Ox O2 Delivery O2 Flow Rate FiO2 12/22/18 19:30 65 142/70 12/22/18 15:36 98.0 18 98 12/22/18 05:33 Room Air I & O 12/21/18 12/21/18 12/22/18 15:00 23:00 07:00 Intake Total 240 ml 240 ml 240 ml Balance 240 ml 240 ml 240 ml Labs: Laboratory Tests Test 12/22/18 09:02 White Blood Count 4.5 x10^3/uL (4.0-11.0) Red Blood Count 3.63 x10^6/uL (4.30-5.70) L Hemoglobin 11.3 g/dL (13.0-17.5) L Hematocrit 35.1 % (39.0-53.0) L Mean Corpuscular Volume 97 fL (79-100) Mean Corpuscular Hemoglobin 31 pg (25-35) Mean Corpuscular Hemoglobin Concent 32 g/dL (31-37) Red Cell Distribution Width 15.0 % (11.5-14.5) H Platelet Count 70 x10^3/uL (140-400) L Neutrophils (%) (Auto) 58 % (31-73) Lymphocytes (%) (Auto) 24 % (24-48) Monocytes (%) (Auto) 12 % (0-9) H Eosinophils (%) (Auto) 5 % (0-3) H Basophils (%) (Auto) 1 % (0-3) Neutrophils # (Auto) 2.6 x10^3uL (1.8-7.7) Lymphocytes # (Auto) 1.1 x10^3/uL (1.0-4.8) Monocytes # (Auto) 0.5 x10^3/uL (0.0-1.1) Eosinophils # (Auto) 0.2 x10^3/uL (0.0-0.7) Basophils # (Auto) 0.0 x10^3/uL (0.0-0.2) Sodium Level 142 mmol/L (136-145) Potassium Level 4.4 mmol/L (3.5-5.1) Chloride Level 108 mmol/L (98-107) H Carbon Dioxide Level 30 mmol/L (21-32) Anion Gap 4 (6-14) L Blood Urea Nitrogen 32 mg/dL (8-26) H Creatinine 1.8 mg/dL (0.7-1.3) H Estimated GFR (Cockcroft-Gault) 36.7 BUN/Creatinine Ratio 18 (6-20) Glucose Level 96 mg/dL (70-99) Calcium Level 8.4 mg/dL (8.5-10.1) L Total Bilirubin 0.3 mg/dL (0.2-1.0) Aspartate Amino Transferase (AST) 22 U/L (15-37) Alanine Aminotransferase (ALT) 23 U/L (16-63) Alkaline Phosphatase 95 U/L (46-116) Total Protein 5.4 g/dL (6.4-8.2) L Albumin 2.6 g/dL (3.4-5.0) L Albumin/Globulin Ratio 0.9 (1.0-1.7) L Current Medications: I have reviewed the current psychotropics carefully including drug interactions. Risk benefit ratio favors no change other than as noted in my dictated progress note. Diagnosis: Problems: (1) Anxiety disorder (2) Dementia, vascular, with depression (3) Dementia, vascular, with delusions (4) Dementia in Alzheimer's disease with depression (5) Dementia in Alzheimer's disease with delusions (6) Impulse control disorder (7) Major neurocognitive disorder (8) Altered mental status (9) Cardiovascular accident OVIDIO BARRIOS MD Dec 22, 2018 23:11
--- NOTE | 2018-12-22 23:35 | NUR ---
Pt sitting calmly in the dayroom this morning. Pt pleasant and compliant with whole medications. No agitation noted.
[2018-12-23 06:25] VITALS: BP 163/63
--- NOTE | 2018-12-23 06:37 | NUR ---
Pt combative this morning with brief change. During pt's combativeness, pt sustained a small skin tear to his right hand. After a few minutes, pt calmed down on his own and allowed staff to dress patient without incident. Addendum: 12/23/18 at 0655 by NITESH GOYAL RN correction: left hand
[2018-12-23] MEDS: TAMSULOSIN 0.4 MG CAP.ER.24H. PO SCH (08:01)
[2018-12-23] MEDS: DOCUSATE SODIUM 100 MG CAPSULE PO SCH ×2 (08:01→20:37)
[2018-12-23] MEDS: ASPIRIN ENTERIC COATED 81 MG TABLET.DR. PO SCH (08:01)
[2018-12-23] MEDS: LACTOBACILLUS RHAMNOSUS GG 1 CAPSULE. PO SCH ×2 (08:01→20:36)
[2018-12-23] MEDS: amLODIPine BESYLATE 10 MG TABLET PO SCH (08:02)
[2018-12-23] MEDS: METOPROLOL TART IMMED RELEASE 25 MG TABLET PO SCH ×2 (08:02→20:36)
[2018-12-23] MEDS: FUROSEMIDE 40 MG TABLET PO SCH (08:02)
[2018-12-23] MEDS: POLYVINYL ALCOHOL 1.4% OPHTH SOLUTION 15ML BOTTLE. OU SCH ×3 (08:02→20:37)
[2018-12-23] MEDS: MULTIVITAMIN with MINERAL TABLET. PO SCH (08:03)
[2018-12-23] MEDS: SERTRALINE 50 MG TABLET. PO SCH (08:03)
--- NOTE | 2018-12-23 09:40 | NUR ---
No hallucinations or delusions noted. He is cooperative with his medication and assessment. Pt is cooperative with cares. No agitation or aggression.
[2018-12-23] MEDS: QUEtiapine 25 MG TABLET. PO SCH ×2 (11:23→20:37)
[2018-12-23 13:24] VITALS: BP 94/54
[2018-12-23 16:22] VITALS: BP 127/70
[2018-12-23] MEDS: MIRTAZAPINE 15 MG TABLET PO SCH (20:36)
[2018-12-23] MEDS: ATORVASTATIN CALCIUM 20 MG TABLET PO SCH (20:37)
[2018-12-23] MEDS: DIVALPROEX 125 MG CAP.SPRINK PO SCH (20:37)
--- NOTE | 2018-12-23 21:50 | PDOC ---
Exam Note: Theodore Note: Please also refer to the separate dictated note~for this date of service dictated separately.~Patient seen individually. Discussed the patient with Nursing staff reviewed the chart.~Reviewed interim history and current functioning. Reviewed vital signs,~Labs/ Radiology~and current medications noted below. Continue current treatment with the changes noted in the dictated addendum note Assessment: Vital Signs/I&O: Vital Signs Date Time Temp Pulse Resp B/P (MAP) Pulse Ox O2 Delivery O2 Flow Rate FiO2 12/23/18 20:37 73 127/70 12/23/18 16:22 97.1 20 96 12/23/18 06:25 Room Air I & O 12/22/18 12/22/18 12/23/18 15:00 23:00 07:00 Intake Total 240 ml 240 ml 240 ml Balance 240 ml 240 ml 240 ml Current Medications: I have reviewed the current psychotropics carefully including drug interactions. Risk benefit ratio favors no change other than as noted in my dictated progress note. Diagnosis: Problems: (1) Anxiety disorder (2) Dementia, vascular, with depression (3) Dementia, vascular, with delusions (4) Dementia in Alzheimer's disease with depression (5) Dementia in Alzheimer's disease with delusions (6) Impulse control disorder (7) Major neurocognitive disorder (8) Altered mental status OVIDIO BARRIOS MD Dec 23, 2018 21:50
--- NOTE | 2018-12-23 22:56 | PN ---
DATE: 12/22/2018 PSYCHIATRIC PROGRESS NOTE This is a late entry 12/22/2018, covers the elements not covered in my initial note. SUBJECTIVE: I met with the patient in the evening. The patient slept 6-1/4 hours previous night. Per nursing report, he has had intermittent hallucinations. Believes there was a man in his bed. In fact, other demented patients to wander into other patient's rooms and before calling at actual hallucinations, we will monitor for this. REVIEW OF SYSTEMS: No CV, , pulmonary, eye, ENT system symptoms on review. Reliability is poor. MENTAL STATUS EXAM: Oriented to himself. Insight, judgment, recent and remote memory, attention, concentration, fund of knowledge poor, consistent with his diagnosis. Often verbal responses are marked latency, monosyllabic at times. LABORATORY DATA: Reviewed. IMPRESSION: Unchanged from initial note. PLAN: No change from initial note. MAN Saw BARRIOS MD DR: GARY/tasneem JOB#: [id number] / [id number]
--- NOTE | 2018-12-23 23:26 | NUR ---
Pt has been very social and interactive this evening. Pt spoke on the phone with his julissa. After the phone call, pt stated how much he appreciated being able to talk on the phone, saying "you don't know how much that means to me." Compliant with whole medications. No agitation noted.
[2018-12-24 06:54] VITALS: BP 185/68
[2018-12-24] MEDS: METOPROLOL TART IMMED RELEASE 25 MG TABLET PO SCH ×2 (09:00→19:24)
--- NOTE | 2018-12-24 10:11 | NUR ---
Pt enjoys sleeping in. No hallucinations or delusions noted. He is cooperative with his medication and assessment. Pt is cooperative with cares. No agitation or aggression.
[2018-12-24] MEDS: POLYVINYL ALCOHOL 1.4% OPHTH SOLUTION 15ML BOTTLE. OU SCH ×3 (11:49→19:23)
[2018-12-24] MEDS: ASPIRIN ENTERIC COATED 81 MG TABLET.DR. PO SCH (11:49)
[2018-12-24] MEDS: DOCUSATE SODIUM 100 MG CAPSULE PO SCH ×2 (11:50→19:25)
[2018-12-24] MEDS: LACTOBACILLUS RHAMNOSUS GG 1 CAPSULE. PO SCH ×2 (11:51→19:24)
[2018-12-24] MEDS: TAMSULOSIN 0.4 MG CAP.ER.24H. PO SCH (11:51)
[2018-12-24] MEDS: FUROSEMIDE 40 MG TABLET PO SCH (11:51)
[2018-12-24] MEDS: MULTIVITAMIN with MINERAL TABLET. PO SCH (11:52)
[2018-12-24] MEDS: SERTRALINE 50 MG TABLET. PO SCH (11:52)
[2018-12-24] MEDS: amLODIPine BESYLATE 10 MG TABLET PO SCH (11:52)
[2018-12-24] MEDS: QUEtiapine 25 MG TABLET. PO SCH ×2 (11:52→19:24)
--- NOTE | 2018-12-24 13:20 | NUR ---
SW spoke to pt to inform her that no placements have said yes as of yet. Pt has requested that pt call [facility] again to see if they will change their mind. Pt reports that she really does not want to make a co-pay but would consider having pt stay at least until the end of the week. Pt does not want pt in [place], [facility] within the [facility] is too far, but she could handle the [place] area. BROOK will continue to see what options are there and get back to pt .
[2018-12-24 15:19] VITALS: BP 137/70
[2018-12-24 16:24] VITALS: BP 137/70
[2018-12-24] MEDS: MIRTAZAPINE 15 MG TABLET PO SCH (19:24)
[2018-12-24] MEDS: DIVALPROEX 125 MG CAP.SPRINK PO SCH (19:25)
[2018-12-24] MEDS: ATORVASTATIN CALCIUM 20 MG TABLET PO SCH (19:25)
[2018-12-24] MEDS: SELENIUM SULFIDE 1% TOPICAL SHAMPOO 207ML BOTTLE. TP SCH (19:26)
--- NOTE | 2018-12-24 21:38 | NUR ---
Nursing Note The patient was located in his room for his medication and assessment. The patient took his medication whole. the patient was pleasant during interactions with this nurse. the patient is currently located in his room sleeping.
--- NOTE | 2018-12-24 22:35 | PDOC ---
Exam Note: Theodore Note: Please also refer to the separate dictated note~for this date of service dictated separately.~Patient seen individually. Discussed the patient with Nursing staff reviewed the chart.~Reviewed interim history and current functioning. Reviewed vital signs,~Labs/ Radiology~and current medications noted below. Continue current treatment with the changes noted in the dictated addendum note Assessment: Vital Signs/I&O: Vital Signs Date Time Temp Pulse Resp B/P (MAP) Pulse Ox O2 Delivery O2 Flow Rate FiO2 12/24/18 19:24 74 137/70 12/24/18 16:24 97.9 18 97 12/23/18 06:25 Room Air I & O 12/23/18 12/23/18 12/24/18 14:59 22:59 06:59 Intake Total 720 ml 240 ml 240 ml Balance 720 ml 240 ml 240 ml Current Medications: I have reviewed the current psychotropics carefully including drug interactions. Risk benefit ratio favors no change other than as noted in my dictated progress note. Diagnosis: Problems: (1) Anxiety disorder (2) Dementia, vascular, with depression (3) Dementia, vascular, with delusions (4) Dementia in Alzheimer's disease with depression (5) Dementia in Alzheimer's disease with delusions (6) Impulse control disorder (7) Major neurocognitive disorder (8) Altered mental status OVIDIO BARRIOS MD Dec 24, 2018 22:35
[2018-12-25 06:03] VITALS: BP 182/82
[2018-12-25] MEDS: TAMSULOSIN 0.4 MG CAP.ER.24H. PO SCH (08:18)
[2018-12-25] MEDS: ASPIRIN ENTERIC COATED 81 MG TABLET.DR. PO SCH (08:18)
[2018-12-25] MEDS: LACTOBACILLUS RHAMNOSUS GG 1 CAPSULE. PO SCH ×2 (08:18→19:17)
[2018-12-25] MEDS: DOCUSATE SODIUM 100 MG CAPSULE PO SCH ×2 (08:18→19:18)
[2018-12-25] MEDS: POLYVINYL ALCOHOL 1.4% OPHTH SOLUTION 15ML BOTTLE. OU SCH ×3 (08:18→19:23)
[2018-12-25] MEDS: MULTIVITAMIN with MINERAL TABLET. PO SCH (08:19)
[2018-12-25] MEDS: METOPROLOL TART IMMED RELEASE 25 MG TABLET PO SCH ×2 (08:19→19:18)
[2018-12-25] MEDS: FUROSEMIDE 40 MG TABLET PO SCH (08:19)
[2018-12-25] MEDS: SERTRALINE 50 MG TABLET. PO SCH (08:20)
[2018-12-25] MEDS: amLODIPine BESYLATE 10 MG TABLET PO SCH (08:20)
--- NOTE | 2018-12-25 10:51 | NUR ---
He is cooperative with his medication and assessment. Pt is cooperative with cares. No agitation or aggression. No hallucinations or delusions noted. He has been interactive and joking with staff.
[2018-12-25] MEDS: QUEtiapine 25 MG TABLET. PO SCH ×2 (11:12→19:18)
[2018-12-25 13:20] VITALS: BP 108/61
--- NOTE | 2018-12-25 13:25 | NUR ---
SW met with pt to discuss the decision that pt must discharge tomorrow. Pt has today as his last covered day; although SW asked for the end of the week, it was denied. Pt will have to be discharged home with tomorrow. Pt was upset and felt that her 's well-being should be more important than the cost of the days pt has been here. SW discussed with pt that the expectation is to have pt here for 3-4 weeks. However, with pt condition, not all facilities reached out to are accepting of pt; not to mention having stipulations on where pt can and cannot goes hinders the process. Pt stated "I will not allow him to live in a dump. He has worked too hard to go to a place that is horrible". BROOK was asked to continue to send out referrals that are within a 20 mile radius of pt house. SW will also send out referrals that are outside of that radius as pt will either have to deal with the drive or take him home with options for private duty and care. Pt will plan to take pt to a hotel as she knows that if she takes pt home, he will be hard to get out of the house. She will plan to stay in a hotel close in the [facility], in hopes that a facility will take pt within the next 24-48 hours. BROOK will be in contact with pt . She will plan to visit pt at noon and then pick him up around 1400 when her son can be present.
[2018-12-25 16:22] VITALS: BP 114/64
[2018-12-25] MEDS: DIVALPROEX 125 MG CAP.SPRINK PO SCH (19:17)
[2018-12-25] MEDS: ATORVASTATIN CALCIUM 20 MG TABLET PO SCH (19:18)
[2018-12-25] MEDS: MIRTAZAPINE 15 MG TABLET PO SCH (19:18)
--- NOTE | 2018-12-25 21:10 | NUR ---
Nursing Note The patient was located in the day room for his medication and assessment. The patient was compliant with medication and took his medication whole. The patient was calm and cooperative with assessments an cares. The patient was found to have a skin abrasion on his right foot. Foam dressing and medi division toll wire chief applied. The patient is currently sleeping in his room.
--- NOTE | 2018-12-25 22:44 | PDOC ---
Exam Note: Theodore Note: Please also refer to the separate dictated note~for this date of service dictated separately.~Patient seen individually. Discussed the patient with Nursing staff reviewed the chart.~Reviewed interim history and current functioning. Reviewed vital signs,~Labs/ Radiology~and current medications noted below. Continue current treatment with the changes noted in the dictated addendum note Assessment: Vital Signs/I&O: Vital Signs Date Time Temp Pulse Resp B/P (MAP) Pulse Ox O2 Delivery O2 Flow Rate FiO2 12/25/18 19:18 82 114/64 12/25/18 16:22 98.0 16 95 12/25/18 06:03 Room Air I & O 12/24/18 12/24/18 12/25/18 14:59 22:59 06:59 Intake Total 240 ml 460 ml Balance 240 ml 460 ml Current Medications: I have reviewed the current psychotropics carefully including drug interactions. Risk benefit ratio favors no change other than as noted in my dictated progress note. Diagnosis: Problems: (1) Anxiety disorder (2) Dementia, vascular, with depression (3) Dementia, vascular, with delusions (4) Dementia in Alzheimer's disease with depression (5) Dementia in Alzheimer's disease with delusions (6) Impulse control disorder (7) Major neurocognitive disorder (8) Altered mental status OVIDIO BARRIOS MD Dec 25, 2018 22:44
--- NOTE | 2018-12-25 23:10 | PN ---
DATE: 12/24/2018 PSYCHIATRIC PROGRESS NOTE This late entry, 12/24, covers elements not covered in my initial note. SUBJECTIVE: I met with the patient evening of 12/24. The patient slept 6-1/4 hours previous night. He remains somewhat withdrawn, confused, but otherwise cooperative. REVIEW OF SYSTEMS: Ambulation impaired. No CV, , pulmonary, eye, ENT system symptoms on review. Reliability poor. MENTAL STATUS EXAM: Oriented to himself. Insight, judgment, recent and remote memory, attention, concentration, fund of knowledge poor, consistent with his diagnosis mentioned in my initial note. PLAN: No change from initial note. MAN Saw BARRIOS MD DR: GARY/tasneem JOB#: [id number] / [id number]
--- NOTE | 2018-12-26 02:40 | PN ---
DATE: 12/23/2018 This late entry 12/23/2018 covers elements not covered in my initial note. SUBJECTIVE: I met with patient in the evening. The patient slept 6-3/4 hours previous night. He has been pleasant, but was combative in the morning. Did redirect, but developed a skin tear on his hand. REVIEW OF SYSTEMS: Ambulation impaired, in wheelchair. No CV, , pulmonary, eye, ENT system symptoms on review. Reliability poor. MENTAL STATUS EXAM: Oriented to himself. Insight, judgment, recent and remote memory, attention, concentration, fund of knowledge poor consistent with his diagnosis mentioned in my initial note. PLAN: No change from initial note. MAN Saw BARRIOS MD DR: GARY/tasneem JOB#: [id number] / [id number]
[2018-12-26] MEDS ORDERED: METH29OI TP (03:13)
[2018-12-26] MEDS ORDERED: DIVA125C2 PO (03:14)
[2018-12-26] MEDS ORDERED: QUET25TA5 PO (03:15)
[2018-12-26] MEDS ORDERED: MAGN400O7 PO (03:16)
[2018-12-26] MEDS ORDERED: NYST15PO9 TP (03:17)
[2018-12-26] MEDS ORDERED: HYDR-2869 PO (03:21)
[2018-12-26] MEDS ORDERED: FURO40TA4 PO (03:21)
[2018-12-26] MEDS: MULTIVITAMIN with MINERAL TABLET. PO SCH (07:43)
[2018-12-26] MEDS: ASPIRIN ENTERIC COATED 81 MG TABLET.DR. PO SCH (07:43)
[2018-12-26] MEDS: LACTOBACILLUS RHAMNOSUS GG 1 CAPSULE. PO SCH (07:43)
[2018-12-26] MEDS: METOPROLOL TART IMMED RELEASE 25 MG TABLET PO SCH (07:43)
[2018-12-26] MEDS: amLODIPine BESYLATE 10 MG TABLET PO SCH (07:43)
[2018-12-26] MEDS: TAMSULOSIN 0.4 MG CAP.ER.24H. PO SCH (07:43)
[2018-12-26 07:44] VITALS: BP 114/64
[2018-12-26] MEDS: FUROSEMIDE 40 MG TABLET PO SCH (07:44)
[2018-12-26] MEDS: SERTRALINE 50 MG TABLET. PO SCH (07:44)
[2018-12-26] MEDS: DOCUSATE SODIUM 100 MG CAPSULE PO SCH (07:44)
[2018-12-26] MEDS: POLYVINYL ALCOHOL 1.4% OPHTH SOLUTION 15ML BOTTLE. OU SCH ×2 (07:46→14:00)
[2018-12-26] MEDS: QUEtiapine 25 MG TABLET. PO SCH (11:57)
--- NOTE | 2018-12-26 13:02 | NUR ---
[facility] Social Work Discharge Planning Form Patient Name IKER AKBAR Admit Date: 11/02/18 DISCHARGE PLAN Discharge Destination: to stay with pt in [facility] in [place], [place] Care Assessment: N/A Level II Assessment: N/A Transportation: Pt and son to pick pt up around 1500. Special Instructions/Notes: Pt is planning to stay with pt at the [facility]; courtesy of [facility] until placement has approved pt for Rehabilitation services. Multiple referrals have been sent with denials for placement. has sent out more referrals within the [facility]. If these referrals call with approval, SW will contact pt to aid in making those arrangements. Current denials include: [facility], [facility], [facility], [facility], [facility], [facility], [facility], and [facility]. BROOK is waiting to hear back from [facility], [facility], [facility] and [facility]. DISCHARGE TO HOME: Address: [address] [place] [address]; [place] [address] Responsible Libertarian: Pt , Indy Akbar Pharmacy: [facility] Contact Information:
--- NOTE | 2018-12-26 14:30 | NUR ---
Transition Record was faxed to follow-up provider with the following elements: Reason for admission, procedures, tests, principal diagnosis, pending studies, patient instructions, 19/12 contact information for unit, phone number to obtain pending test results, plan for follow-up care, physician follow-up, advanced directive information, and medication list with dose, duration and instructions. This information was included in the following documents: History and physical, lab results, study results, progress notes, social work planning form, DC instruction form, patient visit summary, and medication reconciliation form. Date & time record faxed: 14:40 26 December 2018 Record faxed to: Dr. Denilson Camara Record discussed with/ report given to: Patient and his spouse/DPOA. Discharge education included medications, wound care, and recommended follow up schedule. Wounds on his left hand and right elbow were redressed and photographed. Prescriptions were called into patient's home pharmacy
--- NOTE | 2018-12-26 18:39 | PDOC ---
Exam Note: Theodore Note: Please also refer to the separate dictated note~for this date of service dictated separately.~Patient seen individually. Discussed the patient with Nursing staff reviewed the chart.~Reviewed interim history and current functioning. Reviewed vital signs,~Labs/ Radiology~and current medications noted below. Continue current treatment with the changes noted in the dictated addendum note Assessment: Vital Signs/I&O: Vital Signs Date Time Temp Pulse Resp B/P (MAP) Pulse Ox O2 Delivery O2 Flow Rate FiO2 12/26/18 07:44 82 114/64 12/25/18 16:22 98.0 16 95 12/25/18 06:03 Room Air I & O 12/25/18 12/25/18 12/26/18 15:00 23:00 07:00 Intake Total 720 ml 240 ml 360 ml Balance 720 ml 240 ml 360 ml Current Medications: I have reviewed the current psychotropics carefully including drug interactions. Risk benefit ratio favors no change other than as noted in my dictated progress note. Diagnosis: Problems: (1) Dementia, vascular, with depression (2) Anxiety disorder (3) Dementia, vascular, with delusions (4) Dementia in Alzheimer's disease with depression (5) Dementia in Alzheimer's disease with delusions (6) Impulse control disorder (7) Major neurocognitive disorder OVIDIO BARRIOS MD Dec 26, 2018 18:39
--- NOTE | 2018-12-26 21:53 | PN ---
DATE: 12/25/2018 This late entry, 12/25, covers elements not covered in my initial note. SUBJECTIVE: I met with the patient in the evening. The patient slept 4 hours previous night. He walked around the unit with nursing staff, more interactive. In the evening when I met with him, he is quite upset that he was not served a good dinner. Apparently, there was beef and noodles and much of the dinner was noodles and he stays quite hungry. I addressed with nursing staff. They will provide extra snacks for this evening. REVIEW OF SYSTEMS: Ambulation impaired, in wheelchair. No CV, , pulmonary, eye, ENT system symptoms on review. MENTAL STATUS EXAM: Oriented to himself. Insight, judgment, recent and remote memory, attention, concentration, fund of knowledge poor, consistent with his diagnosis mentioned in my initial note. PLAN: No change from initial note. MAN Saw BARRIOS MD DR: GARY/tasneem JOB#: [id number] / [id number]
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
== END 2018-12-26 14:45 | disposition home or self-care (01) | DRG 57 ==
LOC: GEROPSY 18:17 → UNDOADMIN 18:17 → GEROPSY 11-02 01:00
PROVIDERS: ADMIT Psychiatry & Neurology Psychiatry; ATTEND Psychiatry & Neurology Psychiatry
DX: G30.9 Alzheimer's disease, unspecified (principal); F01.51 Vascular dementia, unspecified severity, with behavioral disturbance; F02.81 Dementia in other diseases classified elsewhere, unspecified severity, with behavioral disturbance; I13.0 Hypertensive heart and chronic kidney disease with heart failure and stage 1 through stage 4 chronic kidney disease, or unspecified chronic kidney disease; F41.9 Anxiety disorder, unspecified; F63.9 Impulse disorder, unspecified; N18.3 Chronic kidney disease, stage 3 (moderate); Z66 Do not resuscitate; G47.00 Insomnia, unspecified; F32.9 Major depressive disorder, single episode, unspecified; I50.9 Heart failure, unspecified; R13.10 Dysphagia, unspecified; Z85.828 Personal history of other malignant neoplasm of skin; Z79.899 Other long term (current) drug therapy; Z99.3 Dependence on wheelchair; Z95.5 Presence of coronary angioplasty implant and graft; I69.398 Other sequelae of cerebral infarction; Z88.6 Allergy status to analgesic agent; Z88.5 Allergy status to narcotic agent; Z88.8 Allergy status to other drugs, medicaments and biological substances
CPT/HCPCS: 36415; 80048; 80053; 80164; 83735; 85025; 93971; 97110; 97116; 97530; 97535